=== PATIENT | female | born 1980 | race Caucasian/White ===

== ENCOUNTER 2022-05-26 13:16 | Emergency (ER) | payer OTHER, SELFPAY ==
[2022-05-26 13:40] VITALS: BP 126/82; PULSE 110; RESP 16; TEMP 36.7; O2SAT 100
--- NOTE | 2022-05-26 15:14 | ED.GENADULT ---
HPI - General Adult General Chief complaint: Skin/Abscess/Foreign Body <Ellen De Leon PA-C - Last Filed: 05/26/22 19:07> Stated complaint: rash <SHARAD Jimenes Last Filed: 05/26/22 19:07> Time Seen by Provider: 05/26/22 14:52 <SHARAD Jimenes Last Filed: 05/26/22 19:07> History of Present Illness HPI narrative: 41-year-old female here for evaluation of a rash to her chest and back after taking Bactrim. States that she was given this for presumed impetigo on her face due to an allergy to topical creams. She took her first pill this morning and noted that she had a diffuse erythematous rash across her chest and back that is itchy. She took 2 Benadryl this morning. Denies painful rash or involvement of mucous membranes, throat tightness or trouble breathing. Denies fevers, chills, systemic symptoms. <Ellen De Leon PA-C - Last Filed: 05/26/22 19:07> Related Data Allergies/adverse reactions: Allergies Allergy/AdvReac Type Severity Reaction Status Date / Time acetaminophen Allergy Mild Swelling Verified 05/26/22 13:45 Penicillins Allergy Mild HIVES Verified 05/26/22 13:45 poison faustino extract Allergy Mild RASH Verified 05/26/22 13:45 hydrocortisone Allergy Unknown Unknown Verified 05/26/22 13:45 lanolin Allergy Unknown HIVES Verified 05/26/22 13:45 tramadol AdvReac Unknown Headache Verified 05/26/22 15:25 steroid cremes Allergy Intermediate Hives / Uncoded 05/26/22 13:45 Red Face bug spray Allergy Unknown Unknown Uncoded 05/26/22 13:45 hand joint special operations Allergy Unknown Unknown Uncoded 05/26/22 13:45 <SHARAD Jimenes Last Filed: 05/26/22 19:07> Review of Systems Review of Systems: Gen.: Denies fevers or chills Eyes: Denies eye pain or visual change ENT: Denies congestion Respiratory: Denies shortness of breath or cough CV: Denies chest pain or palpitations GI: Denies abdominal pain nausea, emesis or diarrhea denies burning, urgency, frequency or hematuria Musculoskeletal: Denies back pain or muscle pain Neuro: Denies numbness, tingling, weakness or focal weakness Skin: Reports rash Except as documented, all other systems reviewed and negative <Ellen De Leon PA-C - Last Filed: 05/26/22 19:07> Exam Narrative: APPEARANCE: Well appearing, no pain in distress, well-nourished. Head: Normocephalic and atraumatic. EYES: PERRLA/EOMI, conjunctivae clear NOSE: No nasal drainage EARS: External ear normal in appearance THROAT: Oropharynx is clear. Mucous membranes are moist. NECK: Supple. No adenopathy, no masses. RESPIRATORY: Airway patent, respirations nonlabored. Clear to auscultation bilaterally, no rales, rhonchi, wheezing. CARDIOVASCULAR: Regular rate and rhythm without murmurs, rubs, or gallops. ABDOMINAL: Normoactive bowel sounds. Soft, nontender, nondistended. No rebound tenderness or guarding. MUSCULOSKELETAL: Extremities are warm and well-perfused. Moves all extremities well. No edema. NEURO: Normal speech. No focal neurologic deficits. SKIN: Erythematous morbilliform rash across anterior and posterior thorax extending distally to bilateral forearms. PSYCHIATRIC: Normal affect/mood. <Ellen De Leon PA-C - Last Filed: 05/26/22 19:07> Course ASSEMBLER MUSICAL EQUIPMENT/PA Physician Supervision I did not see this patient nor was the care plan discussed with me. I was available for evaluation and consultation, I agree with the documentation <Saeid Mcclelland MD - Last Filed: 05/26/22 19:19> Vital Signs Vital signs: Vital Signs Temperature 36.7 C 05/26/22 13:40 Pulse Rate 110 H 05/26/22 13:40 Respiratory Rate 16 05/26/22 13:40 Blood Pressure 126/82 05/26/22 13:40 Pulse Oximetry 100 05/26/22 13:40 Oxygen Delivery Room Air 05/26/22 13:40 Temperature 36.7 C 05/26/22 13:40 Pulse Rate 110 H 05/26/22 13:40 Respiratory Rate 16 05/26/22 13:40 Blood Pressure 126/82 05/26/22 13:40 Pulse Oximetry 100 04/29
[2022-05-26] MEDS: FAMOTIDINE 20 MG TABLET 40 MG PO (15:40)
[2022-05-26] MEDS: predniSONE 20 MG TABLET 40 MG PO (15:41)
== END 2022-05-26 17:35 | disposition home or self-care (01) ==
PROVIDERS: Emergency Provider Emergency Medicine; PCP Family Medicine
DX: L27.0 Generalized skin eruption due to drugs and medicaments taken internally (principal); T36.8X5A Adverse effect of other systemic antibiotics, initial encounter
CPT/HCPCS: 99283; A9270; J7512

== ENCOUNTER 2022-09-25 19:52 | Emergency (ER) | payer OTHER, SELFPAY ==
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
[2022-09-25 20:01] VITALS: BP 143/98; PULSE 113; RESP 16; TEMP 36.7; O2SAT 100
== END 2022-09-25 20:06 | disposition home or self-care (01) ==
LOC: EXPCOLL 19:55
PROVIDERS: Emergency Provider Nurse Practitioner Family; PCP Family Medicine
DX: L30.9 Dermatitis, unspecified (principal)
CPT/HCPCS: 99213; G0463

== ENCOUNTER 2022-12-13 00:15 | Emergency (ER) | payer OTHER, SELFPAY ==
--- NOTE | ~2022-12-13 | CT_ITS ---
EXAMINATION: CT abdomen pelvis w con DATE: 12/13/2022 02:56 INDICATION: Lower abdominal pain, nausea and vomiting. This steatosis. TECHNIQUE: Computed tomography (CT) of the abdomen and pelvis was performed with 100 mL Omnipaque-350 intravenous contrast. Automated exposure control and iterative reconstruction technique were employe d. The dose-length product was 1382.65 mGy-cm. COMPARISON: 04/25/2018 FINDINGS: Lung bases are clear. Heart size is normal. No pericardial or pleural effusion. Focal hepatic steatos is at the ligamentum teres. Gallbladder, spleen, bilateral adrenal glands and kidneys are normal. Aga in seen is mild inflammatory stranding along the head of the pancreas and adjacent duodenum. There is relatively homogeneous pancreatic parenchymal enhancement with no abnormal pancreatic ductal dilatio n. No peripancreatic fluid collections. No significant change in a mildly enlarged portacaval lymph n ode measuring 1.4 cm in maximal short axis diameter which is likely reactive. Moderate diverticulosis with descending and sigmoid colon predominance and without adjacent from trace stranding to suggest diverticulitis. No bowel obstruction. Normal appendix. Tiny focus of gas within the otherwise normal- appearing bladder. Uterus and bilateral adnexa are unremarkable. No free intraperitoneal gas or fluid . Small fat-containing umbilical hernia. Mild thoracic and lumbar spondylosis. IMPRESSION: 1. Inflammatory stranding surrounding the head of the pancreas and adjacent duodenum likely represent ing recurrent acute pancreatitis with differential including duodenitis. Correlate with pancreatic en zyme levels. 2. Indeterminate tiny focus of gas within the bladder. Correlate with urinalysis and for recent instr umentation or Irwin catheterization. 3. Diverticulosis. Reviewed, dictated and finalized at location A. K INSPECTING SUPERVISOR IMPRESSION: 1. Inflammatory stranding surrounding the head of the pancreas and adjacent duo denum likely representing recurrent acute pancreatitis with differential includ ing duodenitis. Correlate with pancreatic enzyme levels. 2. Indeterminate tiny focus of gas within the bladder. Correlate with urinalysi s and for recent instrumentation or Irwin catheterization. 3. Diverticulosis.
[2022-12-13 00:23] VITALS: BP 149/106; PULSE 94; RESP 18; TEMP 36.6; O2SAT 99
[2022-12-13] MEDS: ONDANSETRON INJ 4 MG/2 ML VIAL IV PUSH (00:50)
--- NOTE | 2022-12-13 00:50 | ED.NAVMDI ---
HPI - Nausea/Vomiting/Diarrhea General Chief complaint: Nausea/Vomiting/Diarrhea Stated complaint: n/v Time Seen by Provider: 12/13/22 00:30 History of Present Illness HPI Narrative: Patient is a 42-year-old healthy female here for evaluation of nausea and vomiting over the past 3 days. Patient states that she has been unable to tolerate any p.o.. Today she developed a soreness in her abdomen after vomiting. Denies sick contacts. Last meal was [employer] and tuna casserole prior to vomiting. No diarrhea, constipation, fevers, chills, leg swelling, chest pain, shortness of breath, history of abdominal surgeries. Related Data Home Medications Medication Instructions Recorded Confirmed norethindrone 1 mg-ethinyl tablet 09/25/22 estradiol 35 mcg tablet (Nortrel) Allergies Allergy/AdvReac Type Severity Reaction Status Date / Time acetaminophen Allergy Mild Swelling Verified 12/13/22 00:26 Penicillins Allergy Mild HIVES Verified 12/13/22 00:26 poison faustino extract Allergy Mild RASH Verified 12/13/22 00:26 hydrocortisone Allergy Unknown Unknown Verified 12/13/22 00:26 lanolin Allergy Unknown HIVES Verified 12/13/22 00:26 tramadol AdvReac Unknown Headache Verified 12/13/22 00:26 steroid cremes Allergy Intermediate Hives / Uncoded 09/25/22 20:01 Red Face bug spray Allergy Unknown Unknown Uncoded 09/25/22 20:01 hand tray packer Allergy Unknown Unknown Uncoded 09/25/22 20:01 Review of Systems Review of Systems: Gen: Denies fevers or chills Eyes: Denies eye pain or visual change ENT: Denies congestion Respiratory: Denies shortness of breath or cough CV: Denies chest pain or palpitations GI: Reports nausea, vomiting. : denies burning, urgency, frequency or hematuria Musculoskeletal: Denies back pain or muscle pain Neuro: Denies numbness, tingling, weakness or focal weakness Skin: Denies rash Except as documented, all other systems reviewed and negative Exam Narrative: APPEARANCE: Well appearing, no pain in distress, well-nourished. Head: Normocephalic and atraumatic. EYES: PERRLA/EOMI, conjunctivae clear NOSE: No nasal drainage EARS: External ear normal in appearance THROAT: Oropharynx is clear. Mucous membranes are moist. NECK: Supple. No adenopathy, no masses. RESPIRATORY: Airway patent, respirations nonlabored. Clear to auscultation bilaterally, no rales, rhonchi, wheezing. CARDIOVASCULAR: Regular rate and rhythm without murmurs, rubs, or gallops. ABDOMINAL: Normoactive bowel sounds. Soft, nontender, nondistended. No rebound tenderness or guarding. MUSCULOSKELETAL: Extremities are warm and well-perfused. Moves all extremities well. No edema. NEURO: Normal speech. No focal neurologic deficits. SKIN: Skin is warm and dry. No rashes. PSYCHIATRIC: Normal affect/mood. Course Vital Signs Vital signs: Vital Signs Temperature 97.8 F 12/13/22 00:23 Pulse Rate 94 12/13/22 00:23 Respiratory Rate 18 12/13/22 00:23 Blood Pressure 149/106 H 12/13/22 00:23 Pulse Oximetry 99 12/13/22 00:23 Oxygen Delivery Room Air 12/13/22 00:23 Temperature 97.8 F 12/13/22 00:23 Pulse Rate 99 12/13/22 03:55 Respiratory Rate 20 12/13/22 03:55 Blood Pressure 149/106 H 12/13/22 00:23 Pulse Oximetry 98 12/13/22 03:55 Oxygen Delivery Room Air 12/13/22 00:23 MDM - Nausea/Vomiting/Diarrhea MDM Narrative Medical decision making narrative: 42-year-old female here for evaluation of nausea, vomiting, lower abdominal pain over the past 3 days. Patient is nontoxic-appearing and has normal vital signs. She has no abdominal tenderness on exam. UA is unremarkable. Lipase is negative. She does have a white count of 22.0, so imaging was obtained. This shows some inflammation around her pancreas that is consistent with an acute versus chronic pancreatitis picture, patient tells me that she has had pancreatitis in the past and feels nothing like her symptoms today. She is not tender in her epigastric region
[2022-12-13] MEDS: FAMOTIDINE 20 MG/2 ML VIAL IV PUSH (00:51)
[2022-12-13 00:57] LABS: Basophils Absolute Auto 0.1 K/mm3 (0.0-0.1); Basophils Percent Auto 0.5 % (0.2-1.2); Eosinophils Absolute Auto 0.3 K/mm3 (0-0.3); Eosinophils Percent Auto 1.1 % (0-4.4); Hematocrit 42.8 % (37.0-47.0); Hemoglobin 14.4 g/dL (12.0-15.0); Immature Granulocyte Percent A 0.5 % (0-0.5); Lymphocytes Absolute Auto 3.29 K/mm3 (0.9-3.2); Mean Corpuscular HGB Conc 33.6 g/dl (32-36); Mean Corpuscular Hemoglobin 27.9 pg (26-34); Mean Corpuscular Volume 82.9 fl (80-100); Mean Platelet Volume 9.4 fl (7.4-10.4); Monocytes Absolute Auto 1.7 K/mm3 (0.1-0.6); Monocytes Percent Auto 7.7 % (2.6-8.5); Neutrophils Absolute Auto 16.5 K/mm3 (1.3-6.7); Neutrophils Percent Auto 75.2 % (45.5-73.1); Platelet Count Result 445 k/mm3 (150-375); Red Blood Count 5.16 M/mm3 (4.2-5.4); Red Cell Distribution Width 13.5 % (11.5-14.5)
[2022-12-13 01:04] LABS: Alanine Aminotransferase 22 U/L (6-35); Albumin Level 4.3 g/dL (3.5-5.1); Alkaline Phosphatase 100 U/L (38-126); Anion Gap 7 mmol/L (8-16); Aspartate Amino Transferase 22 U/L (14-36); Bilirubin,Total 0.7 mg/dL (0.2-1.3); Blood Urea Nitrogen 5 mg/dL (7-17); Calcium 8.8 mg/dL (8.4-10.2); Carbon Dioxide 25 mmol/L (22-30); Chloride 106 mmol/L (98-107); Estimated CRCL calculation 103 ml/min; Estimated Glomerular Filt Rate > 60; Glucose 120 mg/dL (65-110); Lipase 214 U/L (23-300); Magnesium 2.1 mg/dL (1.6-2.3); Potassium 3.7 mmol/L (3.4-5.0); Sodium 138 mmol/L (137-145)
[2022-12-13] MEDS: LACTATED RINGERS 1,000 ML 999 ML IV CONT (01:35)
[2022-12-13 02:05] LABS: Appearance Urine Clear (Clear); Bacteria Urine Trace /hpf; Bilirubin Urine Negative (Negative); Blood Urine Negative (Negative); Color Urine Yellow (Yellow); Glucose Urine UA Negative (Negative); Ketones Urine 1+ mg/dL (Negative); Leukocyte Esterase Ur Negative LEU/UL (Negative); Mucus Urine Rare /lpf; Nitrate Urine Negative (Negative); Protein Urine Negative (Negative); Squamous Epithelial Cell Urine Occasional /hpf (Few); Urobilinogen Urine 0.2 mg/dL (<2.0); WBC Urine 0-3 /hpf; pH Urine 6.5 (5.0-9.0)
[2022-12-13 02:29] LABS: Add Urine Microscopic? YES
[2022-12-13 03:55] VITALS: PULSE 99; RESP 20; O2SAT 98
== END 2022-12-13 03:59 | disposition home or self-care (01) ==
PROVIDERS: Emergency Provider Physician Assistant; PCP Family Medicine
DX: K52.9 Noninfective gastroenteritis and colitis, unspecified (principal)
CPT/HCPCS: 36415; 74177; 80053; 81001; 81025; 83690; 83735; 85025; 96361; 96374; 96375; 99284; J2405; J7120; Q9967

== ENCOUNTER 2025-02-02 04:16 | Emergency (ER) | payer OTHER, SELFPAY ==
--- OUTSIDE RECORDS SUMMARY | 2025-02-02 04:18 | XMS_ITS | Clinical Summary ---
Author Organization [facility] Address [address] 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 Gender Identity Not on file Sexual Orientation Not on file Plan of Treatment Health Maintenance Due Date Last Done Comments DTAP/TDAP/TD VACCINES (1 - Tdap) 1998 HEPATITIS B VACCINES (1 of 3 - 19+ 3-dose series) 1998 CERVICAL CANCER SCREENING 2009 BREAST CANCER SCREENING 2019 INFLUENZA VACCINE (#1) 2024 COLORECTAL SCREENING 2024 Colorectal Cancer Screening 2024 FIT-DNA Q 3 years 2024 FIT/FOBT Q 1 year 2024 Flex Sig/CT Colonography Q 5 years 2024 HPV VACCINES Aged Out No longer eligi ble based on patient's age to complete this topic PNEUMOCOCCAL VACCINE 0-49 YEARS Aged Out No longer eligible based on patient's age to complete this topic
--- OUTSIDE RECORDS SUMMARY | 2025-02-02 04:18 | XMS_ITS | Clinical Summary ---
Author Organization [facility] Address [address] [place] [address] Care Team Providers Care Measurement Coordinator Name Role Phone Cehlsie Bass JAY-ALGEBRA TUTOR Primary Care Provider Source Comments [facility],non-owned Affiliates and Associated Physician Practices is amultiple site organization consisting of ambulatory clinics and hospital sitesin [place], [place], [place] and [place]. This disclosure is being madepursuant to the Care Everywhere program and may not contain all information available regarding this patient. Last updated 18.[facility] Allergies Active Allergy Reactions Criticality Noted Date Comments Acetaminophen Anaphylaxis,Shortnes s of Breath,Swelling High 1979 Adhesive Sensitivity Rash Medium 12/23/2017 Alcohol Rash Medium 12/01/2023 Corticosteroids Rash Medium 12/23/2017 Steroid cream-able to take other oral steroids Albumin Anaphylaxis High 12/01/2023 Extract Of Poison Juliana Rash Medium 12/23/2017 Isopropyl Alcohol Urticaria,Itching,Ra sh Medium 07/12/2012 Lanolin Rash Medium 12/23/2017 Mosquito (Diagnostic) Swelling 12/01/2023 Penicillins Urticaria Medium 05/08/2008 Sulfamethoxazole W-Trimethoprim Rash Medium 12/01/2023 Medications * Be aware that medications may not be up to date on this document. Alwaysverify current medications with the patient. Medication Sig Dispensed Refills Start Date End Date Status Nortrel 1/35, 28, 1-35 MG-MCG tablet Take 1 (one) tablet by mouth once daily 09/15/2023 Active cetirizine (ZyrTEC Allergy) 10 MG gel capsule Active Cinnamon 500 MG Active Cranberry 400 MG CAPS Act kirsten magnesium oxide (Mag-Ox) 400 MG tablet Take 1 (one) tablet by mouth once daily Active Multiple Minerals-Vitamins (Bone Essentials) CAPS Ac tive POTASSIUM PO Take 1 tablet by mouth once daily Active vitamin E (Tocopheryl) 400 UNIT capsule Take 1 (one) capsule by mouth once daily Active vitamin D3 (Cholecalciferol) 25 MCG (1000 UNITS) tablet Take 1 (one) tablet by mouth once daily Active Active Problems Problem Noted Date Diagnosed Date Thyroid nodule 01/10/2024 Multinodular thyroid 01/10/2024 Sensorineural hearing loss ( SNHL) of right ear with unrestricted hearing of left ear 09/17/2021 01/10/2024 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 Encounters Date Type Department Care Team Description 01/04/2025 Orders Only [facility] - Endocrinology [facility] [facility], [place] [id number] Beny Morocho MD Thyroid nodule; Multinodular thyroid from Last 3 Months Family History Medical History Relation Name Comments CAD (Coronary Artery Disease) Father Diabetes - Type 2 Father Hypertension Father Renal Disease Neg Hx Thyroid Disease Neg Hx Relation Name Status Comments Father Social History Tobacco Use Types Packs/Day Years Used Date Smoking Tobacco: Never Smokeless Tobacco: Never Alcohol Use Standard Drinks/Week Comments Yes 0 (1 standard drink = 0.6 oz pur e alcohol) rarely Sex and Gender Information Value Date Recorded Sex Assigned at Female 12/05/2023 10:50 AM PATIENT ADMITTING CLERK Gender Identity Female 12/05/2023 10:50 AM PATIENT ADMITTING CLERK Sexual Orientation Straight 12/05/2023 10 :50 AM PATIENT ADMITTING CLERK Last Filed Vital Signs Vital Sign Reading Time Taken Comments Blood Pressure 121/92 01/10/2024 2:30 PM PATIENT ADMITTING CLERK Pulse 115 01/10/2024 2:30 PM PATIENT ADMITTING CLERK Temperature 36.2 C (97.2 F) 12/01/2023 10:06 AM PATIENT ADMITTING CLERK Respiratory Rate 20 12/01/2023 10:06 AM PATIENT ADMITTING CLERK Oxygen Saturation 97% 01/10/2024 2:30 PM PATIENT ADMITTING CLERK Inhaled Oxygen Concentration - - Weight 113.4 kg (250 lb) 01/10/2024 2:30 PM PATIENT ADMITTING CLERK Height 160 cm (5' 3 ) 01/10/2024 2:30 PM PATIENT ADMITTING CLERK Body Mass Index 44.29 01/10/2024 2:30 PM PATIENT ADMITTING CLERK Plan of Treatment Health Maintenance Due Date Last Done Comments COLOGUARD (AGES 45-75) - COL ON CA SCREENING 1979 COLON MONITORING 1979 COLONOSCOPY - COLON CA SCREENING 1979 CT COLONOGRAPHY - COLON CA SCREENING 1979 Colorectal Cancer Screening 1979 FIT - COLON CA SCREENING 1979 FLEX SIG - COLON CA SCREENING 1979 LIPID TESTING 1979 MAMMOGRAM 1979 PAP SMEAR 1979 HIV SCREENING 1994 HEPATITIS C SCREENING 09/06/1997 DTAP/TDAP/TD VACCINES (1 - Tdap) 1998 HEPATITIS B VACCINE (1 of 3 - 19+ 3-dose series) 1998 SCREENING FOR DIABETES 12/01/2023 COVID-19 VACCINE (4 - 2023-2 5 season) 2024 12/04/2021, 05/17/2021, 04/25/2021 INFLUENZA VACCINE (#1) 2024 07/30/2014 DEPRESSION SCREENING 11/28/2024 ZOSTER VACCINE (1 of 2) 2029 HIB VACCINE Aged Out No longer eligi ble based on patient's age to complete this topic HPV VACCINE Aged Out No longer eligi ble based on patient's age to complete this topic MENINGOCOCCAL (Group B) VACCINE Aged Out No longer eligible b ased on patient's age to complete this topic MENINGOCOCCAL VACCINE Aged Out No bianca artie eligible based on patient's age to complete this topic PNEUMOCOCCAL VACCINE Aged Out No long er eligible based on patient's age to complete this topic Care Teams Measurement Coordinator Relationship Specialty Start Date End Date Chelsie Bass APRN-ALGEBRA TUTOR [address] [place] [phone] PCP - General Nurse Practitioner Family 12/01/23
--- OUTSIDE RECORDS SUMMARY | 2025-02-02 04:18 | XMS_ITS | Patient Health Summary ---
Author Organization [facility] Address [address] [place] [address] Care Team Providers Care Financial Aid Coordinator Name Role Phone NikosChelsie coon JAY-FIELD COLLECTOR Primary Care Provider Note from [facility],non-owned Affiliates and Associated Physician Practices is amultiple site organization consisting of ambulatory clinics and hospital sitesin [place], [place], [place] and [place]. This disclosure is being madepursuant to the Care Everywhere program and may not contain all information available regarding this patient. Last updated 18.[facility] Allergies * Acetaminophen(Anaphylaxis,Shortness of Breath,Swelling) -High Criticality * Adhesive Sensitivity(Rash) -Medium Criticality * Alcohol(Rash) -Medium Criticality * Corticosteroids(Rash) -Medium Criticality * Albumin(Anaphylaxis) -High Criticality * Extract Of Poison Juliana(Rash) -Medium Criticality * Isopropyl Alcohol(Urticaria,Itching,Rash) -Medium Criticality * Lanolin(Rash) -Medium Criticality * Mosquito (Diagnostic)(Swelling) * Penicillins(Urticaria) -Medium Criticality * Sulfamethoxazole W-Trimethoprim(Rash) -Medium Criticality Medications * Be aware that medications may not be up to date on this document. Alwaysverify current medications with the patient. * Nortrel 1/35, 28, 1-35 MG-MCG tablet(Started 09/15/2023) Take 1 (one) tablet by mouth once daily * cetirizine (ZyrTEC Allergy) 10 MG gel capsule * Cinnamon 500 MG * Cranberry 400 MG CAPS * magnesium oxide (Mag-Ox) 400 MG tablet Take 1 (one) tablet by mouth once daily * Multiple Minerals-Vitamins (Bone Essentials) CAPS * POTASSIUM PO Take 1 tablet by mouth once daily * vitamin E (Tocopheryl) 400 UNIT capsule Take 1 (one) capsule by mouth once daily * vitamin D3 (Cholecalciferol) 25 MCG (1000 UNITS) tablet Take 1 (one) tablet by mouth once daily Active Problems Problem Noted Date Diagnosed Date Thyroid nodule 01/10/2024 Multinodular thyroid 01/10/2024 Sensorineural hearing loss ( SNHL) of right ear with unrestricted hearing of left ear 09/17/2021 01/10/2024 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 Social History Tobacco Use Types Packs/Day Years Used Date Smoking Tobacco: Never Smokeless Tobacco: Never Alcohol Use Standard Drinks/Week Comments Yes 0 (1 standard drink = 0.6 oz pur e alcohol) rarely Sex and Gender Information Value Date Recorded Sex Assigned at Female 12/05/2023 10:50 AM GOLF CADDY Gender Identity Female 12/05/2023 10:50 AM GOLF CADDY Sexual Orientation Straight 12/05/2023 10 :50 AM GOLF CADDY Last Filed Vital Signs Vital Sign Reading Time Taken Comments Blood Pressure 121/92 01/10/2024 2:30 PM GOLF CADDY Pulse 115 01/10/2024 2:30 PM GOLF CADDY Temperature 36.2 C (97.2 F) 12/01/2023 10:06 AM GOLF CADDY Respiratory Rate 20 12/01/2023 10:06 AM GOLF CADDY Oxygen Saturation 97% 01/10/2024 2:30 PM GOLF CADDY Inhaled Oxygen Concentration - - Weight 113.4 kg (250 lb) 01/10/2024 2:30 PM GOLF CADDY Height 160 cm (5' 3 ) 01/10/2024 2:30 PM GOLF CADDY Body Mass Index 44.29 01/10/2024 2:30 PM GOLF CADDY Procedures * VT US SOFT TISS HEAD&NCK R-T IMG(Performed 01/10/2024) Performed for Thyroid nodule, Multinodular thyroid Results * VT US SOFT TISS HEAD&NCK R-T IMG (01/10/2024 3:30 PM GOLF CADDY) Narrative Beny Morocho MD - 01/10/2024 3:30 PM GOLF CADDY Beny Morocho MD 01/10/2024 4:10 PM Ultrasound Of Thyroid Ultrasound of the Thyroid PHYSICIAN Beny Morocho MD FELLOW NONE Test Date: 01/10/2024 Test Indication: Patient Active Problem List: Sensorineural hearing loss (SNHL) of right ear with unrestricted hearing of left ear Tympanosclerosis of right ear Thyroid nodule Multinodular thyroid Referring Physician: Dr. Chelsie Bass APRN-JHON CLEMENTS MD Procedure Preformed: Ultrasound Only Nodule Size: RIGHT LOBE TRANSVERSE IMAGE : ANECHOIC CYST, MID TO INFERIOR POLE, LOBULATED BORDER, NON VASCULAR , 0.82 X 0.56 CM LONGITUDINAL IMAGE : 0.54 X 0.50 CM LEFT LOBE TRANSVERSE IMAGE : MID LOBE, SOLID, ISO TO SLIGHTLY HYPOECHOIC, HALO, SMOOTH BORDER, HETEROGENEOUS, 0.93 X 0.61 CM, SECOND IMAGE 0.76 X 0.65 CM, THIRD IMAGE 0.82 X 0.67 CM LONGITUDINAL IMAGE: MEASURED TWO IMAGES : 1.21 X 0.65 CM, SECOND IMAGE 1.29 X 0.63 CM Echogenicity: HETEROGENEOUS ECHO TEXTURE TO BOTH LOBES Vascularity: NOT INCREASED OR ABNORMAL , BUT IN H JUAN LUIS OF LEFT LOBE NODULE Number of Nodules Present: TWO Calcifications: NONE Borders: SHARP RIGHT LOBE TRANSVERSE IMAGE : 1.29 X 0.76 CM LONGITUDINAL IMAGE: MEASURED THREE IMAGES: 2.97 X 0.88 CM, 3.47 X 0.84 CM, AND 3.42 X 0.80 CM ISTHMUS: 0.30 CM LEFT LOBE TRANSVERSE IMAGE :1.35 X 0.85 CM LONGITUDINAL IMAGE : 2.77 X 0.78 CM, SECOND IMAGE 2.85 X 0.83 CM Recommendations: PLAN THYROID ULTRASOUND TODAY LAB SOON FOR TSH LAB BEFORE NEXT VISIT FOR TSH IF TSH NORMAL THEN ANNUAL TSH DETERMINATION IS REASONABLE IF TSH GREATER THAN 5 WILL ORDER FREE T4 IF TSH LESS THAN 0.1 WILL ORDER FREE T4 AND FREE T3 AND TSI MEDICATION -NONE INDICATED FOR THYROID RETURN IN SIX MONTHS FOR FOLLOW UP ULTRASOUND Beny Morocho MD Division of Endocrinology Beny Morocho MD PROCEDURE/MINOR ASUNCION GICAL ORDERABLES Care Teams Financial Aid Coordinator Relationship Specialty Start Date End Date Chelsie Bass APRN-CNP [address] [place], [place] [id number] PCP - General Nurse Practitioner Family 12/01/23
--- OUTSIDE RECORDS SUMMARY | 2025-02-02 04:18 | XMS_ITS | Encounter Summary ---
Author Organization [facility] Address [address] [place] [address] Care Team Providers Care Rolloff Driver Name Role Phone Unavailable Primary Care Provider Unavailabl e Encounter Details Date Type Department Care Team (Late st Contact Info) Description 09/24/2008 Outpatient Historical [facility] Albert Mata MD [address] [id number] Unspecified Hearing Loss; Conductive Hearing Loss, Unilateral; Unspecified Disorder of Middle Ear and Mastoid Social History Tobacco Use Types Packs/Day Years Used Date Smoking Tobacco: Never Assessed Comments Unknown Sex and Gender Information Value Date Recorded Sex Assigned at Not on file Legal Sex Female 5:39 AM MANAGER PHILOSOPHY Gender Identity Not on file Sexual Orientation Not on file documented as of this encounter Plan of Treatment Not on file documented as of this encounter Visit Diagnoses Diagnosis Unspecified hearing loss Conductive hearing loss, unilateral Unspecified disorder of middle ear and mastoid documented in this encounter
--- OUTSIDE RECORDS SUMMARY | 2025-02-02 04:18 | XMS_ITS | Referral Summary ---
Author Organization [facility] Address [address] [place] [address] Care Team Providers Care Bank Boss Name Role Phone Chelsie Bass JAY-CAR USHER Primary Care Provider Source Comments [facility],non-owned Affiliates and Associated Physician Practices is amultiple site organization consisting of ambulatory clinics and hospital sitesin [place], [place], [place] and [place]. This disclosure is being madepursuant to the Care Everywhere program and may not contain all information available regarding this patient. Last updated 18.[facility] Encounters Date Type Department Care Team Description 01/04/2025 Orders Only [facility] - Endocrinology [facility] [facility] [place] [address] Beny Morocho MD Thyroid nodule; Multinodular thyroid from Last 3 Months Allergies Active Allergy Reactions Criticality Noted Date [...] Refills Start Date End Date Status Nortrel 35, 28, 1-35 MG-MCG tablet Take 1 (one) [...] Sex Assigned at Female 12/05/2023 10:50 AM ASSISTANT SALES DIRECTOR Gender Identity Female 12/05/2023 10:50 AM ASSISTANT SALES DIRECTOR Sexual Orientation Straight 12/05/2023 10 :50 AM ASSISTANT SALES DIRECTOR Last Filed Vital Signs Vital Sign Reading Time Taken Comments Blood Pressure 121/92 01/10/2024 2:30 PM ASSISTANT SALES DIRECTOR Pulse 115 01/10/2024 2:30 PM ASSISTANT SALES DIRECTOR Temperature 36.2 C (97.2 F) 12/01/2023 10:06 AM ASSISTANT SALES DIRECTOR Respiratory Rate 20 12/01/2023 10:06 AM ASSISTANT SALES DIRECTOR Oxygen Saturation 97% 01/10/2024 2:30 PM ASSISTANT SALES DIRECTOR Inhaled Oxygen Concentration - - Weight 113.4 kg (250 lb) 01/10/2024 2:30 PM ASSISTANT SALES DIRECTOR Height 160 cm (5' 3 ) 01/10/2024 2:30 PM ASSISTANT SALES DIRECTOR Body Mass Index 44.29 01/10/2024 2:30 PM ASSISTANT SALES DIRECTOR Plan of Treatment Not on file Care Teams Bank Boss Relationship Specialty Start Date End Date Chelsie Bass APRN-CAR USHER [address] [place] [address] [address] [place] [address] PCP - General Nurse Practitioner Family 12/01/23
--- OUTSIDE RECORDS SUMMARY | 2025-02-02 04:18 | XMS_ITS | Data Portability ---
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 46661 9 RxNorm Not Available Not Available Not Available 089066 egg extract food,medi cation respirato ry distress Not available Not available 09/15/2023 07382 15 RxNorm Not Available Not Available Not Available 94326 lanolin environme nt,medica tion hives Not available Not available 01/15/2015 6227 RxNorm Not Available Not Available Not Available 00580 Product containin g penicilli n (product) medicatio n hives Not available Not available 01/15/2015 02748 8001 SNOMED Not Available Not Available Not Available 50124 Tylenol medicatio n respirato ry distress Not available Not available 01/15/2015 93726 3 RxNorm Not Available Not Available Not Available 32357 poison faustino extract environme nt rash Not available Not available 01/15/2015 71316 6 RxNorm Not Available Not Available Not Available 08623 Ultram medicatio n headache Not available Not available 08/01/2015 34627 6 RxNorm Not Available Not Available Not Available 25524 nitrofura ntoin medicatio n rash Not available Not available 06/28/2016 7454 RxNorm Not Available Not Available Not Available Medications Name Sig Start Date Stop Date Status Note LastModified by Organization Details LastModified Time hydrocodo ne 7.5 mg-ibupro fen 200 mg tablet 07/26 completed Not Available Not Available Not Available prednison e 10 mg tablet 09/09 completed Not Available Not Available Not Available doxycycli ne hyclate 100 mg capsule TAKE 1 CAPSULE BY MOUTH TWICE DAILY 08/16 completed Not Available Not Available Not Available clindamyc in HCl 300 mg capsule TAKE 1 CAPSULE BY MOUTH EVERY 8 HOURS FOR 10 DAYS 09/15 completed Not Available Not Available Not Available cetirizin e 10 mg tablet Take 1 tablet every day by oral route. 07/26 completed Not Available Not Available Not Available azithromy octavio 250 mg tablet TAKE 2 TABLETS BY MOUTH FOR 1 DAY THEN TAKE 1 TABLET BY MOUTH DAILY FOR 4 DAYS DIRECTED 09/09 completed Not Available Not Available Not Available ibuprofen 800 mg tablet 07/26 completed Not Available Not Available Not Available Lidocaine Viscous 2 % mucosal solution Take 15 mL every 4-6 hours by oral route as needed. 07/26 completed Not Available Not Available Not Available fluconazo le 150 mg tablet TAKE 1 TABLET BY MOUTH 1 TIME FOR 1 DAY. DO NOT TAKE WITH CIPRO 05/03 completed Not Available Not Available Not Available sumatript an 25 mg tablet Take 1 tablet by mouth at onset of headache . May repeat dose after 2 hours if needed. No more than 2 tabs in 24 hours. 07/26 completed Not Available Not Available Not Available Elidel 1 % topical cream 06/28 completed Not Available Not Available Not Available prednison e 20 mg tablet TAKE 3 TABLETS BY MOUTH EVERY DAY FOR 5 DAYS 05/03 completed Not Available Not Available Not Available clindamyc in HCl 150 mg capsule 07/26 completed Not Available Not Available Not Available sumatript an 50 mg tablet 08/05 completed Not Available Not Available Not Available ciproflox acin 500 mg tablet active Not Available Not Available No t Available sulfameth oxazole 800 mg-trimet hoprim 160 mg tablet Take 1 tablet every 12 hours by oral route for 7 days. 05/27 completed allergic reaction Not Available Not Available Not Available ofloxacin 0.3 % ear drops INSTILL 10 DROPS IN THE RIGHT EAR ONCE DAILY FOR 10 DAYS 08/16 completed Not Available Not Available Not Available Nortrel 135 (28) 1 mg-35 mcg tablet TAKE 1 TABLET BY MOUTH DAILY 2023 active Not Available Not Available Not Avai lable antipyrin e-benzoca ine 5.4 %-1.4 % ear drops 06/28 completed Not Available Not Available Not Available meclizine 25 mg tablet TAKE 1 TABLET BY MOUTH EVERY 8 HOURS NEEDED 09/09 completed Not Available Not Available Not Available phenazopy ridine 100 mg tablet TAKE 2 TABLETS BY MOUTH THREE TIMES DAILY WITH FOOD FOR 2 DAYS 09/15 completed Not Available Not Available Not Available triamcino lone acetonide 40 mg/mL suspensio n for injection Take 40 mg by injectio n route. 09/15 completed NORIS Lamb Not Available Not Available Not Available naproxen sodium 550 mg tablet 07/26 completed Not Available Not Available Not Available prednison e 50 mg tablet Take 1 tablet every day by oral route for 5 days. active Not Available Not Available No t Available hydroxyzi ne HCl 25 mg tablet TAKE 1 TABLET BY MOUTH EVERY 6 HOURS NEEDED 09/09 completed Not Available Not Available Not Available mupirocin 2 % topical ointment 06/28 completed Not Available Not Available Not Available ibuprofen 600 mg tablet 08/05 completed Not Available Not Available Not Available Pepcid 20 mg tablet Take 1 tablet twice a day by oral route. 09/15 completed Not Available Not Available Not Available methylpre dnisolone 4 mg tablets in a dose pack FOLLOW PACKAGE DIRECTIO NS 09/15 completed Not Available Not Available Not Available ondansetr on 4 mg disintegr ating tablet DISSOLVE 1 TABLET ON THE TONGUE EVERY 8 HOURS NEEDED FOR NAUSEA OR VOMITING 09/15 completed Not Available Not Available Not Available fluticaso ne propionat e 50 mcg/actua tion nasal spray,jose angel pension SHAKE LIQUID AND USE 2 SPRAYS IN EACH NOSTRIL EVERY DAY NEEDED 09/09 completed Not Available Not Available Not Available doxycycli ne hyclate 100 mg tablet TAKE 1 TABLET BY MOUTH DAILY 09/04 completed Not Available Not Available Not Available tobramyci n 0.3 %-dexamet hasone 0.1 % eye drops,jose angel pension 07/26 completed Not Available Not Available Not Available nitrofura ntoin monohydra te/macroc rystals 100 mg capsule 07/26 completed Not Available Not Available Not Available cinnamon bark 500 mg capsule medicati on:Cinna mon 500 mg cap dose :0.0 route:P O freque ncy: 05/03 completed Not Available Not Available Not Available Xyzal 5 mg tablet Take 1 tablet every day by oral route. 04/29 completed Not Available Not Available Not Available Vitals Date Recorded Body height Body mass index (BMI) Body weight Body temperature Heart rate Oxygen saturation Oxygen saturation in Arterial blood by Pulse oximetry Systolic blood pressure Diastolic blood pressure Provider Name and Address Organization Details Last Updated DateTime 2 158.75 cm 42.6 kg/m2 857150. 6 g 97.8 [degF] 132 /min 98 % 98 % 108 mm[Hg] 68 mm[Hg] Collette Hernandez [place] [facility] 2 10:43:17 Date Recorded Body height Body mass index (BMI) Body weight Body temperature Heart rate Oxygen saturation Oxygen saturation in Arterial blood by Pulse oximetry Systolic blood pressure Diastolic blood pressure Provider Name and Address Organization Details Last Updated DateTime 2 158.75 cm 43 kg/m2 355293. 58 g 97.1 [degF] 123 /min 98 % 98 % 118 mm[Hg] 84 mm[Hg] Traic Stephens RN [facility] 2 15:28:59 Date Recorded Body height Body mass index (BMI) Body weight Body temperature Heart rate Oxygen saturation Oxygen saturation in Arterial blood by Pulse oximetry Systolic blood pressure Diastolic blood pressure Provider Name and Address Organization Details Last Updated DateTime 3 158.75 cm 44.1 kg/m2 058115. 13 g 98 [degF] 116 /min 99 % 99 % 135 mm[Hg] 105 mm[Hg] Leeann Coats MA [facility] 3 16:07:38 Date Recorded Body height Body mass index (BMI) Body weight Body temperature Heart rate Systolic blood pressure Diastolic blood pressure Provider Name and Address Organization Details Last Updated DateTime 3 158.75 cm 43.9 kg/m2 308386. 54 g 97.1 [degF] 103 /min 135 mm[Hg] 92 mm[Hg] Tanna Luna MA [facility] 3 09:16:15 Date Recorded Systolic blood pressure Diastolic blood pressure Provider Name and Address Organization Details Last Updated DateTime 09/15/2023 130 mm[Hg] 96 mm[Hg] RAYSHAWN Garcia Attn: Accounting,[address] [place], [address], [facility] 09/15/2023 09:33:54 Date Recorded Body height Body mass index (BMI) Body weight Body temperature Heart rate Systolic blood pressure Diastolic blood pressure Provider Name and Address Organization Details Last Updated DateTime 4 158.75 cm 45.5 kg/m2 431287. 87 g 97.8 [degF] 102 /min 140 mm[Hg] 88 mm[Hg] Tanna Luna MA [facility] 4 09:08:07 Date Recorded Systolic blood pressure Diastolic blood pressure Provider Name and Address Organization Details Last Updated DateTime 09/03/2024 132 mm[Hg] 82 mm[Hg] RAYSHAWN Garcia Attn: Accounting,[address] [place], [address], [facility] 09/03/2024 09:23:25 Social History Question Answer Notes LastModified by Organizat ion Details LastModified Time Tobacco Smoking Status Never Smoker Tanna Luna MA null, [facility] 01/15/2015 12:13:30 What Is Your Level Of Alcohol Consumption? Occasional nluttrull Information not available 01/15/2015 What Was The Date Of Your Most Recent Tobacco Screening? 09/09/2024 Information not available 09/03/2024 Do You Or Have You Ever Used Any Other Forms Of Tobacco Or Nicotine? No Information not available 09/03/2024 Sex: Unknown Functional Status None recorded. Mental Status None recorded. Family History Relationship Description Onset Age of this Age Resolved Age Notes LastModified by Organization Details LastModified Time [facility]br [email or web address] Not available 06/28 11:44:23 Father [facility] Not available 06/28 11:44:23 Father [facility] disease [facility] Not available 06/28 11:44:23 Father Mesothelioma (malignant, clinical disorder) [place] [id number] Not available 06/28 11:44:23 Medical History No medical history recorded. Gynecological HistoryNo gynecological history recorded. Obstetrics History GPAL:G 0 P 0 0 0 0 Immunizations Vaccine Type Date Status Note Provider Nam e and Address Organization Details Recorded Time COVID-19, mRNA, LNP-S, PF, 30 mcg/0.3 mL dose 1 completed Not Available [facility] 07/18/2023 23:29:55 Influenza, split virus, trivalent, preservative 4 completed Not Available [facility] 07/18/2023 23:29:55 Tdap 3 completed Not Available [facility] 07/18/2023 23:29:55 COVID-19, mRNA, LNP-S, PF, 30 mcg/0.3 mL dose 1 completed Not Available [facility] 07/18/2023 23:29:55 COVID-19, mRNA, LNP-S, PF, 30 mcg/0.3 mL dose 2 completed Not Available [facility] 07/18/2023 23:29:55 Tdap 7 completed Not Available [facility] 12/15/2019 02:34:51 Past Encounters Encounter ID Performer Location Encounter Start Date Encounter Closed Date Diagnosis/Indication Diagnosis SNOMED-CT Code Diagnosis ICD10 Code Diagnosis Note [id number] [facility] [address] [place] [address] 01/15/2015 11:49:48 01/15/2015 13:52:37 Eruption 058919203 Will try po steroid burst, as patient is allergy to hydrocorti sone cream and PCN-based creams, will also place a referral to Derm, persistent rash, 3 cm, raised, irregular borders, increasing in size since beginning of the year [id number] [place] [facility] [address] [place] [address] 08/01/2015 11:29:17 08/01/2015 12:28:13 Adult health examination 256551611 Ms. Garcia is here for her annual physical, her pap smear is up to date. her Pap smear in 2012 was negative for HPV Uses contraception 62380638 Refill OCP, no major concerns. Eruption 895008025 Resol janneth, seen by Derm Environmental allergy 091549416 Ms. Garcia would like allergy opinion regarding environmen veronica allergy [id number] Cody Jackson [facility]) [address] [place] [address] 11/12/2015 11:50:42 11/12/2015 12:32:57 Anterior knee pain 200093915 M25.569 Mrs. Garcia 35 yo woman with right medial knee pain x 2 weeks, feels the knee is locking, popping, and unstable. PT referral, and steriod injection, please see procedure note for full details [id number] RAYSHAWN Gacria [facility] [facility] [address] [place] [address] 06/28/2016 11:20:39 06/29/2016 10:31:23 Candidiasis of vagina 40857248 B37.3 Can not use OTC therapy due to lanolin as inactive ingredient and allergy, will give fluconazol e. Adult heal th examination 512014037 Z00.00 BP & HR elevated 2/2 to pain. Should monitor BP at home, goal less than 140/90. Painful mouth 257569352 K13.79 2/2 to dentation [id number] RAYSHAWN Garcia [facility] [address] [place] [address] 05/20/2017 10:19:26 06/01/2017 10:18:19 Adult health examination 595136328 Z00.00 Due for labs. Discussed healthy diet and exercise, which she reports that she is working on. Negative depression screening. Contraception care 31814 5005 Z30.40 Needs refills. If BP remains elevated will need to switch methods. Increased blood pressure 01030224 R03.0 Discussed multiple elevated BP at office visits. She refused to be started on medication s due to her normal blood pressures when she checks at home. Will send for labs. Encouraged to bring in home cuff to check in office for correlatio n. Headache 69519655 R51 Discussed headaches. Will trial low dose sumatripta n with next headache. RTC if no improvemen t. Screening for malignant neoplasm of cervix 820709908 Z12.4 [id number] Blanka Garcia MA [place] [facility] [address] [place] [address] 10/28/2017 10:30:53 10/28/2017 12:50:10 Active or passive immunization 624249565 Z23 [id number] RAYSHAWN Garcia [facility] [address] [place] [address] 07/26/2018 09:18:33 07/27/2018 13:24:21 Gynecologic examination 41465372 Z01.419 -Pap collected and sent-Discu ssed nutrition and exercise-N egative depression screening Contraception care 98749 5005 Z30.40 -Wishes to continue current OCP Body mass index 30+ - obesity 349529750 Z68.39 -Labs as ordered-En couraged more physical activity. [id number] RAYSHAWN Garcia [facility]) [address] [place] [address] 07/25/2019 09:02:41 07/26/2019 14:20:01 Gynecologic examination 61110047 Z01.419 -Pap collected and sent-Discu ssed nutrition and exercise-N egative depression screening Obesity 263430643 E66.9 -check labs [id number] RAYSHAWN [facility]) [address] [place] [address] 08/05/2020 11:33:53 08/06/2020 10:52:52 Adult health examination 273985320 Z00.00 -due for PAP in Sep (had colpo last Sep)-due for mammogram -neg depression screening Obesity 461027474 E66.9 -check labs-has been working on diet and exercise at home Screening mammography 24 890040 Z12.31 [id number] RAYSHAWN [facility]) [address] [place] [address] 10/07/2020 09:01:56 10/09/2020 15:00:52 Gynecologic examination 91437477 Z01.419 -Pap collected and sent-Discu ssed nutrition and exercise-N egative depression screening Contraception care 40797 500 Z30.40 -Wishes to continue current OCP [id number] RAYSHAWN [facility]) [address] [place] [address] 09/02/2021 09:03:59 09/02/2021 14:28:19 Otalgia 09613225 H92.01 -refer to ENT, suspect perforatio n is from [facility] to cover for infection- cont flonase Gynecologi c examination 27175948 Z01.419 -Pap collected and sent-discu ssed starting mammograms , declined at this time-Discu ssed nutrition and exercise-N egative depression screening Morbid obesity 947591406 E66.01 -check labs for co-morbidi ties [id number] RAYSHAWN [facility]) [address] [place] [address] 05/26/2022 10:30:46 05/27/2022 10:25:48 Impetigo 24343051 L01.00 -does not want mupirocin due to lanolin allergy-tr eat with bactrim-go od handwashin g and try not to scratch area-f/u if no improvemen t Morbid obesity 478746908 E66.01 Allergic r eaction to adhesive 990413854 T78.49XD -refer to allergy Allergic r eaction to drug 900739999 T78.49XD [id number] RAYSHAWN Garcia [facility]) [address] [place] [address] 09/09/2022 15:20:33 09/27/2022 12:43:09 Contraception care 696126369 Z30.40 -Wishes to continue current OCP Adult [facility] examination 340463129 Z00.00 -PAP due 08/2024-du e for mammogram- normal BP-neg depression screening Morbid obesity 757639978 E66.01 -check labs-revie wed nutrition and exercise Serum thyr oid stimulating hormone level outside reference range 039577196 R79.89 -recheck labs [id number] MARYA [facility]) [address] [place] [address] 04/29/2023 15:52:07 05/11/2023 14:11:20 Contact with [employer] faustino 629344848 X58.XXXA kenalog 40 mg IM once per MA per vofu w/ PCP as neededrepo rt to ED if s/s worsen or experience CP, SOB, LARKIN or mg benadryl po nightly for the next 3-7 nights to aid in riding of rashif rash lacks improvemen t in the next 24-48h, follow w/ po steroid dose packcontag iousness discussed Environmental allergy 42 7151278 T78.49XA referral pendingfu as neededcont inue zyrtec and pepcid in the mean time [id number] RAYSHAWN [facility]) [address] [place] [address] 09/15/2023 08:59:45 09/22/2023 15:23:06 Goiter 3955062 E04.9 -send for US, check labs Decreased hearing 817228 001 H90.11 -needs ENT referral Obesity 259510034 E66.9 -check labs-has been working on diet and exercise at home Contraception care 35735 5005 Z30.40 -Wishes to continue current OCP Adult [facility] examination 674173301 Z00.00 -PAP due 08/2024-du e for mammogram- normal BP-neg depression screening [id number] RAYSHAWN Garcia [facility]) [address] [place] [address] 09/03/2024 08:59:17 10/01/2024 09:32:46 Screening for malignant neoplasm of cervix 568627711 Z12.4 -pap collected and sent-perfo james monthly self breast exams, declined mammogram Mammogram declined 52060 5004 Z53.20 Hyperlipidemia 53091054 E78.5 -diet controlled -check labs Hyperglycemia 97740730 R 73.9 -diet controlled -check labs Obesity 201344185 E66.9 -check labs-has been working on diet and exercise at home Health Concerns Section Related Observation LastModified by Organization Detai ls LastModified Time None Recorded Concern Status LastModified by Organization Details LastModified Time None Recorded Advance Directives Directive None Recorded Payers Encounter Date Sequence Insurance Name Policy Number Policy Joseph Covered Member ID Joseph Member ID Guarantor Name 05/26/2022 1 [facility] [id number] Crys Garcia [id number] Torsten Garcia 09/09/2022 1 [facility] [id number] Crys Garcia [id number] Torsten Garcia 04/29/2023 1 *SELF PAY* Jadiel Garcia 09/15/2023 1 [place] [id number] Torsten Garcia [id number] Torsten Garcia 09/03/2024 1 [place] [id number] Torsten Garcia [id number] Torsten Garcia Notes Date Note Type Note Provider Name and Address Organization Details Recorded Time 05/26/2022 text/html Phyllis is here wi th complaints of rash to the right face. She reports yellow crusting in rash. Worse with use of face mask. She did have a bite in the area of the rash and now it is getting larger. She is concerned since she has so many allergies to medications, adhesive and lanolin and would like to see an crime prevention police officer for testing. No shortness of breath or trouble swallowing. RAYSHAWN Garcia Attn: Accounting,[address] [facility], [place], [address], [facility] 05/27/2022 08:04:06 09/09/2022 text/html Here today for a check-up. She has no concerns today RAYSHAWN Garcia Attn: Accounting,[address] [facility], [place], [address], [facility] 09/27/2022 09:45:36 04/29/2023 text/html Pt w/a history o f chronic seasonal and environmental allergies presents to clinic requesting treatment for poison faustino induced pruritic rash to L chin and jaw line area following exposure while aiding her in cutting grass. She reports a prior history of chronic allergies; while she currently takes Zyrtec and Pepcid daily. To include, she reports difficulty obtaining and appt. w/ brineyard supervisor/allerg ist of prior referral and is requesting an alternative. Pt denies nausea, vomiting, fever, chest pain, SOB, wheezing, angioedema, chills, cough, diarrhea, constipation and dysuria. MARV Albrecht Attn: Accounting,[address] [facility], [place], [address], [facility] 05/03/2023 12:02:09 09/15/2023 text/html Here today for a check-up. She would like a full thyroid panel RAYSHAWN Garcia Attn: Accounting,[address] [facility], [place], [address], [facility] 09/19/2023 14:59:59 09/03/2024 text/html Annual GYNReport ed bypatient.Menstrual cycle:Normal menses Breast:No breast pain; No breast lump; No nipple discharge Current Contraception:Satis fied with current contraception; Monogamous relationship Sexual complaints:No sexual complaints Menopausal Symptoms:No menopausal symptoms Psychological symptoms:Anxiety Preventive measures:Followed with Q3 year pap smear and high risk HPV typing; Has had colpos in the past. RAYSHAWN Garcia Attn: Accounting,[address] [place], [address], [facility] 10/01/2024 09:06:49 OBGyn Episode No OBEpisode recorded.
--- OUTSIDE RECORDS SUMMARY | 2025-02-02 04:18 | XMS_ITS | Clinical Summary ---
Author Organization [facility] Address [address] [place] [address] Care Team Providers Care Wire Stockkeeper Name Role Phone Chelsie Bass NP Primary Care Provider [phone] Allergies Active Allergy Reactions Criticality Noted Date Comments Tape Rash Low 12/23/2017 Misc Natural Products Rash Low 12/23/2017 Lanolin Rash Low 12/23/2017 Penicillins Hives 12/23/2017 Poison Juliana Extract Rash Low 12/23/2017 Isopropyl Alcohol Rash Low 12/23/2017 Dhs Rash Low 12/23/2017 Steroids Rash Low 12/23/2017 Steroid cream-able to take other oral steroids Acetaminophen Anaphylaxis High 12/23/2017 Medications Cetirizine HCl (ZYRTEC ALLERGY) 10 MG Cap Active cranberry 500 MG Cap Take 1 capsule by mouth 3 (three) times daily. Active vitamin D3, cholecalciferol , 1000 UNIT Tab tablet Take 1 tablet by mouth daily. Active vitamin E 400 UNIT capsule Take 400 Units by mouth daily. Active Potassium 99 MG tablet Take 1 tablet by mouth daily. Active vitamin C 1000 MG tablet Take 1,000 mg by mouth daily. Active Calcium Carbonate (CALCIUM 600 OR) Take 1 tablet by mouth daily. Active magnesium oxide 400 MG tablet Take 400 mg by mouth daily. Active NORTREL 1/35, 28, 1-35 MG-MCG tablet Take 1 tablet by mouth daily. 11 09/25/2019 Active Active Problems No known active problems Immunizations Name Administration Dates Next Due PFIZER COVID-19 (ORIGINAL FO RMULATION, PURPLE CAP) mRNA, LNP-S, PF, 30 MCG/0.3 ML DOSE 12/04/2021,05/17/2021,04/25/2021 Family History Medical History Relation Comments Diabetes Father Heart Disease Father Hypertension Father Relation Status Comments Daughter Alive Father Alive Mother Alive Son Alive Social History Tobacco Use Types Packs/Day Years Used Date Smoking Tobacco: Never Smokeless Tobacco: Never Alcohol Use Standard Drinks/Week Comments No 0 (1 standard drink = 0.6 oz pur e alcohol) Comments No Sex and Gender Information Value Date Recorded Sex Assigned at Female 12/22/2023 9:25 AM RECORDS CUSTODIAN Legal Sex Female 6:57 PM CDT Gender Identity Female 12/22/2023 9:25 AM RECORDS CUSTODIAN Sexual Orientation Straight 12/22/2023 9: 25 AM RECORDS CUSTODIAN Last Filed Vital Signs Vital Sign Reading Time Taken Comments Blood Pressure 114/73 10/12/2019 9:41 AM RECORDS CUSTODIAN Pulse 88 10/12/2019 9:41 AM RECORDS CUSTODIAN Temperature 36.6 C (97.9 F) 10/12/2019 9:41 AM RECORDS CUSTODIAN Respiratory Rate 16 10/12/2019 9:41 AM RECORDS CUSTODIAN Oxygen Saturation 99% 10/12/2019 9:41 AM RECORDS CUSTODIAN Inhaled Oxygen Concentration - - Weight 108.1 kg (238 lb 5.1 oz) 10/12/2019 5:59 AM RECORDS CUSTODIAN Height 160 cm (5' 3 ) 10/12/2019 5:59 AM RECORDS CUSTODIAN Body Mass Index 42.22 10/12/2019 5:59 AM RECORDS CUSTODIAN Plan of Treatment Health Maintenance Due Date Last Done Comments Cervical Cancer Screening Pa p Smear (Age 30 to 64) Every 3 Years 1979 Colorectal Cancer Screening Colonoscopy (10 Years) 1979 Annual Physical 1982 Hepatitis C 1997 Hepatitis B Vaccines (1 of 3 - 19+ 3-dose series) 1998 Cervical Cancer Screening Pa p with HPV Testing (Age 30 to 64) Every 5 Years 2009 Cervical Cancer Screening wi th HPV 2009 Mammogram Screening 2019 COVID-19 Vaccine (2023-2 5 season) 2024 12/04/2021, 05/17/2021, 04/25/2021 Influenza Adult (#1) 2024 07/30/2014 DTaP, Tdap and Td Vaccines ( 3 - Td or Tdap) 10/28/2027 10/28/2017, 02/26/2013 HPV Vaccines Aged Out No longer eligi ble based on patient's age to complete this topic Meningococcal B Vaccine Aged Out No l onger eligible based on patient's age to complete this topic Meningococcal Vaccine Aged Out No bianca artie eligible based on patient's age to complete this topic Pneumococcal Vaccine: Pediatrics (0 to 5 Years) and At-Risk Patients (6 to 64 Years) Aged Out No longer eligible b ased on patient's age to complete this topic RSV Immunizations Under 20 Months Aged Out No longer eligible b ased on patient's age to complete this topic Insurance Advance Directives * Full Code (Latest Code Status on File) Date Activated Date Inactivated Comments 10/12/2019 9:59 AM 10/12/2019 12:09 PM Care Teams Wire Stockkeeper Relationship Specialty Start Date End Date Chelsie Bass NP [address] [facility] [address] [place], [place] [id number] PCP - General Nurse Practitioner Family 10/10/19
--- OUTSIDE RECORDS SUMMARY | 2025-02-02 04:18 | XMS_ITS | Patient Health Record ---
Author Organization [facility] Address [address] [place] [address] Care Team Providers Care Qa Automation Architect Name Role Phone Selene Vaughn MD Primary Care Provider UnavailHoney Nguyen Unavailable [phone] ZZ-Migration, Provider Unavailable Unavailab le Allergies Allergen (clinical drug ingredient) Drug/Non Drug Allergy documented on EMR Reaction Allergy Type Onset Date Status amoxicillin Amoxicillin hives Drug Allergy Act kirsten sulfamethoxazole / trimethoprim Bactrim severe hives Drug Allergy Active acetaminophen Tylenol throat swelling Drug Allergy Active Reason For Referral No Information Medications Medication SIG (Take, Route, Frequency, Duration) Notes Start Date End Date Status ZyrTEC Allergy 10 MG 1 tab(s) orally once a day Not-Taking PREDNISONE 10 mg 1 tab(s) orally once a day for 30 day(s) Not-Taking Calcium 600+D Plus Minerals VITAMIN D WITH MINERALS 1 TAB(S) CHEWED ONCE A DAY *Please review and pick correct strength-formulati on from [facility] options. If intended option is not shown, discontinue and re-order from Quick Search* Active Magnesium Oxide 400 MG 1 tab(s) orally once a day Active Vitamin C 1000 MG 1 tab(s) orally once a day Active Vitamin D3 25 MCG (1000 UT) 1 tab(s) orally once a day Active Advil 200 MG 1 tab(s) orally every 6 hours Active Multivitamin - 1 tab(s) orally once a day Active predniSONE 10 MG 1 tab(s) orally once a day for 30 day(s) Not-Taking Necon 135 (28) 1-35 MG-MCG 1 tab(s) orally once a day Active Famotidine 20 MG 1 tab(s) orally 2 times a day Active Xyzal Allergy 24HR 5 MG 1 tablet PO daily for 30 Active XYZAL 5 mg 1 tablet PO daily for 30 Active FAMOTIDINE 20 mg 1 tab(s) orally 2 times a day Active CALCIUM 600+D PLUS MINERALS Vitamin D with Minerals 1 tab(s) chewed once a day Active VITAMIN D3 1000 intl units 1 tab(s) orally once a day Active ZYRTEC 10 mg 1 tab(s) orally once a day Not-Taking MAGNESIUM OXIDE 400 mg 1 tab(s) orally once a day Active ADVIL 200 mg 1 tab(s) orally every 6 hours Active NECON 35 mcg-1 mg 1 tab(s) orally once a day Active VITAMIN C 1000 mg 1 tab(s) orally once a day Active MULTIVITAMIN Multiple Vitamins 1 tab(s) orally once a day Active Immunizations Vaccine Route Administration Date Status Comme nts Influenza Unknown 07/30/2014 Administered Covid 19 (Pfizer) Unknown 04/25/2021 Administered Covid 19 (Pfizer) Unknown 05/17/2021 Administered Covid 19 (Pfizer) Unknown 12/04/2021 Administered Social History Tobacco Use: Social History Observation Description Date Details (start date - stop date) Never Smoker NA - NA Smoking Smart Form: Question Answer Notes Are you a: never smoker Problems Problem Type SNOMED Code ICD Code Onset Dates Problem Status W/U Status Risk Notes Problem Contact dermatitis caused by chemical (617250511594) Contact dermatitis due to other chemical product (692.4) Active confirmed Problem Chronic rhinitis (03989969) Chronic rhinitis (472.0) Active confirmed Problem Allergy to penicillin (12930902) HX-PENICILLIN ALLERGY (V14.0) Active confirmed Problem Idiopathic urticaria (63409858) Idiopathic urticaria (L50.1) Active confirmed Problem Allergic rhinitis caused by pollen (disorder) (88289525) Allergic rhinitis due to pollen (J30.1) Active confirmed Problem Allergic contact dermatitis caused by chemical (33996467674701 103) Allergic contact dermatitis due to other chemical products (L23.5) Active confirmed Problem Allergic contact dermatitis due to plants, except food (L23.7) Active confirmed Problem Allergic contact dermatitis caused by adhesive (disorder) (001585303) Allergic contact dermatitis due to adhesives (L23.1) Active confirmed Encounters Encounter Location Date Provider Diagnosis [facility] - [place] [address] [place] [address] 05/12/2024 Provider ZZ-Migration Plan Of Treatment No Information Insurance Providers Payer Name Payer Address Payer Phone Subscriber Number Group Number Insured Name Patient Relationship to Insured Coverage Start Date Coverage End Date [employer] [address] [place] [address] [id number] Torsten Garcia Spouse - patient is the spouse of the insured Medical (General) History Medical History History ICD Code Eustachian Tube Dysfunction Allergic rhinitis due to pollen J30.1 Allergic contact dermatitis due to adhes michelle L23.1 Surgical History Surgery Date(Month/Year) Tonsillectomy 09/2011 Hospitalization History Reason Date(Month/Year) Child 04/2002 & 03/2004
--- OUTSIDE RECORDS SUMMARY | 2025-02-02 04:19 | XMS_ITS | Clinical Summary ---
Author Organization [facility] [address] Address [address] [place] [address] Care Team Providers Care Sanforizer Name Role Phone Chelsie Bass NP Primary Care Provider [phone] Malka Davis BIKE MECHANIC Unavailable [phone] Allergies Active Allergy Reactions Criticality Noted Date Comments Acetaminophen Shortness of breath,Swelling High 1979 Adhesive Rash Medium 12/23/2017 Egg Extract Shortness of breath High 01/31/2024 Isopropyl Alcohol Hives,Itching Medium 07/12/2012 Lanolin Hives,Rash Medium 12/23/2017 Lanolin-Min Oil-Zinc Ox-Wh.Pet Hives,Itching Medium 05/10/2007 Nitrofurantoin Rash Medium 01/31/2024 Penicillins Hives Medium 05/08/2008 Poison Juliana Extract Rash Medium 12/23/2017 Sulfamethoxazole-Trimethoprim Rash Medium 2021 Surfactants Rash Medium 12/23/2017 Tramadol Headache Low 01/31/2024 Medications Nortrel 1/35, 28, 1-35 mg-mcg per tablet Take 1 tablet by mouth daily 08/26/2021 Active vitamin E 100 unit/0.25 mL drops Active ascorbic acid (vitamin C) 100 mg tablet Active cinnamon bark (Cinnamon) 500 mg capsule Active multivitamin-min erals-lutein (Multivitamin 50 Plus) tablet Active cranberry 400 mg capsule Active magnesium oxide 200 mg magnesium tablet,chewable Acti ve cholecalciferol (Vitamin D3) 400 unit capsule Active niacin 100 mg tablet Active calcium-vits M1-X-D6-minerals 166.75 mg- 166.75 unit capsule Active predniSONE (DELTASONE) 50 mg tablet Take 1 tablet every day by oral route for 5 days. 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 Sensorineural hearing loss ( SNHL) of right ear with unrestricted hearing of left ear 09/17/2021 Surgical History Surgery Date Site/Laterality Comments TONSILLECTOMY CERVICAL BIOPSY W/ LOOP ELEC TRODE EXCISION 11/28/2017 - 11/27/2018 Medical History Medical History Date Comments Allergic rhinitis Ear problems Anxiety HL (hearing loss) TMJ dysfunction Family History Medical History Relation Name Comments Heart disease Father mesothelioma Father Relation Name Status Comments Father Social History Tobacco Use Types Packs/Day Years Used Date Smoking Tobacco: Never Smokeless Tobacco: Never Personal Safety Answer Date Recorded Getting School Help Needed Not on file 01/03 Comments Unknown Sex and Gender Information Value Date Recorded Sex Assigned at Not on file Legal Sex Female 7:51 PM DIRECTOR OF USER EXPERIENCE Gender Identity Female 09/14/2021 7:19 PM CDT Sexual Orientation Straight 09/14/2021 7: 19 PM CDT Obstetrics History Last Filed Vital Signs Vital Sign Reading Time Taken Comments Blood Pressure - - Pulse - - Temperature - - Respiratory Rate 17 09/17/2021 1:13 PM CDT Oxygen Saturation - - Inhaled Oxygen Concentration - - Weight 104.3 kg (230 lb) 09/17/2021 1:13 PM CDT Height 160 cm (5' 3 ) 09/17/2021 1:13 PM CDT Body Mass Index 40.74 09/17/2021 1:13 PM CDT Plan of Treatment Health Maintenance Due Date Last Done Comments Breast Cancer Screening-Mammogram 1979 Cervical Cancer Screening 1979 Colon Cancer Screening-Colonoscopy 1979 Depression Screening 1979 Hepatitis C Screening 1979 Hepatitis B Screening 1997 Regular Well Visit/Exam 18-64 1997 Covid-19 Vaccine (4 - 2023-2 5 season) 2024 12/04/2021, 05/17/2021, 04/25/2021 Influenza Vaccine (#1) 2024 07/30/2014 DTaP/Tdap/Td Vaccine (3 - Td or Tdap) 10/28/2027 10/28/2017, 02/26/2013 HPV Vaccines Aged Out No longer eligi ble based on patient's age to complete this topic Pneumococcal vaccine <65 Aged Out No longer eligible based on patient's age to complete this topic Insurance ACCESS CHOICE Care Teams Sanforizer Relationship Specialty Start Date End Date Chelsie Bass NP PCP - General Nurse Practitioner 09/11/21 Malka Davis NP [address] [place] [id number] Referring Physician Nurse Practitioner 01/27/24
--- OUTSIDE RECORDS SUMMARY | 2025-02-02 04:19 | XMS_ITS ---
Author Organization [facility] Address [address] [place] [address] Care Team Providers Care Director Of Construction Name Role Phone Selene Vaughn MD Primary Care Provider UnavailHoney Nguyen Unavailable [phone] ZZ-Migration, Provider Unavailable Unavailab le Allergies Allergen (clinical drug ingredient) Drug/Non Drug Allergy documented on EMR Reaction Allergy Type Onset Date Status amoxicillin Amoxicillin hives Drug Allergy Act kirsten sulfamethoxazole / trimethoprim Bactrim severe hives Drug Allergy Active acetaminophen Tylenol throat swelling Drug Allergy Active [facility] Encounter Medications Medication SIG (Take, Route, Frequency, Duration) Notes Start Date End Date Status Advil 200 MG 1 tab(s) orally every 6 hours Active Multivitamin - 1 tab(s) orally once a day Active predniSONE 10 MG 1 tab(s) orally once a day for 30 day(s) Not-Taking Necon (28) 1-35 MG-MCG 1 tab(s) orally once a day Active Xyzal Allergy 24HR 5 MG 1 tablet PO daily for 30 Active ZyrTEC Allergy 10 MG 1 tab(s) orally once a day Not-Taking Calcium 600+D Plus Minerals VITAMIN D WITH MINERALS 1 TAB(S) CHEWED ONCE A DAY *Please review and pick correct strength-formulati on from [facility] options. If intended option is not shown, discontinue and re-order from Quick Search* Active Magnesium Oxide 400 MG 1 tab(s) orally once a day Active Vitamin D3 25 MCG (1000 UT) 1 tab(s) orally once a day Active Famotidine 20 MG 1 tab(s) orally 2 times a day Active Vitamin C 1000 MG 1 tab(s) orally once a day Active Encounters Encounter Location Date Provider Diagnosis [address] [place] [address] 05/12/2024 Provider ZZ-Migration Plan Of Treatment No Information Progress Notes * Crys DIA MDOB: [birth year] (44 yo F)Acc No.[id number]:05/12/2024 Patient: Crys SHEA Provider: Richy webb Migration :1980 A ge:43 Y S ex:Female Date:05/12/2024 Address:[address] [place], [place] [id number] Pcp:Selene Vaughn MD Subjective: * Chief Complaints: * 1 . [facility] En[facility]. * Medical History: * Medications: T aking Famotidine 20 MG Tablet 1 tab(s) orally 2 times a day , Taking Xyzal Allergy 24HR 5 MG Tablet 1 tablet PO daily , Taking Necon 1/35 (28) 1-35 MG-MCG Tablet 1 tab(s) orally once a day , Taking Advil 200 MG Tablet 1 tab(s) orally every 6 hours , Taking Multivitamin - Tablet 1 tab(s) orally once a day , Taking Vitamin C 1000 MG Tablet 1 tab(s) orally once a day , Taking Vitamin D3 25 MCG (1000 UT) Tablet 1 tab(s) orally once a day , Taking Calcium 600+D Plus Minerals VITAMIN D WITH MINERALS TABLET, CHEWABLE 1 TAB(S) CHEWED ONCE A DAY , Notes to Pharmacist: *Please review and pick correct strength-formulation from [facility] options. If intended option is not shown, discontinue and re-order from Quick Search*, Taking Magnesium Oxide 400 MG Tablet 1 tab(s) orally once a day , Not-Taking/PRN predniSONE 10 MG Tablet 1 tab(s) orally once a day , Not-Taking/PRN ZyrTEC Allergy 10 MG Tablet 1 tab(s) orally once a day * Allergies: T ylenol: throat swelling - Allergy, Amoxicillin: hives - Allergy, Bactrim: severe hives - Allergy. Objective: * Vitals: Assessment: Plan: * Treatment: * Billing Information: * Visit Code: * Procedure Codes: * Electronic signature of Miguel ReynoldsZ-Migration on 02/02/2025 at 04:18 AM DINING ROOM HOSTESS Sign off status: Pending * Provider: Richy webb Migration Date: 0 05/12/2024 Generated for Donato aden/Marla/Mirza on: 0 02/02/2025 04:18 AM DINING ROOM HOSTESS
--- OUTSIDE RECORDS SUMMARY | 2025-02-02 04:19 | XMS_ITS | Referral Summary ---
Author Organization [facility] [address] Address [address] [place] [address] Care Team Providers Care Driver/Refuse Collector Name Role Phone Chelsie Bass NP Primary Care Provider [phone] Malka Davis FRUIT BUYER Unavailable [phone] Allergies Active Allergy Reactions Criticality Noted Date [...] Active niacin 100 mg tablet Active calcium-vits D6-X-H6-minerals 166.75 mg- 166.75 unit capsule Active predniSONE [...] with unrestricted hearing of left ear 09/17/2021 Social History Tobacco Use Types Packs/Day Years Used Date Smoking Tobacco: Never Smokeless Tobacco: Never Personal Safety Answer Date Recorded Getting School Help Needed Not on file 01/03 Comments Unknown Sex and Gender Information Value Date Recorded Sex Assigned at Not on file Legal Sex Female 7:51 PM COMMUNITY RECREATION COORDINATOR Gender Identity Female 09/14/2021 7:19 PM CDT Sexual Orientation Straight 09/14/2021 7: 19 PM CDT Last Filed Vital Signs Vital Sign Reading [...] 09/17/2021 1:13 PM CDT Plan of Treatment Not on file Insurance ACCESS CHOICE Care Teams Driver/Refuse Collector Relationship Specialty Start Date End Date Chelsie Bass NP PCP - General Nurse Practitioner 09/11/21 Malka Davis NP [address] [place] [id number] Referring Physician Nurse Practitioner 01/27/24
[2025-02-02 04:25] VITALS: BP 145/94; PULSE 115; RESP 18; TEMP 36.9; O2SAT 95
--- NOTE | 2025-02-02 04:50 | ED_ITS ---
HPI - General Adult General Chief complaint: Skin/Abscess/Foreign Body Stated complaint: reddened area to R cheek Time Seen by Provider: 02/02/25 04:36 History of Present Illness HPI narrative: Patient 34-year-old female who presents emergency department with chief complaint of redness to the right cheek area. Patient reports around 8:00 p.m. she noticed a bump on the right cheek area and reported that it started to get red and giving off heat. The patient reports she has recently been on steroids for allergic reaction reports she was concerned that she may have a spider bite to her face. Related Data Home Medications ?Medication ?Instructions ?Recorded ?Confirmed ?Last Taken ?Type norethindrone 1 mg-ethinyl tablet 09/25/22 Unknown History estradiol 35 mcg tablet (Nortrel) Allergies Allergy/AdvReac Type Severity Reaction Status Date / Time acetaminophen Allergy Mild Swelling Verified 02/02/25 04:28 Penicillins Allergy Mild HIVES Verified 02/02/25 04:28 poison faustino extract Allergy Mild RASH Verified 02/02/25 04:28 hydrocortisone Allergy Unknown Unknown Verified 02/02/25 04:28 lanolin Allergy Unknown HIVES Verified 02/02/25 04:28 tramadol AdvReac Unknown Headache Verified 02/02/25 04:28 steroid cremes Allergy Intermediate Hives / Uncoded 02/02/25 04:28 Red Face bug spray Allergy Unknown Unknown Uncoded 02/02/25 04:28 hand over hauler helper Allergy Unknown Unknown Uncoded 02/02/25 04:28 Review of Systems Review of Systems: A 10 system review of systems was completed on the patient and is negative except for what is stated in the HPI. Nursing and ancillary documentation was reviewed. Exam Narrative: GENERAL: Well-appearing, well-nourished, and in no acute distress. HEAD: Normocephalic, atraumatic. EYES: PERRLA and EOMI. ENT: Nares clear, no rhinorrhea or epistaxis. Mucous membranes moist. NECK: Supple. CHEST: Clear to auscultation. No respiratory distress. HEART: Regular rate and rhythm. No murmur heard. Normal peripheral pulses. ABDOMEN: Soft, nontender, nondistended, normal active bowel sounds. EXTREMITIES: Normal range of motion. No edema. SKIN: Warm, dry, no rash. Redness present to the right cheek area no crepitance no abscess NEURO: No focal deficits. Alert and oriented x3. PSYCH: Normal mood and affect. Course Vital Signs Vital signs: Vital Signs Temperature 36.9 C 02/02/25 04:25 Pulse Rate 115 H 02/02/25 04:25 Respiratory Rate 18 02/02/25 04:25 Blood Pressure 145/94 H 02/02/25 04:25 Pulse Oximetry 95 02/02/25 04:25 Temperature 36.9 C 02/02/25 04:25 Pulse Rate 115 H 02/02/25 04:25 Respiratory Rate 18 02/02/25 04:25 Blood Pressure 145/94 H 02/02/25 04:25 Pulse Oximetry 95 02/02/25 04:25 Medical Decision Making MDM Narrative Medical decision making narrative: Differential diagnosis includes cellulitis, abscess, allergic reaction The patient is currently on steroids for allergic reaction and the exam is not consistent with urticaria. Patient has no appreciable abscess the patient will be started on clindamycin and will be discharged home Vital Signs Vital Signs: Vital Signs Temperature 36.9 C 02/02/25 04:25 Pulse Rate 115 H 02/02/25 04:25 Respiratory Rate 18 02/02/25 04:25 Blood Pressure 145/94 H 02/02/25 04:25 Pulse Oximetry 95 02/02/25 04:25 Temperature 36.9 C 02/02/25 04:25 Pulse Rate 115 H 02/02/25 04:25 Respiratory Rate 18 02/02/25 04:25 Blood Pressure 145/94 H 02/02/25 04:25 Pulse Oximetry 95 02/02/25 04:25 Discharge Plan Discharge Clinical Impression: Cellulitis Qualifiers: Site of cellulitis: face Qualified Code(s): L03.211 - Cellulitis of face Patient Disposition: Home, Self-Care Condition: Stable Instructions: Antibiotic Form, Cellulitis (ED) Patient Language: Stateless Prescriptions: New clindamycin HCl 300 mg capsule 300 mg PO Q6H 10 Days Qty: 40 0RF No Action Nortrel 135 (28) 1-35 mg-mcg tablet ondansetron 4 mg tablet,disintegrating 4 mg PO Q8H PRN (Reason: nausea and vomiting) Qty: 7 0RF Follow-up/Referrals: Roderick,Selene Hoang MD [Primary Care Provider] - Time of Disposition: 04:57
--- OUTSIDE RECORDS SUMMARY | 2025-02-02 04:54 | XMS_ITS | Clinical Summary ---
Author Organization [facility] Address [address] [place]: Epic Prelude [place]T [place] [address] Care Team Providers Care Flow Floor Attendant Name Role Phone Unavailable Primary Care Provider Unavailabl e Social History Tobacco Use Types Packs/Day Years Used Date Smoking Tobacco: Never Assessed Comments Unknown Sex and Gender Information Value Date Recorded Sex Assigned at Not on file Legal Sex Female 5:39 AM HEAD OF MERCHANDISE BUYING Gender Identity Not on file Sexual Orientation [...]
--- OUTSIDE RECORDS SUMMARY | 2025-02-02 04:54 | XMS_ITS | Encounter Summary ---
Author Organization [facility] Address [address] [place] [address] Care Team Providers Care Customer Acquisition Specialist Name Role Phone Unavailable Primary Care Provider Unavailabl e Encounter Details Date Type Department Care Team (Late st Contact Info) Description 09/24/2008 Outpatient Historical [facility] Albert Mata MD [address] [address] Unspecified Hearing Loss; Conductive Hearing Loss, Unilateral; Unspecified Disorder of Middle Ear and Mastoid Social History Tobacco Use Types Packs/Day Years Used Date Smoking Tobacco: Never Assessed Comments Unknown Sex and Gender Information Value Date Recorded Sex Assigned at Not on file Legal Sex Female 5:39 AM 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
--- OUTSIDE RECORDS SUMMARY | 2025-02-02 04:54 | XMS_ITS | Patient Health Summary ---
Author Organization [facility] Address [address] [place] [address] Care Team Providers Care Design Sales Consultant Name Role Phone NikosChelsie coon JAY-SHOE SHANKER Primary Care Provider Note from [facility],non-owned Affiliates and Associated Physician Practices is amultiple site organization consisting of ambulatory clinics and hospital sitesin [place] and [place]. This disclosure is being madepursuant to the Care Everywhere program and may not contain all information available regarding this patient. Last updated 18.[facility] Allergies * Acetaminophen(Anaphylaxis,Shortness of Breath,Swelling) -High Criticality [...] Sex Assigned at Female 12/05/2023 10:50 AM NURSES' REGISTRY DIRECTOR Gender Identity Female 12/05/2023 10:50 AM NURSES' REGISTRY DIRECTOR Sexual Orientation Straight 12/05/2023 10 :50 AM NURSES' REGISTRY DIRECTOR Last Filed Vital Signs Vital Sign Reading Time Taken Comments Blood Pressure 121/92 01/10/2024 2:30 PM NURSES' REGISTRY DIRECTOR Pulse 115 01/10/2024 2:30 PM NURSES' REGISTRY DIRECTOR Temperature 36.2 C (97.2 F) 12/01/2023 10:06 AM NURSES' REGISTRY DIRECTOR Respiratory Rate 20 12/01/2023 10:06 AM NURSES' REGISTRY DIRECTOR Oxygen Saturation 97% 01/10/2024 2:30 PM NURSES' REGISTRY DIRECTOR Inhaled Oxygen Concentration - - Weight 113.4 kg (250 lb) 01/10/2024 2:30 PM NURSES' REGISTRY DIRECTOR Height 160 cm (5' 3 ) 01/10/2024 2:30 PM NURSES' REGISTRY DIRECTOR Body Mass Index 44.29 01/10/2024 2:30 PM NURSES' REGISTRY DIRECTOR Procedures * [place] US SOFT TISS HEAD&NCK R-T IMG(Performed 01/10/2024) Performed for Thyroid nodule, Multinodular thyroid Results * [place] US SOFT TISS HEAD&NCK R-T IMG (01/10/2024 3:30 PM NURSES' REGISTRY DIRECTOR) Narrative Beny Morocho MD - 01/10/2024 3:30 PM NURSES' REGISTRY DIRECTOR Beny Morocho MD 01/10/2024 4:10 PM Ultrasound [...] MD PROCEDURE/MINOR ASUNCION GICAL ORDERABLES Care Teams Design Sales Consultant Relationship Specialty Start Date End Date Chelsie Bass APRN-CNP [address] [place], [place] [id number] PCP - General Nurse Practitioner Family 12/01/23
--- OUTSIDE RECORDS SUMMARY | 2025-02-02 04:54 | XMS_ITS | Clinical Summary ---
Author Organization [facility] Address [address] [facility] [place] [address] Care Team Providers Care Staff Pharmacist Hospital Name Role Phone Chelsie Bass JAY-BOND MANAGER Primary Care Provider Source Comments [facility],non-owned Affiliates and Associated Physician Practices is amultiple site organization consisting of ambulatory clinics and hospital sitesin [place], [place], [place] and [place]. This disclosure is being madepursuant to the Care Everywhere program and may not contain all information available regarding this patient. Last updated 18.[facility] Allergies Active Allergy Reactions Criticality Noted Date [...] Orders Only [facility] - Endocrinology [facility] [facility], [place] [id number] Beny Morocho MD Thyroid nodule; Multinodular thyroid [...] Sex Assigned at Female 12/05/2023 10:50 AM [employer]ICK [employer] BLOCK [employer]ON Gender Identity Female 12/05/2023 10:50 AM [employer] [place] Sexual Orientation Straight 12/05/2023 10 :50 AM [employer] [place] Last Filed Vital Signs Vital Sign Reading Time Taken Comments Blood Pressure 121/92 01/10/2024 2:30 PM [employer] Pulse 115 01/10/2024 2:30 PM [employer]ON Temperature 36.2 C (97.2 F) 12/01/2023 10:06 AM [employer]ON Respiratory Rate 20 12/01/2023 10:06 AM [employer]ON Oxygen Saturation 97% 01/10/2024 2:30 PM [employer] Inhaled Oxygen Concentration - - Weight 113.4 kg (250 lb) 01/10/2024 2:30 PM [employer] Height 160 cm (5' 3 ) 01/10/2024 2:30 PM [employer] Body Mass Index 44.29 01/10/2024 2:30 PM [employer] [place] Plan of Treatment Health Maintenance Due Date [...] age to complete this topic Care Teams Staff Pharmacist Hospital Relationship Specialty Start Date End Date Chelsie Bass APRN-BOND MANAGER [address] [place] [phone] PCP - General Nurse Practitioner Family 12/01/23
--- OUTSIDE RECORDS SUMMARY | 2025-02-02 04:54 | XMS_ITS | Referral Summary ---
Author Organization [facility] [address] Address [address] [place] [address] Care Team Providers Care Pulvi Mixer Operator Name Role Phone Chelsie Bass NP Primary Care Provider [phone] Malka Davis FILTER PRESS PUMPER Unavailable [phone] Allergies Active Allergy Reactions Criticality Noted Date [...] Active niacin 100 mg tablet Active calcium-vits C7-I-R5-minerals 166.75 mg- 166.75 unit capsule Active predniSONE [...] on file Legal Sex Female 7:51 PM SILVERWARE ETCHER Gender Identity Female 09/14/2021 7:19 PM CDT [...] on file Insurance ACCESS CHOICE Care Teams Pulvi Mixer Operator Relationship Specialty Start Date End Date Chelsie Bass NP PCP - General Nurse Practitioner 09/11/21 Malka Davis NP [address] [place] [id number] Referring Physician Nurse Practitioner 01/27/24
--- OUTSIDE RECORDS SUMMARY | 2025-02-02 04:54 | XMS_ITS | Clinical Summary ---
Author Organization [facility] Address [address] [place] [id number] Care Team Providers Care [employer] Teacher Name Role Phone Chelsie Bass NP Primary Care Provider [phone] Allergies Active Allergy Reactions Criticality Noted Date [...] Sex Assigned at Female 12/22/2023 9:25 AM CUSTOMER SERVICE OPERATOR Legal Sex Female 6:57 PM CDT Gender Identity Female 12/22/2023 9:25 AM CUSTOMER SERVICE OPERATOR Sexual Orientation Straight 12/22/2023 9: 25 AM CUSTOMER SERVICE OPERATOR Last Filed Vital Signs Vital Sign Reading Time Taken Comments Blood Pressure 114/73 10/12/2019 9:41 AM CUSTOMER SERVICE OPERATOR Pulse 88 10/12/2019 9:41 AM CUSTOMER SERVICE OPERATOR Temperature 36.6 C (97.9 F) 10/12/2019 9:41 AM CUSTOMER SERVICE OPERATOR Respiratory Rate 16 10/12/2019 9:41 AM CUSTOMER SERVICE OPERATOR Oxygen Saturation 99% 10/12/2019 9:41 AM CUSTOMER SERVICE OPERATOR Inhaled Oxygen Concentration - - Weight 108.1 kg (238 lb 5.1 oz) 10/12/2019 5:59 AM CUSTOMER SERVICE OPERATOR Height 160 cm (5' 3 ) 10/12/2019 5:59 AM CUSTOMER SERVICE OPERATOR Body Mass Index 42.22 10/12/2019 5:59 AM CUSTOMER SERVICE OPERATOR Plan of Treatment Health Maintenance Due Date [...] 9:59 AM 10/12/2019 12:09 PM Care Teams [employer] Teacher Relationship Specialty Start Date End Date Chelsie Bass NP [address] [facility] [address] [place], [place] [phone] PCP - General Nurse Practitioner Family 10/10/19
--- OUTSIDE RECORDS SUMMARY | 2025-02-02 04:54 | XMS_ITS | Clinical Summary ---
Author Organization [facility] [address] [place] [address] Address [address] 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
--- OUTSIDE RECORDS SUMMARY | 2025-02-02 04:54 | XMS_ITS | Referral Summary ---
Author Organization [facility] Address [address] [facility] [place] [address] Care Team Providers Care Map And Chart Mounter Name Role Phone Chelsie Bass JAY-PROFESSIONAL ENGINEER Primary Care Provider Source Comments [facility],non-owned Affiliates and Associated Physician Practices is amultiple site organization consisting of ambulatory clinics and hospital sitesin [place], [place], [place] and [place]. This disclosure is being madepursuant to the Care Everywhere program and may not contain all information available regarding this patient. Last updated 18.[facility] Encounters Date Type Department Care Team Description 01/04/2025 Orders Only [facility] - Endocrinology [facility] [facility] [place] [address] Beny Morocho MD Thyroid nodule; Multinodular thyroid [...] Sex Assigned at Female 12/05/2023 10:50 AM PREVENTATIVE MAINTENANCE TECHNICIAN Gender Identity Female 12/05/2023 10:50 AM PREVENTATIVE MAINTENANCE TECHNICIAN Sexual Orientation Straight 12/05/2023 10 :50 AM PREVENTATIVE MAINTENANCE TECHNICIAN Last Filed Vital Signs Vital Sign Reading Time Taken Comments Blood Pressure 121/92 01/10/2024 2:30 PM PREVENTATIVE MAINTENANCE TECHNICIAN Pulse 115 01/10/2024 2:30 PM PREVENTATIVE MAINTENANCE TECHNICIAN Temperature 36.2 C (97.2 F) 12/01/2023 10:06 AM PREVENTATIVE MAINTENANCE TECHNICIAN Respiratory Rate 20 12/01/2023 10:06 AM PREVENTATIVE MAINTENANCE TECHNICIAN Oxygen Saturation 97% 01/10/2024 2:30 PM PREVENTATIVE MAINTENANCE TECHNICIAN Inhaled Oxygen Concentration - - Weight 113.4 kg (250 lb) 01/10/2024 2:30 PM PREVENTATIVE MAINTENANCE TECHNICIAN Height 160 cm (5' 3 ) 01/10/2024 2:30 PM PREVENTATIVE MAINTENANCE TECHNICIAN Body Mass Index 44.29 01/10/2024 2:30 PM PREVENTATIVE MAINTENANCE TECHNICIAN Plan of Treatment Not on file Care Teams Map And Chart Mounter Relationship Specialty Start Date End Date Chelsie Bass APRN-PROFESSIONAL ENGINEER [address] [place] [address] [address] [place] [address] PCP - General Nurse Practitioner Family 12/01/23
[2025-02-02] MEDS: CLINDAMYCIN HCL 150 MG CAP 300 MG PO (05:02)
== END 2025-02-02 05:06 | disposition home or self-care (01) ==
PROVIDERS: Emergency Provider Emergency Medicine; PCP Family Medicine
DX: L03.211 Cellulitis of face (principal)
CPT/HCPCS: 99283; A9270

== ENCOUNTER 2025-03-09 00:25 | Emergency (ER) | payer OTHER, BC, SELFPAY ==
--- OUTSIDE RECORDS SUMMARY | 2025-03-09 00:28 | XMS_ITS | Data Portability ---
Author Organization [facility] [place] Address [address] [place] [address] Care Team Providers Care Greenskeeper Head Name Role Phone KAREN PENA Primary Care Provider [phone] Assessment No assessment recorded. Plan of Treatment Reminders Order Date Submit Date Provider Last Modified By Organization Details Last Modified Time Details Appointments NEW PATIENT 15 2024 10:45A M Joe davison MD Not available Not available Not available Lab food allergen panel, serum 2024 025 [email or web address] [facility], [address], [place], [address], 03/05/2025 09:32:12 respirato ry allergen panel - [facility] c 2024 025 [email or web address] [facility], [address], [address], [place], [address], 03/05/2025 09:32:13 CBC w/ auto diff 2024 025 KEENAN [facility], [address], [place], [address], 02/12/2025 22:30:47 HbA1c (hemoglob in A1c), blood 2023 024 KEENAN [facility], [address], [place], [address], 09/04/2024 11:17:07 TSH + free T4, serum 2023 024 KEENAN BORGESWILY, [address], [address], [place], [address], 09/04/2024 11:17:03 lipid panel, serum 2023 024 KEENAN BORGESWILY, [address], [address], [place], [address], 09/04/2024 11:17:04 CMP, serum or plasma 2023 024 KEENAN BORGESWILY, [address], [address], [place], [address], 09/04/2024 11:17:05 pap, IG + reflex HPV 2023 024 KEENAN BORGESWILY, [facility] [facility] [address], [address], [place], [address], 09/10/2024 09:09:45 lipid panel, serum 2022 023 KEENAN BORGESWILY, [address], [address], [place], [address], 09/15/2023 23:07:47 CMP, serum or plasma 2022 023 KEENAN BORGESWILY, [address], [address], [place], [address], 09/15/2023 23:07:47 TSH + free T4, serum 2022 023 KEENAN BORGESWILY, [address], [address], [place], [address], 09/16/2023 05:22:11 T3, free, serum or plasma 2022 023 KEENAN [facility], [address] [facility] [address] [facility] [address], [place], [address], 09/16/2023 05:22:13 thyroid peroxidas e (tpo) Ab, serum 2022 023 KEENAN [facility], [address] [facility] [address] [facility] [address], [place], [address], 09/16/2023 05:22:12 TSH + free T4, serum 2021 022 [email or web address] [facility], [address], [address], [place], [address], 12/10/2022 09:56:02 lipid panel, serum 2021 KEENAN [facility], [address], [place], [address], 09/09/2022 15:43:26 CMP, serum or plasma 2021 022 KEENAN [facility], [address] [facility] [address] [facility] [address], [place], [address], 09/09/2022 15:43:26 Referral cardiolog ist referral - tachycard ia. Please eval and treat 2024 025 [email or web address] Cardiology [facility], [address], [address], [place], [address], 02/14/2025 16:23:23 otolaryng ologist referral - decreased hearing, deviated septum, hx of MT tube in right ear, severe allergies . Please eval and treat 2022 023 [facility], [address], [place], [address], 11/10/2023 10:46:30 silk snapper & immunolog ist referral - difficult y obtaining appt. for allergy testing at current allergy office in [place] . Pending new pt insurance . Waiting on insurance card to arrive in mail. 2022 023 yolanda Kenyon MD, [address], [place], [address], 05/27/2023 17:06:54 Procedures None recorded. Surgeries None recorded. Imaging US, thyroid - goiter 2022 023 [facility], [address], [place], [address], 09/29/2023 16:35:[address] 10 mg tablet 2024 025 [id number], [address] [address], [place], [place], [id number], 02/12/2025 12:15:50 betametha sone valerate 0.1 % topical cream 2024 025 [facility], [address] [address], [place], [place], [id number], 02/12/2025 12:21:55 Nortrel 1/35 (28) 1 mg-35 mcg tablet 2022 023 [facility], [address], [place], [place], [id number], 09/15/2023 09:38:44 Medrol (Ben) 4 mg tablets in a dose pack 2022 023 [facility], [address] [address], [place], [place], [id number], 02/12/2025 16:15:31 triamcino lone acetonide 40 mg/mL suspensio n for injection 2022 [email or web address] [facility], [address], [place], [place], [id number], 09/15/2023 09:25:04 Nortrel 1/35 (28) 1 mg-35 mcg tablet 2021 022 [facility]N [facility], [address], [place], [place], [id number], 09/09/2022 15:40:41 Patient TargetsNo targets recorded. Patient Instructions Encounter Date Encounter Id Patient Instructions Last Modified By Organization Details Last Modified Time 09/09/2022 [id number] A healthy lifestyle: care instructions [email or web address] Not available 09/09/2022 15:40:35 -oral contraception does [...] up method for the remainder of cycle Not available 09/27/2022 09:45:16 09/15/2023 [id number] A healthy lifestyle: care instructions [email or web address] Not available 09/15/2023 09:38:02 09/03/2024 [id number] A healthy lifestyle: care instructions Not available 10/01/2024 09:06:30 02/12/2025 [id number] A healthy lifestyle: care instructions [email or web address] Not available 02/13/2025 12:42:30 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 for allergy testing at current allergy office in [place]. Pending new pt insurance. Waiting on insurance card to arrive in mail. Referring Physician: [facility], Encounter Date: 04/29/2023 Hair Colorist Referral fo r Decreased hearing decreased hearing, deviated septum, hx of MT tube in right ear, severe allergies. Please eval and treat Referring Physician: Karen Pena, Brickmason Apprentice, Encounter Date: 09/15/2023 Marketing Lead Referral for Ta chycardia tachycardia. Please eval and treat Referring Physician: Karen Pena Brickmason Apprentice, Encounter Date: 02/12/2025 Results Created Date Observation Date Name Description Value Unit Range Abnormal Flag Note LastModifiedBy Organization Detail LastModifiedTime 09/15/2009/15/2023 LIPID PANEL cholesterol, total 200 mg/dL 100-19 9 above high normal Not Available [facility] Department [address] [place], [address], 09/15/2023 23:07:47 09/15/2009/15/2023 LIPID PANEL triglyceride s 273 mg/dL 0-149 above high normal Not Available [facility] Department [address] [place], [address], 09/15/2023 23:07:47 09/15/20 23 09/15/2023 LIPID PANEL HDL cholesterol 47 mg/dL 40-999 Not Available [facility] Department [address] [place], [address], 09/15/2023 23:07:47 09/15/20 23 09/15/2023 LIPID PANEL VLDL cholesterol afsaneh 55 mg/dL 5-40 above high normal Not Available [facility] Department [address] [place], [address], 09/15/2023 23:07:47 09/15/20 23 09/15/2023 LIPID PANEL LDL chol calc ([facility]) 138 mg/dL 0-99 above high normal Not Available [facility] Department [address] [place], [address], 09/15/2023 23:07:47 09/15/20 23 09/15/2023 COMP. METAB OLIC PANEL (14) glucose 104 mg/dL 70-99 above high normal Not Available [facility] Department [address] [place], [address], 09/15/2023 23:07:47 09/15/20 23 09/15/2023 COMP. METAB OLIC PANEL (14) BUN 8 mg/dL 6-24 Not Available [facility] Department [address] [place], [address], 09/15/2023 23:07:47 09/15/20 23 09/15/2023 COMP. METAB OLIC PANEL (14) creatinine 0.80 mg/dL 0.76-1 .27 Not Available [facility] Department [address] [place], [address], 09/15/2023 23:07:47 09/15/20 23 09/15/2023 COMP. METAB OLIC PANEL (14) eGFR 93 >=60 Units for eGFR value s are mL/mi n/1.7 3 The eGFR Calcu latio n has not been valid ated for patie nts under the age of 18. If test resul ts are displ ayed for a patie nt under the age of 18, disre janell that value . Not Available [facility] Department [address] [place], [address], 09/15/2023 23:07:47 09/15/20 23 09/15/2023 COMP. METAB OLIC PANEL (14) BUN/creatini ne ratio 10 9-23 Not Available [facility] Department [address] [place], [address], 09/15/2023 23:07:47 09/15/20 23 09/15/2023 COMP. METAB OLIC PANEL (14) sodium 137 mmol/ L 134-14 4 Not Available [facility] Department [address] [place], [address], 09/15/2023 23:07:47 09/15/20 23 09/15/2023 COMP. METAB OLIC PANEL (14) potassium 4.7 mmol/ L 3.5-5. 2 Not Available [facility] Department [address] [place] [address], [address], 09/15/2023 23:07:47 09/15/20 23 09/15/2023 COMP. METAB OLIC PANEL (14) chloride 100 mmol/ L 96-106 Not Available [facility] Department [address] [place] [address], [address], 09/15/2023 23:07:47 09/15/20 23 09/15/2023 COMP. METAB OLIC PANEL (14) carbon dioxide, total 23 mmol/ L 20-29 Not Available [facility] Department [address] [place] [address], [address], 09/15/2023 23:07:47 09/15/20 23 09/15/2023 COMP. METAB OLIC PANEL (14) calcium 9.7 mg/dL 8.7-10 .2 Not Available [facility] Department [address] [place] [address], [address], 09/15/2023 23:07:47 09/15/20 23 09/15/2023 COMP. METAB OLIC PANEL (14) protein, total 7.0 g/dL 6.0-8. 5 Not Available [facility] Department [address] [place] [address], [address], 09/15/2023 23:07:47 09/15/20 23 09/15/2023 COMP. METAB OLIC PANEL (14) albumin 4.3 g/dL 3.9-4. 9 Not Available [facility] Department [address] [place] [address], [address], 09/15/2023 23:07:47 09/15/20 23 09/15/2023 COMP. METAB OLIC PANEL (14) globulin, total 2.7 g/dL 1.5-4. 5 Not Available [facility] Department [address] [place], [address], 09/15/2023 23:07:47 09/15/20 23 09/15/2023 COMP. METAB OLIC PANEL (14) A/G ratio 2.0 1.2-2. 2 Not Available [facility] Department [address] [place], [address], 09/15/2023 23:07:47 09/15/20 23 09/15/2023 COMP. METAB OLIC PANEL (14) bilirubin, total 0.4 mg/dL 0.0-1. 2 Not Available [facility] Department [address] [place] [address], [address], 09/15/2023 23:07:47 09/15/20 23 09/15/2023 COMP. METAB OLIC PANEL (14) alkaline phosphatase 110 IU/L 44-121 Not Available [facility] Department [address] [place] [address], [address], 09/15/2023 23:07:47 09/15/20 23 09/15/2023 COMP. METAB OLIC PANEL (14) AST (SGOT) 22 IU/L 0-40 Not Available [facility] Department [address] [place] [address], [address], 09/15/2023 23:07:47 09/15/20 23 09/15/2023 COMP. METAB OLIC PANEL (14) ALT (SGPT) 18 IU/L 0-32 Not Available [facility] Department [address] [place] [address], [address], 09/15/2023 23:07:47 09/15/20 23 09/16/2023 TSH+F REE T4 TSH 4.120 uIU/m L 0.450- 4.500 Not Available [facility] ([facility]) [address] [facility], , [address], 09/16/2023 05:22:11 09/15/20 23 09/16/2023 TSH+F REE T4 T4,free(dire ct) 1.21 NG/dL 0.82-1 .77 Not Available [facility] ([facility]) [address] [place], [address], 09/16/2023 05:22:11 09/15/20 23 09/16/2023 THYRO ID PEROX IDASE (TPO) AB thyroid peroxidase (tpo) Ab 19 IU/mL 0-34 Not Available [facility] ([facility]) [address] [place], [address], 09/16/2023 05:22:12 09/15/2009/16/2023 TRIIO DOTHY SIGIFREDO E (T3), FREE triiodothyro nine (T3), free 3.4 pg/mL 2.0-4. 4 Not Available [facility] ([facility]) [address] [place], [address], 09/16/2023 05:22:13 09/03/2009/04/2024 TSH+F REE T4 TSH 2.560 uIU/m L 0.450- 4.500 Not Available [facility] ([facility]) [address] [place], [address], 09/04/2024 11:17:03 09/03/20 24 09/04/2024 TSH+F REE T4 T4,free(dire ct) 1.21 NG/dL 0.82-1 .77 Not Available [facility] ([facility]) [address] [place], [address], 09/04/2024 11:17:03 09/03/20 24 09/04/2024 LIPID PANEL cholesterol, total 195 mg/dL 100-19 9 Not Available [facility] ([facility]) [address] [place], [address], 09/04/2024 11:17:04 09/03/20 24 09/04/2024 LIPID PANEL triglyceride s 304 mg/dL 0-149 above high normal Not Available [facility] ([facility]) [address] [facility] , [address], 09/04/2024 11:17:04 09/03/2009/04/2024 LIPID PANEL HDL cholesterol 40 mg/dL >39 Not Available [facility]) [address] [facility] , [address], 09/04/2024 11:17:04 09/03/2009/04/2024 LIPID PANEL VLDL cholesterol afsaneh 52 mg/dL 5-40 above high normal Not Available [facility] ([facility]) [address] [facility] , [address], 09/04/2024 11:17:04 09/03/2009/04/2024 LIPID PANEL LDL chol calc ([facility]) 103 mg/dL 0-99 above high normal Not Available [facility] ([facility]) [address] [place], [address], 09/04/2024 11:17:04 09/03/2009/04/2024 COMP. METAB OLIC PANEL (14) glucose 94 mg/dL 70-99 Not Available [facility] ([facility]) [address] [facility] , [address], 09/04/2024 11:17:05 09/03/2009/04/2024 COMP. METAB OLIC PANEL (14) BUN 7 mg/dL 6-24 Not Available [facility] ([facility]) [address] [facility] , [address], 09/04/2024 11:17:05 09/03/2009/04/2024 COMP. METAB OLIC PANEL (14) creatinine 0.79 mg/dL 0.57-1 .00 Not Available [facility] ([facility]) [address] [place], [address], 09/04/2024 11:17:05 09/03/20 24 09/04/2024 COMP. METAB OLIC PANEL (14) eGFR 95 mL/mi n/1.7 3 >59 Not Available [facility] ([facility]) [address] [facility], , [address], 09/04/2024 11:17:05 09/03/20 24 09/04/2024 COMP. METAB OLIC PANEL (14) BUN/creatini ne ratio 9 9-23 Not Available [facility] ([facility]) [address] [facility], , [address], 09/04/2024 11:17:05 09/03/20 24 09/04/2024 COMP. METAB OLIC PANEL (14) sodium 140 mmol/ L 134-14 4 Not Available [facility] ([facility]) [address] [facility], , [address], 09/04/2024 11:17:05 09/03/20 24 09/04/2024 COMP. METAB OLIC PANEL (14) potassium 4.3 mmol/ L 3.5-5. 2 Not Available [facility] ([facility]) [address] [facility], , [address], 09/04/2024 11:17:05 09/03/20 24 09/04/2024 COMP. METAB OLIC PANEL (14) chloride 101 mmol/ L 96-106 Not Available [facility] ([facility]) [address] [place], [address], 09/04/2024 11:17:05 09/03/20 24 09/04/2024 COMP. METAB OLIC PANEL (14) carbon dioxide, total 23 mmol/ L 20-29 Not Available [facility] ([facility]) [address] [facility], , [address], 09/04/2024 11:17:05 09/03/20 24 09/04/2024 COMP. METAB OLIC PANEL (14) calcium 9.5 mg/dL 8.7-10 .2 Not Available [facility] ([facility]) [address] [facility], , [address], 09/04/2024 11:17:05 09/03/20 24 09/04/2024 COMP. METAB OLIC PANEL (14) protein, total 6.5 g/dL 6.0-8. 5 Not Available [facility] ([facility]) [address] [facility], , [address], 09/04/2024 11:17:05 09/03/20 24 09/04/2024 COMP. METAB OLIC PANEL (14) albumin 4.0 g/dL 3.9-4. 9 Not Available [facility] ([facility]) [address] [facility], , [address], 09/04/2024 11:17:05 09/03/20 24 09/04/2024 COMP. METAB OLIC PANEL (14) globulin, total 2.5 g/dL 1.5-4. 5 Not Available [facility] ([facility]) [address] [facility], , [address], 09/04/2024 11:17:05 09/03/20 24 09/04/2024 COMP. METAB OLIC PANEL (14) bilirubin, total 0.3 mg/dL 0.0-1. 2 Not Available [facility] ([facility]) [address] [facility], , [address], 09/04/2024 11:17:05 09/03/20 24 09/04/2024 COMP. METAB OLIC PANEL (14) alkaline phosphatase 103 IU/L 44-121 Not Available [facility]) [address] [facility], , [address], 09/04/2024 11:17:05 09/03/20 24 09/04/2024 COMP. METAB OLIC PANEL (14) AST (SGOT) 28 IU/L 0-40 Not Available [facility] ([facility]) [address] [facility], , [address], 09/04/2024 11:17:05 09/03/2009/04/2024 COMP. METAB OLIC PANEL (14) ALT (SGPT) 24 IU/L 0-32 Not Available [facility] ([facility]) [address] [facility], , [address], 09/04/2024 11:17:05 09/03/20 24 09/04/2024 HEMOG LOBIN A1C hemoglobin A1C 5.9 % 4.8-5. 6 above high normal Predi abete s: 5.7 - 6.4 Diabe charito: >6.4 Glyce den contr ol for adult s with diabe charito: <7.0 Not Available [facility] ([facility]) [address] [facility], , [address], 09/04/2024 11:17:07 09/03/2009/03/2024 IGP,A PTIMA HPV,A GE GDLN age gdln acog testing 30-65 Not Available [facility]) [address] [facility], , [address], 09/10/2024 09:09:45 09/03/20 24 09/04/2024 IGP, APTIM A HPV, RFX 16/18 ,45 HPV aptima Negati ve negati ve This nucle ic acid ampli ficat ion test detec ts fourt een high- risk HPV types (16,1 8,31, 33,35 ,39,4 5,51, 52,56 ,58,5 9,66, 68) witho ut diffe renti ation . Not Available [facility] ([facility]) [address] [facility], , [address], 09/10/2024 09:09:46 09/03/2009/10/2024 IGP, APTIM A HPV, RFX 16/18 ,45 diagnosis: Commen t NEGAT SHARON FOR INTRA EPITH ELIAL LESIO N OR CATHIE REBOLLEDO . THIS SPECI MEN WAS RESCR EENED PART OF OUR QUALI TY CONTR OL PROGR AM. Not Available [facility] ([facility]) [address] [place], [address], 09/10/2024 09:09:46 09/03/2009/10/2024 IGP, APTIM A HPV, RFX 16/18 ,45 specimen adequacy: Chaitanya naqvi Satis facto ry for evalu ation . Endoc ervic al and/o r squam ous metap lasti c cells (endo cervi afsaneh compo nent) are prese nt. Not Available [facility] ([facility]) [address] [place], [address], 09/10/2024 09:09:46 09/03/2009/10/2024 IGP, APTIM A HPV, RFX 16/18 ,45 clinician provided ICD10: Chaitanya naqvi Z12.4 Not Available [facility] ([facility]) [address] [place], [address], 09/10/2024 09:09:46 09/03/2009/10/2024 IGP, APTIM A HPV, RFX 16/18 ,45 performed by: Chaitanya Antony , Cytot echno logis t (ASCP ) Not Available [facility] ([facility]) [address] [place], [address], 09/10/2024 09:09:46 09/03/2009/10/2024 IGP, APTIM A HPV, RFX 16/18 ,45 QC reviewed by: Chaitanya foss, Cytot echno logis t (ASCP ) Not Available [facility] ([facility]) [address] [place], [address], 09/10/2024 09:09:46 09/03/20 24 09/10/2024 IGP, APTIM A HPV, RFX 16/18 ,45 . . Not Available [facility] ([facility]) [address] [place], [address], 09/10/2024 09:09:46 09/03/20 24 09/10/2024 IGP, APTIM A HPV, RFX 16/18 ,45 note: Commen t The Pap smear is a scree kimberly test desig denise to aid in the detec tion of lluvia ligna nt and malig nant condi tions of the uteri ne cervi x. It is not a diagn ostic proce dure and shoul d not be used as the sole means of detec ting cervi afsaneh cance r. Both false -posi tive and false -nega tive repor ts do occur . Not Available [facility] ([facility]) [address] [facility], , [address], 09/10/2024 09:09:46 09/03/20 24 09/10/2024 IGP, APTIM A HPV, RFX 16/18 ,45 test methodology: Commen t This liqui d based ThinP rep(R ) pap test was scree denise with the use of an image guide nafisa schroeder. Not Available [facility] ([facility]) [address] [facility], , [address], 09/10/2024 09:09:46 09/03/20 24 09/10/2024 IGP, APTIM A HPV, RFX 16/18 ,45 HPV genotype reflex Commen t Crite derek not met, HPV Genot ype not perfo rmed. Not Available [facility] ([facility]) [address] [place], [address], 09/10/2024 09:09:46 02/13/20 25 02/12/2025 COMPL ETE BLOOD COUNT AUTO DIFF white blood count 16.8 x10e3 /uL 3.4-10 .8 high Not Available [facility] (Lab) [address] [place], [address], 02/12/2025 22:30:47 02/13/20 25 02/12/2025 COMPL ETE BLOOD COUNT AUTO DIFF red blood count 5.65 x10e6 /uL 3.77-5 .28 high Not Available [facility] (Lab) [address] [facility], [place], [address], 02/12/2025 22:30:47 02/13/20 25 02/12/2025 COMPL ETE BLOOD COUNT AUTO DIFF hemoglobin 16.0 g/dL 11.1-1 5.9 high Not Available [facility] (Lab) [address] [facility], [place], [address], 02/12/2025 22:30:47 02/13/20 25 02/12/2025 COMPL ETE BLOOD COUNT AUTO DIFF hematocrit 49.2 % 34.0-4 6.6 high Not Available [facility] (Lab) [address] [facility], [place], [address], 02/12/2025 22:30:47 02/13/20 25 02/12/2025 COMPL ETE BLOOD COUNT AUTO DIFF mean corpuscular volume 87 fL 79-97 normal Not Available [facility] [address], [place], [address], 02/12/2025 22:30:47 02/13/20 25 02/12/2025 COMPL ETE BLOOD COUNT AUTO DIFF mean corpuscular hemoglobin 28.3 pg 26.6-3 3.0 normal Not Available [facility] (Lab) [address], [place], [address], 02/12/2025 22:30:47 02/13/20 25 02/12/2025 COMPL ETE BLOOD COUNT AUTO DIFF mean corpuscular HGB conc 32.5 g/dL 31.5-3 5.7 normal Not Available [facility] (Lab) [address] [place], [address], 02/12/2025 22:30:47 02/13/20 25 02/12/2025 COMPL ETE BLOOD COUNT AUTO DIFF red cell distribution width 13.8 % 11.5-1 4.5 normal Not Available [facility] (Lab) [address] [place], [address], 02/12/2025 22:30:47 02/13/20 25 02/12/2025 COMPL ETE BLOOD COUNT AUTO DIFF platelet count 552 x10e3 /uL 150-45 0 high Not Available [facility] [address] [facility], [place], [address], 02/12/2025 22:30:47 02/13/20 25 02/12/2025 COMPL ETE BLOOD COUNT AUTO DIFF mean platelet volume 9.5 fL 8.9-12 .7 normal Not Available [facility] (Lab) [address], [place], [address], 02/12/2025 22:30:47 02/13/20 25 02/12/2025 COMPL ETE BLOOD COUNT AUTO DIFF immature granulocytes pct auto 1.1 % not estb. Not Available [facility] [address], [place], [address], 02/12/2025 22:30:47 02/13/20 25 02/12/2025 COMPL ETE BLOOD COUNT AUTO DIFF neutrophils percent auto 71 % not estb. Not Available [facility] [address], [place], [address], 02/12/2025 22:30:47 02/13/20 25 02/12/2025 COMPL ETE BLOOD COUNT AUTO DIFF lymphocytes percent auto 21 % not estb. Not Available [facility] (Lab) [address] [facility], [place], [address], 02/12/2025 22:30:47 02/13/20 25 02/12/2025 COMPL ETE BLOOD COUNT AUTO DIFF monocytes percent auto 7 % not estb. Not Available [facility] (Lab) [address] [facility], [place], [address], 02/12/2025 22:30:47 02/13/20 25 02/12/2025 COMPL ETE BLOOD COUNT AUTO DIFF eosinophils percent auto 0 % not estb. Not Available [facility] (Lab) [address] [place], [address], 02/12/2025 22:30:47 02/13/20 25 02/12/2025 COMPL ETE BLOOD COUNT AUTO DIFF basophils percent auto 1 % not estb. Not Available [facility] (Lab) [address] [place], [address], 02/12/2025 22:30:47 02/13/20 25 02/12/2025 COMPL ETE BLOOD COUNT AUTO DIFF neutrophils absolute auto 11.8 x10e3 /uL 1.4-7. 0 high Not Available [facility] (Lab) [address] [facility], [place], [address], 02/12/2025 22:30:47 02/13/20 25 02/12/2025 COMPL ETE BLOOD COUNT AUTO DIFF immature granulocytes abs auto 0.2 x10e3 /uL 0.0-0. 1 high Not Available [facility] ([facility]) [address] [facility], [place], [address], 02/12/2025 22:30:47 02/13/20 25 02/12/2025 COMPL ETE BLOOD COUNT AUTO DIFF lymphocytes absolute auto 3.5 x10e3 /uL 0.7-3. 1 high Not Available [facility] ([facility]) [address] [place], [address], 02/12/2025 22:30:47 02/13/20 25 02/12/2025 COMPL ETE BLOOD COUNT AUTO DIFF monocytes absolute auto 1.2 x10e3 /uL 0.1-0. 9 high Not Available [facility] (Lab) [address] [place], [address], 02/12/2025 22:30:47 02/13/20 25 02/12/2025 COMPL ETE BLOOD COUNT AUTO DIFF eosinophils absolute auto 0.1 x10e3 /uL 0.0-0. 4 normal Not Available [facility] ([facility]) [address], [place], [address], 02/12/2025 22:30:47 02/13/20 25 02/12/2025 COMPL ETE BLOOD COUNT AUTO DIFF basophils absolute auto 0.1 x10e3 /uL 0.0-0. 2 normal Not Available [facility] ([facility]) [address], [place], [address], 02/12/2025 22:30:47 02/13/20 25 02/12/2025 COMPL ETE BLOOD COUNT AUTO DIFF nucleated red blood cells auto 0 % 0-0 normal Not Available [facility] ([facility]) [address], [place], [address], 02/12/2025 22:30:47 12/13/19 23 12/13/2022 CT, abdom en + pelvi s, w/ contr ast No observ ation record ed. [address], [place], [address], 12/14/2022 14:41:25 09/29/20 23 US, thyro id [facility] [place] [address] EXAMIN ATION: Thyroi d ultras ound HISTOR [...] US Electr onical ly Signed By: Yoshi Harper MD on 023 3:34 PM Interp reted By: Yoshi Harper MD, 023 3:29 PM yolanda [facility] [address], [place], [address], 10/03/2023 11:52:26 12/26/[address] temp bones wo con [facility] HOSPIT [place] [address] EXAMIN ATION: Tempor al bone CT withou [...] Right tempor al bone: The pinna and logistics loss prevention manager al audito ry canals are unrema rkable . The middle ear cavity and clear. The ossicl es and scutum are intact . The bony facial nerve canal is unrema rkable . The bony cochle a vestib ule and semici rcular canals are unrema rkable . The bony communications intern al audito ry canal is unrema rkable There is opacif icatio n of the right mastoi d air cells. The caroti d canal and jugula r forame n are unrema rkable . Left tempor al bone: The pinna and logistics loss prevention manager al audito ry canals are unrema rkable . Middle ear caviti es clear. The ossicl es and scutum are intact . The bony facial nerve canal is unrema rkable . Bony cochle a vestib ule and semici rcular canals are unrema rkable . The bony communications intern al audito ry canal is unrema [...] By: Rupesh Alarcon MD, 7:06 AM [email or web address], [address], 12/29/2023 16:32:17 Result Notes None recorded. Problems Name Problem SNOMED Code Status Onset Date Resolution Date Notes Provider Name and Address Organization Details Recorded Time Eruption 425658683 Active Not Available [facility] 3 23:29:55 Environmental allergy 608224389 Active Not Available [facility] 3 23:29:55 Anterior knee pain 450132590 Active Not Available [facility] 3 23:29:55 Candidiasis of vagina 23559894 Active Not Available [facility] 3 23:29:55 Painful mouth 954739873 Active Not Available [facility] 3 23:29:55 Notes:Some problems listed i n Documents: #[id number], #[id number] could not be added to this patient's chart. Please review these documents and add these problems to the patient's chart manually as needed. Problem Notes None recorded. Procedures Surgical History Date Name Laterality Status Provider Name and Address Organization Details Recorded Time 11/12/20 15 Joint Injection completed Cody Jackosn [facility] 11/12/2015 12:30:17 11/28/19 11 Tonsillectomy completed RAYSHAWN Garcia Attn: Accounting,[address], [place], [address], [place] [facility] 06/28/2016 11:38:20 Imaging Results Imaging Date Name Status LastModified by Organiz ation Details LastModified Time 12/13/2022 CT, abdomen + pelvis, w/ contrast completed [place] [address], [place], [address], 12/14/2022 14:41:25 09/29/2023 US, thyroid completed yolanda [address], [address], 10/03/2023 11:52:26 12/26/2023 CT temp bones wo con completed [address], [address], 12/29/2023 16:32:17 Procedure Notes None recorded. Medical Equipment None Reported. Allergies Allergen ID Allergen Name Allergen Category Reaction Reaction Severity Criticality Documentation Date Start Date Code Code System Note Provider Name and Address Organization Details Recorded Time 956498 Bactrim medicatio n rash moderate Not available 05/27/20222021 70592 9 RxNorm Not Available Not Available Not Available 204572 egg extract food,medi cation respirato ry distress Not available Not available 09/15/2023 95292 15 RxNorm Not Available Not Available Not Available 974989 Medicinal product acting as adhesive (product) environme nt,medica tion rash Not available high 02/12/20252017 12265 2009 SNOMED Not Available Not Available Not Available 967332 isopropyl alcohol medicatio n hives itching Not available Not available high 02/12/20252011 46523 1 RxNorm Not Available Not Available Not Available 46564 lanolin environme nt,medica tion hives Not available Not available 01/15/2015 6227 RxNorm Not Available Not Available Not Available 81533 Product containin g penicilli n (product) medicatio n hives Not available Not available 01/15/2015 40874 8001 SNOMED Not Available Not Available Not Available 14957 Tylenol medicatio n respirato ry distress Not available Not available 01/15/2015 29034 3 RxNorm Not Available Not Available Not Available 93601 poison faustino extract environme nt rash Not available Not available 01/15/2015 08142 6 RxNorm Not Available Not Available Not Available 79589 Ultram medicatio n headache Not available Not available 08/01/2015 94105 6 RxNorm Not Available Not Available Not Available 28145 nitrofura ntoin medicatio n rash Not available [...] capsule TAKE 1 CAPSULE BY MOUTH EVERY 6 HOURS FOR 10 DAYS 02/12 completed Not Available Not Available Not Available [...] mg tablet TAKE 3 TABLETS BY MOUTH DAILY FOR 5 DAYS 02/12 completed Not Available Not Available Not Available [...] completed Not Available Not Available Not Available famotidin e 20 mg tablet TAKE 1 TABLET BY MOUTH EVERY 12 HOURS FOR 5 DAYS active Not Available Not Available No t Available Nortrel 1/35 (28) 1 mg-35 mcg tablet TAKE 1 TABLET BY MOUTH DAILY active Not Available Not Available No t Available betametha sone valerate 0.1 % topical cream APPLY THIN LAYER TOPICALL Y TO FACE DAILY NEEDED active Not Available Not Available No t Available antipyrin e-benzoca ine 5.4 %-1.4 % ear drops 06/28 completed Not Available Not Available Not Available meclizine 25 mg tablet TAKE 1 TABLET BY MOUTH EVERY 8 HOURS NEEDED 09/09 completed Not Available Not Available Not Available phenazopy ridine 100 mg tablet TAKE 2 TABLETS BY MOUTH THREE TIMES DAILY FOR 6 DOSES NEEDED FOR PAIN 02/12 completed Not Available Not Available Not Available [...] Not Available Not Available No t Available monteluka st 10 mg tablet TAKE 1 TABLET BY MOUTH EVERY DAY IN THE EVENING active Not Available Not Available No t [...] 4 mg tablets in a dose pack TAKE 1 DOSEPAK BY MOUTH PER PACKAGE DIRECTIO NS. TAKE WITH FOOD. DO NOT TAKE WITH ASPIRIN OR NSAIDS SUCH ALEV OR IBUPROPH EN ETC. 02/12 completed Not Available Not Available Not Available [...] Updated DateTime 2 158.75 cm 43 kg/m2 038547. 58 g 97.1 [degF] 123 /min 98 % 98 % 118 mm[Hg] 84 mm[Hg] Traci Stephens RN [facility] 2 15:28:59 Date Recorded Body height Body mass index (BMI) Body weight Body temperature Heart rate Oxygen saturation Oxygen saturation in Arterial blood by Pulse oximetry Systolic blood pressure Diastolic blood pressure Provider Name and Address Organization Details Last Updated DateTime 3 158.75 cm 44.1 kg/m2 241309. 13 g 98 [degF] 116 /min 99 % 99 % 135 mm[Hg] 105 mm[Hg] Leeann Coats MA [facility] 3 16:07:38 Date Recorded Body height Body mass index (BMI) Body weight Body temperature Heart rate Systolic blood pressure Diastolic blood pressure Provider Name and Address Organization Details Last Updated DateTime 3 158.75 cm 43.9 kg/m2 061555. 54 g 97.1 [degF] 103 /min 135 mm[Hg] 92 mm[Hg] Tanna Luna MA [facility] 3 09:16:15 Date Recorded Systolic blood pressure Diastolic blood pressure Provider Name and Address Organization Details Last Updated DateTime 09/15/2023 130 mm[Hg] 96 mm[Hg] RAYSHAWN Garcia Attn: Accounting,[address] [place], [address], [facility] 09/15/2023 09:33:54 Date Recorded Body height Body mass index (BMI) Body weight Body temperature Heart rate Systolic blood pressure Diastolic blood pressure Provider Name and Address Organization Details Last Updated DateTime 4 158.75 cm 45.5 kg/m2 205696. 87 g 97.8 [degF] 102 /min 140 mm[Hg] 88 mm[Hg] Tanna Luna MA [facility] 4 09:08:07 Date Recorded Systolic blood pressure Diastolic blood pressure Provider Name and Address Organization Details Last Updated DateTime 09/03/2024 132 mm[Hg] 82 mm[Hg] RAYSHAWN Garcia Attn: Accounting[address] [place], [address], [facility] 09/03/2024 09:23:25 Date Recorded Body height Body mass index (BMI) Body weight Heart rate Body temperature Systolic blood pressure Diastolic blood pressure Provider Name and Address Organization Details Last Updated DateTime 5 158.75 cm 45.7 kg/m2 434775. 46 g 125 /min 97.3 [degF] 139 mm[Hg] 88 mm[Hg] Monisha Stone MA [facility] 5 12:02:34 Social History Question Answer Notes LastModified by Organizat ion Details LastModified Time Tobacco Smoking Status Never Smoker Tanna Luna MA null, [facility] 01/15/2015 12:13:30 What Is Your Level Of Alcohol Consumption? Occasional [email or web address] Information not available 01/15/2015 What Was The Date Of Your Most Recent Tobacco Screening? 02/12/2025 [email or web address] Information not available 02/12/2025 Do You Or Have You Ever Used Any Other Forms Of Tobacco Or Nicotine? No [email or web address] Information not available 09/03/2024 Sex: Unknown Functional Status None recorded. Mental Status None recorded. Family History Relationship Description Onset Age of this Age Resolved Age Notes LastModified by Organization Details LastModified Time Mother Degeneration of intervertebr al disc [email or web address] Not available 06/28 11:44:23 Father Diabetes mellitus [email or web address] Not available 06/28 11:44:23 Father Heart disease [email or web address] Not available 06/28 11:44:23 Father Mesothelioma (malignant, clinical disorder) [email or web address] Not available 06/28 11:44:23 Medical History No medical history recorded. Gynecological HistoryNo gynecological history recorded. Obstetrics History GPAL:G 0 P 0 0 0 0 Immunizations Vaccine Type Date Status Note Provider Nam e and Address Organization Details Recorded Time COVID-19, mRNA, LNP-S, PF, 30 mcg/0.3 mL dose 1 completed Not Available [facility] 07/18/2023 23:29:55 Influenza, split virus, trivalent, preservative 4 completed Not Available [facility] 07/18/2023 23:29:55 Tdap 3 completed Not Available [facility] 07/18/2023 23:29:55 COVID-19, mRNA, LNP-S, PF, 30 mcg/0.3 mL dose 1 completed Not Available [facility] 07/18/2023 23:29:55 COVID-19, mRNA, LNP-S, PF, 30 mcg/0.3 mL dose 2 completed Not Available [facility] 07/18/2023 23:29:55 Tdap 7 completed Not Available [facility] 12/15/2019 02:34:51 Past Encounters Encounter ID Performer Location Encounter Start Date Encounter Closed Date Diagnosis/Indication Diagnosis SNOMED-CT Code Diagnosis ICD10 Code Diagnosis Note [id number] Cody [facility] ([facility]) [address] [place] [address] 01/15/2015 11:49:48 01/15/2015 13:52:37 Eruption 823395882 Will try po steroid burst, as patient is allergy to hydrocorti sone cream and PCN-based creams, will also place a referral to Derm, persistent rash, 3 cm, raised, irregular borders, increasing in size since beginning of the year [id number] [facility] ([place] [facility]) [address] [place] [address] 08/01/2015 11:29:17 08/01/2015 12:28:13 Adult health examination 482582667 Ms. Garcia is here for her annual physical, her pap smear is up to date. her Pap smear in 2012 was negative for HPV Uses contraception 89758902 Refill OCP, no major concerns. Eruption 032323486 Resol janneth, seen by Derm Environmental allergy 693039996 Ms. Garcia would like allergy opinion regarding environmen veronica allergy [id number] Cody Jackson [facility] ([place] [facility]) [address] [place] [address] 11/12/2015 11:50:42 11/12/2015 12:32:57 Anterior knee pain 902911529 M25.569 Mrs. Garcia 35 yo woman with right medial knee pain x 2 weeks, feels the knee is locking, popping, and unstable. PT referral, and steriod injection, please see procedure note for full details [id number] RAYSHAWN Garcia [facility] ([place] [facility]) [address] [place] [address] 06/28/2016 11:20:39 06/29/2016 10:31:23 Candidiasis of vagina 23946109 B37.3 Can not use OTC therapy due to lanolin as inactive ingredient and allergy, will give fluconazol e. Adult heal th examination 502653137 Z00.00 BP & HR elevated 2/2 to pain. Should monitor BP at home, goal less than 140/90. Painful mouth 215218331 K13.79 2/2 to dentation [id number] RAYSHAWN Garcia [facility] ([facility]) [address] [place] [address] 05/20/2017 10:19:26 06/01/2017 10:18:19 Adult health examination 402385066 Z00.00 Due for labs. Discussed healthy diet and exercise, which she reports that she is working on. Negative depression screening. Contraception care 60598 5005 Z30.40 Needs refills. If BP remains elevated will need to switch methods. Increased blood pressure 89841282 R03.0 Discussed multiple elevated BP at office visits. She refused to be started on medication s due to her normal blood pressures when she checks at home. Will send for labs. Encouraged to bring in home cuff to check in office for correlatio n. Headache 89072592 R51 Discussed headaches. Will trial low dose sumatripta n with next headache. RTC if no improvemen t. Screening for malignant neoplasm of cervix 006342593 Z12.4 [id number] Blanka Garcia MA [facility] ([facility]) [address] [place] [address] 10/28/2017 10:30:53 10/28/2017 12:50:10 Active or passive immunization 098552090 Z23 [id number] RAYSHAWN Garcia [facility] ([place] [facility]) [address] [place] [address] 07/26/2018 09:18:33 07/27/2018 13:24:21 Gynecologic examination 18258077 Z01.419 -Pap collected and sent-Discu ssed nutrition and exercise-N egative depression screening Contraception care 84194 5005 Z30.40 -Wishes to continue current OCP Body mass index 30+ - obesity 571904193 Z68.39 -Labs as ordered-En couraged more physical activity. [id number] RAYSHAWN Garcia [facility] ([facility]) [address] [place] [address] 07/25/2019 09:02:41 07/26/2019 14:20:01 Gynecologic examination 14041364 Z01.419 -Pap collected and sent-Discu ssed nutrition and exercise-N egative depression screening Obesity 684952137 E66.9 -check labs [id number] RAYSHAWN Garcia [facility] ([place] [facility]) [address] [place] [address] 08/05/2020 11:33:53 08/06/2020 10:52:52 Adult health examination 427432189 Z00.00 -due for PAP in Sep (had colpo last Sep)-due for mammogram -neg depression screening Obesity 487377401 E66.9 -check labs-has been working on diet and exercise at home Screening mammography 24 653430 Z12.31 [id number] RAYSHAWN Garcia [facility] ([place] [facility]) [address] [facility] [place] [address] 10/07/2020 09:01:56 10/09/2020 15:00:52 Gynecologic examination 57435842 Z01.419 -Pap collected and sent-Discu ssed nutrition and exercise-N egative depression screening Contraception care 54188 5005 Z30.40 -Wishes to continue current OCP [id number] RAYSHAWN Garcia [facility] ([place] [facility]) [address] [place] [address] 09/02/2021 09:03:59 09/02/2021 14:28:19 Otalgia 81079911 H92.01 -refer to ENT, suspect perforatio n is from [place] to cover for infection- cont flonase Gynecologi c examination 78985380 Z01.419 -Pap collected and sent-discu ssed starting mammograms , declined at this time-Discu ssed nutrition and exercise-N egative depression screening Morbid obesity 360419426 E66.01 -check labs for co-morbidi ties [id number] RAYSHAWN Garcia [facility]) [address] [place] [address] 05/26/2022 10:30:46 05/27/2022 10:25:48 Impetigo 51073738 L01.00 -does not want mupirocin due to lanolin allergy-tr eat with bactrim-go od handwashin g and try not to scratch area-f/u if no improvemen t Morbid obesity 318325527 E66.01 Allergic r eaction to adhesive 052020184 T78.49XD -refer to allergy Allergic r eaction to drug 647738592 T78.49XD [id number] RAYSHAWN Garcia [place] [facility] ([place] [facility]) [address] [facility] [place] [address] 09/09/2022 15:20:33 09/27/2022 12:43:09 Contraception care 045799115 Z30.40 -Wishes to continue current OCP Adult heal th examination 751199839 Z00.00 -PAP due 08/2024-du e for mammogram- normal BP-neg depression screening Morbid obesity 503084134 E66.01 -check labs-revie wed nutrition and exercise Serum thyr oid stimulating hormone level outside reference range 861536012 R79.89 -recheck labs [id number] MARYA [facility] ([place] [facility]) [address] [place] [address] 04/29/2023 15:52:07 05/11/2023 14:11:20 Contact with [facility] faustino 318951946 X58.XXXA kenalog 40 mg IM once per MA per vofu w/ PCP as neededrepo rt to ED if s/s worsen or experience CP, SOB, LARKIN or scnbpege09 mg benadryl po nightly for the next 3-7 nights to aid in riding of rashif rash lacks improvemen t in the next 24-48h, follow w/ po steroid dose packcontag iousness discussed Environmental allergy 42 1700226 T78.49XA referral pendingfu as neededcont inue zyrtec and pepcid in the mean time [id number] RAYSHAWN Garcia [facility] ([facility]) [address] [place] [address] 09/15/2023 08:59:45 09/22/2023 15:23:06 Goiter 4738315 E04.9 -send for US, check labs Decreased hearing 938031 001 H90.11 -needs ENT referral Obesity 364663573 E66.9 -check labs-has been working on diet and exercise at home Contraception care 84567 5005 Z30.40 -Wishes to continue current OCP Adult heal th examination 994236472 Z00.00 -PAP due 08/2024-du e for mammogram- normal BP-neg depression screening [id number] RAYSHAWN Garcia [facility] ([place] [facility]) [address] [place] [address] 09/03/2024 08:59:17 10/01/2024 09:32:46 Screening for malignant neoplasm of cervix 621817013 Z12.4 -pap collected and sent-perfo james monthly self breast exams, declined mammogram Mammogram declined 21983 5004 Z53.20 Hyperlipidemia 25517798 E78.5 -diet controlled -check labs Hyperglycemia 65724113 R 73.9 -diet controlled -check labs Obesity 097817111 E66.9 -check labs-has been working on diet and exercise at home [id number] RAYSHAWN [facility] ([facility]) [address] [place] [address] 02/12/2025 11:49:06 02/14/2025 09:14:25 Eruption 124757580 R21 -will try betamethas one (possible formulatio n with no lanolin) Idiopathic urticaria 422 84900 L50.1 -check labs (can not do skin testing due to dermatitis )-on zyrtec and pepcid OTC-start montelukas t-check CBC for esos-f/u based on results Tachycardia 4056097 R00. 0 -refer to cardiology for tachycardi a Morbid obesity 234342292 E66.01 -BMI 50.7 Health Concerns Section Related Observation LastModified by Organization Detai ls LastModified Time None Recorded Concern Status LastModified by Organization Details LastModified Time None Recorded Advance Directives Directive None Recorded Payers Encounter Date Sequence Insurance Name Policy Number Policy Joseph Covered Member ID Joseph Member ID Guarantor Name 09/09/2022 1 [facility] [id number] Crys Garcia [id number] Torsten Garcia 04/29/2023 1 *SELF PAY* Jadiel Garcia 09/15/2023 1 [place] [id number] Torsten Garcia [id number] Torsten Garcia 09/03/2024 1 [place] [id number] Torsten Garcia [id number] Torsten Garcia 02/12/2025 1 [place] [id number] Torsten Garcia [id number] Torsten Garcia Notes Date Note Type Note Provider Name and Address Organization Details Recorded Time 09/09/2022 text/html Here today for a check-up. She has no concerns today SAURABH GarciaC Attn: Accounting[address] [place], [address], [facility] 09/27/2022 09:45:36 04/29/2023 text/html Pt w/a history [...] she reports difficulty obtaining and appt. w/ medical staff manager/allerg ist of prior referral and is requesting an alternative. Pt denies nausea, vomiting, fever, chest pain, SOB, wheezing, angioedema, chills, cough, diarrhea, constipation and dysuria. MARV Albrecht Attn: Accounting[address] [place], [address], [facility] 05/03/2023 12:02:09 09/15/2023 text/html Here today for a check-up. She would like a full thyroid panel RAYSHAWN Garcia Attn: Accounting[address] [facility], [place], [address], [facility] 09/19/2023 14:59:59 09/03/2024 text/html Annual GYNReport ed bypatient.Menstrual cycle:Normal menses Breast:No breast pain; No breast lump; No nipple discharge Current Contraception:Satis fied with current contraception; Monogamous relationship Sexual complaints:No sexual complaints Menopausal Symptoms:No menopausal symptoms Psychological symptoms:Anxiety Preventive measures:Followed with Q3 year pap smear and high risk HPV typing; Has had colpos in the past. RAYSHAWN Garcia Attn: Accounting[address] [facility], [place], [address], [facility] 10/01/2024 09:06:49 02/12/2025 text/html Crys is here today with complaints of a rash to her left upper lip and cheek. She reports she has been to UC several times and has completed prednisone and antibiotics. Rash is bumpy and red. Sometimes itches. No new foods or skin products. No one else with similar rash. Of note, she she is allergic to lanolin and adhesive. She is concerned that she has POTS. States she can be sitting and her HR will go up to the 140s. She is also concerned about Ehler Danlos. RAYSHAWN Garcia Attn: Accounting[address] [facility], [place], [address], [facility] 02/13/2025 12:42:57 OBGyn Episode No OBEpisode recorded.
--- OUTSIDE RECORDS SUMMARY | 2025-03-09 00:28 | XMS_ITS | Clinical Summary ---
Author Organization [facility] Address [address], [address] [address] Phone Care Team Providers Care Headstart Teacher Name Role Phone Selene Vaughn MD Primary Care Provider [phone] Rupesh Finn MD Unavailable Allergies Active Allergy Reactions Criticality Noted Date Comments Acetaminophen Anaphylaxis,Swelling ,Shortness of Breath High 1979 Isopropyl Alcohol Hives,Itching,Rash High 07/12/2012 Lanolin Hives 02/27/2025 Penicillins Hives Medium 05/08/2008 Poison Juliana Extract Rash Medium 12/23/2017 Sulfa Antibiotics Rash 02/27/2025 Medications Ascorbic Acid 1000 MG Tablet Take 1 Tablet by mouth daily. Active Calcium Carbonate-Vit D-Min (SM Calcium 600+D Plus Minerals) 600-800 MG-UNIT Chewable Tablet 1 TAB(S) CHEWED ONCE A DAY Active cetirizine (ZyrTEC Allergy) 10 MG Tablet Take 1 Tablet by mouth daily. Active Cholecalciferol 10 MCG (400 UNIT) Capsule Active Cinnamon 500 MG Capsule Active CRANBERRY PO Take 1 Capsule by mouth. Active LUTEIN PO Active magnesium oxide (MAG-OX) 400 MG Tablet Take 1 Tablet by mouth daily. Active Nortrel 1/35, 28, 1-35 MG-MCG Tablet Take 1 Tablet by mouth daily. Active POTASSIUM PO Take 1 Tablet by mouth daily. Active vitamin E (TOCOPHEROL) 400 UNIT Capsule Take 1 Capsule by mouth daily. Active Active Problems No known active problems Encounters Date Type Department Care Team Description 02/27/2025 10:25 AM CDT Lab [facility] [address] [phone] Lab, [facility], unspecified type; Polycythemia 02/27/2025 10:00 AM CDT Office Visit [facility] [address] [phone] Mohsen Talley MD Leukocytosis, unspecified type (Primary Dx); Polycythemia 02/27/2025 Travel from Last 3 Months Social History Tobacco Use Types Packs/Day Years Used Date Smoking Tobacco: Never Smokeless Tobacco: Never Alcohol Use Standard Drinks/Week Comments Yes 1 (1 standard drink = 0.6 oz pur e alcohol) Comments Unknown Sex and Gender Information Value Date Recorded Sex Assigned at Female 03/01/2025 10:45 AM CDT Legal Sex Female 10:51 AM CDT Gender Identity Choose not to disclose 10:45 AM CDT Sexual Orientation Straight 03/01/2025 10 :45 AM CDT Last Filed Vital Signs Vital Sign Reading Time Taken Comments Blood Pressure 140/80 02/27/2025 9:41 AM CDT Pulse 114 02/27/2025 9:41 AM CDT Temperature 36.5 C (97.7 F) 02/27/2025 9:41 AM CDT Respiratory Rate 18 02/27/2025 9:4 1 AM CDT Oxygen Saturation 98% 02/27/2025 9:41 AM CDT Inhaled Oxygen Concentration - - Weight 116.9 kg (257 lb 11.2 oz) 02/27/2025 9:41 AM CDT Height 160 cm (5' 3 ) 02/27/2025 9:41 AM CDT Body Mass Index 45.65 02/27/2025 9:41 AM CDT Plan of Treatment Upcoming Encounters Date Type Department Care Team (Late st Contact Info) Description 03/13/2025 11:00 AM CDT Office Visit [facility] [address] [phone] Mohsen Talley MD [address] [place] [phone] Health Maintenance Due Date Last Done Comments Hepatitis C Virus (HCV) Screening 1979 Mammogram 1979 Hepatitis B Immunization (1 of 3 - 19+ 3-dose series) 1998 Discussion re Starting/Frequency of Mammograms 2019 SARS-COV-2 Immunization (2023- season) 2024 12/04/2021, 05/17/2021, 04/25/2021 Colonoscopy 2024 Colorectal Cancer Screening 2024 Influenza Immunization (Season Ended) 2025 07/30/2014 Respiratory Syncytial Virus (RSV) Immunization (Adult) (1 - 1-dose 75+ series) 2054 DTaP/Tdap/Td Immunization Discontinued 2016, 02/26/2013 TdaP Immunization Completed 10/28/2017, 02/26/2013 Meningococcal Immunization (ACWY) Aged Out No longer eligible based on patient's age to complete this topic Pneumococcal Immunization Combined Aged Out No longer eligible based on patient's age to complete this topic Rotavirus Immunization Aged Out No lo nger eligible based on patient's age to complete this topic Procedures Procedure Name Priority Date/Time Associated Diagnosis Comments CCS-ACUTE LEUKEMIA PNL (NON-NY) [place] B504-2 Routine 02/27/2025 10:22 AM CDT CCS-ACUTE LEUKEMIA PNL (NON-NY) OH B504-2 Routine 02/27/2025 10:22 AM CDT FISH BCR/ABL T(9;22) FOR CML/ALL Routine 02/27/2025 10:22 AM CDT Leukocytosis, unspecified type Polycythemia SERUM FREE LIGHT CHAINS, OH Routine 02/27/2025 10:22 AM CDT COMPLETE BLOOD COUNT (CBC) WITH DIFF Routine 02/27/2025 10:22 AM CDT Leukocytosis, unspecified type Polycythemia CMP (COMPREHENSIVE METABOLIC PANEL) Routine 02/27/2025 10:22 AM CDT Leukocytosis, unspecified type Polycythemia LACTATE DEHYDROGENASE (LD) Routine 02/27/2025 10:22 AM CDT Leukocytosis, unspecified type Polycythemia ONKOSIGHT NGS JAK2 V617F REFLEX JAK2 EXON 12, CALR AND H Routine 02/27/2025 10:22 AM CDT Leukocytosis, unspecified type Polycythemia ERYTHROCYTE SEDIMENTATION RATE (ESR) Routine 02/27/2025 10:22 AM CDT Leukocytosis, unspecified type Polycythemia ELECTROPHORESIS W/ TOTAL PROTEIN SERUM Routine 02/27/2025 10:22 AM CDT Leukocytosis, unspecified type Polycythemia IMMUNOFIXATION, SERUM OH Routine 02/27/2025 10:22 AM CDT Leukocytosis, unspecified type Polycythemia IMMUNOGLOBULIN IGA, IGG & IGM QUANT Routine 02/27/2025 10:22 AM CDT Leukocytosis, unspecified type Polycythemia VITAMIN B12 Routine 02/27/2025 10:22 AM CDT Leukocytosis, unspecified type Polycythemia FOLIC ACID (FOLATE) Routine 02/27/2025 1 0:22 AM CDT Leukocytosis, unspecified type Polycythemia FERRITIN Routine 02/27/2025 10:22 AM CDT Leukocytosis, unspecified type Polycythemia IRON W/ IRON BINDING CAPACITY OH Routine 02/27/2025 10:22 AM CDT Leukocytosis, unspecified type Polycythemia RETICULOCYTE COUNT (RETIC) Routine 02/27/2025 10:22 AM CDT Leukocytosis, unspecified type Polycythemia HAPTOGLOBIN Routine 02/27/2025 10:22 AM CDT Leukocytosis, unspecified type Polycythemia ERYTHROPOIETIN (EPO) OH Routine 02/28/20 25 10:22 AM CDT Leukocytosis, unspecified type Polycythemia from Last 3 Months Results * FISH BCR/ABL T(9;22) FOR CML/ALL (02/27/2025 10:22 AM CDT) GP/(CML)BCR/ABL,T( 9;22)FISH Negative [facility] BCR/ABL1 - Normal Nuclei 100.00 % [facility] Comment: INTERPRETATION : No evidence of BCR/ABL rearrangement. PROBE TYPE : Dual Color / Dual Fusion CATALOG ID: [employer] [id number] ISCN NOMENCLATURE: nuc tiffanie(ABL1,BCR)x2[300] NORMAL BACKGROUND CUTOFF VALUE(S): (PB and BM): 0.4% for dual fusion, 9.2% for single fusion Note: Positive signals detected below the determined cutoff value are considered a negative result. For any given probe, a cutoff value is determined by serial analysis of normal cases, and is an artifact inherent to the methodology. Automated imaging analysis performed using the Avocado™ Imaging System on a [employer] slide scanning platform, [employer] [facility], [facility], Alexei Clinical Information ICD-10 codes D72.829, D75.1 [facility] Comment: REFERENCES: 1. Cyndee Raphael and Angelika Meraz. Cancer Cytogenetics, 3nd edition, [employer], A [employer]rell [employer] 2009. ASSOCIATED TESTS: Flow Cytometry Analysis for Myeloid/Lymphoid Disorders and Acute Leukemia released on: 03/02/2025 Shanae(LIA) NGS JAK2 V617F Reflex JAK2 Exon 12, CALR and MPL Sequencing Report released on: 03/04/2025 DISCLAIMER: The following probes contain 2 or more separate fluorochromes and are considered multiplex probes: 1q21/CKS1B, 4q12 for PDGFRalpha, AML1/ETO, BCR/ABL1, BCL6, CBFB for inv(16), T7F289/XCE7 for -7/7q-, IGH/BCL2, IGH/CCND1, IGH/FGFR3, IGH/MAF, IGH/MYC, IGH (14q32),MDM2, MET, MLL for t(11q23), MYC BA, PML/SVETA, PTEN 10q23, ROS1, XL5q31, XL t(14;20) IGH/MAFB, XL SVETA (17q21), XL FOXO1, 1p36/19q, XL SS18, XL EWSR1(22q12), PDGFRB, XL FGFR1 BA. CEP 8, CEP 12, CEP X/Y, ALK (2p23), UroVysion and HER2/mary by FISH probes are FDA cleared. For discussion of prognosis implications, the physician and/or patient may consult with a genetic counselor and/or a genetic specialist. These tests were developed and their performance characteristics were determined by [employer] They may not be cleared or approved by the U.S. Food and Drug Administration. The FDA does not require these test to go through premarket FDA review. These tests are used for clinical purposes. It should not be regarded as investigational or for research. [employer] is certified under the Clinical Laboratory Improvement Amendments of 1988 CLIA as qualified to perform high complexity clinical testing. ELECTRONIC SIGNATURE: Alexis Alcala M.D. Hematopathologist, ex. [phone] This report was electronically signed. Other 02/27/2025 10:2 2 AM CDT Narrative [facility] - 03/05/2025 10:15 AM CDT Testing performed at: [facility]. [address] [place] [address], [place]: Dr. Olaf White M.D.; [facility] Accn#:[id number] Release to patient->Immediate Clinical History/Impression->leukocytosis Specimen Source (BM, Cytogenetics, or Flow)->Blood us Mohsen Talley MD PATHOLOGY/CYTOLOGY ORDERABL ES Final Result [facility] [place] [address], * SERUM FREE LIGHT CHAINS, [place] (02/27/2025 10:22 AM CDT) FREE KAPPA LT CHAINS 9.0 2.9 - 20.7 mg/L [facility] FREE LAMBDA LT CHAINS 11.8 4.2 - 27.6 mg/L [facility] KAPPA/LAMBDA RATIO 0.76 0.22 - 1.74 [facility] 02/27/2025 10:2 2 AM CDT us Mohsen Talley MD LAB SEND OUTS Final Resul t Performing Organization Address [facility] Co de Phone Number [facility] [address] [place] [address], [place] [phone] * (ABNORMAL) ERYTHROPOIETIN (EPO) [place] (02/27/2025 10:22 AM CDT) Erythropoietin 18.9(H) 2.6 - 18.5 mIU/mL [facility] 02/27/2025 10:2 2 AM CDT Narrative [facility] - 03/01/2025 3:31 PM CDT Release to patient->Immediate us Mohsen Talley MD LAB SEND OUTS Final Resul t Performing Organization Address [facility] Co de Phone Number [facility] [address] [place] [address], [place] [phone] * (ABNORMAL) IRON W/ IRON BINDING CAPACITY [place] (02/27/2025 10:22 AM CDT) IRON 60 50 - 212 ug/dL [facility] UIBC 348 155 - 355 ug/dL [facility] TIBC 408 261 - 478 ug/dl [facility] % Saturation 15(L) 20 - 50 % [facility] 02/27/2025 10:2 2 AM CDT Narrative [facility] - 02/27/2025 12:30 PM CDT Release to patient->Immediate us Mohsen Talley MD LAB SEND OUTS Final Resul t Performing Organization Address [facility] Co de Phone Number [facility] [place] [address] [place] [address], * IMMUNOFIXATION, SERUM [place] (02/27/2025 10:22 AM CDT) Pathologist [facility] IMMUNOFIXATION RESULT, SERUM COMMENT: [facility] Comment: PRESENCE OF MONOCLONAL PROTEIN IS UNCLEAR AT THIS TIME. SUGGEST REPEAT IN 3 TO 6 MONTHS IF CLINICALLY INDICATED. 02/27/2025 10:2 2 AM CDT Narrative [facility] - 03/01/2025 1:08 PM CDT TESTING PERFORMED AT: [] [address], [address], PHONE: [phone], BUILD[employer] SUPERINTENDENT: NELY VELEZ, PHD Release to patient->Immediate Mohsen Talley MD LAB SEND OUTS Final Resul t Performing Organization Address [facility] Co de Phone Number [facility] [place] [address] [place] [address], * CCS-ACUTE LEUKEMIA PNL (NON-NY) [place] B504-2 (02/27/2025 10:22 AM CDT) Only the most recent of2 resultswithin the time period is included. Pathologist [facility] ACUTE LEUKEMIA FLOW PC Negative [facility] Comment: INTERPRETATION PERIPHERAL BLOOD: - Flow cytometric analysis does not show significant numbers of circulating blasts or an abnormal lymphoid or myeloid population. - See comments. COMMENT Myelodysplastic syndromes (MDS) and myeloproliferative neoplasms (MPN) may not display antigenic variation on the maturing myeloid component, and cannot be excluded by a normal flow cytometry immunophenotype. CLINICAL INFORMATION: ICD-10 codes D72.829, D75.1 DIAGNOSIS CODE(S): D75.9 SPECIMEN COMMENT: ONE HEPARIN, ONE EDTA, CBC REPORT AND PB SLIDE DX: ELEVATED WHITE COUNTONE HEPARIN, ONE EDTA, CBC REPORT AND PB SLIDE DX: ELEVATED WHITE COUNT IMMUNOPHENTYPIC ANALYSIS: No Abnormal Cells Present Viability 7AAD: 99.71% There is a mixed population of neutrophils, monocytes, and lymphocytes. There are no circulating blasts identified. Neutrophils 69.70%) do not display an aberrant phenotype. The orthogonal side scatter is normal. No significant number of CD56+ or CD10-/CD16- neutrophils is noted. Monocytes 4.73%) appear mature (CD14+/CD64+) and do not display overt phenotypic atypia. B-cells 2.67%) are polytypic. T-cells 18.94%) show no deletion or abnormal dim expression of muñoz-T-cell antigens on significant subset of cells. The CD7- T-cells are within normal range (<15%). The CD4:CD8 ratio is (5.53:1). The T-LGL cells comprise 0.59%. DISCLAIMER: Antibodies Analyzed: CD19,CD20,CD22,CD10,CD11c,CD23,FMC7,[place],Lambda,CD2,CD3,CD4,CD5, CD7,CD8,CD56,CD57,CD11b,CD13,CD14,CD16,CD33,CD64,CD34,CD38,CD117, HLA-DR,CD45 - The technical component of Flow Cytometry was performed at [facility], [address] [place] [address]. These tests were developed and their performance characteristics were determined by [facility]. They may not be cleared or approved by the U.S. Food and Drug Administration. The FDA has determined that such clearance or approval is not necessary. These results may be used for clinical, investigational or for research purposes, and should be interpreted with other relevant clinicopathologic data. ASSOCIATED TESTS: Fluorescence In-Situ Hybridization (FISH) OnkoSit(TM) NGS JAK2 V617F Reflex JAK2 Exon 12, CALR and MPL Sequencing Report ELECTRONIC SIGNATURE: Alexis Alcala M.D. Hematopathologist, ex. [phone] This report was electronically signed. 02/27/2025 10:2 2 AM CDT [facility] - 03/02/2025 10:15 AM CDT Testing performed at: [facility]. [address] [place] [address], [place]: Dr. Olaf White M.D.; [facility] Accn#:[id number] us Mohsen Talley MD PATHOLOGY/CYTOLOGY ORDERABL ES Final Result [facility] [place] [address], * ONKOSIGHT NGS JAK2 V617F REFLEX JAK2 EXON 12, CALR AND H (02/27/2025 10:22 AM CDT) NGS JAK2 V617 RX EXON12 NORMAL [facility] MPL SEQUENCING NORMAL [facility] NGS JAK2 EXON 12 SEQUENCING NORMAL CANCER CE [facility] N[facility] CALR SEQUENCING NORMAL [facility] NGS JAK2 V617F SEQUENCING NORMAL CANCER CENT ER [facility] Comment: [employer] JAK2 V617F Rx JAK2 Exon 12, CALR & MPL Final Report - RESULT SUMMARY: NORMAL - DETECTED GENOMIC ALTERATIONS: No Mutations Identified - TUMOR TYPE: Not Provided - CLINICAL INFORMATION: Provided ICD-10 codes: D72.829 (elevated white blood cell count, unspecified) and 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 - PERTINENT NEGATIVE RESULTS: The following genes are NEGATIVE for clinically relevant mutations. Mutational hotspots and surrounding exonic regions were interrogated for DNA level point mutations and indels (fusions not assayed). CALR, JAK2 Exon12, JAK2 V617F, MPL - MUTATIONAL HOTSPOTS: The following recurrently mutated codons demonstrated adequate sequencing coverage depths and show wild type sequences only. Gene: CALR Codons: 367, 385 Gene: JAK2 Codons: 533, 534, 535, 536, 537, 538, 539, 540, 541, 542, 543, 544, 545, 546, 547, 617 Gene: MPL Codons: 515 The following recurrently mutated codons demonstrated inadequate sequencing coverage depths (<100x), and the possibility of undersensitive detection cannot be excluded. Not Applicable - TRANSCRIPT ACCESSIONS FOR INTERROGATED GENES: Gene: CALR Transcript ID: [id number] Gene: JAK2 Transcript ID: [id number] Gene: MPL Transcript ID: [id number] - COVERAGE DEPTHS: Among the following targeted exons, >50% of coding sequences failed to achieve >100x coverage depths. Analytic sensitivity for potentially relevant genomic alterations may therefore be limited among the following interrogated loci: Not Applicable INTERPRETATION SUMMARY SEE BELOW [facility] Comment: INTERPRETATION SUMMARY: - This was a NORMAL sequencing study in which no disease associated mutations or variants of unclear significance were identified in the tested specimen. The absence of mutations should be interpreted in the context of other clinical and pathologic findings. Normal sequencing results may be a consequence of testing a sample with little or no neoplastic cells present. Clinical and pathologic correlation is required to interpret these findings. METHODS SEE BELOW [facility] Comment: METHODS: Tissue macrodissection and DNA isolation from tumor enriched areas are based on histologic review by an appropriately board certified pathologist; specimens with minimal tumor cellularity may be rejected. Nucleic acid is isolated from the submitted specimen. Anchored Multiplex PCR (AMP) is performed to generate target-enriched next generation sequencing (NGS) libraries. AMP utilizes unidirectional gene-specific primer (GSP) oligonucleotides that enrich for both known and unknown mutations. Each genomic DNA fragment is also tagged with a unique molecular identifier sequence (LILIANA), used after sequencing on an Illumina Editoriallyq instrument ([place], [place]) with paired end, 151 base pair reads to collapse PCR duplicates and enable accurate counting of variant allelic frequencies. A minimum number of 100 unique reads (after removal of PCR duplicates) to detect a mutation is required. An automated process that takes into account statistical confidence of base calling and alignment and mapping quality identifies variants (Tally[employer] Analysis Software version 6.2.7, Released 23 Apr 2020). Following mapping of the read data to the human genome (reference build [id number]/hg19), single nucleotide variants (SNVs), and insertion deletion events (Indels) with an allele frequency (AF) greater than 2% are detected utilizing [employer] Analysis bioinformatic analytical pipeline with the exception of FLT3 (0.8% AF), JAK2 p.V617F (0.8% AF) and MYD88 p.L265P (1% AF). Detection of Insertions larger than 63 bases have not been validated. Detection of Deletions larger than 52 bases have not been validated. Reported variants include known disease associated mutations and unclear variants with little or no literature support. Benign population polymorphisms are not included in the report. The mutation hotspots of the following genes were interrogated by this test: JAK2 V617F, JAK2 Exon 12, MPL and CALR.Variant Tier categorization is rendered in accordance with the AMP/ASCO/CAP consensus recommendations (see Li et al. Standards and Guidelines for the Interpretation and Reporting of Sequence Variants in Cancer: A Joint Consensus Recommendation of the Association for Molecular Pathology, [place] Society of Clinical Oncology, and College of [place] Pathologists. The Journal of molecular diagnostics: JMD. 2017 Nov;19(1):4-23. doi: 10.1016/j.jmoldx.2016.10.002. PubMed Central PMCID: [id number]. PubMed PMID: 91727753)). OnkoSightAdvanced was developed and its performance characteristics were determined by [employer], a division of [employer] This test has not been cleared or approved by the US Food and Drug Administration (FDA). The FDA has determined that such a clearance or approval is not necessary. Pursuant to the requirements of CLIA'88, this laboratory has established and verified the tests accuracy and precision. However, a false positive or false negative result incurred during any phase of the testing cannot be completely excluded. Large insertion/deletion (eg. FLT3-ITD aberrations) may not be detected by this assay due to the limit of sequencing read length and bioinformatics processing. This assay does not detect translocation/gene fusion. This assay does not determine variant causality, or whether a variant is inherited or somatically acquired. These results may be used for clinical or research purposes and therefore should be carefully considered within the context of other clinical and laboratory data. In the absence of an appropriate clinical context, the clinical utility of OnkoSighttesting is not clearly defined. The information contained in this report reflects the current interpretation of the findings as of the date of the report, based on the available scientific information. This information, which comes from numerous sources, is subject to change room attendant time in response to future scientific and medical findings and correlations. [employer] makes no representation or warranty of any kind regarding the accuracy of information provided or contained in these manuscripts, references or other sources of information. If any of the information provided by or contained in the referenced material is later deemed to be inaccurate, this may impact the accuracy of this report and interpretation of the findings. [employer] is not obligated to notify you of any impact that additional or modified information, or future scientific or medical research may have on this report. The laboratory is not responsible for reanalysis of the data or updated classification of this report or past reportsfindings as the knowledge evolves. A medical provider can request a reassessment of clinical significance of variants and/or re-review of the clinical interpretation of the findings. Additional charges may apply for the updated report. Please contact the laboratory for more information if update is requested. This assay has been approved by the [facility] based on initial validation; orthogonal testing for full validation is currently ongoing. Please contact the laboratory for more information if update is requested. REFERENCES 1 SEE BELOW [facility] ON LICENSE [facility] Comment: REFERENCES: 1. Kathy MM, Citlalli M, Roopa EJ, Meme S, Darion NI, Archie S, Channing AM, Brielle CL, Uri DJ, Kris A, Ema MN. Standards and Guidelines for the Interpretation and Reporting of Sequence Variants in Cancer: A Joint Consensus Recommendation of the Association for Molecular Pathology, [place] Society of Clinical Oncology, and College of [place] Pathologists. The Journal of molecular diagnostics : JMD. 2017 Nov;19(1):4-23. doi: 10.1016/j.jmoldx.2016.10.002. PubMed PMID: 16068912. [facility] Central PMCID: [id number]. 2. Genome Aggregation Database (gnomAD), [place], [place] (URL: https://gnomad.broadinstitute.org) [February,] 3. Kaitlyn Montilla, Anirudh E. World health organization classification, evaluation, and genetics of the myeloproliferative neoplasm variants. Hematology. [place] [employer]. Education Program. 2011;7941773-7. doi: 10.1182/asheducation-2010.1.250. PubMed PMID: 28057562. 4. Gabbie P, Olive A, Sahra R, Nidia R, Re H, Shane I, Thomas S, Rock T, Afshan J, Bay M, Eric C, Judah R, Skrobby RC. Clonal evolution and clinical correlates of somatic mutations in myeloproliferative neoplasms. Blood. 2014 Feb 03;123(14):2220-8. Epub 2013Dec 26. doi: 10.1182/lbjuy-0469-87-685654. PubMed PMID: 11049900. 5. Huan E, Henry I, Carol V, Arto L, Regino E, Carlos P, Evelyne L, Erika C, Phil F, Scottyo G, Ruiz C, Krzysztof E, Shawanda A, Steffany T, Son Vicente, Dejuan S, Mirza R, Linette AM, Cristin Bernal, Targeted cancer exome sequencing reveals recurrent mutations in myeloproliferative neoplasms. Leukemia. 2014 March;28(5):1052-9. Epub 2012Sep 18. doi: 10.1038/aquiles.2013.302. PubMed PMID: 46137108. PubMed Central PMCID: [id number]. 6. Kitamura T, Inoue D, OkMarcy N, Florian N, Koantonioo Y, Sabine Y, Enomoto Y, Doki N, Uchida T, Kagiyama Y, Togami K, Kawabata LAURENT, Nagase R, Horikawa S, Chu Y, Saika M, Fukuyama T, Izawa K, Oki T, Jacinto F, Rashmi Montilla. The molecular basis of myeloid malignancies. Proceedings of the [place] Academy. Series B, Physical and biological sciences. 2014;90(10):389-404. PubMed PMID: 54115749. PubMed Central PMCID: [id number]. REPORT FOOTER SEE BELOW CANCER STUNT DOUBLE OF ON LICENSE OF [facility] Comment: Va Red M.D., [place] Electronically signed by Chrissy Hernandez, PhD, [facility] is a division of [employer] [address] [address] Created TueMar 04 12:03:07 EDT 2024 02/27/2025 10:2 2 AM CDT [facility] - 03/04/2025 12:46 PM CDT Testing performed at: [employer], [employer]. [address] [place] [address] [place] [address], [place]: Dr. Olaf White M.D.; [facility] Accn#:[id number] Release to patient->Immediate us Mohsen Talley MD LAB SEND OUTS Final Resul t CANCER STUNT DOUBLE [facility] [address] [place] [address], [place] [phone] * VITAMIN B12 (02/27/2025 10:22 AM CDT) Vitamin B12 269 180 - 914 pg/mL [facility] Blood 02/27/2025 10:2 2 AM CDT [facility] - 02/28/2025 2:30 PM CDT Release to patient->Immediate us Mohsen Talley MD CHEMISTRY ORDERABLES Final Result Performing Organization Address City/[facility]/ZIP Co de Phone Number [facility] Cancer Care [address] [place] [address], [place] [phone] * ERYTHROCYTE SEDIMENTATION RATE (ESR) (02/27/2025 10:22 AM CDT) Erythrocyte Sedimentation Rate 10 0 - 30 mm/hr [facility] Blood 02/27/2025 10:2 2 AM CDT [facility] - 02/27/2025 12:00 PM CDT Release to patient->Immediate us Mohsen Talley MD HEMATOLOGY ORDERABLES Final Result Performing Organization Address City/[facility] Co de Phone Number [facility] [address] [place] [address], * (ABNORMAL) RETICULOCYTE COUNT (RETIC) (02/27/2025 10:22 AM CDT) Reticulocyte count 4.29(H) 0.50 - 1.70 % [facility]ER STUNT DOUBLE [facility] RET-He 33.40 28.20 - 36.60 pg [facility] STUNT DOUBLE [facility] Comment: RET-He is a direct assessment of incorporation of iron into erythrocyte hemoglobin. It provides an indirect measure of the iron available for new erythropoiesis over past 2-4 days. Blood 02/27/2025 10:2 2 AM CDT [facility] - 02/27/2025 10:59 AM CDT Release to patient->Immediate us Mohsen Talley MD HEMATOLOGY ORDERABLES Final Result Performing Organization Address [facility] Co de Phone Number [facility] [place] [address], * LACTATE DEHYDROGENASE (LD) (02/27/2025 10:22 AM CDT) Pathologist [facility] LDH 172 140 - 271 U/L [facility] Blood 02/27/2025 10:2 2 AM CDT [facility] - 02/27/2025 12:30 PM CDT Release to patient->Immediate us Mohsen Talley MD CHEMISTRY ORDERABLES Final Result Performing Organization Address [facility] Co de Phone Number [facility] [address] [place] [address], * (ABNORMAL) IMMUNOGLOBULIN IGA, IGG & IGM QUANT (02/27/2025 10:22 AM CDT) IGG 629(L) 635 - 1,741 mg/dL [facility] STUNT DOUBLE [facility] IGA 97 66 - 433 mg/dL [facility] ST[facility] DOUBLE [facility] IGM 143 45 - 281 mg/dL [facility] ST[facility] DOUBLE [facility] Blood 02/27/2025 10:2 2 AM CDT [facility] - 02/28/2025 2:11 PM CDT Release to patient->Immediate us Mohsen Talley MD CHEMISTRY ORDERABLES Final Result [facility] STUNT DOUBLE [facility] [address] [place] [address], [place] [phone] * HAPTOGLOBIN (02/27/2025 10:22 AM CDT) HAPTO 128 44 - 215 mg/dL [facility] ST[facility]T DOUBLE [facility] Blood 02/27/2025 10:2 2 AM CDT [facility] - 02/28/2025 2:11 PM CDT Release to patient->Immediate us Mohsen Talley MD CHEMISTRY ORDERABLES Final Result Performing Organization Address City/[facility]/ZIP Co de Phone Number CAN[facility]ER STUNT DOUBLE [facility] [address] [place] [address], [place] [phone] * FOLIC ACID (FOLATE) (02/27/2025 10:22 AM CDT) Folate >20.00 >=5.90 ng/mL [facility] STUNT DOUBLE [facility] Blood 02/27/2025 10:2 2 AM CDT [facility] - 02/28/2025 2:30 PM CDT Release to patient->Immediate IS THE PATIENT REQUIRED TO BE FASTING FOR 12 HOURS?->No us Mohsen Talley MD CHEMISTRY ORDERABLES Final Result Performing Organization Address City/[facility]/ZIP Co de Phone Number CANCER STUNT DOUBLE [facility] [address] [place] [address] [place] [address], * FERRITIN (02/27/2025 10:22 AM CDT) Ferritin 131 11 - 307 ng/mL [facility] STUNT DOUBLE [facility] Blood 02/27/2025 10:2 2 AM CDT Narrative [facility] STUNT DOUBLE [facility] - 02/28/2025 2:30 PM CDT Release to patient->Immediate Mohsen Talley MD CHEMISTRY ORDERABLES Final Result [facility] STUNT DOUBLE [facility] [address] [place] [address] [place] [address], * ELECTROPHORESIS W/ TOTAL PROTEIN SERUM (02/27/2025 10:22 AM CDT) PROTEIN, TOTAL, SERUM 6.6 6.0 - 8.5 G/DL [facility] STUNT DOUBLE [facility] ALBUMIN 3.2 2.9 - 4.4 G/DL [facility] STUNT DOUBLE [facility] AOKRF-2-MTABSIHE 0.4 0.0 - 0.4 G/DL [facility] STUNT DOUBLE [facility] IGHYF-5-VWDPTXHE 1.0 0.4 - 1.0 G/DL [facility] STUNT DOUBLE [facility] BETA GLOBULIN 1.3 0.7 - 1.3 G/DL [facility] STUNT DOUBLE [facility] GAMMA GLOBULIN 0.7 0.4 - 1.8 G/DL [facility] STUN[facility] DOUBLE [facility] M-SPIKE NOT OBSERVED NOT OBSERVED G/DL [facility] STUNT DOUBLE [facility] GLOBULIN, TOTAL 3.4 2.2 - 3.9 G/DL [facility] STUNT DOUBLE [facility] A/G RATIO 0.9 0.7 - 1.7 [facility]ER SAAD [facility] PLEASE NOTE: COMMENT CAN[facility]ER STUNT DOUBLE [facility] Comment: PROTEIN ELECTROPHORESIS SCAN WILL FOLLOW VIA COMPUTER, MAIL, OR FOOT SPECIALIST DELIVERY. PDF . [facility] Blood 02/27/2025 10:2 2 AM CDT Narrative CANCER STUNT DOUBLE [facility] - 02/28/2025 3:08 PM CDT TESTING PERFORMED AT: [] [facility] [place], [address] [facility], [place], [address], PHONE: [phone], BUILDINGS AND GROUNDS SUPERINTENDENT: NELY VELEZ, PHD Release to patient->Immediate Mohsen Talley MD CHEMISTRY ORDERABLES Final Result CAN[facility]ER STUNT DOUBLE [facility] [address] Haley[address] [place] [address], * (ABNORMAL) CMP (COMPREHENSIVE METABOLIC PANEL) (02/27/2025 10:22 AM CDT) Glucose 105 70 - 105 mg/dL [facility] Blood Urea Nitrogen 7 7 - 25 mg/dL [facility] Creatinine 0.6 0.6 - 1.2 mg/dL [facility] Sodium 138 136 - 145 mEq/L [facility] Potassium 4.3 3.5 - 5.1 mEq/L [facility] Chloride 102 98 - 107 mEq/L [facility] Bicarbonate 24 21 - 31 mEq/L [facility] Total Bilirubin 0.5 0.3 - 1.0 mg/dL [facility] Alk. Phosphatase 95 34 - 104 U/L [facility] Aspartate Aminotransferase 23 13 - 39 U/L [facility] Alanine Aminotransferase 25 7 - 52 U/L [facility] Total Protein 6.5 6.4 - 8.9 g/dL [facility] Albumin 4.1 3.5 - 5.7 g/dL [facility] Calcium 9.9 8.6 - 10.3 mg/dL [facility] Anion Gap 16.3(H) 7.0 - 15.0 mEq/L [facility] Globulin 2.4 2.0 - 3.5 g/dL [facility] EGFR 112 >60 ml/min/1. 73m2 [facility] Comment: This eGFR is calculated using 2020 CKD-EPI Creatinine equation without race modifier based on the NKF-ASN task force recommendations Equation: aHUJ=996*min(SCr/k,1)a*max(SCr/k,1)-1.200*0.9938Age*1.012 (if female), where SCr is serum creatinine, k is 0.7 for females and 0.9 for males, and a is -0.241 for females and -0.302 for males Blood 02/27/2025 10:2 2 AM CDT Narrative [facility] - 02/27/2025 12:30 PM CDT Release to patient->Immediate IS THE PATIENT REQUIRED TO BE FASTING FOR 8 HOURS?->No us Mohsen Talley MD CHEMISTRY ORDERABLES Final Result CANCER STUNT DOUBLE [facility] [place] [address], * (ABNORMAL) COMPLETE BLOOD COUNT (CBC) WITH DIFF (02/27/2025 10:22 AM CDT) WBC 13.1(H) 4.0 - 10.0 10*3/uL [facility] HGB 15.5 11.2 - 15.7 g/dL [facility] HCT 45.1(H) 34.1 - 44.9 % CANCER STUNT DOUBLE [facility] PLT 421(H) 163 - 369 10*3/uL [facility] MPV 9.3(L) 9.4 - 12.4 fL [facility] STUNT DOUBLE [facility] RBC 5.45(H) 3.93 - 5.22 10*6/uL [facility]ER STUNT DOUBLE [facility] MCV 83 79 - 95 fL [facility] STUNT DOUBLE [facility] MCH 28.4 25.6 - 32.2 pg [facility]ER STUNT DOUBLE [facility] MCHC 34.4 32.2 - 36.5 g/dL [facility] RDW 13.7 11.6 - 14.4 % [facility] STUNT DOUBLE [facility] Absolute Neutrophil Count 8,228 cells/uL [facility] ST[facility] Absolute Seg Count 8,228(H) 1,440 - 6,600 cells/uL [facility] ST[facility] Absolute Lymph Count 3,787 760 - 4,000 cells/uL CAN[facility]ER STUNT DOUBLE [facility] Absolute [place] Count 914 160 - 1,200 cells/uL [facility]ER STUNT DOUBLE [facility] Absolute Baso Count 131(H) 0 - 100 cells/uL [facility] STUNT DOUBLE [facility] Segmented Neutrophils 63 36 - 66 % CANCER STUNT DOUBLE [facility] Lymphocytes 29 19 - 40 % [facility]CER C ENTER [facility] Monocytes 7 4 - 12 % [facility] Basophils 1 0 - 1 % [facility] WBC Estimate High CANCER STUNT DOUBLE [facility] Platelet Estimate High [facility] STUNT DOUBLE [facility] RBC Morphology Normal C[facility] R STUNT DOUBLE [facility] Blood 02/27/2025 10:2 2 AM CDT Narrative [facility] - 02/27/2025 2:23 PM CDT Release to patient->Immediate Mohsen Talley MD HEMATOLOGY ORDERABLES Final Result CANCER STUNT DOUBLE [facility] [address] [place] [address], from Last 3 Months Insurance [facility] Care Teams Headstart Teacher Relationship Specialty Start Date End Date Selene Vaughn MD PCP - General Family Medicine 05/01/18 Rupesh Finn MD [address] [address] Family Medicine 05/01/18
--- OUTSIDE RECORDS SUMMARY | 2025-03-09 00:28 | XMS_ITS | Clinical Summary ---
Author Organization [facility] Address [address] [place] [address] Care Team Providers Care Flame Cutter Name Role Phone Chelsie Bass NP Primary Care Provider [phone] Allergies Active Allergy Reactions Criticality Noted Date [...] Sex Assigned at Female 12/22/2023 9:25 AM MEDICAL ATTENDANT Legal Sex Female 6:57 PM CDT Gender Identity Female 12/22/2023 9:25 AM MEDICAL ATTENDANT Sexual Orientation Straight 12/22/2023 9: 25 AM MEDICAL ATTENDANT Last Filed Vital Signs Vital Sign Reading Time Taken Comments Blood Pressure 114/73 10/12/2019 9:41 AM MEDICAL ATTENDANT Pulse 88 10/12/2019 9:41 AM MEDICAL ATTENDANT Temperature 36.6 C (97.9 F) 10/12/2019 9:41 AM MEDICAL ATTENDANT Respiratory Rate 16 10/12/2019 9:41 AM MEDICAL ATTENDANT Oxygen Saturation 99% 10/12/2019 9:41 AM MEDICAL ATTENDANT Inhaled Oxygen Concentration - - Weight 108.1 kg (238 lb 5.1 oz) 10/12/2019 5:59 AM MEDICAL ATTENDANT Height 160 cm (5' 3 ) 10/12/2019 5:59 AM MEDICAL ATTENDANT Body Mass Index 42.22 10/12/2019 5:59 AM MEDICAL ATTENDANT Plan of Treatment Health Maintenance Due Date [...] (2023-2 5 season) 2024 12/04/2021, 05/17/2021, 04/25/2021 DTaP, Tdap and Td Vaccines ( 3 [...] 9:59 AM 10/12/2019 12:09 PM Care Teams Flame Cutter Relationship Specialty Start Date End Date Chelsie Bass NP [address] [facility] [address] [place] [address] PCP - General Nurse Practitioner Family 10/10/19
--- OUTSIDE RECORDS SUMMARY | 2025-03-09 00:28 | XMS_ITS | Encounter Summary ---
Author Organization [employer] Address [address] [place] [address] Care Team Providers Care Register Of Wills Name Role Phone Unavailable Primary Care Provider Unavailabl e Encounter Details Date Type Department Care Team (Late st Contact Info) Description 09/24/2008 Outpatient Historical [facility] Albert Mata MD [address] [address] Unspecified Hearing Loss; Conductive Hearing Loss, Unilateral; Unspecified Disorder of Middle Ear and Mastoid Social History Tobacco Use Types Packs/Day Years Used Date Smoking Tobacco: Never Assessed Comments Unknown Sex and Gender Information Value Date Recorded Sex Assigned at Not on file Legal Sex Female 5:39 AM MULTI MEDIA SPECIALIST Gender Identity Not on file Sexual Orientation Not on file documented as of this encounter Plan of Treatment Not on file documented as of this encounter Visit Diagnoses Diagnosis Unspecified hearing loss Conductive hearing loss, unilateral Unspecified disorder of middle ear and mastoid documented in this encounter
--- OUTSIDE RECORDS SUMMARY | 2025-03-09 00:28 | XMS_ITS | Clinical Summary ---
Author Organization [facility] Address [address] [facility] [place] [address] Care Team Providers Care Treasury Associate Name Role Phone Chelsie Bass JAY-MEAL GRINDER TENDER Primary Care Provider Source Comments [facility],non-owned Affiliates and Associated Physician Practices is amultiple site organization consisting of ambulatory clinics and hospital sitesin [place], [place], [place] and [place]. This disclosure is being madepursuant to the Care Everywhere program and may not contain all information available regarding this patient. Last updated 18.[facility] Allergies Active Allergy Reactions Criticality Noted Date [...] Orders Only [facility] - Endocrinology [facility] [facility], [place] [id number] Beny Morocho MD Thyroid nodule; Multinodular thyroid [...] Sex Assigned at Female 12/05/2023 10:50 AM GENERAL OFFICE ASSOCIATE Gender Identity Female 12/05/2023 10:50 AM GENERAL OFFICE ASSOCIATE Sexual Orientation Straight 12/05/2023 10 :50 AM GENERAL OFFICE ASSOCIATE Last Filed Vital Signs Vital Sign Reading Time Taken Comments Blood Pressure 121/92 01/10/2024 2:30 PM GENERAL OFFICE ASSOCIATE Pulse 115 01/10/2024 2:30 PM GENERAL OFFICE ASSOCIATE Temperature 36.2 C (97.2 F) 12/01/2023 10:06 AM GENERAL OFFICE ASSOCIATE Respiratory Rate 20 12/01/2023 10:06 AM GENERAL OFFICE ASSOCIATE Oxygen Saturation 97% 01/10/2024 2:30 PM GENERAL OFFICE ASSOCIATE Inhaled Oxygen Concentration - - Weight 113.4 kg (250 lb) 01/10/2024 2:30 PM GENERAL OFFICE ASSOCIATE Height 160 cm (5' 3 ) 01/10/2024 2:30 PM GENERAL OFFICE ASSOCIATE Body Mass Index 44.29 01/10/2024 2:30 PM GENERAL OFFICE ASSOCIATE Plan of Treatment Health Maintenance Due Date [...] 2023-2 5 season) 2024 12/04/2021, 05/17/2021, 04/25/2021 DEPRESSION SCREENING 11/28/2024 INFLUENZA VACCINE (Season Ended) 2025 07/30/2014 ZOSTER VACCINE (1 of 2) 2029 HIB VACCINE Aged Out No longer eligi ble based on patient's age to complete this topic HPV VACCINE Aged Out No longer eligi ble based on patient's age to complete this topic MENINGOCOCCAL (Group B) VACCINE SHARED DECISION-MAKING Aged Out No longer eligible based on patient's age to complete this topic MENINGOCOCCAL GROUPS A/C/Y/W VACCINE Aged Out No longer eligible b ased on patient's age to complete this topic PNEUMOCOCCAL VACCINE Aged Out No long er eligible based on patient's age to complete this topic Care Teams Treasury Associate Relationship Specialty Start Date End Date Chelsie Bass APRN-MEAL GRINDER TENDER [address] [place] [phone] PCP - General Nurse Practitioner Family 12/01/23
--- OUTSIDE RECORDS SUMMARY | 2025-03-09 00:28 | XMS_ITS | Clinical Summary ---
Author Organization [employer] Address [address] [place]: Epic Prelude ADT [place] [address] Care Team Providers Care Batch Analyst Name Role Phone Unavailable Primary Care Provider Unavailabl e Social History Tobacco Use Types Packs/Day Years Used Date Smoking Tobacco: Never Assessed Comments Unknown Sex and Gender Information Value Date Recorded Sex Assigned at Not on file Legal Sex Female 5:39 AM COUNTER MOLDER Gender Identity Not on file Sexual Orientation Not on file Plan of Treatment Health Maintenance Due Date Last Done Comments DTAP/TDAP/TD VACCINES (1 - Tdap) 1998 HEPATITIS B VACCINES (1 of 3 - 19+ 3-dose series) 1998 HPV/Cotest (21-29) 2000 CERVICAL CANCER SCREENING 2009 HPV/Cotest (30-65) 2009 PAP SMEAR 2009 BREAST CANCER SCREENING 2019 INFLUENZA VACCINE (#1) 2024 COLORECTAL SCREENING 2024 Colorectal Cancer Screening 2024 FIT-DNA Q 3 years 2024 FIT/FOBT Q 1 year 2024 Flex Sig/CT Colonography Q 5 years 2024 HPV VACCINES Aged Out No longer eligi ble based on patient's age to complete this topic
--- OUTSIDE RECORDS SUMMARY | 2025-03-09 00:29 | XMS_ITS | Clinical Summary ---
Author Organization [facility] [address] Address [address] [place] [address] Care Team Providers Care Reconditioner Name Role Phone Chelsie Bass NP Primary Care Provider [phone] Malka Davis MACHINE TESTER Unavailable [phone] Allergies Active Allergy Reactions Criticality Noted Date [...] Active niacin 100 mg tablet Active calcium-vits O7-D-Y5-minerals 166.75 mg- 166.75 unit capsule Active predniSONE [...] on file Legal Sex Female 7:51 PM BUTTERMAKER Gender Identity Female 09/14/2021 7:19 PM CDT [...] this topic Insurance ACCESS CHOICE Care Teams Reconditioner Relationship Specialty Start Date End Date Chelsie Bass NP PCP - General Nurse Practitioner 09/11/21 Malka Davis NP [address] [place] [address] Referring Physician Nurse Practitioner 01/27/24
--- OUTSIDE RECORDS SUMMARY | 2025-03-09 00:29 | XMS_ITS | Referral Summary ---
Author Organization [facility] [address] [place] [place] Address [address] [place] [address] Care Team Providers Care Animal Scientist Name Role Phone Chelsie Bass NP Primary Care Provider [phone] Malka Davis OCCUPATIONAL THERAPY SPECIALIST Unavailable [phone] Allergies Active Allergy Reactions Criticality Noted Date [...] Active niacin 100 mg tablet Active calcium-vits H6-P-I2-minerals 166.75 mg- 166.75 unit capsule Active predniSONE [...] on file Legal Sex Female 7:51 PM ALLERGIST/PEDIATRIC PULMONOLOGIST Gender Identity Female 09/14/2021 7:19 PM CDT [...] on file Insurance ACCESS CHOICE Care Teams Animal Scientist Relationship Specialty Start Date End Date Chelsie Bass NP PCP - General Nurse Practitioner 09/11/21 Malka Davis NP [address] [place] [address] Referring Physician Nurse Practitioner 01/27/24
[2025-03-09 00:44] VITALS: BP 178/98; PULSE 105; RESP 18; TEMP 36.7; O2SAT 98
--- OUTSIDE RECORDS SUMMARY | 2025-03-09 01:00 | XMS_ITS | Clinical Summary ---
Author Organization [facility] Address [address] [place] [address] Care Team Providers Care Rug Renovator Name Role Phone Chelsie Bass NP Primary Care Provider [phone] Allergies Active Allergy Reactions Criticality Noted Date [...] Sex Assigned at Female 12/22/2023 9:25 AM CAR PACKER Legal Sex Female 6:57 PM CDT Gender Identity Female 12/22/2023 9:25 AM CAR PACKER Sexual Orientation Straight 12/22/2023 9: 25 AM CAR PACKER Last Filed Vital Signs Vital Sign Reading Time Taken Comments Blood Pressure 114/73 10/12/2019 9:41 AM CAR PACKER Pulse 88 10/12/2019 9:41 AM CAR PACKER Temperature 36.6 C (97.9 F) 10/12/2019 9:41 AM CAR PACKER Respiratory Rate 16 10/12/2019 9:41 AM CAR PACKER Oxygen Saturation 99% 10/12/2019 9:41 AM CAR PACKER Inhaled Oxygen Concentration - - Weight 108.1 kg (238 lb 5.1 oz) 10/12/2019 5:59 AM CAR PACKER Height 160 cm (5' 3 ) 10/12/2019 5:59 AM CAR PACKER Body Mass Index 42.22 10/12/2019 5:59 AM CAR PACKER Plan of Treatment Health Maintenance Due Date [...] 9:59 AM 10/12/2019 12:09 PM Care Teams Rug Renovator Relationship Specialty Start Date End Date Chelsie Bass NP [address] [facility] [address] [place] [address] PCP - General Nurse Practitioner Family 10/10/19
--- OUTSIDE RECORDS SUMMARY | 2025-03-09 01:00 | XMS_ITS | Patient Health Record ---
Author Organization [facility] Address [address] [place] [address] Care Team Providers Care Duplicating Machine Servicer Name Role Phone Selene Vaughn MD Primary Care Provider UnavailHoney Nguyen Unavailable [phone] [facility], Provider Unavailable Unavailab le Allergies Allergen [...] review and pick correct strength-formulati on from [employer] options. If intended option is not shown, [...] Notes Problem Contact dermatitis caused by chemical (116046937837) Contact dermatitis due to other chemical product (692.4) Active confirmed Problem Chronic rhinitis (60082819) Chronic rhinitis (472.0) Active confirmed Problem Allergy to penicillin (33653996) HX-PENICILLIN ALLERGY (V14.0) Active confirmed Problem Idiopathic urticaria (28013277) Idiopathic urticaria (L50.1) Active confirmed Problem Allergic rhinitis caused by pollen (disorder) (73334688) Allergic rhinitis due to pollen (J30.1) Active confirmed Problem Allergic contact dermatitis caused by chemical (97225148712083 103) Allergic contact dermatitis due to other chemical products (L23.5) Active confirmed Problem Allergic contact dermatitis due to plants, except food (L23.7) Active confirmed Problem Allergic contact dermatitis caused by adhesive (disorder) (076200780) Allergic contact dermatitis due to adhesives (L23.1) Active confirmed Encounters Encounter Location Date Provider Diagnosis [facility] [address] [place] [address] 05/12/2024 Provider [employer] Plan Of Treatment No Information Insurance Providers Payer Name Payer Address Payer Phone Subscriber Number Group Number Insured Name Patient Relationship to Insured Coverage Start Date Coverage End Date [employer] [address] [place] [address] [id number] Torsten Garcia Spouse - patient is the spouse of the insured Medical (General) History Medical History History ICD Code Eustachian Tube Dysfunction Allergic rhinitis due to pollen J30.1 Allergic contact dermatitis due to adhes michelle L23.1 Surgical History Surgery Date(Month/Year) Tonsillectomy 09/2011 Hospitalization History Reason Date(Month/Year) Child 04/2002 & 03/2004
--- OUTSIDE RECORDS SUMMARY | 2025-03-09 01:00 | XMS_ITS | Clinical Summary ---
Author Organization [facility] Address [address], [address] [address] Phone Care Team Providers Care Board Design Engineer Name Role Phone Selene Vaughn MD Primary Care Provider [phone] Rupesh Finn MD Unavailable Allergies Active Allergy [...] AM CDT Lab [facility] [address] [phone] Lab, [facility] Leukocytosis, unspecified type; Polycythemia 02/27/2025 10:00 AM CDT Office Visit [facility] [address] [phone] Mohsen Talley MD Leukocytosis, unspecified type (Primary [...] AM CDT Office Visit [facility] [address] [phone] Mohsen Talley MD [address] [place] [phone] Health Maintenance Due Date Last Done Comments [...] 10:22 AM CDT) GP/(CML)BCR/ABL,T( 9;22)FISH Negative [facility] BCR/ABL1 - Normal Nuclei 100.00 % [facility] Comment: INTERPRETATION : No evidence of BCR/ABL rearrangement. PROBE TYPE : Dual Color / Dual Fusion CATALOG ID: [id number] [id number] NOMENCLATURE: nuc tiffanie(ABL1,BCR)x2[300] NORMAL BACKGROUND CUTOFF VALUE(S): (PB and BM): 0.4% for dual fusion, 9.2% for single fusion Note: Positive signals detected below the determined cutoff value are considered a negative result. For any given probe, a cutoff value is determined by serial analysis of normal cases, and is an artifact inherent to the methodology. Automated imaging analysis performed using the Voxxter Imaging System on a jaeyos slide scanning platform, [employer] [facility], [facility], Alexei Clinical Information ICD-10 codes D72.829, D75.1 [facility] Comment: REFERENCES: 1. Cyndee Raphael and [...] PDGFRalpha, AML1/ETO, BCR/ABL1, BCL6, CBFB for inv(16), F6K804/XCE7 for -7/7q-, IGH/BCL2, IGH/CCND1, IGH/FGFR3, IGH/MAF, IGH/MYC, [...] and their performance characteristics were determined by [employer]. They may not be cleared or approved by the U.S. Food and Drug Administration. The FDA does not require these test to go through premarket FDA review. These tests are used for clinical purposes. It should not be regarded as investigational or for research. [employer] is certified under the Clinical Laboratory Improvement Amendments of 1988 CLIA as qualified to perform high complexity clinical testing. ELECTRONIC SIGNATURE: Alexis Alcala M.D. Hematopathologist, ex. [phone] This report was electronically signed. Other 02/27/2025 10:2 2 AM CDT Narrative CANCER VEGETABLE WASHING MACHINE OPERATOR OF [facility] - 03/05/2025 10:15 AM CDT Testing performed at: [employer]. [address] [place] [address], Strainer Cleaner: Dr. Olaf White M.D.; Formerly [facility] Accn#:[id number] Release to patient->Immediate Clinical History/Impression->leukocytosis Specimen Source (BM, Cytogenetics, or Flow)->Blood us Mohsen Talley MD PATHOLOGY/CYTOLOGY ORDERABL ES Final Result CANCER VEGETABLE WASHING MACHINE OPERATOR OF [facility] [place] [address], * SERUM FREE LIGHT CHAINS, [place] (02/27/2025 10:22 AM CDT) FREE KAPPA LT CHAINS 9.0 2.9 - 20.7 mg/L CANCER VEGETABLE WASHING MACHINE OPERATOR [facility] FREE LAMBDA LT CHAINS 11.8 4.2 - 27.6 mg/L CANCER VEGETABLE WASHING MACHINE OPERATOR [facility] KAPPA/LAMBDA RATIO 0.76 0.22 - 1.74 CANCER VEGETABLE WASHING MACHINE OPERATOR [facility] 02/27/2025 10:2 2 AM CDT us Mohsen Talley MD LAB SEND OUTS Final Resul t Performing Organization Address City/[facility] Co de Phone Number CANCER VEGETABLE WASHING MACHINE OPERATOR [facility] [address] [place] [address], [place] [phone] * (ABNORMAL) ERYTHROPOIETIN (EPO) [place] (02/27/2025 10:22 AM CDT) Erythropoietin 18.9(H) 2.6 - 18.5 mIU/mL CANCER VEGETABLE WASHING MACHINE OPERATOR [facility] 02/27/2025 10:2 2 AM CDT Narrative CANCER VEGETABLE WASHING MACHINE OPERATOR [facility] - 03/01/2025 3:31 PM CDT Release to patient->Immediate us Mohsen Talley MD LAB SEND OUTS Final Resul t Performing Organization Address City/[facility] Co de Phone Number CANCER VEGETABLE WASHING MACHINE OPERATOR [facility] [address] [place] [address], [place] [phone] * (ABNORMAL) IRON W/ IRON BINDING CAPACITY [place] (02/27/2025 10:22 AM CDT) IRON 60 50 - 212 ug/dL CANCER VEGETABLE WASHING MACHINE OPERATOR [facility] UIBC 348 155 - 355 ug/dL CANCER VEGETABLE WASHING MACHINE OPERATOR [facility] TIBC 408 261 - 478 ug/dl CANCER VEGETABLE WASHING MACHINE OPERATOR [facility] % Saturation 15(L) 20 - 50 % CANCER VEGETABLE WASHING MACHINE OPERATOR [facility] 02/27/2025 10:2 2 AM CDT Narrative CANCER VEGETABLE WASHING MACHINE OPERATOR [facility] - 02/27/2025 12:30 PM CDT Release to patient->Immediate us Mohsen Talley MD LAB SEND OUTS Final Resul t Performing Organization Address [facility] Co de Phone Number CANCER VEGETABLE WASHING [facility] [place] [address] [place] [address], * IMMUNOFIXATION, SERUM [place] (02/27/2025 10:22 AM CDT) Pathologist [facility] IMMUNOFIXATION RESULT, SERUM COMMENT: CANCER VEGETABLE WASHING MACHINE [facility] Comment: PRESENCE OF MONOCLONAL PROTEIN IS UNCLEAR AT THIS TIME. SUGGEST REPEAT IN 3 TO 6 MONTHS IF CLINICALLY INDICATED. 02/27/2025 10:2 2 AM CDT Narrative [facility] - 03/01/2025 1:08 PM CDT TESTING PERFORMED AT: [] [address], [address], PHONE: [phone], POUNCER MACHINE: NELY VELEZ, PHD Release to patient->Immediate Mohsen Talley MD LAB SEND OUTS Final Resul t Performing Organization Address [facility] Co de Phone Number CANCER VEGETABLE WASHING MACHINE [facility] [place] [address] [place] [address], * CCS-ACUTE LEUKEMIA PNL (NON-[place]) [place] [id number] (02/27/2025 10:22 AM CDT) Only the most recent of2 resultswithin the time period is included. Pathologist [facility] ACUTE LEUKEMIA FLOW PC Negative [facility] Comment: INTERPRETATION PERIPHERAL BLOOD: - Flow [...] T-LGL cells comprise 0.59%. DISCLAIMER: Antibodies Analyzed: CD19,CD20,CD22,CD10,CD11c,CD23,FMC7,Windmill,Lambda,CD2,CD3,CD4,CD5, CD7,CD8,CD56,CD57,CD11b,CD13,CD14,CD16,CD33,CD64,CD34,CD38,CD117, HLA-DR,CD45 - The technical component of Flow Cytometry was performed at [facility], [address] [place] [address]. These tests were developed and their performance characteristics were determined by [facility]. They may not be cleared or approved [...] ELECTRONIC SIGNATURE: Alexis Alcala M.D. Hematopathologist, ex. [phone] This report was electronically signed. 02/27/2025 10:2 2 AM CDT [facility] - 03/02/2025 10:15 AM CDT Testing performed at: [employer]. [address] [place] [address], Strainer Cleaner: Dr. Olaf White M.D.; Former[facility] Accn#:[id number] us Mohsen Talley MD PATHOLOGY/CYTOLOGY ORDERABL ES Final Result CANCER VEGETABLE WASHING MACHINE OPERATOR [facility] [place] [address], * ONKOSIGHT NGS JAK2 V617F REFLEX JAK2 EXON 12, CALR AND H (02/27/2025 10:22 AM CDT) NGS JAK2 V617 RX EXON12 NORMAL CANCER VEGETABLE WASHING MACHINE OPERATOR [facility] MPL SEQUENCING NORMAL CANCER VEGETABLE WASHING MACHINE OPERATOR [facility] NGS JAK2 EXON 12 SEQUENCING NORMAL CANCER CE NTER SPECIALISTS [facility] NGS CALR SEQUENCING NORMAL CANCER VEGETABLE WASHING MACHINE OPERATOR [facility] NGS JAK2 V617F SEQUENCING NORMAL CANCER CENT ER SPECIALISTS [facility] Comment: OnkoSight JAK2 V617F Rx JAK2 Exon [...] Not Applicable INTERPRETATION SUMMARY SEE BELOW CANCER VEGETABLE WASHING MACHINE OPERATOR [facility] Comment: INTERPRETATION SUMMARY: - This was a [...] to interpret these findings. METHODS SEE BELOW [facility] Comment: METHODS: Tissue macrodissection and DNA isolation [...] (LILIANA), used after sequencing on an Illumina Cobaseq instrument ([place], [place]) with paired end, 151 base pair reads to collapse PCR duplicates and enable accurate counting of variant allelic frequencies. A minimum number of 100 unique reads (after removal of PCR duplicates) to detect a mutation is required. An automated process that takes into account statistical confidence of base calling and alignment and mapping quality identifies variants (Flocktory Analysis Software version 6.2.7, Released 23 Apr 2020). Following mapping of the read data to the human genome (reference build GRCh37/hg19), single nucleotide variants (SNVs), and insertion deletion events (Indels) with an allele frequency (AF) greater than 2% are detected utilizing My[employer]ENT Analysis bioinformatic analytical pipeline with the exception [...] Recommendation of the Association for Molecular Pathology, [place] Society of Clinical Oncology, and College of [place] Pathologists. The Journal of molecular diagnostics: JMD. 2017 Nov;19(1):4-23. doi: 10.1016/j.jmoldx.2016.10.002. PubMed Central PMCID: [id number]. PubMed PMID: 76070128)). OnkoSightAdvanced was developed and its performance characteristics were determined by [employer], a division of [employer]. This test has not been cleared or [...] from numerous sources, is subject to change management analyst time in response to future scientific and medical findings and correlations. [employer]. makes no representation or warranty of any kind regarding the accuracy of information provided or contained in these manuscripts, references or other sources of information. If any of the information provided by or contained in the referenced material is later deemed to be inaccurate, this may impact the accuracy of this report and interpretation of the findings. [employer]. is not obligated to notify you of [...] This assay has been approved by the [facility] based on initial validation; orthogonal testing for full validation is currently ongoing. Please contact the laboratory for more information if update is requested. REFERENCES 1 SEE BELOW CANCER VEGETABLE WASHING MACHINE OPERATOR OF [facility] Comment: REFERENCES: 1. Kathy MM, Citlalli M, Roopa EJ, Meme S, Darion NI, Archie S, Channing AM, Brielle CL, Uri DJ, Kris A, Ema MN. Standards and Guidelines for the Interpretation and Reporting of Sequence Variants in Cancer: A Joint Consensus Recommendation of the Association for Molecular Pathology, [place] Society of Clinical Oncology, and College of [place] Pathologists. The Journal of molecular diagnostics : JMD. 2017 Nov;19(1):4-23. doi: 10.1016/j.jmoldx.2016.10.002. PubMed PMID: 47466018. [facility] Central PMCID: [id number]. 2. Genome Aggregation Database (gnomAD), [place], [place] (URL: https://gnomad.broadinstitute.org) [February,] 3. Kaitlyn Montilla, Anirudh E. World health organization classification, evaluation, and genetics of the myeloproliferative neoplasm variants. Hematology. [place] Society of Hematology. Education Program. 2011;4965271-6. doi: 10.1182/asheducation-2010.1.250. PubMed PMID: 66946846. 4. Gabbie P, Olive A, Sahra R, Nidai R, Re H, Shane I, Thomas S, Rock T, Afshan J, Bay M, Eric C, Judah R, Skrobby RC. Clonal evolution and clinical correlates of somatic mutations in myeloproliferative neoplasms. Blood. 2014 Feb 03;123(14):2220-8. Epub 2013Dec 26. doi: 10.1182/pukyw-5109-37-184557. PubMed PMID: 02959613. 5. Huan E, Henry I, Carol V, Arto L, Regino E, Carlos P, Evelyne L, Erika C, Phil F, Scottyo G, Ruiz C, Krzysztof E, Shawanda A, Steffany T, Son Vicente, Dejuan S, Mirza R, Linette AM, Cristin Bernal, Targeted cancer exome sequencing reveals recurrent mutations in myeloproliferative neoplasms. Leukemia. 2014 March;28(5):1052-9. Epub 2012Sep 18. doi: 10.1038/aquiles.2013.302. PubMed PMID: 57280278. PubMed Central PMCID: [id number]. 6. Kitamura T, Inoue D, OkMarcy N, Florian N, Koantonioo Y, Sabine Y, Enomoto Y, Doki N, Uchida T, Kagiyama Y, Togami K, Kawabata LAURENT, Nagase R, Horikawa S, Chu Y, Saika M, Fukuyama T, Izawa K, Oki T, Jacinto F, Rashmi Montilla. The molecular basis of myeloid malignancies. Proceedings of the [place] Academy. Series B, Physical and biological sciences. 2014;90(10):389-404. PubMed PMID: 98024497. PubMed Central PMCID: [id number]. REPORT FOOTER SEE BELOW CANCER VEGETABLE WASHING MACHINE OPERATOR OF [facility] Comment: Va Red M.D., Strainer Cleaner Electronically signed by Chrissy Hernandez, PhD, [facility] is a division of [place] [address] [address] Created TueMar 04 12:03:07 EDT 2024 02/27/2025 10:2 2 AM CDT Merged With [facility] CANCER VEGETABLE WASHING MACHINE [facility] - 03/04/2025 12:46 PM CDT Testing performed at: [employer]. [address] [place] [address] [place] [address], Strainer Cleaner: Dr. Olaf White M.D.; [facility] Accn#:[id number] Release to patient->Immediate us Mohsen Talley MD LAB SEND OUTS Final Resul t CANCER VEGETABLE WASHING MACHINE OPERATOR [facility] [address] [place] [address], [place] [phone] * VITAMIN B12 (02/27/2025 10:22 AM CDT) Vitamin B12 269 180 - 914 pg/mL CANCER VEGETABLE WASHING MACHINE [facility] Blood 02/27/2025 10:2 2 AM CDT Merged With [facility] CANCER VEGETABLE WASHING MACHINE [facility] - 02/28/2025 2:30 PM CDT Release to patient->Immediate us Mohsen Talley MD CHEMISTRY ORDERABLES Final Result Performing Organization Address City/[facility]/ZIP Co de Phone Number CANCER VEGETABLE WASHING MACHINE [facility] [address] [place] [address], [place] [phone] * ERYTHROCYTE SEDIMENTATION RATE (ESR) (02/27/2025 10:22 AM CDT) Erythrocyte Sedimentation Rate 10 0 - 30 mm/hr CANCER VEGETABLE WASHING MACHINE [facility] Blood 02/27/2025 10:2 2 AM CDT Merged With [facility] CANCER VEGETABLE WASHING MACHINE [facility] - 02/27/2025 12:00 PM CDT Release to patient->Immediate us Mohsen Talley MD HEMATOLOGY ORDERABLES Final Result Performing Organization Address City/[facility] Co de Phone Number CANCER VEGETABLE WASHING MACHINE [facility] [address] [place] [address], * (ABNORMAL) RETICULOCYTE COUNT (RETIC) (02/27/2025 10:22 AM CDT) Reticulocyte count 4.29(H) 0.50 - 1.70 % CANCER VEGETABLE WASHING MACHINE OPERATOR [facility] RET-He 33.40 28.20 - 36.60 pg [facility] VEGETABLE WASHING MACHINE OPERATOR [facility] Comment: RET-He is a direct assessment of incorporation of iron into erythrocyte hemoglobin. It provides an indirect measure of the iron available for new erythropoiesis over past 2-4 days. Blood 02/27/2025 10:2 2 AM CDT [facility] - 02/27/2025 10:59 AM CDT Release to patient->Immediate us Mohsen Talley MD HEMATOLOGY ORDERABLES Final Result Performing Organization Address [facility] Co de Phone Number CANCER VEGETABLE WASHING MACHINE [facility] [place] [address], * LACTATE DEHYDROGENASE (LD) (02/27/2025 10:22 AM CDT) Pathologist [facility] LDH 172 140 - 271 U/L [facility] Blood 02/27/2025 10:2 2 AM CDT [facility] - 02/27/2025 12:30 PM CDT Release to patient->Immediate us Mohsen Talley MD CHEMISTRY ORDERABLES Final Result Performing Organization Address [facility] Co de Phone Number CANCER VEGETABLE WASHING MACHINE [facility] [address] [place] [address], * (ABNORMAL) IMMUNOGLOBULIN IGA, IGG & IGM QUANT (02/27/2025 10:22 AM CDT) IGG 629(L) 635 - 1,741 mg/dL CANCER VEGETABLE WASHING MACHINE OPERATOR [facility] IGA 97 66 - 433 mg/dL CANCER VEGETABLE WASHING MACHINE OPERATOR [facility] IGM 143 45 - 281 mg/dL CANCER VEGETABLE WASHING MACHINE OPERATOR [facility] Blood 02/27/2025 10:2 2 AM CDT Merged With [facility] CANCER VEGETABLE WASHING MACHINE [facility] - 02/28/2025 2:11 PM CDT Release to patient->Immediate us Mohsen Talley MD CHEMISTRY ORDERABLES Final Result CANCER VEGETABLE WASHING MACHINE OPERATOR [facility] [address] [place] [address], [place] [phone] * HAPTOGLOBIN (02/27/2025 10:22 AM CDT) HAPTO 128 44 - 215 mg/dL CANCER VEGETABLE WASHING MACHINE OPERATOR [facility] Blood 02/27/2025 10:2 2 AM CDT Merged With [facility] CANCER VEGETABLE WASHING MACHINE [facility] - 02/28/2025 2:11 PM CDT Release to patient->Immediate us Mohsen Talley MD CHEMISTRY ORDERABLES Final Result Performing Organization Address City/[facility]/ZIP Co de Phone Number CANCER VEGETABLE WASHING MACHINE OPERATOR [facility] [address] [address], [place] [phone] * FOLIC ACID (FOLATE) (02/27/2025 10:22 AM CDT) Folate >20.00 >=5.90 ng/mL CANCER VEGETABLE WASHING MACHINE OPERATOR [facility] Blood 02/27/2025 10:2 2 AM CDT Merged With [facility] CANCER VEGETABLE WASHING MACHINE [facility] - 02/28/2025 2:30 PM CDT Release to patient->Immediate IS THE PATIENT REQUIRED TO BE FASTING FOR 12 HOURS?->No us Mohsen Talley MD CHEMISTRY ORDERABLES Final Result Performing Organization Address City/[facility]/ZIP Co de Phone Number CANCER VEGETABLE WASHING MACHINE OPERATOR [facility] [place] [address] [place] [address], * FERRITIN (02/27/2025 10:22 AM CDT) Ferritin 131 11 - 307 ng/mL CANCER VEGETABLE WASHING MACHINE OPERATOR [facility] Blood 02/27/2025 10:2 2 AM CDT Narrative CANCER VEGETABLE WASHING MACHINE OPERATOR [facility] - 02/28/2025 2:30 PM CDT Release to patient->Immediate Mohsen Talley MD CHEMISTRY ORDERABLES Final Result CANCER VEGETABLE WASHING MACHINE OPERATOR [facility] [address] [place] [address] [place] [address], * ELECTROPHORESIS W/ TOTAL PROTEIN SERUM (02/27/2025 10:22 AM CDT) PROTEIN, TOTAL, SERUM 6.6 6.0 - 8.5 G/DL CANCER VEGETABLE WASHING MACHINE OPERATOR [facility] ALBUMIN 3.2 2.9 - 4.4 G/DL CANCER VEGETABLE WASHING MACHINE OPERATOR [facility] [id number]-6-[id number] 0.4 0.0 - 0.4 G/DL CANCER VEGETABLE WASHING MACHINE OPERATOR [facility] [id number]-8-HUTBMNVS 1.0 0.4 - 1.0 G/DL CANCER VEGETABLE WASHING MACHINE OPERATOR [facility] BETA GLOBULIN 1.3 0.7 - 1.3 G/DL CANCER VEGETABLE WASHING MACHINE OPERATOR [facility] GAMMA GLOBULIN 0.7 0.4 - 1.8 G/DL CANCER VEGETABLE WASHING MACHINE OPERATOR [facility] M-SPIKE NOT OBSERVED NOT OBSERVED G/DL CANCER VEGETABLE WASHING MACHINE OPERATOR [facility] GLOBULIN, TOTAL 3.4 2.2 - 3.9 G/DL CANCER VEGETABLE WASHING MACHINE OPERATOR [facility] A/G RATIO 0.9 0.7 - 1.7 [facility] SPECIALISTS [facility] PLEASE NOTE: COMMENT CANCER VEGETABLE WASHING MACHINE OPERATOR [facility] Comment: PROTEIN ELECTROPHORESIS SCAN WILL FOLLOW VIA COMPUTER, MAIL, OR LANDSCAPE ARTIST DELIVERY. PDF . [facility] Blood 02/27/2025 10:2 2 AM CDT Narrative CANCER VEGETABLE WASHING MACHINE OPERATOR [facility] - 02/28/2025 3:08 PM CDT TESTING PERFORMED AT: [] [facility] [place], [address] [facility], [place], [address], PHONE: [phone], POUNCER MACHINE: NELY VELEZ, PHD Release to patient->Immediate Mohsen Talley MD CHEMISTRY ORDERABLES Final Result CANCER VEGETABLE WASHING MACHINE OPERATOR [facility] [address] [place] [address], * (ABNORMAL) CMP (COMPREHENSIVE METABOLIC PANEL) (02/27/2025 10:22 AM CDT) Glucose 105 70 - 105 mg/dL [facility] Blood Urea Nitrogen 7 7 - 25 mg/dL [facility] Creatinine 0.6 0.6 - 1.2 mg/dL [facility] Sodium 138 136 - 145 mEq/L [facility] Potassium 4.3 3.5 - 5.1 mEq/L [facility] Chloride 102 98 - 107 mEq/L [facility] Bicarbonate 24 21 - 31 mEq/L [facility] Total Bilirubin 0.5 0.3 - 1.0 mg/dL [facility] Alk. Phosphatase 95 34 - 104 U/L [facility] Aspartate Aminotransferase 23 13 - 39 U/L [facility] Alanine Aminotransferase 25 7 - 52 U/L [facility] Total Protein 6.5 6.4 - 8.9 g/dL [facility] Albumin 4.1 3.5 - 5.7 g/dL [facility] Calcium 9.9 8.6 - 10.3 mg/dL [facility] Anion Gap 16.3(H) 7.0 - 15.0 mEq/L [facility] Globulin 2.4 2.0 - 3.5 g/dL [facility] EGFR 112 >60 ml/min/1. 73m2 [facility] W[facility] M[facility]INE OPERATOR [facility] Comment: This eGFR is calculated using 2020 CKD-EPI Creatinine equation without race modifier based on the NKF-ASN task force recommendations Equation: qYAG=948*min(SCr/k,1)a*max(SCr/k,1)-1.200*0.9938Age*1.012 (if female), where SCr is serum creatinine, k is 0.7 for females and 0.9 for males, and a is -0.241 for females and -0.302 for males Blood 02/27/2025 10:2 2 AM CDT Narrative CANCER VEGETABLE WASHING MACHINE [facility] - 02/27/2025 12:30 PM CDT Release to patient->Immediate IS THE PATIENT REQUIRED TO BE FASTING FOR 8 HOURS?->No us Mohsen Talley MD CHEMISTRY ORDERABLES Final Result CANCER VEGETABLE WASHING MACHINE OPERATOR [facility] [place] [address], * (ABNORMAL) COMPLETE BLOOD COUNT (CBC) WITH DIFF (02/27/2025 10:22 AM CDT) WBC 13.1(H) 4.0 - 10.0 10*3/uL CANCER VEGETABLE WASHING MACHINE [facility] HGB 15.5 11.2 - 15.7 g/dL CANCER VEGETABLE WASHING MACHINE [facility] HCT 45.1(H) 34.1 - 44.9 % CANCER VEGETABLE WASHING MACHINE OPERATOR [facility] PLT 421(H) 163 - 369 10*3/uL CANCER VEGETABLE WASHING MACHINE [facility] MPV 9.3(L) 9.4 - 12.4 fL CANCER VEGETABLE WASHING MACHINE OPERATOR [facility] RBC 5.45(H) 3.93 - 5.22 10*6/uL CANCER VEGETABLE WASHING MACHINE OPERATOR [facility] MCV 83 79 - 95 fL CANCER VEGETABLE WASHING MACHINE OPERATOR [facility] MCH 28.4 25.6 - 32.2 pg CANCER VEGETABLE WASHING MACHINE OPERATOR [facility] MCHC 34.4 32.2 - 36.5 g/dL CANCER VEGETABLE WASHING MACHINE [facility] RDW 13.7 11.6 - 14.4 % CANCER VEGETABLE WASHING MACHINE OPERATOR [facility] Absolute Neutrophil Count 8,228 cells/uL [facility] VEGETABLE WASHING MACHINE [facility] Absolute Seg Count 8,228(H) 1,440 - 6,600 cells/uL [facility] VEGETABLE WASHING MACHINE [facility] Absolute Lymph Count 3,787 760 - 4,000 cells/uL CANCER VEGETABLE WASHING MACHINE OPERATOR [facility] Absolute Young Count 914 160 - 1,200 cells/uL CANCER VEGETABLE WASHING MACHINE OPERATOR [facility] Absolute Baso Count 131(H) 0 - 100 cells/uL CANCER VEGETABLE WASHING MACHINE OPERATOR [facility] Segmented Neutrophils 63 36 - 66 % CANCER VEGETABLE WASHING MACHINE OPERATOR [facility] Lymphocytes 29 19 - 40 % [facility]ER C [facility] Monocytes 7 4 - 12 % [facility]CER SAAD [facility] Basophils 1 0 - 1 % [facility]ER [facility] WBC Estimate High CANCER VEGETABLE WASHING MACHINE OPERATOR [facility] Platelet Estimate High CANCER VEGETABLE WASHING MACHINE OPERATOR [facility] RBC Morphology Normal CANCE R VEGETABLE WASHING MACHINE OPERATOR [facility] Blood 02/27/2025 10:2 2 AM CDT Narrative [facility] VEGETABLE WASHING MACHINE [facility] 02/27/2025 2:23 PM CDT Release to patient->Immediate Mohsen Talley MD HEMATOLOGY ORDERABLES Final Result CANCER VEGETABLE WASHING MACHINE OPERATOR [facility] [address] [place] [address], from Last 3 Months Insurance [facility] Care Teams Board Design Engineer Relationship Specialty Start Date End Date Selene Vaughn MD PCP - General Family Medicine 05/01/18 Rupesh Finn MD [address] [address] Family Medicine 05/01/18
--- OUTSIDE RECORDS SUMMARY | 2025-03-09 01:00 | XMS_ITS | Clinical Summary ---
Author Organization [facility] [employer] Address [address] [facility] [place] [address] Care Team Providers Care Parimutuel Ticket Cashier Name Role Phone Chelsie Bass JAY-ROD MACHINE OPERATOR Primary Care Provider Source Comments [facility],non-owned Affiliates and Associated Physician Practices is amultiple site organization consisting of ambulatory clinics and hospital sitesin [place], [place], [place] and [place]. This disclosure is being madepursuant to the Care Everywhere program and may not contain all information available regarding this patient. Last updated 18.[facility] [employer] Allergies Active Allergy Reactions Criticality Noted Date [...] Orders Only [facility] [facility], [place] [id number] Beny Morocho MD Thyroid nodule; Multinodular thyroid [...] Sex Assigned at Female 12/05/2023 10:50 AM ROLLING MACHINE TENDER Gender Identity Female 12/05/2023 10:50 AM ROLLING MACHINE TENDER Sexual Orientation Straight 12/05/2023 10 :50 AM ROLLING MACHINE TENDER Last Filed Vital Signs Vital Sign Reading Time Taken Comments Blood Pressure 121/92 01/10/2024 2:30 PM ROLLING MACHINE TENDER Pulse 115 01/10/2024 2:30 PM ROLLING MACHINE TENDER Temperature 36.2 C (97.2 F) 12/01/2023 10:06 AM ROLLING MACHINE TENDER Respiratory Rate 20 12/01/2023 10:06 AM ROLLING MACHINE TENDER Oxygen Saturation 97% 01/10/2024 2:30 PM ROLLING MACHINE TENDER Inhaled Oxygen Concentration - - Weight 113.4 kg (250 lb) 01/10/2024 2:30 PM ROLLING MACHINE TENDER Height 160 cm (5' 3 ) 01/10/2024 2:30 PM ROLLING MACHINE TENDER Body Mass Index 44.29 01/10/2024 2:30 PM ROLLING MACHINE TENDER Plan of Treatment Health Maintenance Due Date [...] age to complete this topic Care Teams Parimutuel Ticket Cashier Relationship Specialty Start Date End Date Chelsie Bass APRN-ROD MACHINE OPERATOR [address] [place] [phone] PCP - General Nurse Practitioner Family 12/01/23
--- OUTSIDE RECORDS SUMMARY | 2025-03-09 01:00 | XMS_ITS | Encounter Summary ---
Author Organization [employer] Address [address] [place] [address] Care Team Providers Care Transfer Engineer Name Role Phone Unavailable Primary Care Provider Unavailabl e Encounter Details Date Type Department Care Team (Late st Contact Info) Description 09/24/2008 Outpatient Historical HIS AUDIOLOGY Albert Mata MD [address] [address] Unspecified Hearing Loss; Conductive Hearing Loss, Unilateral; Unspecified Disorder of Middle Ear and Mastoid Social History Tobacco Use Types Packs/Day Years Used Date Smoking Tobacco: Never Assessed Comments Unknown Sex and Gender Information Value Date Recorded Sex Assigned at Not on file Legal Sex Female 5:39 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
--- OUTSIDE RECORDS SUMMARY | 2025-03-09 01:00 | XMS_ITS | Clinical Summary ---
Author Organization [employer] Address [address] 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
--- OUTSIDE RECORDS SUMMARY | 2025-03-09 01:01 | XMS_ITS | Clinical Summary ---
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
--- OUTSIDE RECORDS SUMMARY | 2025-03-09 01:01 | XMS_ITS ---
Author Organization [facility] Address [address] [place] [address] Care Team Providers Care Roastmaster Name Role Phone Selene Vaughn MD Primary Care Provider UnavailHoney Nguyen Unavailable [phone] [facility], Provider Unavailable Unavailab le Allergies Allergen (clinical drug ingredient) Drug/Non Drug Allergy documented on EMR Reaction Allergy Type Onset Date Status amoxicillin Amoxicillin hives Drug Allergy Act kirsten sulfamethoxazole / trimethoprim Bactrim severe hives Drug Allergy Active acetaminophen Tylenol throat swelling Drug Allergy Active [facility] Encounter Medications Medication SIG (Take, [...] review and pick correct strength[facility]ulati [facility] options. If intended option is not shown, [...] Active Encounters Encounter Location Date Provider Diagnosis [address] [place] [address] 05/12/2024 Provider [facility]Migration Plan Of Treatment No Information Progress Notes * Crys DIA MDOB: 9 (44 yo F)Acc No.[id number]:05/12/2024 Patient: Crys SHEA Provider: Richy webb Migration :1980 A ge:43 Y S ex:Female Date:05/12/2024 Address:[address] [place], [place] [phone] Pcp:Selene Vaughn MD Subjective: * Chief Complaints: * 1 . [facility] Encounter. * Medical History: * [...] *Please review and pick correct strength-formulation [facility] options. If intended option is not [...] * Procedure Codes: * Electronic signature of Prov kevonr GailZ-Migration on 03/09/2025 at 01:00 AM CDT Sign off status: Pending * Provider: Richy webb Migration Date: 05/12/2024 Generated for Donato aden/Marla/Mirza on: 0 03/09/2025 01:00 AM CDT
--- OUTSIDE RECORDS SUMMARY | 2025-03-09 01:01 | XMS_ITS | Referral Summary ---
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
--- NOTE | 2025-03-09 01:02 | ED.SKABFB ---
HPI - Skin/Abscess/Foreign Bdy General Chief complaint: Skin/Abscess/Foreign Body Stated complaint: skin lesion Time Seen by Provider: 03/09/25 00:38 Source: patient Mode of arrival: ambulatory Limitations: no limitations History of Present Illness HPI narrative: This is a 44 year old female that presents to the ER for an area of redness and swelling to the left cheek. Noted tonight. Reports a previous similar episode last month for which she was started on an antibiotic with improvement. Related Data Home Medications ?Medication ?Instructions ?Recorded ?Confirmed ?Last Taken ?Type norethindrone 1 mg-ethinyl tablet 09/25/22 Unknown History estradiol 35 mcg tablet (Nortrel) Allergies Allergy/AdvReac Type Severity Reaction Status Date / Time acetaminophen Allergy Mild Swelling Verified 03/09/25 00:27 Penicillins Allergy Mild HIVES Verified 03/09/25 00:27 poison faustino extract Allergy Mild RASH Verified 03/09/25 00:27 Sulfa (Sulfonamide Allergy Mild hives Verified 03/09/25 00:27 Antibiotics) hydrocortisone Allergy Unknown Unknown Verified 03/09/25 00:27 lanolin Allergy Unknown HIVES Verified 03/09/25 00:27 tramadol AdvReac Unknown Headache Verified 03/09/25 00:27 steroid cremes Allergy Intermediate Hives / Uncoded 03/09/25 00:27 Red Face bug spray Allergy Unknown Unknown Uncoded 03/09/25 00:27 hand skilled nursing case manager Allergy Unknown Unknown Uncoded 03/09/25 00:27 Review of Systems Review of Systems: CONSTITUTIONAL: Denies fever SKIN: Reports redness All systems reviewed & are unremarkable except as noted in HPI and below Exam Narrative: GENERAL: Well-appearing, well-nourished, and in no acute distress. HEAD: Normocephalic, atraumatic. Small area of redness to the left cheek without fluctuance to suggest abscess EYES: EOMI. EXTREMITIES: Normal range of motion. No edema. SKIN: Warm, dry, no rash. NEURO: No focal deficits. Alert and oriented x3. PSYCH: Normal mood and affect Course Course Emergency Course: patient updated on workup and agrees with plan of care Vital Signs Vital signs: Vital Signs Temperature 98.1 F 03/09/25 00:44 Pulse Rate 105 H 03/09/25 00:44 Respiratory Rate 18 03/09/25 00:44 Blood Pressure 178/98 H 03/09/25 00:44 Pulse Oximetry 98 04 00:44 Oxygen Delivery Room Air 03/09/25 00:44 Temperature 98.1 F 03/09/25 00:44 Pulse Rate 105 H 03/09/25 00:44 Respiratory Rate 18 03/09/25 00:44 Blood Pressure 178/98 H 03/09/25 00:44 Pulse Oximetry 98 03/09/25 00:44 Oxygen Delivery Room Air 03/09/25 00:44 MDM - Skin/Abscess/Foreign Bdy MDM Narrative Medical decision making narrative: Patient presents emergency department with an area of redness to the left cheek. She is afebrile and nontoxic appearing. Exam consistent with cellulitis, no evidence for abscess. Will be started on oral antibiotics. She is to follow up with primary provider. She was given warnings to return to the ER Differential Diagnosis Differential diagnosis: Likely abscess of skin or subcutaneous tissue, urticaria, cellulitis, eczema, insect bites and contact dermatitis Critical Care Time Critical Care Time Critical Care Time: No Discharge Plan Discharge Clinical Impression: Cellulitis Qualifiers: Site of cellulitis: face Qualified Code(s): L03.211 - Cellulitis of face Patient Disposition: Home Condition: Stable Instructions: Antibiotic Form, Cellulitis (ED) Additional Instructions: Return if symptoms worsen or concerns: any increase in redness, swelling, pain or fever over 101 Take antibiotics as directed. Clean wound with mild soapy water. Follow up with primary care in the next 2-3 days for re-evaluation Patient Language: Mozambican Prescriptions: New doxycycline hyclate 100 mg tablet 100 mg PO BID 7 Days Qty: 14 0RF No Action Nortrel 135 (28) 1-35 mg-mcg tablet clindamycin HCl 300 mg capsule 300 mg PO Q6H 10 Days Qty: 40 0RF ondansetron 4 mg tablet,disintegrating 4 mg PO Q8H PRN (Reason: nausea and vomiting) Qty: 7 0RF Follow-up/Referrals: Roderick,Selene Hoang MD [Primary Care Provider] -
== END 2025-03-09 01:16 | disposition home or self-care (01) ==
PROVIDERS: Emergency Provider Physician Assistant; PCP Family Medicine
DX: L03.211 Cellulitis of face (principal)
CPT/HCPCS: 99283

== ENCOUNTER 2025-03-25 04:05 | Emergency (ER) | payer BC, OTHER, SELFPAY ==
[2025-03-25 04:07] VITALS: BP 168/112; PULSE 113; RESP 19; TEMP 36.7; O2SAT 100
--- OUTSIDE RECORDS SUMMARY | 2025-03-25 04:08 | XMS_ITS | Clinical Summary ---
Author Organization [employer] Address [address] 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
--- OUTSIDE RECORDS SUMMARY | 2025-03-25 04:08 | XMS_ITS | Clinical Summary ---
Author Organization [facility] Address [facility] [place] [address] Care Team Providers Care Recycler Forklift Driver Truck Driver Name Role Phone Chelsie Bass NP Primary Care Provider [phone] Allergies Active Allergy Reactions Criticality Noted Date [...] Active Problems No known active problems Immunizations Immunization Administration Dates Next Due PFIZER COVID-19 (ORIGINAL [...] Sex Assigned at Female 12/22/2023 9:25 AM STUDENT TRUCK DRIVER Legal Sex Female 6:57 PM CDT Gender Identity Female 12/22/2023 9:25 AM STUDENT TRUCK DRIVER Sexual Orientation Straight 12/22/2023 9: 25 AM STUDENT TRUCK DRIVER Last Filed Vital Signs Vital Sign Reading Time Taken Comments Blood Pressure 114/73 10/12/2019 9:41 AM STUDENT TRUCK DRIVER Pulse 88 10/12/2019 9:41 AM STUDENT TRUCK DRIVER Temperature 36.6 C (97.9 F) 10/12/2019 9:41 AM STUDENT TRUCK DRIVER Respiratory Rate 16 10/12/2019 9:41 AM STUDENT TRUCK DRIVER Oxygen Saturation 99% 10/12/2019 9:41 AM STUDENT TRUCK DRIVER Inhaled Oxygen Concentration - - Weight 108.1 kg (238 lb 5.1 oz) 10/12/2019 5:59 AM STUDENT TRUCK DRIVER Height 160 cm (5' 3 ) 10/12/2019 5:59 AM STUDENT TRUCK DRIVER Body Mass Index 42.22 10/12/2019 5:59 AM STUDENT TRUCK DRIVER Plan of Treatment Health Maintenance Due Date [...] 5 Years) and At-Risk Patients (6 to 49 Years) Aged Out No longer eligible b ased on patient's age to complete this topic RSV Immunizations Under 20 Months Aged Out No longer eligible b ased on patient's age to complete this topic Insurance Advance Directives * Full Code (Latest Code Status on File) Date Activated Date Inactivated Comments 10/12/2019 9:59 AM 10/12/2019 12:09 PM Care Teams Recycler Forklift Driver Truck Driver Relationship Specialty Start Date End Date Chelsie Bass NP [address] [facility] [address] [place] [address] PCP - General Nurse Practitioner Family 10/10/19
--- OUTSIDE RECORDS SUMMARY | 2025-03-25 04:08 | XMS_ITS | Data Portability ---
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 I recommended Holter monitor to evaluate heart rate and rhythm while she is having symptoms patient declined because of allergies to adhesives. I will check a TSH and basic metabolic profile. I will see her again in 4 weeks and make further recommendation after reviewing her labs [email or web address] Not available 03/22/2025 12:28:12 Plan of Treatment Reminders Order Date Submit Date Provider Last Modified By Organization Details Last Modified Time Details Appointments ANY 30 2024 08:15A RAYSHAWN Castellon Not available Not available Not available ANY 15 2024 08:15A Melinda davison MD Not available Not available Not available Lab lipid panel, serum [address] [facility], [address], [address], [place], [address], 03/22/2025 21:17:38 TSH, serum or plasma [address] [facility], [address], [address], [place], [address], 03/22/2025 21:33:05 BMP, serum or plasma 2024 025 [facility] (Lab), [address], [place], [address], 03/22/2025 21:17:37 food allergen panel, serum 2024 025 spacharrenetta [facility], [address], [address], [place], [address], 03/05/2025 09:32:12 respirat ory allergen panel - [facility] c 2024 025 spaawildarrenetta [facility], [address], [address], [place], [address], 03/05/2025 09:32:13 CBC w/ auto diff 2024 025 KEENAN [facility], [address], [address], [place], [address], 02/12/2025 22:30:47 HbA1c (hemoglo bin A1c), blood 2023 024 KEENAN [facility], [address], [address], [place], [address], 09/04/2024 11:17:07 TSH + free T4, serum 2023 024 KEENAN [facility], [address], [address], [place], [address], 09/04/2024 11:17:03 lipid panel, serum 2023 024 KEENAN [facility], [address], [address], [place], [address], 09/04/2024 11:17:04 CMP, serum or plasma 2023 024 KEENAN [facility], [address], [address], [place], [address], 09/04/2024 11:17:05 pap, IG + reflex HPV 2023 024 KEENAN [facility], [address], [place], [address], 09/10/2024 09:09:45 lipid panel, serum 2022 023 KEENAN [facility], [address], [place], [address], 09/15/2023 23:07:47 CMP, serum or plasma 2022 023 [facility], [address], [place], [address], 09/15/2023 23:07:47 TSH + free T4, serum 2022 023 HENSEL [facility], [address], [address], [place], [address], 09/16/2023 05:22:11 T3, free, serum or plasma 2022 023 KEENAN [facility], [address] [place], [place] [address], [place], [address], 09/16/2023 05:22:13 thyroid peroxida se (tpo) Ab, serum 2022 023 [facility], [address] [place], [place] [address], [place], [address], 09/16/2023 05:22:12 Referral cardiolo gist referral - tachycar marilee. Please eval and treat 2024 025 [facility], [address], [address], [place], [address], 03/22/2025 12:50:09 otolaryn gologist referral - decrease d hearing, deviated septum, hx of MT tube in right ear, severe allergie s. Please eval and treat 2022 023 [facility], [address], [place], [address], 11/10/2023 10:46:30 allergis t & immunolo gist referral - difficul gus castillo g [facility]ending new pt insuranc e. Waiting on insuranc e card to arrive in mail. 2022 023 yolanda Kenyon MD, [address], [place], [address], 05/27/2023 17:06:54 Procedures None recorded . Surgeries None recorded . Imaging electroc ardiogra m 2024 025 pato In-Office Order, Internal Use Only DO Not Attach Compendium DO Not Attach Compendium, Do Not Delete/merge, [id number] 03/22/2025 12:27:40 US, thyroid - goiter 2022 023 [facility] Scheduling, [address] [facility], [place], [address], 09/29/2023 16:35:45 Medication Orders monteluk ast 10 mg tablet 2024 025 HENSE[id number], [address] , [place], [place], [phone], 02/12/2025 12:15:50 betameth asone valerate 0.1 % topical cream 2024 025 [id number], [address] , [place], [place], [id number], 03/22/2025 11:54:30 Nortrel 1/35 (28) 1 mg-35 mcg tablet 2022 023 KEENAN [facility] #69646, [address] [facility], [place], [place], [id number], 09/15/2023 09:38:44 Medrol (Ben) 4 mg tablets in a dose pack 2022 023 yolanda [facility] #02553, [address] [facility], [place], [place], [id number], 02/12/2025 16:15:31 triamcin olone acetonid e 40 mg/mL suspensi on for injectio n 2022 023 [email or web address] [facility] #00049, [address] [facility], [place], [place], [id number], 09/15/2023 09:25:04 Patient TargetsNo targets recorded. 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 for allergy testing at current allergy office in [place]. Pending new pt insurance. Waiting on insurance card to arrive in mail. 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 Please eval and treat Referring Physician: Karen Pena, Glass Artist, Encounter Date: 09/15/2023 Brush Washer Referral for Ta chycardia tachycardia. Please eval and treat Referring Physician: Karen Pena, Glass Artist, Encounter Date: 02/12/2025 Results Created Date Observation Date Name Description Value Unit Range Abnormal Flag Note LastModifiedBy Organization Detail LastModifiedTime 09/15/2009/15/2023 LIPID PANEL cholesterol, total 200 mg/dL 100-19 9 above high normal Not Available [facility] Department [address] [place] [address], [address], 09/15/2023 23:07:47 09/15/2009/15/2023 LIPID PANEL triglyceride s 273 mg/dL 0-149 above high normal Not Available [facility] Department [address] [place] [address], [address], 09/15/2023 23:07:47 09/15/2009/15/2023 LIPID PANEL HDL cholesterol 47 mg/dL 40-999 Not Available [facility] Department [address] [place], [address], 09/15/2023 23:07:47 09/15/20 23 09/15/2023 LIPID PANEL VLDL cholesterol afsaneh 55 mg/dL 5-40 above high normal Not Available [facility] Department [address] [place], [address], 09/15/2023 23:07:47 09/15/2009/15/2023 LIPID PANEL LDL chol calc ([facility]) 138 mg/dL 0-99 above high normal Not Available [facility] Department [address] [place], [address], 09/15/2023 23:07:47 09/15/20 23 09/15/2023 COMP. METAB OLIC PANEL (14) glucose 104 mg/dL 70-99 above high normal Not Available [facility] Department [address] [place], [address], 09/15/2023 23:07:47 09/15/20 23 09/15/2023 COMP. METAB OLIC PANEL (14) BUN 8 mg/dL 6-24 Not Available [facility] Department [address] [place], [address], 09/15/2023 23:07:47 09/15/20 23 09/15/2023 COMP. METAB OLIC PANEL (14) creatinine 0.80 mg/dL 0.76-1 .27 Not Available [facility] Department [address] [place], [address], 09/15/2023 23:07:47 09/15/20 23 09/15/2023 COMP. METAB OLIC PANEL (14) eGFR 93 >=60 Units for eGFR value s are mL/mi n/1.7 3 The eGFR Calcu latio n has not been valid ated for patie nts under the age of 18. If test resul ts are displ ayed for a patie nt under the age of 18, disre janell that value . Not Available [facility] Department [address] [place], [address], 09/15/2023 23:07:47 09/15/20 23 09/15/2023 COMP. METAB OLIC PANEL (14) BUN/creatini ne ratio 10 9-23 Not Available [facility] Department [address] [place], [address], 09/15/2023 23:07:47 09/15/20 23 09/15/2023 COMP. METAB OLIC PANEL (14) sodium 137 mmol/ L 134-14 4 Not Available [facility] Department [address] [place] [address], [address], 09/15/2023 23:07:47 09/15/20 23 09/15/2023 COMP. METAB OLIC PANEL (14) potassium 4.7 mmol/ L 3.5-5. 2 Not Available [facility] Department [address] [place] [address], [address], 09/15/2023 23:07:47 09/15/20 23 09/15/2023 COMP. METAB OLIC PANEL (14) chloride 100 mmol/ L 96-106 Not Available [facility] Department [address] [place], [address], 09/15/2023 23:07:47 09/15/20 23 09/15/2023 COMP. METAB OLIC PANEL (14) carbon dioxide, total 23 mmol/ L 20-29 Not Available [facility] Department [address] [place], [address], 09/15/2023 23:07:47 09/15/20 23 09/15/2023 COMP. METAB OLIC PANEL (14) calcium 9.7 mg/dL 8.7-10 .2 Not Available [facility] Department [address] [place], [address], 09/15/2023 23:07:47 09/15/20 23 09/15/2023 COMP. METAB OLIC PANEL (14) protein, total 7.0 g/dL 6.0-8. 5 Not Available [facility] Department [address] [place], [address], 09/15/2023 23:07:47 09/15/20 23 09/15/2023 COMP. METAB OLIC PANEL (14) albumin 4.3 g/dL 3.9-4. 9 Not Available [facility] Department [address] [place], [address], 09/15/2023 23:07:47 09/15/20 23 09/15/2023 COMP. METAB OLIC PANEL (14) globulin, total 2.7 g/dL 1.5-4. 5 Not Available [facility] Department [address] [place], [address], 09/15/2023 23:07:47 09/15/20 23 09/15/2023 COMP. METAB OLIC PANEL (14) A/G ratio 2.0 1.2-2. 2 Not Available [facility] Department [address] [place] [address], [address], 09/15/2023 23:07:47 09/15/20 23 09/15/2023 COMP. METAB OLIC PANEL (14) bilirubin, total 0.4 mg/dL 0.0-1. 2 Not Available [facility] Department [address] [place] [address], [address], 09/15/2023 23:07:47 09/15/20 23 09/15/2023 COMP. METAB OLIC PANEL (14) alkaline phosphatase 110 IU/L 44-121 Not Available [facility] Department [address] [place] [address], [address], 09/15/2023 23:07:47 09/15/20 23 09/15/2023 COMP. METAB OLIC PANEL (14) AST (SGOT) 22 IU/L 0-40 Not Available [facility] Department [address] [place] [address], [address], 09/15/2023 23:07:47 09/15/20 23 09/15/2023 COMP. METAB OLIC PANEL (14) ALT (SGPT) 18 IU/L 0-32 Not Available [facility] Department [address] [place] [address], [address], 09/15/2023 23:07:47 09/15/20 23 09/16/2023 TSH+F REE T4 TSH 4.120 uIU/m L 0.450- 4.500 Not Available [facility]) [address] [place], [address], 09/16/2023 05:22:11 09/15/20 23 09/16/2023 TSH+F REE T4 T4,free(dire ct) 1.21 NG/dL 0.82-1 .77 Not Available [facility] ([facility]) [address] [facility], [place], [address], 09/16/2023 05:22:11 09/15/20 23 09/16/2023 THYRO ID PEROX IDASE (TPO) AB thyroid peroxidase (tpo) Ab 19 IU/mL 0-34 Not Available [facility]) [address] [facility], [place], [address], 09/16/2023 05:22:12 09/15/20 23 09/16/2023 TRIIO DOTHY SIGIFREDO E (T3), FREE triiodothyro nine (T3), free 3.4 pg/mL 2.0-4. 4 Not Available [facility] ([facility]) [address] [place], [address], 09/16/2023 05:22:13 09/03/20 24 09/04/2024 TSH+F REE T4 TSH 2.560 uIU/m L 0.450- 4.500 Not Available [facility] ([facility]) [address] [place], [address], 09/04/2024 11:17:03 09/03/20 24 09/04/2024 TSH+F REE T4 T4,free(dire ct) 1.21 NG/dL 0.82-1 .77 Not Available [facility] ([facility]) [address] [place], [address], 09/04/2024 11:17:03 09/03/20 24 09/04/2024 LIPID PANEL cholesterol, total 195 mg/dL 100-19 9 Not Available [facility] ([facility]) [address] [place], [address], 09/04/2024 11:17:04 09/03/20 24 09/04/2024 LIPID PANEL triglyceride s 304 mg/dL 0-149 above high normal Not Available [facility] ([facility]) [address] [place], [address], 09/04/2024 11:17:04 10/07/20 24 09/04/2024 LIPID PANEL HDL cholesterol 40 mg/dL >39 Not Available [facility]) [address] [place], [address], 09/04/2024 11:17:04 09/03/20 24 09/04/2024 LIPID PANEL VLDL cholesterol afsaneh 52 mg/dL 5-40 above high normal Not Available [facility] ([facility]) [address] [place], [address], 09/04/2024 11:17:04 09/03/2009/04/2024 LIPID PANEL LDL chol calc ([facility]) 103 mg/dL 0-99 above high normal Not Available [facility]) [address] [place], [address], 09/04/2024 11:17:04 09/03/20 24 09/04/2024 COMP. METAB OLIC PANEL (14) glucose 94 mg/dL 70-99 Not Available [facility] ([facility]) [address] [place], [address], 09/04/2024 11:17:05 09/03/20 24 09/04/2024 COMP. METAB OLIC PANEL (14) BUN 7 mg/dL 6-24 Not Available [facility] ([facility]) [address] [place], [address], 09/04/2024 11:17:05 09/03/20 24 09/04/2024 COMP. METAB OLIC PANEL (14) creatinine 0.79 mg/dL 0.57-1 .00 Not Available [facility] ([facility]) [address] [place], [address], 09/04/2024 11:17:05 09/03/20 24 09/04/2024 COMP. METAB OLIC PANEL (14) eGFR 95 mL/mi n/1.7 3 >59 Not Available [facility] ([facility]) [address] [place], [address], 09/04/2024 11:17:05 09/03/20 24 09/04/2024 COMP. METAB OLIC PANEL (14) BUN/creatini ne ratio 9 9-23 Not Available [facility]) [address] [facility], [place], [address], 09/04/2024 11:17:05 09/03/20 24 09/04/2024 COMP. METAB OLIC PANEL (14) sodium 140 mmol/ L 134-14 4 Not Available [facility] ([facility]) [address] [facility], [place], [address], 09/04/2024 11:17:05 09/03/20 24 09/04/2024 COMP. METAB OLIC PANEL (14) potassium 4.3 mmol/ L 3.5-5. 2 Not Available [facility] ([facility]) [address] [facility], [place], [address], 09/04/2024 11:17:05 09/03/20 24 09/04/2024 COMP. METAB OLIC PANEL (14) chloride 101 mmol/ L 96-106 Not Available [facility] ([facility]) [address] [facility], [place], [address], 09/04/2024 11:17:05 09/03/20 24 09/04/2024 COMP. METAB OLIC PANEL (14) carbon dioxide, total 23 mmol/ L 20-29 Not Available [facility] ([facility]) [address] [facility], [place], [address], 09/04/2024 11:17:05 09/03/20 24 09/04/2024 COMP. METAB OLIC PANEL (14) calcium 9.5 mg/dL 8.7-10 .2 Not Available [facility] ([facility]) [address] [facility], [place], [address], 09/04/2024 11:17:05 09/03/20 24 09/04/2024 COMP. METAB OLIC PANEL (14) protein, total 6.5 g/dL 6.0-8. 5 Not Available [facility] ([facility]) [address] [facility], [place], [address], 09/04/2024 11:17:05 09/03/20 24 09/04/2024 COMP. METAB OLIC PANEL (14) albumin 4.0 g/dL 3.9-4. 9 Not Available [facility] ([facility]) [address] [facility], [place], [address], 09/04/2024 11:17:05 09/03/2009/04/2024 COMP. METAB OLIC PANEL (14) globulin, total 2.5 g/dL 1.5-4. 5 Not Available [facility] ([facility]) [address] [facility], [place], [address], 09/04/2024 11:17:05 09/03/20 24 09/04/2024 COMP. METAB OLIC PANEL (14) bilirubin, total 0.3 mg/dL 0.0-1. 2 Not Available [facility] ([facility]) [address] [facility], [place], [address], 09/04/2024 11:17:05 09/03/20 24 09/04/2024 COMP. METAB OLIC PANEL (14) alkaline phosphatase 103 IU/L 44-121 Not Available [facility]) [address] [facility], [place], [address], 09/04/2024 11:17:05 09/03/20 24 09/04/2024 COMP. METAB OLIC PANEL (14) AST (SGOT) 28 IU/L 0-40 Not Available [facility]) [address] [facility], [place], [address], 09/04/2024 11:17:05 09/03/20 24 09/04/2024 COMP. METAB OLIC PANEL (14) ALT (SGPT) 24 IU/L 0-32 Not Available [facility]) [address] [facility], [place], [address], 09/04/2024 11:17:05 09/03/20 24 09/04/2024 HEMOG LOBIN A1C hemoglobin A1C 5.9 % 4.8-5. 6 above high normal Predi abete s: 5.7 - 6.4 Diabe charito: >6.4 Glyce den contr ol for adult s with diabe charito: <7.0 Not Available [facility] ([facility]) [address] [place], [address], 09/04/2024 11:17:07 09/03/20 24 09/03/2024 IGP,A PTIMA HPV,A GE GDLN age gdln acog testing 30-65 Not Available [facility]) [address] [place], [address], 09/10/2024 09:09:45 09/03/2009/04/2024 IGP, APTIM A HPV, RFX 16/18 ,45 HPV aptima Negati ve negati ve This nucle ic acid ampli ficat ion test detec ts fourt een high- risk HPV types (16,1 8,31, 33,35 ,39,4 5,51, 52,56 ,58,5 9,66, 68) witho ut diffe renti ation . Not Available [facility] ([facility]) [address] [facility], [place], [address], 09/10/2024 09:09:46 09/03/2009/10/2024 IGP, APTIM A HPV, RFX 16/18 ,45 diagnosis: Commen t NEGAT SHARON FOR INTRA EPITH ELIAL LESIO N OR MALIG KESHA . THIS SPECI MEN WAS RESCR EENED PART OF OUR QUALI TY CONTR OL PROGR AM. Not Available [facility] ([facility]) [address] [place], [address], 09/10/2024 09:09:46 09/03/2009/10/2024 IGP, APTIM A HPV, RFX 16/18 ,45 specimen adequacy: Chaitanya naqvi Satis facto ry for evalu ation . Endoc ervic al and/o r squam ous metap lasti c cells (endo cervi afsaneh compo nent) are prese nt. Not Available [facility] ([facility]) [address] [facility], [place], [address], 09/10/2024 09:09:46 09/03/2009/10/2024 IGP, APTIM A HPV, RFX 16/18 ,45 clinician provided ICD10: Chaitanya naqvi Z12.4 Not Available [facility] ([facility]) [address] [facility], [place], [address], 09/10/2024 09:09:46 09/03/2009/10/2024 IGP, APTIM A HPV, RFX 16/18 ,45 performed by: Chaitanya Antony , Cytot echno logis t (ASCP ) Not Available [facility] ([facility]) [address] [facility], [place], [address], 09/10/2024 09:09:46 09/03/2009/10/2024 IGP, APTIM A HPV, RFX 16/18 ,45 QC reviewed by: Chaitanya foss, Cytot echno logis t (ASCP ) Not Available [facility] ([facility]) [address] [facility], [place], [address], 09/10/2024 09:09:46 09/03/2009/10/2024 IGP, APTIM A HPV, RFX 16/18 ,45 . . Not Available [facility] ([facility]) [address] [facility], [place], [address], 09/10/2024 09:09:46 09/03/2009/10/2024 IGP, APTIM A HPV, [...] do occur . Not Available [facility] ([facility]) [address] [facility], [place], [address], 09/10/2024 09:09:46 09/03/20 24 09/10/2024 IGP, APTIM A HPV, RFX 16/18 ,45 test methodology: Commen t This liqui d based ThinP rep(R ) pap test was scree denise with the use of an image guide nafisa schroeder. Not Available [facility] ([facility]) [address] [facility], [place], [address], 09/10/2024 09:09:46 09/03/20 24 09/10/2024 IGP, APTIM A HPV, RFX 16/18 ,45 HPV genotype reflex Commen t Crite derek not met, HPV Genot ype not perfo rmed. Not Available [facility] ([facility]) [address] [facility], [place], [address], 09/10/2024 09:09:46 02/13/20 25 02/12/2025 COMPL ETE BLOOD COUNT AUTO DIFF white blood count 16.8 x10e3 /uL 3.4-10 .8 high Not Available [facility] (Lab) [address] [place], [address], 02/12/2025 22:30:47 02/13/20 25 02/12/2025 COMPL ETE BLOOD COUNT AUTO DIFF red blood count 5.65 x10e6 /uL 3.77-5 .28 high Not Available [facility] (Lab) [address], [place], [address], 02/12/2025 22:30:47 02/13/20 25 02/12/2025 COMPL ETE BLOOD COUNT AUTO DIFF hemoglobin 16.0 g/dL 11.1-1 5.9 high Not Available [facility] (Lab) [address], [place], [address], 02/12/2025 22:30:47 02/13/20 25 02/12/2025 COMPL ETE BLOOD COUNT AUTO DIFF hematocrit 49.2 % 34.0-4 6.6 high Not Available [facility] (Lab) [address], [place], [address], 02/12/2025 22:30:47 02/13/20 25 02/12/2025 COMPL ETE BLOOD COUNT AUTO DIFF mean corpuscular volume 87 fL 79-97 normal Not Available [facility] (Lab) [address], [place], [address], 02/12/2025 22:30:47 02/13/20 25 02/12/2025 COMPL ETE BLOOD COUNT AUTO DIFF mean corpuscular hemoglobin 28.3 pg 26.6-3 3.0 normal Not Available [facility] (Lab) [address], [place], [address], 02/12/2025 22:30:47 02/13/20 25 02/12/2025 COMPL ETE BLOOD COUNT AUTO DIFF mean corpuscular HGB conc 32.5 g/dL 31.5-3 5.7 normal Not Available [facility] (Lab) [address] [place], [address], 02/12/2025 22:30:47 02/13/20 25 02/12/2025 COMPL ETE BLOOD COUNT AUTO DIFF red cell distribution width 13.8 % 11.5-1 4.5 normal Not Available [facility] (Lab) [address] [place], [address], 02/12/2025 22:30:47 02/13/20 25 02/12/2025 COMPL ETE BLOOD COUNT AUTO DIFF platelet count 552 x10e3 /uL 150-45 0 high Not Available [facility] (Lab) [address] [facility], [place], [address], 02/12/2025 22:30:47 02/13/20 25 02/12/2025 COMPL ETE BLOOD COUNT AUTO DIFF mean platelet volume 9.5 fL 8.9-12 .7 normal Not Available [facility] (Lab) [address] [facility], [place], [address], 02/12/2025 22:30:47 02/13/20 25 02/12/2025 COMPL ETE BLOOD COUNT AUTO DIFF immature granulocytes pct auto 1.1 % not estb. Not Available [facility] (Lab) [address] [facility], [place], [address], 02/12/2025 22:30:47 02/13/20 25 02/12/2025 COMPL ETE BLOOD COUNT AUTO DIFF neutrophils percent auto 71 % not estb. Not Available [facility] (Lab) [address] [facility], [place], [address], 02/12/2025 22:30:47 02/13/20 25 02/12/2025 COMPL ETE BLOOD COUNT AUTO DIFF lymphocytes percent auto 21 % not estb. Not Available [facility] (Lab) [address] [facility], [place], [address], 02/12/2025 22:30:47 02/13/20 25 02/12/2025 COMPL ETE BLOOD COUNT AUTO DIFF monocytes percent auto 7 % not estb. Not Available [facility] (Lab) [address] [facility], [place], [address], 02/12/2025 22:30:47 02/13/20 25 02/12/2025 COMPL ETE BLOOD COUNT AUTO DIFF eosinophils percent auto 0 % not estb. Not Available [facility] (Lab) [address] [facility], [place], [address], 02/12/2025 22:30:47 02/13/20 25 02/12/2025 COMPL ETE BLOOD COUNT AUTO DIFF basophils percent auto 1 % not estb. Not Available [facility] (Lab) [address] [place], [address], 02/12/2025 22:30:47 02/13/20 25 02/12/2025 COMPL ETE BLOOD COUNT AUTO DIFF neutrophils absolute auto 11.8 x10e3 /uL 1.4-7. 0 high Not Available [facility] (Lab) [address] [place], [address], 02/12/2025 22:30:47 02/13/20 25 02/12/2025 COMPL ETE BLOOD COUNT AUTO DIFF immature granulocytes abs auto 0.2 x10e3 /uL 0.0-0. 1 high Not Available [facility] (Lab) [address] [place], [address], 02/12/2025 22:30:47 02/13/20 25 02/12/2025 COMPL ETE BLOOD COUNT AUTO DIFF lymphocytes absolute auto 3.5 x10e3 /uL 0.7-3. 1 high Not Available [facility] (Lab) [address] [place], [address], 02/12/2025 22:30:47 02/13/20 25 02/12/2025 COMPL ETE BLOOD COUNT AUTO DIFF monocytes absolute auto 1.2 x10e3 /uL 0.1-0. 9 high Not Available [facility] (Lab) [address] [place], [address], 02/12/2025 22:30:47 02/13/20 25 02/12/2025 COMPL ETE BLOOD COUNT AUTO DIFF eosinophils absolute auto 0.1 x10e3 /uL 0.0-0. 4 normal Not Available [facility] (Lab) [address] [place], [address], 02/12/2025 22:30:47 02/13/20 25 02/12/2025 COMPL ETE BLOOD COUNT AUTO DIFF basophils absolute auto 0.1 x10e3 /uL 0.0-0. 2 normal Not Available [facility] (Lab) [address], [place], [address], 02/12/2025 22:30:47 02/13/20 25 02/12/2025 COMPL ETE BLOOD COUNT AUTO DIFF nucleated red blood cells auto 0 % 0-0 normal Not Available [facility] (Lab) [address], [place], [address], 02/12/2025 22:30:47 09/29/20 23 [place], thyro id [facility] [address] [facility] [place] [address] EXAMIN ATION: Thyroi d ultras ound HISTOR [...] MD, 023 3:29 PM yolanda [facility] [address], [place], [address], 10/03/2023 11:52:26 12/26/[address] temp bones wo con [facility] [address] [place] [address] EXAMIN ATION: Tempor al bone CT withou [...] Right tempor al bone: The pinna and regulatory affairs strategy specialist al audito ry canals are unrema rkable . The middle ear cavity and clear. The ossicl es and scutum are intact . The bony facial nerve canal is unrema rkable . The bony cochle a vestib ule and semici rcular canals are unrema rkable . The bony international guest coordinator al audito ry canal is unrema rkable There is opacif icatio n of the right mastoi d air cells. The caroti d canal and jugula r forame n are unrema rkable . Left tempor al bone: The pinna and regulatory affairs strategy specialist al audito ry canals are unrema rkable . Middle ear caviti es clear. The ossicl es and scutum are intact . The bony facial nerve canal is unrema rkable . Bony cochle a vestib ule and semici rcular canals are unrema rkable . The bony international guest coordinator al audito ry canal is unrema rkable [...] By: Rupesh Alarcon MD, 7:06 AM [email or web address] [facility] [address] [facility], [place], [address], 12/29/2023 16:32:17 03/22/2003/22/2025 elect rocar diogr am No observ ation record ed. KEENAN In-Office Order Internal Use Only DO Not Attach Compendium DO Not Attach Compendium, Do Not Delete/merge, [id number] 03/22/2025 12:55:42 03/22/20 elect rocar diogr am No observ ation record ed. [email or web address] Not Available 03/22 12:55:43 Result Notes None recorded. 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 Please review these documents and add these problems to the patient's chart manually as needed. Problem Notes None recorded. Procedures Surgical History Date Name Laterality Status Provider Name and Address Organization Details Recorded Time 11/12/20 15 Joint Injection completed Cody Jackson [place] - [facility] 11/12/2015 12:30:17 11/28/19 11 Tonsillectomy completed RAYSHAWN Garcia Attn: Accounting,[address] , [place], [address], [place] [facility] 06/28/2016 11:38:20 Imaging Results Imaging Date Name Status LastModified by Organization Details LastModified Time 09/29/2023 US, thyroid completed sp[facility] [address], [address], 10/03/2023 11:52:26 12/26/2023 CT temp bones wo con completed [email or web address] [place] [address], [address], 12/29/2023 16:32:17 03/22/2025 electrocardiogram completed KEENAN In-Offi ce Order Internal Use Only DO Not Attach Compendium DO Not Attach Compendium, Do Not Delete/merge, [id number] 03/22/2025 12:55:42 03/22/2025 electrocardiogram completed [email or web address] Informa tion not available 03/22/2025 12:55:43 Procedure Notes None recorded. Medical Equipment None Reported. Allergies Allergen ID Allergen Name Allergen Category Reaction Reaction Severity Criticality Documentation Date Start Date Code Code System Note Provider Name and Address Organization Details Recorded Time 663556 Bactrim medicatio n rash moderate Not available 05/27/20222021 04974 9 RxNorm Not Available Not Available Not Available 491163 egg extract food,medi cation respirato ry distress Not available Not available 09/15/2023 39681 15 RxNorm Not Available Not Available Not Available 586323 Medicinal product acting as adhesive (product) environme nt,medica tion rash Not available high 02/12/20252017 48049 2009 SNOMED Not Available Not Available Not Available 577298 isopropyl alcohol medicatio n hives itching Not available Not available high 02/12/20252011 13756 1 RxNorm Not Available Not Available Not Available 06434 lanolin environme nt,medica tion hives Not available Not available 01/15/2015 6227 RxNorm Not Available Not Available Not Available 14324 Product containin g penicilli n (product) medicatio n hives Not available Not available 01/15/2015 95215 8001 SNOMED Not Available Not Available Not Available 93664 Tylenol medicatio n respirato ry distress Not available Not available 01/15/2015 93483 3 RxNorm Not Available Not Available Not Available 84249 poison faustino extract environme nt rash Not available Not available 01/15/2015 22029 6 RxNorm Not Available Not Available Not Available 50551 Ultram medicatio n headache Not available Not available 08/01/2015 05030 6 RxNorm Not Available Not Available Not Available 42386 nitrofura ntoin medicatio n rash Not available [...] MOUTH EVERY 12 HOURS FOR 5 DAYS 03/22 completed Not Available Not Available Not Available Nortrel 1/35 (28) 1 mg-35 mcg tablet TAKE 1 TABLET BY MOUTH DAILY active Not Available Not Available No t Available betametha sone valerate 0.1 % topical cream APPLY THIN LAYER TOPICALL Y TO FACE DAILY NEEDED 03/22 completed Not Available Not Available Not Available antipyrin e-benzoca ine 5.4 %-1.4 % [...] Not Available Not Available No t Available Pepcid 40 mg tablet Take 1 tablet every day by oral route. active Not Available Not Available No t [...] mg tablet TAKE 1 TABLET BY MOUTH TWICE DAILY FOR 1 WEEK 03/22 completed Not Available Not Available Not Available [...] completed Not Available Not Available Not Available Multivita min 50 Plus active Not Available Not Available Not Available FeroSul 325 mg (65 mg iron) tablet TAKE 1 TABLET BY MOUTH DAILY 03/22 completed Not Available Not Available Not Available [...] Updated DateTime 3 158.75 cm 44.1 kg/m2 778567. 13 g 98 [degF] 116 /min 99 % 99 % 135 mm[Hg] 105 mm[Hg] Leeann Coats MA [facility] 3 16:07:38 Date Recorded Body height Body mass index (BMI) Body weight Body temperature Heart rate Systolic blood pressure Diastolic blood pressure Provider Name and Address Organization Details Last Updated DateTime 3 158.75 cm 43.9 kg/m2 203618. 54 g 97.1 [degF] 103 /min 135 mm[Hg] 92 mm[Hg] Tanna Luna MA [facility] 3 09:16:15 Date Recorded Systolic blood pressure Diastolic blood pressure Provider Name and Address Organization Details Last Updated DateTime 09/15/2023 130 mm[Hg] 96 mm[Hg] RAYSHAWN Garcia Attn: Accounting[address] [place], [address], [facility] 09/15/2023 09:33:54 Date Recorded Body height Body mass index (BMI) Body weight Body temperature Heart rate Systolic blood pressure Diastolic blood pressure Provider Name and Address Organization Details Last Updated DateTime 4 158.75 cm 45.5 kg/m2 479425. 87 g 97.8 [degF] 102 /min 140 mm[Hg] 88 mm[Hg] Tanna Luna MA [facility] 4 09:08:07 Date Recorded Systolic blood pressure Diastolic blood pressure Provider Name and Address Organization Details Last Updated DateTime 09/03/2024 132 mm[Hg] 82 mm[Hg] RAYSHAWN Garcia Attn: Accounting[address] [place], [address], [facility] 09/03/2024 09:23:25 Date Recorded Body height Body mass index (BMI) Body weight Heart rate Body temperature Systolic blood pressure Diastolic blood pressure Provider Name and Address Organization Details Last Updated DateTime 5 158.75 cm 45.7 kg/m2 616261. 46 g 125 /min 97.3 [degF] 139 mm[Hg] 88 mm[Hg] Monisha Stone MA [facility] 5 12:02:34 Date Recorded Body height Body mass index (BMI) Body weight Oxygen saturation Oxygen saturation in Arterial blood by Pulse oximetry Heart rate Systolic blood pressure Diastolic blood pressure Provider Name and Address Organization Details Last Updated DateTime 5 158.75 cm 46.5 kg/m2 693193. 91 g 98 % 98 % 115 /min 124 mm[Hg] 70 mm[Hg] Rhonda Madsen MA [facility] 11:56:31 Social History Question Answer Notes LastModified by Organizat ion Details LastModified Time Tobacco Smoking Status Never Smoker Tanna Luna MA [facility], [facility] 01/15/2015 12:13:30 What Is Your Level Of Alcohol Consumption? Occasional [email or web address] Information not available 01/15/2015 What Was The Date Of Your Most Recent Tobacco Screening? 03/22/2025 [email or web address] Information not available 03/22/2025 Do You Or Have You Ever Used Any Other Forms Of Tobacco Or Nicotine? No [email or web address] Information not available 09/03/2024 Sex: Unknown Functional Status None recorded. Mental Status None recorded. Family History Relationship Description Onset Age of this Age Resolved Age Notes LastModified by Organization Details LastModified Time Mother Degeneration of intervertebr al disc [email or web address] Not available 06/28 11:44:23 Father Diabetes mellitus [email or web address] Not available 06/28 11:44:23 Father Heart disease [email or web address] Not available 06/28 11:44:23 Father Mesothelioma (malignant, clinical disorder) [email or web address] Not available 06/28 11:44:23 Father Essential hypertension [email or web address] Not available 11:52:40 Father Myocardial infarction [email or web address] Not available 02/27 11:52:49 Father Cerebrovascu lar accident [email or web address] Not available 11:52:58 Medical History No medical history recorded. Gynecological HistoryNo gynecological history recorded. Obstetrics History GPAL:G 0 P 0 0 0 0 Immunizations Vaccine Type Date Status Note Provider Nam e and Address Organization Details Recorded Time COVID-19, mRNA, LNP-S, PF, 30 mcg/0.3 mL dose 1 completed Not Available [facility] 07/18/2023 23:29:55 Influenza, split virus, trivalent, preservative 4 completed Not Available [facility] 07/18/2023 23:29:55 Tdap 3 completed Not Available [facility] 07/18/2023 23:29:55 COVID-19, mRNA, LNP-S, PF, 30 mcg/0.3 mL dose 1 completed Not Available [facility] 07/18/2023 23:29:55 COVID-19, mRNA, LNP-S, PF, 30 mcg/0.3 mL dose 2 completed Not Available [facility] 07/18/2023 23:29:55 Tdap 7 completed Not Available [facility] 12/15/2019 02:34:51 Past Encounters Encounter ID Performer Location Encounter Start Date Encounter Closed Date Diagnosis/Indication Diagnosis SNOMED-CT Code Diagnosis ICD10 Code Diagnosis Note [id number] Cody Jackson [facility] ([place] [facility]) [address] [place] [address] 01/15/2015 11:49:48 01/15/2015 13:52:37 Eruption [id number] Will try po steroid burst, as patient is allergy to hydrocorti sone cream and PCN-based creams, will also place a referral to Derm, persistent rash, 3 cm, raised, irregular borders, increasing in size since beginning of the year [id number] [facility] ([place] [facility]) [address] [place] [address] 08/01/2015 11:29:17 08/01/2015 12:28:13 Adult health examination 409971299 Ms. Garcia is here for her annual physical, her pap smear is up to date. her Pap smear in 2013 was negative for HPV Uses contraception 53908112 Refill OCP, no major concerns. Eruption 967617748 Resol janneth, seen by Derm Environmental allergy 211136285 Ms. Garcia would like allergy opinion regarding environmen veronica allergy [id number] Cody Jackson [facility] ([place] [facility]) [address] [place] [address] 11/12/2015 11:50:42 11/12/2015 12:32:57 Anterior knee pain 485210726 M25.569 Mrs. Garcia 35 yo woman with right medial knee pain x 2 weeks, feels the knee is locking, popping, and unstable. PT referral, and steriod injection, please see procedure note for full details [id number] RAYSHAWN Garcia [facility] ([place] [facility]) [address] [place] [address] 06/28/2016 11:20:39 06/29/2016 10:31:23 Candidiasis of vagina 10658341 B37.3 Can not use OTC therapy due to lanolin as inactive ingredient and allergy, will give fluconazol e. Adult heal th examination 294713960 Z00.00 BP & HR elevated 2/2 to pain. Should monitor BP at home, goal less than 140/90. Painful mouth 151311146 K13.79 2/2 to dentation [id number] RAYSHAWN Garcia [facility] ([place] [facility]) [address] [place] [address] 05/20/2017 10:19:26 06/01/2017 10:18:19 Adult health examination 104600603 Z00.00 Due for labs. Discussed healthy diet and exercise, which she reports that she is working on. Negative depression screening. Contraception care 16416 5005 Z30.40 Needs refills. If BP remains elevated will need to switch methods. Increased blood pressure 46042027 R03.0 Discussed multiple elevated BP at office visits. She refused to be started on medication s due to her normal blood pressures when she checks at home. Will send for labs. Encouraged to bring in home cuff to check in office for correlatio n. Headache 53634626 R51 Discussed headaches. Will trial low dose sumatripta n with next headache. RTC if no improvemen t. Screening for malignant neoplasm of cervix 547806017 Z12.4 [id number] Blanka Garcia MA [facility] ([place] [facility]) [address] [place] [address] 10/28/2017 10:30:53 10/28/2017 12:50:10 Active or passive immunization 041716801 Z23 [id number] R[facility]SHA[facility] ([place] [facility]) [address] [place] [address] 07/26/2018 09:18:33 07/27/2018 13:24:21 Gynecologic examination 29549623 Z01.419 -Pap collected and sent-Discu ssed nutrition and exercise-N egative depression screening Contraception care 87938 5005 Z30.40 -Wishes to continue current OCP Body mass index 30+ - obesity 614802816 Z68.39 -Labs as ordered-En couraged more physical activity. [id number] RAYSHAWN Garcia [facility] [address] [place] [address] 07/25/2019 09:02:41 07/26/2019 14:20:01 Gynecologic examination 59076647 Z01.419 -Pap collected and sent-Discu ssed nutrition and exercise-N egative depression screening Obesity 479350927 E66.9 -check labs [id number] RAYSHAWN Garcia [facility] [facility]) [address] [place] [address] 08/05/2020 11:33:53 08/06/2020 10:52:52 Adult health examination 346789653 Z00.00 -due for PAP in Sep (had colpo last Sep)-due for mammogram -neg depression screening Obesity 130523389 E66.9 -check labs-has been working on diet and exercise at home Screening mammography 24 314926 Z12.31 [id number] RAYSHAWN Garcia [facility] [facility]) [address] [place] [address] 10/07/2020 09:01:56 10/09/2020 15:00:52 Gynecologic examination 75508137 Z01.419 -Pap collected and sent-Discu ssed nutrition and exercise-N egative depression screening Contraception care 87761 5005 Z30.40 -Wishes to continue current OCP [id number] RAYSHAWN Garcia [facility] ([place] [facility]) [address] [place] [address] 09/02/2021 09:03:59 09/02/2021 14:28:19 Otalgia 68507535 H92.01 -refer to ENT, suspect perforatio n is from MT-drops to cover for infection- cont flonase Gynecologi c examination 38156612 Z01.419 -Pap collected and sent-discu ssed starting mammograms , declined at this time-Discu ssed nutrition and exercise-N egative depression screening Morbid obesity 567397628 E66.01 -check labs for co-morbidi ties [id number] RAYSHAWN Garcia [facility] ([place] [facility]) [address] [place] [address] 05/26/2022 10:30:46 05/27/2022 10:25:48 Impetigo 95350453 L01.00 -does not want mupirocin due to lanolin allergy-tr eat with bactrim-go od handwashin g and try not to scratch area-f/u if no improvemen t Morbid obesity 935305708 E66.01 Allergic r eaction to adhesive 736562203 T78.49XD -refer to allergy Allergic r eaction to drug 207084973 T78.49XD [id number] RAYSHAWN Garcia [facility] ([facility]) [address] [place] [address] 09/09/2022 15:20:33 09/27/2022 12:43:09 Contraception care 862305793 Z30.40 -Wishes to continue current OCP Adult heal th examination 620036946 Z00.00 -PAP due 08/2024-du e for mammogram- normal BP-neg depression screening Morbid obesity 803585219 E66.01 -check labs-revie wed nutrition and exercise Serum thyr oid stimulating hormone level outside reference range 932313234 R79.89 -recheck labs [id number] MARYA Albrecht-BC [facility] ([place] [facility]) [address] [place] [address] 04/29/2023 15:52:07 05/11/2023 14:11:20 Contact with Eastern poison faustino 236009225 X58.XXXA kenalog 40 mg IM once per MA per vofu w/ PCP as neededrepo rt to ED if s/s worsen or experience CP, SOB, LARKIN or [id number] mg benadryl po nightly for the next 3-7 nights to aid in riding of rashif rash lacks improvemen t in the next 24-48h, follow w/ po steroid dose packcontag iousness discussed Environmental allergy 42 8538856 T78.49XA referral pendingfu as neededcont inue zyrtec and pepcid in the mean time [id number] R[facility]SHA[facility] ([facility]) [address] [place] [address] 09/15/2023 08:59:45 09/22/2023 15:23:06 Goiter 7341391 E04.9 -send for US, check labs Decreased hearing 899174 001 H90.11 -needs ENT referral Obesity 994134516 E66.9 -check labs-has been working on diet and exercise at home Contraception care 54361 5005 Z30.40 -Wishes to continue current OCP Adult heal th examination 147576611 Z00.00 -PAP due 08/2024-du e for mammogram- normal BP-neg depression screening [id number] R[facility]SHA[facility] ([place] [facility]) [address] [place] [address] 09/03/2024 08:59:17 10/01/2024 09:32:46 Screening for malignant neoplasm of cervix 455743166 Z12.4 -pap collected and sent-perfo james monthly self breast exams, declined mammogram Mammogram declined 31106 5004 Z53.20 Hyperlipidemia 06506550 E78.5 -diet controlled -check labs Hyperglycemia 71385461 R 73.9 -diet controlled -check labs Obesity 160830125 E66.9 -check labs-has been working on diet and exercise at home [id number] RAYSHAWN [facility] ([place] [facility]) [address] [place] [address] 02/12/2025 11:49:06 02/14/2025 09:14:25 Eruption 741209341 R21 -will try betamethas one (possible formulatio n with no lanolin) Idiopathic urticaria 422 49155 L50.1 -check labs (can not do skin testing due to dermatitis )-on zyrtec and pepcid OTC-start montelukas t-check CBC for esos-f/u based on results Tachycardia 9625656 R00. 0 -refer to cardiology for tachycardi a Morbid obesity 591320208 E66.01 -BMI 50.7 [id number] Joe Henley MD [facility] [facility] [address] [place] [address] 03/22/2025 11:20:30 03/22/2025 12:28:35 Palpitations 47443320 R00.2 Obese class III 97401532 5 E66.813 Hyperlipid emia screening 431914166 Z13.220 Health Concerns Section Related Observation LastModified by Organization Detai ls LastModified Time None Recorded Concern Status LastModified by Organization Details LastModified Time None Recorded Advance Directives Directive None Recorded Payers Encounter Date Sequence Insurance Name Policy Number Policy Joseph Covered Member ID Joseph Member ID Guarantor Name 04/29/2023 1 *SELF PAY* Jadiel Garcia 09/15/2023 1 [place] [id number] Torsten Garcia [id number] Torsten Garcia 09/03/2024 1 [place] [id number] Torsten Garcia [id number] Torsten Garcia 02/12/2025 1 [place] [id number] Torsten Garcia [id number] Torsten Garcia 03/22/2025 1 [place] [id number] Torsten Garcia [id number] Torsten Garcia Notes Date Note Type Note Provider Name and Address Organization Details Recorded Time 04/29/2023 text/html Pt w/a history o f chronic seasonal and environmental allergies presents to clinic requesting treatment for poison faustino induced pruritic rash to L chin and jaw line area following exposure while aiding her in cutting grass. She reports a prior history of chronic allergies; while she currently takes Zyrtec and Pepcid daily. To include, she reports difficulty obtaining and appt. w/ life support technician/allerg ist of prior referral and is requesting an alternative. Pt denies nausea, vomiting, fever, chest pain, SOB, wheezing, angioedema, chills, cough, diarrhea, constipation and dysuria. MARV Albrecht Attn: Accounting[address] [place], [address], [facility] 05/03/2023 12:02:09 09/15/2023 text/html Here today for a check-up. She would like a full thyroid panel RAYSHAWN Garcia Attn: Accounting[address] [place], [address], [facility] - [facility] 09/19/2023 14:59:59 09/03/2024 text/html Annual GYNReport ed bypatient.Menstrual cycle:Normal menses Breast:No breast pain; No breast lump; No nipple discharge Current Contraception:Satis fied with current contraception; Monogamous relationship Sexual complaints:No sexual complaints Menopausal Symptoms:No menopausal symptoms Psychological symptoms:Anxiety Preventive measures:Followed with Q3 year pap smear and high risk HPV typing; Has had colpos in the past. RAYSHAWN Garcia Attn: Accounting[address] [place], [address], [facility] - [facility] 10/01/2024 09:06:49 02/12/2025 text/html Crys is here [...] Ehler Danlos. RAYSHAWN Garcia Attn: Accounting[address] [facility], [place], [address], [facility] [place] 02/13/2025 12:42:57 03/22/2025 text/html 44-year-old fema glenis who has no history of heart disease complaining of palpitation which occurs almost every day lasts for only sec to resolved spontaneously. She denies shortness of breath, orthopnea, paroxysmal nocturnal dyspnea edema of lower extremities she can walk couple of miles without any symptoms. EKG :03/22/2025:Sinus Tachycardia,Low voltage in precordial leads.-Poor R-wave progression - LABS:02/12/25:wbc 16.8, hgb 16.0, hct 49.2, plt [address]671/06/20:total cholesterol 195, triglycerides 304, HDL 40, LDL 103, TSH 2.560, a1c 5.9, glucose 94,BUN 7, creatinine 0.79, eGFR 95, sodium 140, K+ 4.3, calcium 9.5, ast 28, alt 24 Joe Henley MD Attn: Accounting[address] [facility], [place], [address], [facility] 03/22/2025 12:28:32 OBGyn Episode No OBEpisode recorded.
--- OUTSIDE RECORDS SUMMARY | 2025-03-25 04:08 | XMS_ITS | Patient Health Record ---
Author Organization [facility] ([address]) Address [address] [place] [address] Care Team Providers Care Distribution District Supervisor Name Role Phone Selene Vaughn MD Primary Care Provider UnavailHoney Nguyen Unavailable [phone] [facility], Provider Unavailable Unavailab le Allergies Allergen [...] review and pick correct strength-formulati on from [place] options. If intended option is not shown, [...] tab(s) orally every 6 hours Active NECON 1/35 35 mcg-1 mg 1 tab(s) orally once a day Active VITAMIN C 1000 mg 1 tab(s) orally once a day Active MULTIVITAMIN Multiple Vitamins 1 tab(s) orally once a day Active Immunizations Vaccine Route Administration Date Status Comme nts Covid 19 (Pfizer) Unknown 04/25/2021 Administered Covid 19 (Pfizer) Unknown 05/17/2021 Administered Covid 19 (Pfizer) Unknown 12/04/2021 Administered Influenza Unknown 07/30/2014 Administered Social History Tobacco Use: Social History Observation Description Date Details (start date - stop date) Never Smoker NA - NA Smoking Smart Form: Question Answer Notes Are you a: never smoker Problems Problem Type SNOMED Code ICD Code Onset Dates Problem Status W/U Status Risk Notes Problem Contact dermatitis caused by chemical (994014699198) Contact dermatitis due to other chemical product (692.4) Active confirmed Problem Chronic rhinitis (11677051) Chronic rhinitis (472.0) Active confirmed Problem Allergy to penicillin (57750588) HX-PENICILLIN ALLERGY (V14.0) Active confirmed Problem Idiopathic urticaria (43254090) Idiopathic urticaria (L50.1) Active confirmed Problem Allergic rhinitis caused by pollen (disorder) (09730017) Allergic rhinitis due to pollen (J30.1) Active confirmed Problem Allergic contact dermatitis caused by chemical (58251116749276 103) Allergic contact dermatitis due to other chemical products (L23.5) Active confirmed Problem Allergic contact dermatitis caused by plant material (disorder) (15159239881561 101) Allergic contact dermatitis due to plants, except food (L23.7) Active confirmed Problem Allergic contact dermatitis caused by adhesive (disorder) (085711708) Allergic contact dermatitis due to adhesives (L23.1) Active confirmed Encounters Encounter Location Date Provider Diagnosis [address] [place] [address] 05/12/2024 Provider [facility] Plan Of Treatment No Information Insurance Providers Payer Name Payer Address Payer Phone Subscriber Number Group Number Insured Name Patient Relationship to Insured Coverage Start Date Coverage End Date Katie YOUNG[address] [place] [address] [id number] Torsten Garcia Spouse - patient is the spouse of the insured Medical (General) History Medical History History ICD Code Eustachian Tube Dysfunction Allergic rhinitis due to pollen J30.1 Allergic contact dermatitis due to adhes michelle L23.1 Surgical History Surgery Date(Month/Year) Tonsillectomy 09/2011 Hospitalization History Reason Date(Month/Year) Child 04/2002 & 03/2004
--- OUTSIDE RECORDS SUMMARY | 2025-03-25 04:08 | XMS_ITS | Clinical Summary ---
Author Organization [facility] Address [address] [address] Phone Care Team Providers Care Business Center Representative Name Role Phone Selene Vaughn MD Primary Care Provider [phone] Rupesh Finn MD Unavailable Allergies Active Allergy [...] Take 1 Capsule by mouth daily. Active doxycycline hyclate (VIBRA-TABS) 100 MG Tablet TAKE 1 TABLET BY MOUTH TWICE DAILY FOR 1 WEEK 03/09/2025 Active montelukast (SINGULAIR) 10 MG Tablet Take 1 Tablet by mouth every evening. Active ferrous sulfate 325 (65 Fe) MG TabletIndicatio ns:Iron deficiency Take 1 Tablet by mouth daily. 30 Tablet 3 03/13/2025 Active Active Problems No known active problems Encounters Date Type Department Care Team Description 03/13/2025 11:00 AM CDT Office Visit [facility] [address] [address] Deanne Alas APRN, MANDARIN SPEAK[employer]ANNY Leukocytosis, unspecified type (Primary Dx); Polycythemia; Thrombocytosis; Iron deficiency 03/13/2025 Travel 02/27/2025 10:25 AM CDT Lab [facility] [address] [address] Lab, [facility] [place] Leukocytosis, unspecified type; Polycythemia 02/27/2025 10:00 AM CDT Office Visit [facility] [address] [address] Mohsen Talley MD Leukocytosis, unspecified type (Primary Dx); Polycythemia 02/27/2025 Travel from Last 3 Months Social History Tobacco Use Types Packs/Day Years Used Date Smoking Tobacco: Never Smokeless Tobacco: Never Tobacco Cessation:Counseling Given: Not Answered Alcohol Use Standard Drinks/Week Comments Yes 1 (1 standard drink = 0.6 oz pur e alcohol) Comments Unknown Sex and Gender Information Value Date Recorded Sex Assigned at Female 03/01/2025 10:45 AM CDT Legal Sex Female 10:51 AM CDT Gender Identity Female 03/22/2025 6:54 AM CDT Sexual Orientation Straight 03/01/2025 10 :45 AM CDT Last Filed Vital Signs Vital Sign Reading Time Taken Comments Blood Pressure 140/88 03/13/2025 10:34 AM CDT Pulse 107 03/13/2025 10:34 AM CDT Temperature 36.4 C (97.5 F) 03/13/2025 10:34 AM CDT Respiratory Rate 18 03/13/2025 10:3 4 AM CDT Oxygen Saturation 98% 03/13/2025 10: 34 AM CDT Inhaled Oxygen Concentration - - Weight 116.8 kg (257 lb 9.6 oz) 025 10:34 AM CDT Height 160 cm (5' 3 ) 03/13/2025 10:34 AM CDT Body Mass Index 45.63 03/13/2025 10:34 AM CDT Plan of Treatment Upcoming Encounters Date Type Department Care Team (Late st Contact Info) Description 06/12/2025 11:00 AM CDT Lab [facility] [address] [address] Lab, Cc [facility] 06/12/2025 11:15 AM CDT Office Visit [facility] [address] [address] Mohsen Talley MD [address] [place] [address] Health Maintenance Due Date Last Done Comments Hepatitis C Virus (HCV) Screening 1979 Mammogram 1979 Hepatitis B Immunization (1 of 3 - 19+ 3-dose series) 1998 Pap Smear 2000 Cervical Cancer Screening (CCS) 2009 HPV/Cotest 2009 Discussion re Starting/Frequency of Mammograms 2019 SARS-COV-2 Immunization ( season) 2024 12/04/2021, 05/17/2021, 04/25/2021 Colonoscopy 2024 [...] 10:22 AM CDT) GP/(CML)BCR/ABL,T( 9;22)FISH Negative [facility] BCR/ABL1 - Normal Nuclei 100.00 % [facility] Comment: INTERPRETATION : No evidence of BCR/ABL rearrangement. PROBE TYPE : Dual Color / Dual Fusion CATALOG ID: [id number] ISCN NOMENCLATURE: nuc tiffanie(ABL1,BCR)x2[300] NORMAL BACKGROUND CUTOFF VALUE(S): (PB and BM): 0.4% for dual fusion, 9.2% for single fusion Note: Positive signals detected below the determined cutoff value are considered a negative result. For any given probe, a cutoff value is determined by serial analysis of normal cases, and is an artifact inherent to the methodology. Automated imaging analysis performed using the MetaCyte Imaging System on a [employer] slide scanning platform, [employer] [facility], [facility], Alexei Clinical Information ICD-10 codes D72.829, D75.1 [facility], [facility] Comment: REFERENCES: 1. Cyndee Raphael and Angelika Meraz. Cancer Cytogenetics, 3nd edition, Montes [employer] Oca[employer]Mazariegos, A Derrell [employer] 2009. ASSOCIATED TESTS: Flow Cytometry Analysis for Myeloid/Lymphoid Disorders and Acute Leukemia released on: 03/02/2025 Shanae() NGS JAK2 V617F Reflex JAK2 Exon 12, CALR and MPL Sequencing Report released on: 03/04/2025 DISCLAIMER: The following probes contain 2 or more separate fluorochromes and are considered multiplex probes: 1q21/CKS1B, 4q12 for PDGFRalpha, AML1/ETO, BCR/ABL1, BCL6, CBFB for inv(16), A7S473/XCE7 for -7/7q-, IGH/BCL2, IGH/CCND1, IGH/FGFR3, IGH/MAF, IGH/MYC, [...] and their performance characteristics were determined by [facility]. They may not be cleared or approved by the U.S. Food and Drug Administration. The FDA does not require these test to go through premarket FDA review. These tests are used for clinical purposes. It should not be regarded as investigational or for research. [facility] is certified under the Clinical Laboratory Improvement Amendments of 1988 CLIA as qualified to perform high complexity clinical testing. ELECTRONIC SIGNATURE: Alexis Alcala M.D. Hematopathologist, ex. [id number] This report was electronically signed. Other 02/27/2025 10:2 2 AM CDT Narrative [facility] 03/05/2025 10:15 AM CDT Testing performed at: [employer], [employer]. [address] [place] [address], Eap Clinician: Dr. Olaf White M.D.; [facility] Accn#:[id number] Release to patient->Immediate Clinical History/Impression->leukocytosis Specimen Source (BM, Cytogenetics, or Flow)->Blood us Mohsen Talley MD PATHOLOGY/CYTOLOGY ORDERABL ES Final Result Performing Organization Address [facility] de Phone Number [facility] [place] [address], * SERUM FREE LIGHT CHAINS, [place] (02/27/2025 10:22 AM CDT) FREE KAPPA LT CHAINS 9.0 2.9 - 20.7 mg/L [facility] FREE LAMBDA LT CHAINS 11.8 4.2 - 27.6 mg/L [facility] KAPPA/LAMBDA RATIO 0.76 0.22 - 1.74 [facility] 02/27/2025 10:2 2 AM CDT us Mohsen Talley MD LAB SEND OUTS Final Resul t Performing Organization Address [facility] de Phone Number [facility] [place] [address], [place] [phone] * (ABNORMAL) ERYTHROPOIETIN (EPO) [place] (02/27/2025 10:22 AM CDT) Erythropoietin 18.9(H) 2.6 - 18.5 mIU/mL [facility] 02/27/2025 10:2 2 AM CDT Narrative [facility] - 03/01/2025 3:31 PM CDT Release to patient->Immediate us Mohsen Talley MD LAB SEND OUTS Final Resul t Performing Organization Address City/[facility]/ZIP Co de Phone Number [facility] [place] [address], [place] [phone] * (ABNORMAL) IRON W/ IRON BINDING CAPACITY [place] (02/27/2025 10:22 AM CDT) IRON 60 50 - 212 ug/dL [facility] UIBC 348 155 - 355 ug/dL [facility] TIBC 408 261 - 478 ug/dl [facility] % Saturation 15(L) 20 - 50 % [facility] 02/27/2025 10:2 2 AM CDT Narrative [facility] - 02/27/2025 12:30 PM CDT Release to patient->Immediate us Mohsen Talley MD LAB SEND OUTS Final Resul t Performing Organization Address [facility] Co de Phone Number [facility] [address] [place] [address], [place] [phone] * IMMUNOFIXATION, SERUM [place] (02/27/2025 10:22 AM CDT) IMMUNOFIXATION RESULT, SERUM COMMENT: [facility] Comment: PRESENCE OF MONOCLONAL PROTEIN IS UNCLEAR AT THIS TIME. SUGGEST REPEAT IN 3 TO 6 MONTHS IF CLINICALLY INDICATED. 02/27/2025 10:2 2 AM CDT Narrative [facility] - 03/01/2025 1:08 PM CDT TESTING PERFORMED AT: [] [facility], [address] [place] [address], [place], [address], PHONE: [phone], MEDICATION MANAGER: NELY VELEZ, PHD Release to patient->Immediate us Mohsen Talley MD LAB SEND OUTS Final Resul t [facility] [place] [address], * CCS-ACUTE LEUKEMIA PNL (NON-NY) [place] B504-2 (02/27/2025 10:22 AM CDT) Only the most recent of2 resultswithin the time period is included. ACUTE LEUKEMIA FLOW PC Negative [facility] Comment: INTERPRETATION PERIPHERAL BLOOD: - Flow [...] T-LGL cells comprise 0.59%. DISCLAIMER: Antibodies Analyzed: CD19,CD20,CD22,CD10,CD11c,CD23,FMC7,[place],Lambda,CD2,CD3,CD4,CD5, CD7,CD8,CD56,CD57,CD11b,CD13,CD14,CD16,CD33,CD64,CD34,CD38,CD117, HLA-DR,CD45 - The technical component of Flow Cytometry was performed at [facility] [address], [place] [address]. These tests were developed and their performance characteristics were determined by [facility]. They may not be cleared or approved by the U.S. Food and Drug Administration. The FDA has determined that such clearance or approval is not necessary. These results may be used for clinical, investigational or for research purposes, and should be interpreted with other relevant clinicopathologic data. ASSOCIATED TESTS: Fluorescence In-Situ Hybridization (FISH) OnkoSight(TM) NGS JAK2 V617F Reflex JAK2 Exon 12, CALR and MPL Sequencing Report ELECTRONIC SIGNATURE: Alexis Alcala M.D. Hematopathologist, ex. [id number] This report was electronically signed. 02/27/2025 10:2 2 AM CDT Narrative [facility] - 03/02/2025 10:15 AM CDT Testing performed at: [employer]. [address] [place] [address], Eap Clinician: Dr. Olaf White M.D.; [employer] Accn#:[id number] Mohsen Talley MD PATHOLOGY/CYTOLOGY ORDERABL ES Final Result [facility] [address] [place] [address], [place] [phone] * ONKOSIGHT NGS JAK2 V617F REFLEX JAK2 EXON 12, CALR AND H (02/27/2025 10:22 AM CDT) NGS JAK2 V617 RX EXON12 NORMAL [facility] ONKOSIGHT NGS MPL SEQUENCING NORMAL [facility] ONKOSIGHT NGS JAK2 EXON 12 SEQUENCING NORMAL CANCER CE [facility] ONKOSIGHT NGS CALR SEQUENCING NORMAL [facility] ONKOSIGHT NGS JAK2 V617F SEQUENCING NORMAL CANCER CENT ER [facility], [facility]1983 Comment: OnkoSight JAK2 V617F Rx JAK2 Exon [...] Not Applicable INTERPRETATION SUMMARY SEE BELOW [facility] Comment: INTERPRETATION SUMMARY: - This was [...] to interpret these findings. METHODS SEE BELOW [facility] Comment: METHODS: Tissue macrodissection and DNA [...] (LILIANA), used after sequencing on an Illumina TempronicsaSeq instrument ([place], [place]) with paired end, 151 base pair reads to collapse PCR duplicates and enable accurate counting of variant allelic frequencies. A minimum number of 100 unique reads (after removal of PCR duplicates) to detect a mutation is required. An automated process that takes into account statistical confidence of base calling and alignment and mapping quality identifies variants ([employer] Analysis Software version 6.2.7, Released 23 Apr 2020). Following mapping of the read data to the human genome (reference build GRCh37/hg19), single nucleotide variants (SNVs), and insertion deletion events (Indels) with an allele frequency (AF) greater than 2% are detected utilizing Splice Machine Analysis bioinformatic analytical pipeline with the exception [...] Recommendation of the Association for Molecular Pathology, [place] Society of Clinical Oncology, and College of [place] Pathologists. The Journal of molecular diagnostics: JMD. 2017 Nov;19(1):4-23. doi: 10.1016/j.jmoldx.2016.10.002. PubMed Central PMCID: IEQ0094461. PubMed PMID: (20900025)). OnkoSightAdvanced was developed and its performance characteristics were determined by [employer], a division of [employer]. This test has not been cleared or [...] comes from numerous sources, is subject to slubber frame changer time in response to future scientific and medical findings and correlations. [facility]. makes no representation or warranty of any kind regarding the accuracy of information provided or contained in these manuscripts, references or other sources of information. If any of the information provided by or contained in the referenced material is later deemed to be inaccurate, this may impact the accuracy of this report and interpretation of the findings. [employer] is not obligated to notify you of [...] This assay has been approved by the [facility] based on initial validation; orthogonal testing for full validation is currently ongoing. Please contact the laboratory for more information if update is requested. REFERENCES 1 SEE BELOW [facility], 1929[facility]1983 Comment: REFERENCES: 1. Kathy MM, Citlalli M, Roopa EJ, Meme S, Darion NI, Archie S, Channing AM, Brielle CL, Uri DJ, Kris A, Ema MN. Standards and Guidelines for the Interpretation and Reporting of Sequence Variants in Cancer: A Joint Consensus Recommendation of the Association for Molecular Pathology, [place] Society of Clinical Oncology, and College of [place] Pathologists. The Journal of molecular diagnostics : JMD. 2017 Nov;19(1):4-23. doi: 10.1016/j.jmoldx.2016.10.002. PubMed PMID: 66331315. PubMed Central PMCID: VGU3143298. 2. Genome Aggregation Database (gnomAD), [place], [place] (URL: https://gnomad.[employer]Op[employer]Transilio[employer] d[employer].org) [February,] 3. Kaitlyn Montilla, Anirudh Bernal. World health organization classification, evaluation, and genetics of the myeloproliferative neoplasm variants. Hematology. [place] Society of Hematology. Education Program. 2010;9869198-7. doi: 10.1182/asheducation-2010.1.250. PubMed PMID: 90342771. 4. Gabbie P, Olive A, Sahra R, Nidia R, Re H, Shane I, Thomas S, Rock T, Afshan J, Bay M, Eric C, Judah R, Mitch RC. Clonal evolution and clinical correlates of somatic mutations in myeloproliferative neoplasms. Blood. 2014 Feb 28;123(14):2220-8. Epub 2013Dec 26. doi: 10.1182/llizh-9262-85-191163. PubMed PMID: 28227747. 5. Ebenezerini E, Bernardis I, Artusi V, Artuso L, Roncaglia E, Gabrielli P, Pieri L, Bogani C, Biamonte F, Rotunno G, Mannarelli C, Krzysztof E, Pancrazzi A, Steffany T, Son Moyer G, Dejuan S, Mirza R, Linette AM, Cristin E, Targeted cancer exome sequencing reveals recurrent mutations in myeloproliferative neoplasms. Leukemia. 2014 March;28(5):1052-9. Epub 2012Sep 18. doi: 10.1038/aquiles.2013.302. PubMed PMID: 34625975. PubMed Central PMCID: [id number]. 6. Tyler T, Inovalerio D, Oksharmilai-Ander N, Florian N, Kogeorge Y, Sabine Y, Enrubento Y, Doki N, Uchida T, Kagiyama Y, Togami K, Catrachota LAURENT, Nagase R, Horikawa S, Chu Y, Saika M, Fukuyama T, Izawa K, Oki T, Jacinto F, Rashmi Montilla. The molecular basis of myeloid malignancies. Proceedings of the [place] Academy. Series B, Physical and biological sciences. 2014;90(10):389-404. PubMed PMID: 88136098. PubMed Central PMCID: FYI2245473. REPORT FOOTER SEE BELOW [facility] Comment: Va Red M.D., Eap Clinician Electronically signed by Chrissy Hernandez, PhD, [facility] [employer] is a division of [employer] [facility] [place] [place] [address] Created TueMar 04 12:03:07 EDT 2024 02/27/2025 10:2 2 AM CDT Narrative [facility] - 03/04/2025 12:46 PM CDT Testing performed at: [employer]. [facility] [place] [place] [address], Eap Clinician: Dr. Olaf White M.D.; [facility] Accn#:[id number] Release to patient->Immediate us Mohsen Talley MD LAB SEND OUTS Final Resul t [facility] [address] [place] [address], * VITAMIN B12 (02/27/2025 10:22 AM CDT) Vitamin B12 269 180 - 914 pg/mL [facility] Blood 02/27/2025 10:[address] [facility] - 02/28/2025 2:30 PM CDT Release to patient->Immediate us Mohsen Talley MD CHEMISTRY ORDERABLES Final Result Performing Organization Address [facility] de Phone Number [facility] [address] [place] [address], [place] [phone] * ERYTHROCYTE SEDIMENTATION RATE (ESR) (02/27/2025 10:22 AM CDT) Erythrocyte Sedimentation Rate 10 0 - 30 mm/hr [facility] Blood 02/27/2025 10:2 2 AM CDT [facility] - 02/27/2025 12:00 PM CDT Release to patient->Immediate us Mohsen Talley MD HEMATOLOGY ORDERABLES Final Result Performing Organization Address [facility] de Phone Number [facility] [address] [place] [address], [place] [phone] * (ABNORMAL) RETICULOCYTE COUNT (RETIC) (02/27/2025 10:22 AM CDT) Reticulocyte count 4.29(H) 0.50 - 1.70 % [facility] RET-He 33.40 28.20 - 36.60 pg [facility] Comment: RET-He is a direct assessment of incorporation of iron into erythrocyte hemoglobin. It provides an indirect measure of the iron available for new erythropoiesis over past 2-4 days. Blood 02/27/2025 10:[address] [facility] - 02/27/2025 10:59 AM CDT Release to patient->Immediate us Mohsen Talley MD HEMATOLOGY ORDERABLES Final Result Performing Organization Address [facility] Co de Phone Number [facility] [address] [address], [place] [phone] * LACTATE DEHYDROGENASE (LD) (02/27/2025 10:22 AM CDT) LDH 172 140 - 271 U/L [facility] Blood 02/27/2025 10:[address] [facility] - 02/27/2025 12:30 PM CDT Release to patient->Immediate us Mohsen Talley MD CHEMISTRY ORDERABLES Final Result [facility] [address] [address], [place] [phone] * (ABNORMAL) IMMUNOGLOBULIN IGA, IGG & IGM QUANT (02/27/2025 10:22 AM CDT) IGG 629(L) 635 - 1,741 mg/dL [facility] IGA 97 66 - 433 mg/dL [facility] IGM 143 45 - 281 mg/dL [facility] Blood 02/27/2025 10:[address] [facility] - 02/28/2025 2:11 PM CDT Release to patient->Immediate us Mohsen Talley MD CHEMISTRY ORDERABLES Final Result [facility] [place] [address], [place] [phone] * HAPTOGLOBIN (02/27/2025 10:22 AM CDT) HAPTO 128 44 - 215 mg/dL [facility] Blood 02/27/2025 10:[address] [facility] - 02/28/2025 2:11 PM CDT Release to patient->Immediate us Mohsen Talley MD CHEMISTRY ORDERABLES Final Result Performing Organization Address [facility] Co de Phone Number [facility] [address] [place] [address], [place] [phone] * FOLIC ACID (FOLATE) (02/27/2025 10:22 AM CDT) Folate >20.00 >=5.90 ng/mL [facility] Blood 02/27/2025 10:2 2 AM CDT [facility] - 02/28/2025 2:30 PM CDT Release to patient->Immediate IS THE PATIENT REQUIRED TO BE FASTING FOR 12 HOURS?->No us Mohsen Talley MD CHEMISTRY ORDERABLES Final Result Performing Organization Address [facility] Co de Phone Number [facility] [address] [place] [address], [place] [phone] * FERRITIN (02/27/2025 10:22 AM CDT) Ferritin 131 11 - 307 ng/mL [facility] Blood 02/27/2025 10:2 2 AM CDT [facility] - 02/28/2025 2:30 PM CDT Release to patient->Immediate us Mohsen Talley MD CHEMISTRY ORDERABLES Final Result Performing Organization Address [facility] Co de Phone Number [facility] [address] [place] [address], [place] [phone] * ELECTROPHORESIS W/ TOTAL PROTEIN SERUM (02/27/2025 10:22 AM CDT) PROTEIN, TOTAL, SERUM 6.6 6.0 - 8.5 G/DL [facility] ALBUMIN 3.2 2.9 - 4.4 G/DL [facility] [id number]-7-[id number] 0.4 0.0 - 0.4 G/DL [facility] [id number]-[id number] 1.0 0.4 - 1.0 G/DL [facility] BETA GLOBULIN 1.3 0.7 - 1.3 G/DL [facility] GAMMA GLOBULIN 0.7 0.4 - 1.8 G/DL [facility] M-SPIKE NOT OBSERVED NOT OBSERVED G/DL [facility] GLOBULIN, TOTAL 3.4 2.2 - 3.9 G/DL [facility] A/G RATIO 0.9 0.7 - 1.7 [facility] PLEASE NOTE: COMMENT [facility] Comment: PROTEIN ELECTROPHORESIS SCAN WILL FOLLOW VIA COMPUTER, MAIL, OR DRY MILL OPERATOR DELIVERY. PDF . [facility] Blood 02/27/2025 10:2 2 AM CDT Narrative [facility] - 02/28/2025 3:08 PM CDT TESTING PERFORMED AT: [] [facility], [address] [place] [address], [phone], PHONE: [phone], MEDICATION MANAGER: NELY VELEZ, PHD Release to patient->Immediate Mohsen Talley MD CHEMISTRY ORDERABLES Final Result [facility] POP[facility] C[facility] [place] [address], * (ABNORMAL) CMP (COMPREHENSIVE METABOLIC PANEL) (02/27/2025 10:22 AM CDT) Glucose 105 70 - 105 mg/dL [facility] Blood Urea Nitrogen 7 7 - 25 mg/dL [facility] Creatinine 0.6 0.6 - 1.2 mg/dL [facility] Sodium 138 136 - 145 mEq/L [facility] Potassium 4.3 3.5 - 5.1 mEq/L [facility] Chloride 102 98 - 107 mEq/L [facility] Bicarbonate 24 21 - 31 mEq/L [facility] Total Bilirubin 0.5 0.3 - 1.0 mg/dL [facility] Alk. Phosphatase 95 34 - 104 U/L [facility] Aspartate Aminotransferase 23 13 - 39 U/L [facility] Alanine Aminotransferase 25 7 - 52 U/L [facility] Total Protein 6.5 6.4 - 8.9 g/dL [facility] Albumin 4.1 3.5 - 5.7 g/dL [facility] Calcium 9.9 8.6 - 10.3 mg/dL [facility] Anion Gap 16.3(H) 7.0 - 15.0 mEq/L [facility] Globulin 2.4 2.0 - 3.5 g/dL [facility] EGFR 112 >60 ml/min/1. 73m2 [facility] Comment: This eGFR is calculated using 2020 CKD-EPI Creatinine equation without race modifier based on the NKF-ASN task force recommendations Equation: sTKA=303*min(SCr/k,1)a*max(SCr/k,1)-1.200*0.9938Age*1.012 (if female), where SCr is serum creatinine, k is 0.7 for females and 0.9 for males, and a is -0.241 for females and -0.302 for males Blood 02/27/2025 10:2 2 AM CDT Narrative [facility] 02/27/2025 12:30 PM CDT Release to patient->Immediate IS THE PATIENT REQUIRED TO BE FASTING FOR 8 HOURS?->No us Mohsen Talley MD CHEMISTRY ORDERABLES Final Result [facility] CANDY MAK[facility] [place] [address], * (ABNORMAL) COMPLETE BLOOD COUNT (CBC) WITH DIFF (02/27/2025 10:22 AM CDT) WBC 13.1(H) 4.0 - 10.0 10*3/uL [facility] HGB 15.5 11.2 - 15.7 g/dL [facility] HCT 45.1(H) 34.1 - 44.9 % [facility] PLT 421(H) 163 - 369 10*3/uL [facility] MPV 9.3(L) 9.4 - 12.4 fL [facility] RBC 5.45(H) 3.93 - 5.22 10*6/uL [facility] MCV 83 79 - 95 fL [facility] MCH 28.4 25.6 - 32.2 pg [facility] MCHC 34.4 32.2 - 36.5 g/dL [facility] RDW 13.7 11.6 - 14.4 % [facility] Absolute Neutrophil Count 8,228 cells/uL [facility] Absolute Seg Count 8,228(H) 1,440 - 6,600 cells/uL [facility] Absolute Lymph Count 3,787 760 - 4,000 cells/uL [facility] Absolute [place] Count 914 160 - 1,200 cells/uL [facility] Absolute Baso Count 131(H) 0 - 100 cells/uL [facility] Segmented Neutrophils 63 36 - 66 % [facility] Lymphocytes 29 19 - 40 % [facility] Monocytes 7 4 - 12 % [facility] Basophils 1 0 - 1 % [facility] WBC Estimate High [facility] Platelet Estimate High [facility] RBC Morphology Normal C[facility] R [facility] Blood 02/27/2025 10:2 2 AM CDT Narrative [facility] - 02/27/2025 2:23 PM CDT Release to patient->Immediate Mohsen Talley MD HEMATOLOGY ORDERABLES Final Result [facility] [place] [address], [place] [phone] from Last 3 Months Insurance [facility] Care Teams Business Center Representative Relationship Specialty Start Date End Date Selene Vaughn MD PCP - General Family Medicine 05/01/18 Rupesh Finn MD [address] [place] [id number] Family Medicine 05/01/18
--- OUTSIDE RECORDS SUMMARY | 2025-03-25 04:08 | XMS_ITS | Encounter Summary ---
Author Organization [employer] Address [address] [place] [address] Care Team Providers Care Search Engine Optimization Analyst Name Role Phone Unavailable Primary Care Provider Unavailabl e Encounter Details Date Type Department Care Team (Late st Contact Info) Description 09/24/2008 Outpatient Historical [facility] AUDIOLOGY Albert Mata MD [address] [address] Unspecified Hearing Loss; Conductive Hearing Loss, Unilateral; Unspecified Disorder of Middle Ear and Mastoid Social History Tobacco Use Types Packs/Day Years Used Date Smoking Tobacco: Never Assessed Comments Unknown Sex and Gender Information Value Date Recorded Sex Assigned at Not on file Legal Sex Female 5:39 AM RATE REVIEWER Gender Identity Not on file Sexual Orientation Not on file documented as of this encounter Plan of Treatment Not on file documented as of this encounter Visit Diagnoses Diagnosis Unspecified hearing loss Conductive hearing loss, unilateral Unspecified disorder of middle ear and mastoid documented in this encounter
--- OUTSIDE RECORDS SUMMARY | 2025-03-25 04:08 | XMS_ITS | Clinical Summary ---
Author Organization [facility] [employer] Address [address] [facility] [place] [address] Care Team Providers Care Video Surveillance Technician Name Role Phone Chelsie Bass JAY-ECOLOGY TEACHER Primary Care Provider Source Comments [facility],non-owned Affiliates and Associated Physician Practices is amultiple site organization consisting of ambulatory clinics and hospital sitesin [place], [place], [place] and [place]. This disclosure is being madepursuant to the Care Everywhere program and may not contain all information available regarding this patient. Last updated 18.[facility] [employer] Allergies Active Allergy Reactions Criticality Noted Date [...] document. Alwaysverify current medications with the patient. Nortrel 1/35, 28, 1-35 MG-MCG tablet Take 1 (one) tablet by mouth once daily 09/15/2023 Active cetirizine (ZyrTEC Allergy) 10 MG gel capsule Active Cinnamon 500 MG Acti ve Cranberry 400 MG CAPS Active magnesium oxide (Mag-Ox) 400 MG tablet Take 1 (one) tablet by mouth once daily Active Multiple Minerals-Vitami ns (Bone Essentials) CAPS Active POTASSIUM PO Take 1 tablet by mouth once daily Active vitamin E (Tocopheryl) 400 UNIT capsule Take 1 (one) capsule by mouth once daily Active vitamin D3 (Cholecalcifero l) 25 MCG (1000 UNITS) tablet Take 1 (one) tablet by mouth once daily Active Active Problems Problem Noted Date Diagnosed Date Thyroid nodule 01/10/2024 Multinodular thyroid 01/10/2024 Sensorineural hearing loss ( SNHL) of right ear with unrestricted hearing of left ear 09/17/2021 01/10/2024 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 Encounters Date Type Department Care Team Description 01/04/2025 Orders Only [facility] - Endocrinology [address] [place] [address], [facility] [place] [id number] Beny Morocho MD Thyroid nodule; Multinodular thyroid [...] = 0.6 oz pur e alcohol) rarely Comments No Sex and Gender Information Value Date Recorded Sex Assigned at Female 12/05/2023 10:50 AM MUSIC LIBRARIAN Legal Sex Female 2:32 PM MUSIC LIBRARIAN Gender Identity Female 12/05/2023 10:50 AM MUSIC LIBRARIAN Sexual Orientation Straight 12/05/2023 10 :50 AM MUSIC LIBRARIAN Last Filed Vital Signs Vital Sign Reading Time Taken Comments Blood Pressure 121/92 01/10/2024 2:30 PM MUSIC LIBRARIAN Pulse 115 01/10/2024 2:30 PM MUSIC LIBRARIAN Temperature 36.2 C (97.2 F) 12/01/2023 10:06 AM MUSIC LIBRARIAN Respiratory Rate 20 12/01/2023 10:06 AM MUSIC LIBRARIAN Oxygen Saturation 97% 01/10/2024 2:30 PM MUSIC LIBRARIAN Inhaled Oxygen Concentration - - Weight 113.4 kg (250 lb) 01/10/2024 2:30 PM MUSIC LIBRARIAN Height 160 cm (5' 3 ) 01/10/2024 2:30 PM MUSIC LIBRARIAN Body Mass Index 44.29 01/10/2024 2:30 PM MUSIC LIBRARIAN Plan of Treatment Health Maintenance Due Date [...] patient's age to complete this topic Insurance [employer] Care Teams Video Surveillance Technician Relationship Specialty Start Date End Date Chelsie Bass APRN-JHON [address] [place] [phone] PCP - General Nurse Practitioner Family 12/01/23
--- OUTSIDE RECORDS SUMMARY | 2025-03-25 04:09 | XMS_ITS | Referral Summary ---
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
--- OUTSIDE RECORDS SUMMARY | 2025-03-25 04:09 | XMS_ITS ---
Author Organization [facility] [place] ([address]) Address [address] [place] [address] Care Team Providers Care Divorce Lawyer Name Role Phone Selene Vaughn MD Primary Care Provider UnavailHoney Nguyen Unavailable [phone] [facility], Provider Unavailable Unavailab le Allergies Allergen (clinical drug ingredient) Drug/Non Drug Allergy documented on EMR Reaction Allergy Type Onset Date Status amoxicillin Amoxicillin hives Drug Allergy Act kirsten sulfamethoxazole / trimethoprim Bactrim severe hives Drug Allergy Active acetaminophen Tylenol throat swelling Drug Allergy Active REASON FOR VISIT [facility] Encounter Medications Medication SIG (Take, Route, Frequency, Duration) Notes Start Date End Date Status Advil 200 MG 1 tab(s) orally every 6 hours Active Multivitamin - 1 tab(s) orally once a day Active predniSONE 10 MG 1 tab(s) orally once a day for 30 day(s) Not-Taking Necon () 1-35 MG-MCG 1 tab(s) orally once a day Active Xyzal Allergy 24HR 5 MG 1 tablet PO daily for 30 Active ZyrTEC Allergy 10 MG 1 tab(s) orally once a day Not-Taking Calcium 600+D Plus Minerals VITAMIN D WITH MINERALS 1 TAB(S) CHEWED ONCE A DAY *Please review and pick correct strength-formulati on from [facility] options. If intended option is not [...] Active Encounters Encounter Location Date Provider Diagnosis [place] [address] [address] [place] [address] 05/12/2024 Provider [facility] Plan Of Treatment No Information Progress Notes * Crys DIA MDOB: [birth year] (44 yo F)Acc No.[id number]:05/12/2024 Patient: Crys SHEA Provider: Richy webb Migration :1980 A ge:43 Y S ex:Female Date:05/12/2024 Address:[address] [place], [place] [id number] Pcp:Selene Vaughn MD Subjective: * Chief Complaints: * 1 . [facility] * Medical History: * Medications: [...] *Please review and pick correct strength-formulation from [facility] options. If intended option is not shown, [...] Procedure Codes: * Electronic signature of Prov zoie ReynoldsZ-Migration on 03/25/2025 at 04:08 AM CDT Sign off status: Pending * Provider: Richy webb Migration Date: 0 05/12/2024 Generated for Donato aden/Marla/Mirza on: 03/25/2025 04:08 AM CDT
--- OUTSIDE RECORDS SUMMARY | 2025-03-25 04:09 | XMS_ITS | Clinical Summary ---
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
--- NOTE | 2025-03-25 04:57 | ED.SKABFB ---
HPI - Skin/Abscess/Foreign Bdy General Chief complaint: Skin/Abscess/Foreign Body Stated complaint: swollen right cheek Time Seen by Provider: 03/25/25 04:43 Source: patient Mode of arrival: ambulatory Limitations: no limitations History of Present Illness HPI narrative: This is a 44-year-old feel, with reported history of recurrent skin infections, who presents emergency department complaining of right cheek swelling and redness for the past day. She denies jaw pain, eye pain, difficulty breathing, fevers, change/loss of vision/hearing or tooth pain. Related Data Home Medications ?Medication ?Instructions ?Recorded ?Confirmed ?Last Taken ?Type norethindrone 1 mg-ethinyl tablet 09/25/22 Unknown History estradiol 35 mcg tablet (Nortrel) Allergies Allergy/AdvReac Type Severity Reaction Status Date / Time acetaminophen Allergy Mild Swelling Verified 03/25/25 04:07 Penicillins Allergy Mild HIVES Verified 03/25/25 04:07 poison faustino extract Allergy Mild RASH Verified 03/25/25 04:07 Sulfa (Sulfonamide Allergy Mild hives Verified 03/25/25 04:07 Antibiotics) hydrocortisone Allergy Unknown Unknown Verified 03/25/25 04:07 lanolin Allergy Unknown HIVES Verified 03/25/25 04:07 tramadol AdvReac Unknown Headache Verified 03/25/25 04:07 steroid cremes Allergy Intermediate Hives / Uncoded 03/25/25 04:07 Red Face bug spray Allergy Unknown Unknown Uncoded 03/25/25 04:07 hand plastic technician Allergy Unknown Unknown Uncoded 03/25/25 04:07 Review of Systems Review of Systems: All systems reviewed & are unremarkable except as noted in HPI and below Exam Narrative: GENERAL: Well-developed, well-nourished, and in no acute distress. HEAD: Normocephalic, atraumatic. EYES: PERRLA and EOMI. ENT: Upper and lower dentures in place. There is no noted maxillary or mandibular swelling. No swelling concerning for parotitis. Nares clear, no rhinorrhea or epistaxis. Mucous membranes moist. Oropharynx without tonsillar hypertrophy exudate or other lesions. Bilateral TMs pearly walker nonbulging NECK: Supple. No adenopathy or masses. CHEST: Clear to auscultation. No respiratory distress. No wheezes rales or rhonchi HEART: Regular rate and rhythm. No murmur heard. Normal peripheral pulses. EXTREMITIES: Normal range of motion. No edema. SKIN: The skin over the right cheek is erythematous, warm and mildly tender to touch. Skin otherwise warm, dry, no rash. NEURO: Alert and oriented x3. No focal deficit. Moving all 4 limbs spontaneously PSYCH: Normal mood and affect. Course Course Emergency Course: 04:56 - The patient's exam appears most consistent with cellulitis. It is not concerning for abscess, orbital cellulitis, periorbital cellulitis, dental abscess or sinusitis. The patient is currently being followed by primary care doctor for these recurrent infections. Referral to a traveling storekeeper has been discussed. Will discharge with Keflex and recommendation for primary care follow-up. I discussed the findings and recommendations with the patient. Discussed return and emergency precautions including signs/symptoms of deep space infection, overall cellulitis and airway compromise. The patient voiced understanding and agreement with the plan. All questions answered to her satisfaction. Vital Signs Vital signs: Vital Signs Temperature 98.1 F 03/25/25 04:07 Pulse Rate 113 H 03/25/25 04:07 Respiratory Rate 19 03/25/25 04:07 Blood Pressure 168/112 H 03/25/25 04:07 Pulse Oximetry 100 03/25/25 04:07 Oxygen Delivery Room Air 03/25/25 04:07 Temperature 98.1 F 03/25/25 04:07 Pulse Rate 113 H 03/25/25 04:07 Respiratory Rate 19 03/25/25 04:07 Blood Pressure 168/112 H 03/25/25 04:07 Pulse Oximetry 100 03/25/25 04:07 Oxygen Delivery Room Air 03/25/25 04:07 MDM - Skin/Abscess/Foreign Bdy MDM Narrative Medical decision making narrative: Plan: Antibiotics, primary care follow-up Differential Diagnosis Differential diagnosis: Likely allergic reaction to drug, cellulitis, contact dermatitis and other Discharge Plan Discharge Clinical Impression: Cellulitis of right external cheek Patient Disposition: Home Condition: Stable Instructions: Antibiotic Form, Cellulitis (ED) Additional Instructions: You were seen in the emergency department. Your exam appears consistent with cellulitis. I recommend a course of Keflex and follow-up with your primary care doctor. If you develop difficulty breathing, difficulty swallowing, loss of vision, pain with eye movement, or if you have other emergent concerns for life, limb, or eyesight, return to the emergency department. Patient Language: Lao Prescriptions: New cephalexin 500 mg tablet 500 mg PO Q6H 7 Days Qty: 28 0RF No Action Nortrel () 1-35 mg-mcg tablet clindamycin HCl 300 mg capsule 300 mg PO Q6H 10 Days Qty: 40 0RF doxycycline hyclate 100 mg tablet 100 mg PO BID 7 Days Qty: 14 0RF ondansetron 4 mg tablet,disintegrating 4 mg PO Q8H PRN (Reason: nausea and vomiting) Qty: 7 0RF Follow-up/Referrals: PHYSICIAN NOT ON STAFF,NONSTAFF [Primary Care Provider] - 2 Weeks Time of Disposition: 04:58
--- OUTSIDE RECORDS SUMMARY | 2025-03-25 05:12 | XMS_ITS | Clinical Summary ---
Author Organization [facility] Address [address] [address] Phone Care Team Providers Care Child Protective Services Specialist Name Role Phone Selene Vaughn MD Primary Care Provider [phone] Rupesh Finn MD Unavailable Allergies Active Allergy [...] AM CDT Office Visit [facility] [address] [address] Deanne Alas APRN, MEDICINE WORKER Leukocytosis, unspecified type (Primary Dx); Polycythemia; Thrombocytosis; Iron deficiency 03/13/2025 Travel 02/27/2025 10:25 AM CDT Lab [facility] [address] [address] Lab, Cc [place] Leukocytosis, unspecified type; Polycythemia 02/27/2025 10:00 AM CDT Office Visit [facility] [address] [address] Mohsen Talley MD Leukocytosis, unspecified type (Primary [...] AM CDT Lab [facility] OF [address] [address] Lab, Cc [facility] 06/12/2025 11:15 AM CDT Office Visit [facility] [address] [address] Mohsen Talley MD [address] [place] [phone] Health Maintenance Due Date Last Done [...] 10:22 AM CDT) GP/(CML)BCR/ABL,T( 9;22)FISH Negative [facility] HYDRODYNAMICS PROFESS[facility] BCR/ABL1 - Normal Nuclei 100.00 % [facility] HYDRODYNAMICS PROFESSOR [facility] Comment: INTERPRETATION : No evidence of BCR/ABL rearrangement. PROBE TYPE : Dual Color / Dual Fusion CATALOG ID: [employer] [id number] ISCN NOMENCLATURE: nuc tiffanie(ABL1,BCR)x2[300] NORMAL BACKGROUND CUTOFF [...] using the MetaCyte Imaging System on a EverConnect slide scanning platform, [employer]stems [facility], [facility], Alexei Clinical Information ICD-10 codes D72.829, D75.1 [facility]ER HYDRODYNAMICS PROFESSOR [facility] Comment: REFERENCES: 1. Cyndee Raphael and [...] PDGFRalpha, AML1/ETO, BCR/ABL1, BCL6, CBFB for inv(16), Y2F814/XCE7 for -7/7q-, IGH/BCL2, IGH/CCND1, IGH/FGFR3, IGH/MAF, IGH/MYC, IGH (14q32),MDM2, MET, MLL for t(11q23), MYC BA, PML/SVTEA, PTEN 10q23, ROS1, XL5q31, XL t(14;20) IGH/MAFB, [...] and their performance characteristics were determined by [employer]. They may not be cleared or approved by the U.S. Food and Drug Administration. The FDA does not require these test to go through premarket FDA review. These tests are used for clinical purposes. It should not be regarded as investigational or for research. [employer] is certified under the Clinical Laboratory Improvement Amendments of 1988 CLIA as qualified to perform high complexity clinical testing. ELECTRONIC SIGNATURE: Alexis Alcala M.D. Hematopathologist, ex. [phone] This report was electronically signed. Other 02/27/2025 10:2 2 AM CDT Narrative [facility] - 03/05/2025 10:15 AM CDT Testing performed at: [facility], [employer]. [address] [place] [address], Ceramic Tile Installation Helper: Dr. Olaf White M.D.; [facility] Accn#:[id number] Release to patient->Immediate Clinical History/Impression->leukocytosis Specimen Source (BM, Cytogenetics, or Flow)->Blood us Mohsen Talley MD PATHOLOGY/CYTOLOGY ORDERABL ES Final Result Performing Organization Address [facility] de Phone Number [facility] [place] [address], * SERUM FREE LIGHT CHAINS, [place] (02/27/2025 10:22 AM CDT) FREE KAPPA LT CHAINS 9.0 2.9 - 20.7 mg/L [facility] FREE LAMBDA LT CHAINS 11.8 4.2 - 27.6 mg/L [facility] KAPPA/LAMBDA RATIO 0.76 0.22 - 1.74 [facility] 02/27/2025 10:2 2 AM CDT us Mohsen Talley MD LAB SEND OUTS Final Resul t Performing Organization Address [facility] de Phone Number [facility] [place] [address], [place] [phone] * (ABNORMAL) ERYTHROPOIETIN (EPO) [place] (02/27/2025 10:22 AM CDT) Erythropoietin 18.9(H) 2.6 - 18.5 mIU/mL [facility] 02/27/2025 10:2 2 AM CDT Narrative [facility] - 03/01/2025 3:31 PM CDT Release to patient->Immediate us Mohsen Talley MD LAB SEND OUTS Final Resul t Performing Organization Address City/[facility]/ZIP Co de Phone Number CANCER HYDRODYNAMICS PROFESSOR [facility] [place] [address], [place] [phone] * (ABNORMAL) IRON W/ IRON BINDING CAPACITY [place] (02/27/2025 10:22 AM CDT) IRON 60 50 - 212 ug/dL [facility] HYDRODYNAMICS PROFESSOR [facility] UIBC 348 155 - 355 ug/dL [facility] HYDRODYNAMICS PROFESSOR [facility] TIBC 408 261 - 478 ug/dl [facility] HYDRODYNAMICS PROFESSOR [facility] % Saturation 15(L) 20 - 50 % [facility] HYDRODYNAMICS PROFESSOR [facility] 02/27/2025 10:2 2 AM CDT Narrative [facility] - 02/27/2025 12:30 PM CDT Release to patient->Immediate us Mohsen Talley MD LAB SEND OUTS Final Resul t Performing Organization Address [facility] Co de Phone Number CANCER HYDRODYNAMICS PROFESSOR [facility] [address] [place] [address], [place] [phone] * IMMUNOFIXATION, SERUM [place] (02/27/2025 10:22 AM CDT) IMMUNOFIXATION RESULT, SERUM COMMENT: CANCER HYDRODYNAMICS PROFESSOR [facility] Comment: PRESENCE OF MONOCLONAL PROTEIN IS UNCLEAR AT THIS TIME. SUGGEST REPEAT IN 3 TO 6 MONTHS IF CLINICALLY INDICATED. 02/27/2025 10:2 2 AM CDT Narrative CANCER HYDRODYNAMICS PROFESSOR [facility] - 03/01/2025 1:08 PM CDT TESTING PERFORMED AT: [] [facility], [address] [place] [address], [place], [address], PHONE: [phone], WORKERS COMPENSATION CLAIMS EXAMINER: NELY VELEZ, PHD Release to patient->Immediate us Mohsen Talley MD LAB SEND OUTS Final Resul t CANCER HYDRODYNAMICS PROFESSOR [facility] [place] [address], * CCS-ACUTE LEUKEMIA PNL (NON-[place]) AR [id number] (02/27/2025 10:22 AM CDT) Only the most recent of2 resultswithin the time period is included. ACUTE LEUKEMIA FLOW PC Negative [facility] HYDRODYNAMICS PROFESSOR [facility] Comment: INTERPRETATION PERIPHERAL BLOOD: - Flow cytometric [...] T-LGL cells comprise 0.59%. DISCLAIMER: Antibodies Analyzed: CD19,CD20,CD22,CD10,CD11c,CD23,FMC7,Hemingway,Lambda,CD2,CD3,CD4,CD5, CD7,CD8,CD56,CD57,CD11b,CD13,CD14,CD16,CD33,CD64,CD34,CD38,CD117, HLA-DR,CD45 - The technical component of Flow Cytometry was performed at [facility] [address], [place] [address]. These tests were developed and their performance characteristics were determined by [facility]. They may not be cleared or [...] 02/27/2025 10:2 2 AM CDT Narrative [facility] - 03/02/2025 10:15 AM CDT Testing performed at: [facility] [address] [place] [address], Ceramic Tile Installation Helper: Dr. Olaf White M.D.; [employer] Accn#:[id number] Mohsen Talley MD PATHOLOGY/CYTOLOGY ORDERABL ES Final Result [facility] HYDRODYNAMICS PROFESSOR [facility] [address] [place] [address], [place] [phone] * ONKOSIGHT NGS JAK2 V617F REFLEX JAK2 EXON 12, CALR AND H (02/27/2025 10:22 AM CDT) NGS JAK2 V617 RX EXON12 NORMAL CANCER HYDRODYNAMICS PROFESSOR [facility] ONKOSIGHT NGS MPL SEQUENCING NORMAL CANCER HYDRODYNAMICS PROFESSOR [facility] ONKOSIGHT NGS JAK2 EXON 12 SEQUENCING NORMAL CANCER CE NTER SPECIALISTS [facility] ONKOSIGHT NGS CALR SEQUENCING NORMAL CANCER HYDRODYNAMICS PROFESSOR [facility] ONKOSIGHT NGS JAK2 V617F SEQUENCING NORMAL CANCER CENT ER [facility]ISTS [facility] Comment: OnkoSight JAK2 V617F Rx JAK2 [...] Not Applicable INTERPRETATION SUMMARY SEE BELOW [facility]ER HYDRODYNAMICS PROFESSOR [facility] Comment: INTERPRETATION SUMMARY: - This was a [...] interpret these findings. METHODS SEE BELOW [facility] Comment: METHODS: Tissue macrodissection and [...] (LILIANA), used after sequencing on an Illumina BionomicsaSeq instrument ([place], [place]) with paired end, 151 base pair reads to collapse PCR duplicates and enable accurate counting of variant allelic frequencies. A minimum number of 100 unique reads (after removal of PCR duplicates) to detect a mutation is required. An automated process that takes into account statistical confidence of base calling and alignment and mapping quality identifies variants ([employer] Analysis Software version 6.2.7, Released 23 Apr 2020). Following mapping of the read data to the human genome (reference build GRCh37/hg19), single nucleotide variants (SNVs), and insertion deletion events (Indels) with an allele frequency (AF) greater than 2% are detected utilizing [employer] Analysis bioinformatic analytical pipeline with the exception [...] Recommendation of the Association for Molecular Pathology, [place] Society of Clinical Oncology, and College of Nigerian Pathologists. The Journal of molecular diagnostics: JMD. 2017 Nov;19(1):4-23. doi: 10.1016/j.jmoldx.2016.10.002. PubMed Central PMCID: HVY5205259. PubMed PMID: (82195146)). OnkoSightAdvanced was developed and its performance characteristics were determined by [employer], a division of [employer]. This test has not been cleared or [...] comes from numerous sources, is subject to foreign exchange clerk time in response to future scientific and medical findings and correlations. [employer]. makes no representation or warranty of any kind regarding the accuracy of information provided or contained in these manuscripts, references or other sources of information. If any of the information provided by or contained in the referenced material is later deemed to be inaccurate, this may impact the accuracy of this report and interpretation of the findings. [employer] is not obligated to notify you of [...] This assay has been approved by the [facility] based on initial validation; orthogonal testing for full validation is currently ongoing. Please contact the laboratory for more information if update is requested. REFERENCES 1 SEE BELOW CANCER HYDRODYNAMICS PROFESSOR [facility] Comment: REFERENCES: 1. Kathy MM, Citlalli M, Roopa EJ, Meme S, Darion NI, Archie S, Channing AM, Brielle CL, Uri DJ, Kris A, Ema [place]. Standards and Guidelines for the Interpretation and Reporting of Sequence Variants in Cancer: A Joint Consensus Recommendation of the Association for Molecular Pathology, [place] Society of Clinical Oncology, and College of [place] Pathologists. The Journal of molecular diagnostics : JMD. 2017 Nov;19(1):4-23. doi: 10.1016/j.jmoldx.2016.10.002. PubMed PMID: 17497551. PubMed Central PMCID: XIY0480603. 2. Genome Aggregation Database (gnomAD), [place], [place] (URL: [email or web address] [email or web address] [email or web address] Wolf.[email or web address]) [February,] 3. Kaitlyn Montilla, Anirudh Bernal. World health organization classification, evaluation, and genetics of the myeloproliferative neoplasm variants. Hematology. [place] Society of Hematology. Education Program. 2010;9753712-5. doi: 10.1182/asheducation-2010.1.250. PubMed PMID: 63303352. 4. Gabbie P, Olive A, Sahra R, Nidia R, Re H, Shane I, Thomas S, Rock T, Afshan J, Bay M, Eric C, Judah R, Mitch RC. Clonal evolution and clinical correlates of somatic mutations in myeloproliferative neoplasms. Blood. 2014 Feb 28;123(14):2220-8. Epub 2013Dec 26. doi: 10.1182/qjbqo-9433-04-013016. PubMed PMID: 17856749. 5. Ebenezerini E, Bernardis I, Artusi V, Artuso L, Roncaglia E, Gabrielli P, Pieri L, Bogani C, Biamonte F, Rotunno G, Mannarelli C, Krzysztof E, Pancrazzi A, Steffany T, Son Moyer G, Dejuan S, Mirza R, Linette AM, Cristin E, Targeted cancer exome sequencing reveals recurrent mutations in myeloproliferative neoplasms. Leukemia. 2014 March;28(5):1052-9. Epub 2012Sep 18. doi: 10.1038/aquiles.2013.302. PubMed PMID: 17678731. PubMed Central PMCID: IEH4794588. 6. Tyler T, Inovalerio D, Oksharmilai-Ander N, Florian N, Kogeorge Y, Sabine Y, Enrubento Y, Doki N, Uchida T, Kagiyama Y, Togami K, Catrachota LAURENT, Nagase R, Horikawa S, Chu Y, Saika M, Fukuyama T, Izawa K, Oki T, Jacinto F, Rashmi Montilla. The molecular basis of myeloid malignancies. Proceedings of the [place] Academy. Series B, Physical and biological sciences. 2014;90(10):389-404. PubMed PMID: 59172206. PubMed Central PMCID: IAV9681872. REPORT FOOTER SEE BELOW CANCER HYDRODYNAMICS PROFESSOR [facility] Comment: Va Red M.D., Ceramic Tile Installation Helper Electronically signed by Chrissy Hernandez, PhD, [facility] [employer] is a division of [employer] [facility] [place] [address] Created TueMar 04 12:03:07 EDT 2024 02/27/2025 10:2 2 AM CDT Narrative [facility] - 03/04/2025 12:46 PM CDT Testing performed at: [facility] [place] [address], Ceramic Tile Installation Helper: Dr. Olaf White M.D.; [facility] Accn#:[id number] Release to patient->Immediate us Mohsen Talley MD LAB SEND OUTS Final Resul t CANCER HYDRODYNAMICS PROFESSOR [facility] [place] [address], * VITAMIN B12 (02/27/2025 10:22 AM CDT) Vitamin B12 269 180 - 914 pg/mL CANCER HYDRODYNAMICS PROFESSOR [facility] Blood 02/27/2025 10:2 2 AM CDT [facility] CANCER HYDRODYNAMICS PROFESSOR [facility] - 02/28/2025 2:30 PM CDT Release to patient->Immediate us Mohsen Talley MD CHEMISTRY ORDERABLES Final Result Performing Organization Address [facility] de Phone Number CANCER HYDRODYNAMICS PROFESSOR [facility] [address] [place] [address], [place] [phone] * ERYTHROCYTE SEDIMENTATION RATE (ESR) (02/27/2025 10:22 AM CDT) Erythrocyte Sedimentation Rate 10 0 - 30 mm/hr CANCER HYDRODYNAMICS PROFESSOR [facility] Blood 02/27/2025 10:2 2 AM CDT [facility] - 02/27/2025 12:00 PM CDT Release to patient->Immediate us Mohsen Talley MD HEMATOLOGY ORDERABLES Final Result Performing Organization Address [facility] de Phone Number CANCER HYDRODYNAMICS PROFESSOR [facility] [address] [place] [address], [place] [phone] * (ABNORMAL) RETICULOCYTE COUNT (RETIC) (02/27/2025 10:22 AM CDT) Reticulocyte count 4.29(H) 0.50 - 1.70 % CANCER HYDRODYNAMICS PROFESSOR [facility] RET-He 33.40 28.20 - 36.60 pg [facility] HYDRODYNAMICS PROFESSOR [facility] Comment: RET-He is a direct assessment of incorporation of iron into erythrocyte hemoglobin. It provides an indirect measure of the iron available for new erythropoiesis over past 2-4 days. Blood 02/27/2025 10:2 2 AM CDT [facility] - 02/27/2025 10:59 AM CDT Release to patient->Immediate us Mohsen Talley MD HEMATOLOGY ORDERABLES Final Result Performing Organization Address [facility] Co de Phone Number CANCER HYDRODYNAMICS PROFESSOR [facility] [address] [address], [place] [phone] * LACTATE DEHYDROGENASE (LD) (02/27/2025 10:22 AM CDT) LDH 172 140 - 271 U/L [facility]CER HYDRODYNAMICS PROFESSOR [facility] Blood 02/27/2025 10:2 2 AM CDT [facility] CANCER HYDRODYNAMICS PROFESSOR [facility] - 02/27/2025 12:30 PM CDT Release to patient->Immediate us Mohsen Talley MD CHEMISTRY ORDERABLES Final Result [facility] HYDRODYNAMICS PROFESSOR [facility] [address] [address], [place] [phone] * (ABNORMAL) IMMUNOGLOBULIN IGA, IGG & IGM QUANT (02/27/2025 10:22 AM CDT) IGG 629(L) 635 - 1,741 mg/dL CANCER HYDRODYNAMICS PROFESSOR [facility] IGA 97 66 - 433 mg/dL [facility]ER HYDRODYNAMICS PROFESSOR [facility] IGM 143 45 - 281 mg/dL [facility] HYDRODYNAMICS PROFESSOR [facility] Blood 02/27/2025 10:2 2 AM CDT [facility] - 02/28/2025 2:11 PM CDT Release to patient->Immediate us Mohsen Talley MD CHEMISTRY ORDERABLES Final Result CANCER HYDRODYNAMICS PROFESSOR [facility] [place] [address], [place] [phone] * HAPTOGLOBIN (02/27/2025 10:22 AM CDT) HAPTO 128 44 - 215 mg/dL [facility] HYDRODYNAMICS PROFESSOR [facility] Blood 02/27/2025 10:2 2 AM CDT [facility] CANCER HYDRODYNAMICS PROFESSOR [facility] - 02/28/2025 2:11 PM CDT Release to patient->Immediate us Mohsen Talley MD CHEMISTRY ORDERABLES Final Result Performing Organization Address [facility] Co de Phone Number CANCER HYDRODYNAMICS PROFESSOR [facility] [address] [place] [address], [place] [phone] * FOLIC ACID (FOLATE) (02/27/2025 10:22 AM CDT) Folate >20.00 >=5.90 ng/mL [facility] Blood 02/27/2025 10:2 2 AM CDT [facility] - 02/28/2025 2:30 PM CDT Release to patient->Immediate IS THE PATIENT REQUIRED TO BE FASTING FOR 12 HOURS?->No us Mohsen Talley MD CHEMISTRY ORDERABLES Final Result Performing Organization Address [facility] Co de Phone Number [facility] Cancer [facility] [address] [place] [address], [place] [phone] * FERRITIN (02/27/2025 10:22 AM CDT) Ferritin 131 11 - 307 ng/mL [facility] Blood 02/27/2025 10:2 2 AM CDT [facility] - 02/28/2025 2:30 PM CDT Release to patient->Immediate us Mohsen Talley MD CHEMISTRY ORDERABLES Final Result Performing Organization Address [facility] Co de Phone Number [facility] [address] [place] [address], [place] [phone] * ELECTROPHORESIS W/ TOTAL PROTEIN SERUM (02/27/2025 10:22 AM CDT) PROTEIN, TOTAL, SERUM 6.6 6.0 - 8.5 G/DL [facility] ALBUMIN 3.2 2.9 - 4.4 G/DL [facility] EEYIS-0-FISLGLZB 0.4 0.0 - 0.4 G/DL CANCER HYDRODYNAMICS PROFESSOR [facility] ECAFZ-1-SQIFFQUD 1.0 0.4 - 1.0 G/DL [facility] HYDRODYNAMICS PROFESSOR [facility] BETA GLOBULIN 1.3 0.7 - 1.3 G/DL [facility] GAMMA GLOBULIN 0.7 0.4 - 1.8 G/DL [facility] M-SPIKE NOT OBSERVED NOT OBSERVED G/DL [facility]ER HYDRODYNAMICS PROFESSOR [facility] GLOBULIN, TOTAL 3.4 2.2 - 3.9 G/DL CANCER HYDRODYNAMICS PROFESSOR [facility] A/G RATIO 0.9 0.7 - 1.7 [facility] PLEASE NOTE: COMMENT CANCER HYDRODYNAMICS PROFESSOR [facility] Comment: PROTEIN ELECTROPHORESIS SCAN WILL FOLLOW VIA COMPUTER, MAIL, OR CORPORATE SAFETY COORDINATOR DELIVERY. PDF . [facility] Blood 02/27/2025 10:2 2 AM CDT Narrative [facility] - 02/28/2025 3:08 PM CDT TESTING PERFORMED AT: [] [facility], [address] [place] [address], [address], PHONE: [phone], WORKERS COMPENSATION CLAIMS EXAMINER: NELY VELEZ, PHD Release to patient->Immediate Mohsen Talley MD CHEMISTRY ORDERABLES Final Result CANCER HYDRODYNAMICS PROFESSOR [facility] [place] [address], * (ABNORMAL) CMP (COMPREHENSIVE METABOLIC PANEL) (02/27/2025 10:22 AM CDT) Glucose 105 70 - 105 mg/dL [facility] Blood Urea Nitrogen 7 7 - 25 mg/dL [facility] Creatinine 0.6 0.6 - 1.2 mg/dL [facility] Sodium 138 136 - 145 mEq/L [facility] Potassium 4.3 3.5 - 5.1 mEq/L [facility] Chloride 102 98 - 107 mEq/L [facility] Bicarbonate 24 21 - 31 mEq/L [facility] Total Bilirubin 0.5 0.3 - 1.0 mg/dL [facility] Alk. Phosphatase 95 34 - 104 U/L [facility] Aspartate Aminotransferase 23 13 - 39 U/L [facility] Alanine Aminotransferase 25 7 - 52 U/L [facility] Total Protein 6.5 6.4 - 8.9 g/dL [facility] Albumin 4.1 3.5 - 5.7 g/dL [facility] Calcium 9.9 8.6 - 10.3 mg/dL [facility] Anion Gap 16.3(H) 7.0 - 15.0 mEq/L [facility] Globulin 2.4 2.0 - 3.5 g/dL [facility] EGFR 112 >60 ml/min/1. 73m2 [facility] Comment: This eGFR is calculated using 2020 CKD-EPI Creatinine equation without race modifier based on the NKF-ASN task force recommendations Equation: gVHK=664*min(SCr/k,1)a*max(SCr/k,1)-1.200*0.9938Age*1.012 (if female), where SCr is serum creatinine, k is 0.7 for females and 0.9 for males, and a is -0.241 for females and -0.302 for males Blood 02/27/2025 10:2 2 AM CDT Narrative [facility] - 02/27/2025 12:30 PM CDT Release to patient->Immediate IS THE PATIENT REQUIRED TO BE FASTING FOR 8 HOURS?->No us Mohsen Talley MD CHEMISTRY ORDERABLES Final Result CANCER HYDRODYNAMICS PROFESSOR [facility] [place] [address], * (ABNORMAL) COMPLETE BLOOD COUNT (CBC) WITH DIFF (02/27/2025 10:22 AM CDT) WBC 13.1(H) 4.0 - 10.0 10*3/uL CANCER HYDRODYNAMICS PROFESSOR [facility] HGB 15.5 11.2 - 15.7 g/dL [facility] HYDRODYNAMICS PROFESSOR [facility] HCT 45.1(H) 34.1 - 44.9 % CANCER HYDRODYNAMICS PROFESSOR [facility] PLT 421(H) 163 - 369 10*3/uL [facility] HYDRODYNAMICS PROFESSOR [facility] MPV 9.3(L) 9.4 - 12.4 fL [facility] HYDRODYNAMICS PROFESSOR [facility] RBC 5.45(H) 3.93 - 5.22 10*6/uL [facility] HYDRODYNAMICS PROFESSOR [facility] MCV 83 79 - 95 fL [facility] HYDRODYNAMICS PROFESSOR [facility] MCH 28.4 25.6 - 32.2 pg [facility] HYDRODYNAMICS PROFESSOR [facility] MCHC 34.4 32.2 - 36.5 g/dL [facility] HYDRODYNAMICS PROFESSOR [facility] RDW 13.7 11.6 - 14.4 % [facility] HYDRODYNAMICS PROFESSOR [facility] Absolute Neutrophil Count 8,228 cells/uL [facility]ER HYDRODYNAMICS PROFESSOR [facility] Absolute Seg Count 8,228(H) 1,440 - 6,600 cells/uL CAN[facility]ER HYDRODYNAMICS PROFESSOR [facility] Absolute Lymph Count 3,787 760 - 4,000 cells/uL [facility]CER HYDRODYNAMICS PROFESSOR [facility] Absolute [place] Count 914 160 - 1,200 cells/uL CANCER HYDRODYNAMICS PROFESSOR [facility] Absolute Baso Count 131(H) 0 - 100 cells/uL [facility] HYDRODYNAMICS PROFESS[facility] Segmented Neutrophils 63 36 - 66 % [facility] HYDRODYNAMICS PROF[facility] Lymphocytes 29 19 - 40 % [facility] Monocytes 7 4 - 12 % [facility] Basophils 1 0 - 1 % [facility] WBC Estimate High [facility]DR[facility] Platelet Estimate High [facility] HYDRODYNAMICS [facility] RBC Morphology Normal CANCE R HYDRODYNAMICS PROFESS[facility] Blood 02/27/2025 10:2 2 AM CDT Narrative [facility] HYDRODYNAMICS PROF[facility] - 02/27/2025 2:23 PM CDT Release to patient->Immediate Mohsen Talley MD HEMATOLOGY ORDERABLES Final Result [facility]ICS [facility] [address], [place] [phone] from Last 3 Months Insurance [facility] Care Teams Child Protective Services Specialist Relationship Specialty Start Date End Date Selene Vaughn MD PCP - General Family Medicine 05/01/18 Rupesh Finn MD [address] [place] [id number] Family Medicine 05/01/18
--- OUTSIDE RECORDS SUMMARY | 2025-03-25 05:12 | XMS_ITS | Clinical Summary ---
Author Organization [facility] [employer] Address [address] [facility] [place] [address] Care Team Providers Care Hr Consultant Name Role Phone Chelsie Bass JAY-CTE TEACHER Primary Care Provider Source Comments [facility],non-owned Affiliates and Associated Physician Practices is amultiple site organization consisting of ambulatory clinics and hospital sitesin [place], [place], [place] and [place]. This disclosure is being madepursuant to the Care Everywhere program and may not contain all information available regarding this patient. Last updated 18.[facility] [employer] Allergies Active Allergy Reactions Criticality Noted Date [...] Orders Only [facility] - Endocrinology [address] [place] [address], [facility] [place] [id number] Beny Morocho MD Thyroid nodule; Multinodular thyroid [...] Sex Assigned at Female 12/05/2023 10:50 AM DATA WAREHOUSING MANAGER Legal Sex Female 2:32 PM DATA WAREHOUSING MANAGER Gender Identity Female 12/05/2023 10:50 AM DATA WAREHOUSING MANAGER Sexual Orientation Straight 12/05/2023 10 :50 AM DATA WAREHOUSING MANAGER Last Filed Vital Signs Vital Sign Reading Time Taken Comments Blood Pressure 121/92 01/10/2024 2:30 PM DATA WAREHOUSING MANAGER Pulse 115 01/10/2024 2:30 PM DATA WAREHOUSING MANAGER Temperature 36.2 C (97.2 F) 12/01/2023 10:06 AM DATA WAREHOUSING MANAGER Respiratory Rate 20 12/01/2023 10:06 AM DATA WAREHOUSING MANAGER Oxygen Saturation 97% 01/10/2024 2:30 PM DATA WAREHOUSING MANAGER Inhaled Oxygen Concentration - - Weight 113.4 kg (250 lb) 01/10/2024 2:30 PM DATA WAREHOUSING MANAGER Height 160 cm (5' 3 ) 01/10/2024 2:30 PM DATA WAREHOUSING MANAGER Body Mass Index 44.29 01/10/2024 2:30 PM DATA WAREHOUSING MANAGER Plan of Treatment Health Maintenance Due Date [...] complete this topic Insurance [employer] Care Teams Hr Consultant Relationship Specialty Start Date End Date Chelsie Bass APRN-JHON [address] [place] [phone] PCP - General Nurse Practitioner Family 12/01/23
--- OUTSIDE RECORDS SUMMARY | 2025-03-25 05:12 | XMS_ITS | Clinical Summary ---
Author Organization [facility] Address [facility] [place] [address] Care Team Providers Care Gas Compressor Turbine Operator Name Role Phone Chelsie Bass NP Primary Care Provider [phone] Allergies Active Allergy Reactions Criticality Noted Date [...] Sex Assigned at Female 12/22/2023 9:25 AM DRY TRANSFER MAN Legal Sex Female 6:57 PM CDT Gender Identity Female 12/22/2023 9:25 AM DRY TRANSFER MAN Sexual Orientation Straight 12/22/2023 9: 25 AM DRY TRANSFER MAN Last Filed Vital Signs Vital Sign Reading Time Taken Comments Blood Pressure 114/73 10/12/2019 9:41 AM DRY TRANSFER MAN Pulse 88 10/12/2019 9:41 AM DRY TRANSFER MAN Temperature 36.6 C (97.9 F) 10/12/2019 9:41 AM DRY TRANSFER MAN Respiratory Rate 16 10/12/2019 9:41 AM DRY TRANSFER MAN Oxygen Saturation 99% 10/12/2019 9:41 AM DRY TRANSFER MAN Inhaled Oxygen Concentration - - Weight 108.1 kg (238 lb 5.1 oz) 10/12/2019 5:59 AM DRY TRANSFER MAN Height 160 cm (5' 3 ) 10/12/2019 5:59 AM DRY TRANSFER MAN Body Mass Index 42.22 10/12/2019 5:59 AM DRY TRANSFER MAN Plan of Treatment Health Maintenance Due Date [...] 9:59 AM 10/12/2019 12:09 PM Care Teams Gas Compressor Turbine Operator Relationship Specialty Start Date End Date Chelsie Bass NP [address] [facility] [address] [place] [address] PCP - General Nurse Practitioner Family 10/10/19
--- OUTSIDE RECORDS SUMMARY | 2025-03-25 05:12 | XMS_ITS | Encounter Summary ---
Author Organization [email or web address] Address [address] [place] [address] Care Team Providers Care Jacquard Twine Polisher Operator Name Role Phone Unavailable Primary Care Provider Unavailabl e Encounter Details Date Type Department Care Team (Late st Contact Info) Description 09/24/2008 Outpatient Historical [facility] Albert Mata MD [address] [address] Unspecified Hearing Loss; Conductive Hearing Loss, Unilateral; Unspecified Disorder of Middle Ear and Mastoid Social History Tobacco Use Types Packs/Day Years Used Date Smoking Tobacco: Never Assessed Comments Unknown Sex and Gender Information Value Date Recorded Sex Assigned at Not on file 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
--- OUTSIDE RECORDS SUMMARY | 2025-03-25 05:12 | XMS_ITS | Clinical Summary ---
Author Organization [employer] Address [address] 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
--- OUTSIDE RECORDS SUMMARY | 2025-03-25 05:13 | XMS_ITS | Clinical Summary ---
Author Organization 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
--- OUTSIDE RECORDS SUMMARY | 2025-03-25 05:13 | XMS_ITS | Referral Summary ---
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
[2025-03-25] MEDS: CEPHALEXIN 500 MG CAPSULE PO (05:19)
== END 2025-03-25 05:23 | disposition home or self-care (01) ==
PROVIDERS: Emergency Provider Preventive Medicine Aerospace Medicine
DX: L03.211 Cellulitis of face (principal); Z79.3 Long term (current) use of hormonal contraceptives
CPT/HCPCS: 99283; A9270

== ENCOUNTER 2025-05-21 17:17 | Emergency (ER) | payer BC, SELFPAY ==
--- NOTE | 2025-05-21 17:20 | ED.SKABFB ---
HPI - Skin/Abscess/Foreign Bdy General Chief complaint: Skin/Abscess/Foreign Body Stated complaint: Rash Time Seen by Provider: 05/21/25 17:20 Source: patient Mode of arrival: ambulatory Limitations: no limitations History of Present Illness HPI narrative: Patient is a 44-year-old female who presents with what she describes as orange peel rash on cheeks. Patient had hair dye set on face too long before she washed it off. Patient has been seen for allergic reaction rash/cellulitis on face 3 times in the past 3 months. Patient has received clindamycin 02/02, doxycycline for 03/09, Keflex 03/25. Denies any erythema but does have itchiness. Denies any shortness of breath, mouth swelling or throat swelling. Related Data Home Medications ?Medication ?Instructions ?Recorded ?Confirmed ?Last Taken ?Type norethindrone 1 mg-ethinyl 1 tablet PO 09/25/22 Unknown History estradiol 35 mcg tablet (Nortrel) cetirizine-pseudoephedrine PO 05/21/25 Unknown History cholecalciferol (vitamin D3) .ROUTE 05/21/25 Unknown History famotidine 20 mg tablet mg 05/21/25 Unknown History magnesium PO 05/21/25 Unknown History montelukast 10 mg tablet mg 05/21/25 Unknown History thsrfrxeswnp-xpk-qirb-FA-vit K PO 05/21/25 Unknown History trazodone 50 mg tablet mg 05/21/25 Unknown History Allergies Allergy/AdvReac Type Severity Reaction Status Date / Time acetaminophen Allergy Mild Swelling Verified 05/21/25 17:38 Penicillins Allergy Mild HIVES Verified 05/21/25 17:38 poison faustino extract Allergy Mild RASH Verified 03/25/25 04:07 Sulfa (Sulfonamide Allergy Mild hives Verified 05/21/25 17:38 Antibiotics) hydrocortisone Allergy Unknown hives Verified 05/21/25 17:38 lanolin Allergy Unknown HIVES Verified 05/21/25 17:38 shrimp Allergy unknown Verified 05/21/25 17:38 tramadol AdvReac Unknown Headache Verified 05/21/25 17:38 steroid cremes Allergy Intermediate Hives / Uncoded 05/21/25 17:38 Red Face bug spray Allergy Unknown Unknown Uncoded 05/21/25 17:38 hand bingo checker Allergy Unknown Unknown Uncoded 05/21/25 17:38 rubbing alcohol Allergy Rash Uncoded 05/21/25 17:44 Review of Systems Review of Systems: All systems reviewed & are unremarkable except as noted in HPI and below Constitutional: Constitutional: Denies body ache(s), Denies chills, Denies fatigue, Denies fever(s), Denies headache(s), Denies malaise and Denies weakness Eyes: Eyes: Denies blurry vision, Denies irritation and Denies loss of vision ENT: Denies otalgia, Denies headache(s), Denies nasal discharge, Denies sinus pain and Denies sore throat Cardiovascular: Cardiovascular: Denies chest pain, Denies irregular heart rhythm and Denies dyspnea Respiratory: Respiratory: Denies dyspnea Gastrointestinal: Gastrointestinal: Denies abdominal pain, Denies melena, Denies hematochezia, Denies diarrhea, Denies nausea and Denies vomiting Musculoskeletal: Musculoskeletal: Denies back pain, Denies myalgias and Denies arthralgias Integumentary/Breasts: Skin/Breast: Reports pruritus and Reports rash Neurologic: Denies headache(s), Denies loss of vision and Denies weakness Psychiatric: Psychiatric: Reports no additional psychiatric complaints Endocrine: Endocrine: Denies fatigue PMFSH Comments At time of signature, agree with nursing past medical, surgical, social and family history. There is no relevant family history pertinent to the presenting complaint. Exam Const: General: cooperative, healthy appearing, comfortable, no acute distress and well nourished Nutritional Appearance: well nourished Orientation/consciousness: patient oriented x3 Limitations: no limitations HENMT: Head: normal to inspection, normocephalic and atraumatic Ears: hearing grossly normal bilaterally and external ears normal Face/Nose/Sinus: Normal external nose present, normal facial exam and face symmetric Face and sinus: normal facial exam and face symmetric Mouth: Yes lip normal Eyes: General: appearance normal, both eyes and all related structures Alignment and Position: alignment normal and position normal Periorbital: periorbital findings normal Eyelids: eyelids normal Pupils: Equal, round and reactive pupils present EOM: EOMs intact bilaterally Neck: Neck: normal visual inspection, full ROM and supple Chest: Chest palpation & inspection: normal inspection of the chest Resp: Effort & Inspection: normal respiratory effort and able to speak in complete sentences Auscultation: clear to auscultation bilaterally Cardio: Rate: regular rate Rhythm: regular rhythm Heart sounds: S1 normal heart sound present and S2 normal heart sound present GI: Inspection: normal to inspection Skin: General skin exam: normal color and no rashes or lesions noted Rashes: rashes noted (tight, skin swelling appearance ) macules bilateral cheek arrangement grouped, borders sharp, morphology and surface erythematous, rough and other (tight); fluctuant not assessed Neuro: General: patient oriented x3 and moves all extremities Cranial nerves: Yes Equal, round and reactive pupils present Speech: normal speech Gait exam (Neuro): Normal gait present Extrem: General: normal to inspection, full ROM and no edema Psych: Appearance: grossly normal and well kempt Mental Status: mental status grossly normal Speech and movement: Normal speech and movement present Affect: normal affect Attitude: cooperative Thought process: Normal thought process present Course Course Emergency Course: Patient is aware of diagnosis, understands and agrees to treatment plan. Anticipatory guidance given. Patient agrees to follow-up as directed and is aware of reasons to seek care at the emergency department. Portions of this record may have been created with voice recognition software Level of Care: Express Care Visit Vital Signs Vital signs: Vital Signs Temperature 36.9 C 05/21/25 17:24 Pulse Rate 104 H 05/21/25 17:24 Respiratory Rate 20 05/21/25 17:24 Blood Pressure 141/97 H 05/21/25 17:24 Pulse Oximetry 100 05/21/25 17:24 Oxygen Delivery Room Air 05/21/25 17:24 Temperature 36.9 C 05/21/25 17:24 Pulse Rate 104 H 05/21/25 17:24 Respiratory Rate 20 05/21/25 17:24 Blood Pressure 141/97 H 05/21/25 17:24 Pulse Oximetry 100 05/21/25 17:24 Oxygen Delivery Room Air 05/21/25 17:24 Reviewed MDM - Skin/Abscess/Foreign Bdy MDM Narrative Medical decision making narrative: Will treat allergic reaction with steroids. Patient already takes famotidine, Benadryl and Claritin Pt well hydrated appearing, in no respiratory distress, hemodynamically stable. Recommend supportive care. The patient is stable at time of discharge the clinical impression was discussed and the patient was given the opportunity to ask questions, which were addressed as completely as possible given the information available at present. Anticipatory guidance and return to care precautions were discussed and the importance of primary care follow-up was stressed and encouraged. The patient voiced understanding of the plan, indications to return, and the need for follow-up. Exam findings show no acute concerns or changes Patient is appropriate for outpatient treatment and follow-up. Differential Diagnosis Differential diagnosis: Likely viral exanthem, urticaria, allergic reaction to drug, cellulitis, insect bites and contact dermatitis Medical Records Attestation: I reviewed the patient's medical records. Discharge Plan Discharge Clinical Impression: Allergic reaction Qualifiers: Encounter type: initial encounter Qualified Code(s): T78.40XA - Allergy, unspecified, initial encounter Patient Disposition: Home Condition: Stable Instructions: General Allergic Reaction (ED) Additional Instructions: Take steroid in the morning with food. Take Claritin, Zyrtec or Aminah in the morning along with Benadryl at night. Wash the skin thoroughly with soap and cool water as soon as possible. Scrub under the fingernails with a brush to prevent spreading to other parts of the body by touching or scratching. For some people, adding oatmeal to a bath, applying cool wet compresses, and applying calamine lotion may help to relieve itching IF symptoms get worse to follow up with your primary care provider or seek ER visit if you developing difficulty breathing, weakness, dizziness Patient Language: Tajik Prescriptions: New prednisone 20 mg tablet 40 mg PO DAILY 5 Days Qty: 10 0RF No Action Nortrel (28) 1-35 mg-mcg tablet 1 tablet PO trazodone 50 mg tablet famotidine 20 mg tablet montelukast 10 mg tablet cetirizine-pseudoephedrine [Zyrtec-D] PO [id number]-FA-vit K [Adults Multivitamin] PO cholecalciferol (vitamin D3) .ROUTE magnesium PO Follow-up/Referrals: Yusra Ivey DO [Physician] - 3 Days (Counts Include [facility] care) Time of Disposition: 17:48
[2025-05-21 17:24] VITALS: BP 141/97; PULSE 104; RESP 20; TEMP 36.9; O2SAT 100
== END 2025-05-21 17:56 | disposition home or self-care (01) ==
PROVIDERS: Emergency Provider Nurse Practitioner Family; PCP Family Medicine
DX: T78.40XA Allergy, unspecified, initial encounter (principal)
CPT/HCPCS: 99213; G0463

== ENCOUNTER 2025-06-05 17:25 | Emergency (ER) | payer BC, SELFPAY ==
[2025-06-05 17:34] VITALS: BP 142/94; PULSE 115; RESP 16; TEMP 36.2; O2SAT 99
--- NOTE | 2025-06-05 18:08 | ED_ITS ---
HPI - General Adult General Chief complaint: Allergic Reaction Stated complaint: Allergic Reaction Time Seen by Provider: 06/05/25 17:48 Source: patient and RN notes reviewed Mode of arrival: ambulatory Limitations: no limitations History of Present Illness HPI narrative: Patient presents today complaining of an allergic reaction to her face. Patient has extensive history of allergic reactions to various products, medications. States she started having some itching to her lower face today and has narrowed down to 1 of 3 things: Handkerchief that was given to her by someone that was washed using a foreign detergent, flea medication on 1 of her cats, or some new pants that just arrived in the mail. She has since wash her face a few times but continues to have itching. She is allergic to lanolin, which limits most things that she can topically put on her face. Related Data Home Medications ?Medication ?Instructions ?Recorded ?Confirmed ?Last Taken ?Type norethindrone 1 mg-ethinyl 1 tablet PO 09/25/22 Unknown History estradiol 35 mcg tablet (Nortrel) cetirizine-pseudoephedrine PO 05/21/25 Unknown History cholecalciferol (vitamin D3) .ROUTE 05/21/25 Unknown History famotidine 20 mg tablet mg 05/21/25 Unknown History magnesium PO 05/21/25 Unknown History montelukast 10 mg tablet mg 05/21/25 Unknown History agbxwybbrqyg-bju-hzhe-FA-vit K PO 05/21/25 Unknown History trazodone 50 mg tablet mg 05/21/25 Unknown History Allergies Allergy/AdvReac Type Severity Reaction Status Date / Time acetaminophen Allergy Mild Swelling Verified 06/05/25 17:43 Penicillins Allergy Mild HIVES Verified 06/05/25 17:43 poison faustino extract Allergy Mild RASH Verified 06/05/25 17:43 Sulfa (Sulfonamide Allergy Mild hives Verified 06/05/25 17:43 Antibiotics) hydrocortisone Allergy Unknown hives Verified 06/05/25 17:43 lanolin Allergy Unknown HIVES Verified 06/05/25 17:43 shrimp Allergy unknown Verified 06/05/25 17:43 tramadol AdvReac Unknown Headache Verified 06/05/25 17:43 steroid cremes Allergy Intermediate Hives / Uncoded 06/05/25 17:43 Red Face bug spray Allergy Unknown Unknown Uncoded 06/05/25 17:43 hand retail store associate Allergy Unknown Unknown Uncoded 06/05/25 17:43 rubbing alcohol Allergy Rash Uncoded 06/05/25 17:43 PMFSH Comments At time of signature, I have reviewed and agree with nursing past medical, surgical, social and family history unless otherwise noted. Please see nursing chart for further information. There is no relevant family history pertinent to the presenting complaint Exam Narrative: GENERAL: Well-appearing, well-nourished, and in no acute distress. HEAD: Normocephalic, atraumatic. EYES: EOMI. No redness or drainage. Conjunctivae normal. ENT: Mucous membranes pink and moist. Nares clear. No rhinorrhea. Throat normal. Uvula midline. No facial swelling noted. NECK: Normal AROM. Supple. No lymphadenopathy. CHEST: No respiratory distress. EXTREMITIES: Normal range of motion. No edema. SKIN: Warm, dry. Capillary refill normal. Normal skin turgor. Patient localizes pruritic rash to lower face. Very faint pinkness noted with few punctate papules that are barely noticeable on the chin. NEURO: No focal deficits. Alert and oriented x3. Gait steady with cane. PSYCH: Normal affect. No signs of depression or anxiety. Course Course Level of Care: Express Care Visit Vital Signs Vital signs: Vital Signs Temperature 97.1 F L 06/05/25 17:34 Pulse Rate 115 H 06/05/25 17:34 Respiratory Rate 16 06/05/25 17:34 Blood Pressure 142/94 H 06/05/25 17:34 Pulse Oximetry 99 06/05/25 17:34 Oxygen Delivery Room Air 06/05/25 17:34 Temperature 97.1 F L 06/05/25 17:34 Pulse Rate 115 H 06/05/25 17:34 Respiratory Rate 16 06/05/25 17:34 Blood Pressure 142/94 H 06/05/25 17:34 Pulse Oximetry 99 06/05/25 17:34 Oxygen Delivery Room Air 06/05/25 17:34 Reviewed. Medical Decision Making MDM Narrative Medical decision making narrative: 44-year-old female patient presents with allergic reaction to face. From the options she has listed, most likely culprit would be the direct contact of the hankerchief to the face. Patient has since washed her face twice but continues to have symptoms. States she has had extensive allergy issues for the last 15 years that no one has been able to pinpoint. States she is unable to put anything on her face due to her severe lanolin allergy. She is allergic to hydrocortisone topically as well. States she usually needs oral steroids to get rid of any contact dermatitis. Since this rash is barely noticeable, but is causing patient distress, will prescribe 3 days of prednisone,but told patient that she may only need 1 or 2 days for the mild symptoms to resolve. She already takes Singulair and Zyrtec. Patient is tachycardic, likely due to obesity as she is sweating slightly and walks with a cane, only due to being overweight. She has no facial swelling or any other systemic symptoms present. Differential Diagnosis Differential Diagnosis: Allergic reaction, contact dermatitis Vital Signs Vital Signs: Vital Signs Temperature 97.1 F L 06/05/25 17:34 Pulse Rate 115 H 06/05/25 17:34 Respiratory Rate 16 06/05/25 17:34 Blood Pressure 142/94 H 06/05/25 17:34 Pulse Oximetry 99 06/05/25 17:34 Oxygen Delivery Room Air 06/05/25 17:34 Temperature 97.1 F L 06/05/25 17:34 Pulse Rate 115 H 06/05/25 17:34 Respiratory Rate 16 06/05/25 17:34 Blood Pressure 142/94 H 06/05/25 17:34 Pulse Oximetry 99 06/05/25 17:34 Oxygen Delivery Room Air 06/05/25 17:34 Critical Care Time Critical Care Time Critical Care Time: No Discharge Plan Discharge Clinical Impression: Contact dermatitis Qualifiers: Contact dermatitis type: unspecified Contact dermatitis trigger: unspecified trigger Qualified Code(s): L25.9 - Unspecified contact dermatitis, unspecified cause Patient Disposition: Home Condition: Stable Instructions: Contact Dermatitis (DC) Additional Instructions: Please take the prednisone as directed. Continue your daily antihistamines as well. Follow-up with your PCP in 3 days if symptoms are not improving. The physician liaison number at [facility] is [phone] Your blood pressure was elevated above 120/80 today at Urgent Care. This puts you above the threshold for follow up. Please schedule a followup visit with your personal physician as soon as possible, for further evaluation and treatment. Even blood pressure exceeding 120/80 may indicate pre-hypertension. Patient Language: Turkmen Prescriptions: New prednisone 10 mg tablet 30 mg PO DAILY 3 Days Qty: 9 0RF No Action Nortrel (28) 1-35 mg-mcg tablet 1 tablet PO trazodone 50 mg tablet famotidine 20 mg tablet montelukast 10 mg tablet cetirizine-pseudoephedrine [Zyrtec-D] PO xokiyiskmbpm-dom-sken-FA-vit K [Adults Multivitamin] PO cholecalciferol (vitamin D3) .ROUTE magnesium PO Follow-up/Referrals: Roderick,Selene Hoang MD [Primary Care Provider] - Time of Disposition: 18:18
== END 2025-06-05 18:26 | disposition home or self-care (01) ==
PROVIDERS: Emergency Provider Nurse Practitioner; PCP Family Medicine
DX: L25.9 Unspecified contact dermatitis, unspecified cause (principal)
CPT/HCPCS: 99213; G0463

== ENCOUNTER 2025-06-28 08:19 | Emergency (ER) | payer BC, SELFPAY ==
[2025-06-28 08:31] VITALS: BP 142/89; PULSE 106; RESP 20; TEMP 36.3; O2SAT 98
--- NOTE | 2025-06-28 09:20 | ED.SKABFB ---
HPI - Skin/Abscess/Foreign Bdy General Chief complaint: Skin/Abscess/Foreign Body Stated complaint: Skin/Abscess/Foreign Body Time Seen by Provider: 06/28/25 08:35 Source: patient and RN notes reviewed Mode of arrival: ambulatory Limitations: no limitations History of Present Illness HPI narrative: 44-year-old female presents Express Care complaining scratch to left knee. Patient said 2 days ago her bird flu onto her left knee and scratch her through her pants. Patient reports a small abrasion to her left medial knee. Patient was make sure is not infected. Patient denies any redness, swelling, pain, drainage, fevers, body aches, chills, or any other symptoms. Patient has been washing daily with soap and water. Related Data Home Medications ?Medication ?Instructions ?Recorded ?Confirmed ?Last Taken ?Type norethindrone 1 mg-ethinyl 1 tablet PO DAILY 09/25/22 Unknown History estradiol 35 mcg tablet (Nortrel) cetirizine-pseudoephedrine 10 tablet PO DAILY 05/21/25 Unknown History cholecalciferol (vitamin D3) .Route DAILY 05/21/25 Unknown History famotidine 20 mg tablet 20 mg DAILY 05/21/25 Unknown History magnesium PO DAILY 05/21/25 Unknown History montelukast 10 mg tablet 10 mg 05/21/25 Unknown History uafkuspytelu-qre-vrqr-FA-vit K PO DAILY 05/21/25 Unknown History trazodone 50 mg tablet 50 mg .bedtime 05/21/25 Unknown History Allergies Allergy/AdvReac Type Severity Reaction Status Date / Time acetaminophen Allergy Mild Swelling Verified 06/28/25 08:48 Penicillins Allergy Mild HIVES Verified 06/28/25 08:48 poison faustino extract Allergy Mild RASH Verified 06/05/25 17:43 Sulfa (Sulfonamide Allergy Mild hives Verified 06/28/25 08:48 Antibiotics) hydrocortisone Allergy Unknown hives Verified 06/28/25 08:48 lanolin Allergy Unknown HIVES Verified 06/05/25 17:43 shrimp Allergy unknown Verified 06/28/25 08:48 tramadol AdvReac Unknown Headache Verified 06/28/25 08:48 steroid cremes Allergy Intermediate Hives / Uncoded 06/28/25 08:48 Red Face bug spray Allergy Unknown Unknown Uncoded 06/05/25 17:43 hand photogrammetric stereo compiler Allergy Unknown Unknown Uncoded 06/28/25 08:48 rubbing alcohol Allergy Rash Uncoded 06/28/25 08:48 Review of Systems Review of Systems: CONSTITUTIONAL: Denies fever, chills, or sweats. EYES: Denies visual changes, redness, or discharge. ENT: Denies rhinorrhea, congestion, sore throat, or otalgia. CARDIOVASCULAR: Denies chest pain, palpitations, or edema. RESPIRATORY: Denies cough or dyspnea. GASTROINTESTINAL: Denies abdominal pain, nausea, vomiting, or diarrhea. GENITOURINARY: Denies dysuria or hematuria. SKIN: Denies rash or itching. Positive for abrasion. MUSCULOSKELETAL: Denies back pain, joint pain, or myalgia. NEUROLOGIC: Denies headache, numbness, or weakness. PSYCHIATRIC: Denies anxiety or depression. All other systems reviewed are negative, except as documented in HPI. PMFSH Comments At the time of my signature, I reviewed and agree with the nursing past medical, surgical, social, and family history. There is no relevant family history pertinent to the patient complaint. Exam Narrative: GENERAL: This is a well-nourished, well-developed adult, in no apparent distress. They are non ill-appearing, nontoxic appearing. HEAD: normocephalic, atraumatic. EYES: Sclera clear/white. Conjunctiva normal. Vision is grossly intact. Extraocular movements intact EARS: External ears normal, Hearing grossly intact. NOSE: External nose normal THROAT: Mucous membranes moist, NECK: Neck supple, CARDIOVASCULAR: Regular rate and rhythm RESPIRATORY: Respiratory rate normal, respiratory effort nonlabored, no respiratory distress SKIN: Small abrasion to left medial lower knee. No area of fluctuance, no induration, no exudate. No redness, swelling, pain, drainage, bruising. NEURO: awake, alert, and oriented to person, place and time. There were no obvious focal neurologic abnormalities. EXTREMITIES: No joint tenderness, effusion, or edema noted. Course Course Emergency Course: Portions of this record may have been created with voice recognition software Level of Care: Express Care Visit Vital Signs Vital signs: Vital Signs Temperature 97.4 F L 06/28/25 08:31 Pulse Rate 106 H 06/28/25 08:31 Respiratory Rate 20 06/28/25 08:31 Blood Pressure 142/89 H 06/28/25 08:31 Pulse Oximetry 98 06/28/25 08:31 Oxygen Delivery Room Air 06/28/25 08:31 Temperature 97.4 F L 06/28/25 08:31 Pulse Rate 106 H 06/28/25 08:31 Respiratory Rate 20 06/28/25 08:31 Blood Pressure 142/89 H 06/28/25 08:31 Pulse Oximetry 98 06/28/25 08:31 Oxygen Delivery Room Air 06/28/25 08:31 Reviewed MDM - Skin/Abscess/Foreign Bdy MDM Narrative Medical decision making narrative: No evidence of infection, small abrasion a left medial knee. Wound appears to be healing well. Discussed physical exam findings. Advised supportive measures and signs/symptoms to go to the ER. Pt is appropriate for outpt treatment and f/u. Differential Diagnosis Differential diagnosis: Likely abscess of skin or subcutaneous tissue, cellulitis and other (Abrasion, laceration) Critical Care Time Critical Care Time Critical Care Time: No Discharge Plan Discharge Clinical Impression: Abrasion of knee, left Patient Disposition: Home Condition: Stable Instructions: Abrasion (ED) Additional Instructions: Continue the wash the wound daily with mild soap and water. Do not Soak or scrub the wound. Do not apply hydrogen peroxide to it. Avoid dirty water until the wound is healed completely. Keep it dry and covered. Follow-up PCP in 3-5 days. If he develops increased redness, swelling, pain, fevers, green/yellow discharge, or any serious concerns please go to the ER immediately. Patient Language: Maori Prescriptions: No Action Nortrel (28) 1-35 mg-mcg tablet 1 tablet PO DAILY trazodone 50 mg tablet 50 mg .bedtime famotidine 20 mg tablet 20 mg DAILY montelukast 10 mg tablet 10 mg cetirizine-pseudoephedrine [Zyrtec-D] 10 tablet PO DAILY jlnxhuphlkuo-ogs-absn-FA-vit K [Adults Multivitamin] PO DAILY cholecalciferol (vitamin D3) .Route DAILY magnesium PO DAILY prednisone 10 mg tablet 30 mg PO DAILY 3 Days Qty: 9 0RF Follow-up/Referrals: Vaughn,Selene Hoang MD [Primary Care Provider] - Time of Disposition: 08:56
== END 2025-06-28 09:06 | disposition home or self-care (01) ==
PROVIDERS: PCP Family Medicine
DX: S80.212A Abrasion, left knee, initial encounter (principal); W61.99XA Other contact with other birds, initial encounter
CPT/HCPCS: 99212; G0463

== ENCOUNTER 2025-07-27 09:01 | Emergency (ER) | payer BC, SELFPAY ==
[2025-07-27 09:09] VITALS: BP 141/104; PULSE 103; RESP 20; TEMP 36.8; O2SAT 99
--- NOTE | 2025-07-27 09:12 | ED_ITS ---
HPI - Female Genitourinary General Chief complaint: Urogenital-Female Stated complaint: urinary irritation Time Seen by Provider: 07/27/25 09:20 Source: patient Mode of arrival: ambulatory Limitations: no limitations History of Present Illness HPI Narrative: Clare is a 44-year-old female patient presenting to the clinic today with complaints of burning with urination, frequency, and urgency since last night. She currently rates her discomfort a 4/10. Denies any abdominal pain or back pain. No nausea, vomiting, or diarrhea. Last urinary tract infection was back in September. No culture sensitivity available to review. Has not taken anything to treat her symptoms. Denies any vaginal discharge or odor. Denies any concerns for STIs. Related Data Home Medications ?Medication ?Instructions ?Recorded ?Confirmed ?Last Taken ?Type norethindrone 1 mg-ethinyl 1 tablet PO DAILY 09/25/22 Unknown History estradiol 35 mcg tablet (Nortrel) cetirizine-pseudoephedrine 10 tablet PO DAILY 05/21/25 Unknown History cholecalciferol (vitamin D3) .Route DAILY 05/21/25 Un known History famotidine 20 mg tablet 20 mg DAILY 05/21/25 Unknow n History magnesium PO DAILY 05/21/25 Unknown H istory montelukast 10 mg tablet 10 mg 05/21/25 Unknown Hist ory qtnsmpswqzoc-elr-iksd-FA-vit K PO DAILY 05/21/25 Unkn own History trazodone 50 mg tablet 50 mg .bedtime 05/21/25 Unk nown History Allergies Allergy/AdvReac Type Severity Reaction Status Date / Time acetaminophen Allergy Mild Swelling Verified 07/27/25 09:11 Penicillins Allergy Mild HIVES Verified 07/27/25 09:11 poison faustino extract Allergy Mild RASH Verified 07/27/25 09:11 Sulfa (Sulfonamide Allergy Mild hives Verified 07/27/25 09:11 Antibiotics) hydrocortisone Allergy Unknown hives Verified 07/27/25 09:11 lanolin Allergy Unknown HIVES Verified 07/27/25 09:11 shrimp Allergy unknown Verified 07/27/25 09:11 tramadol AdvReac Unknown Headache Verified 07/27/25 09:11 steroid cremes Allergy Intermediate Hives / Uncoded 07/27/25 09:11 Red Face bug spray Allergy Unknown Unknown Uncoded 07/27/25 09:11 hand radiology physician Allergy Unknown Unknown Uncoded 07/27/25 09:11 rubbing alcohol Allergy Rash Uncoded 07/27/25 09:11 Review of Systems Review of Systems: Pertinent positives per HPI. Patient denies any fever, chills, rash, headache, visual changes, dizziness, cough, runny nose, sore throat, shortness of breath, chest pain, palpitations, nausea, vomiting, diarrhea, constipation, abdominal pain,. PMFSH Comments At the time of my signature, I reviewed and agree with the nursing past medical, surgical, social, and family history. There is no relevant family history pertinent to the patient complaint. Exam Narrative: General: Well-developed, morbidly obese, in no apparent distress. Head: Normocephalic, atraumatic. Cardio: Regular rate and rhythm, s1 and s2 normal, no murmur appreciated. Resp: Clear to auscultation bilaterally, no rhonchi, rales, wheezing or rubs. Abdomen: Soft, pliable, bowel sounds present in all quadrants, non-tender to palpation, no organomegly, no CVAT tenderness. Course Course Emergency Course: Portions of this record may have been created with voice recognition software. Level of Care: Express Care Visit Vital Signs Vital signs: Vital Signs Temperature 36.8 C 07/27/25 09:09 Pulse Rate 103 H 07/27/25 09:09 Respiratory Rate 20 07/27/25 09:09 Blood Pressure 141/104 H 07/27/25 09:09 Pulse Oximetry 99 07/27/25 09:09 Oxygen Delivery Room Air 07/27/25 09:09 Temperature 36.8 C 07/27/25 09:09 Pulse Rate 103 H 07/27/25 09:09 Respiratory Rate 20 07/27/25 09:09 Blood Pressure 141/104 H 07/27/25 09:09 Pulse Oximetry 99 07/27/25 09:09 Oxygen Delivery Room Air 07/27/25 09:09 Vital signs reviewed MDM - Female Genitourinary MDM Narrative Medical decision making narrative: At the time of visit patient is resting comfortably on the exam table. Patient appears to be nontoxic. Complaints of burning with urination, frequency, and urgency since last night. She currently rates her discomfort a 4/10. Denies any abdominal pain or back pain. No nausea, vomiting, or diarrhea. Last urinary tract infection was back in September. No culture sensitivity available to review. Has not taken anything to treat her symptoms. On exam patient has no CVAT tenderness and no suprapubic tenderness to palpation. Denies any vaginal discharge or odor. No concern for STIs. Plan: Patient has simple UTI. Prescription for Macrobid was sent to the pharmacy. Patient does have allergies to penicillins and sulfa drugs. Supportive measures were discussed with the patient and they voiced understanding discharge instructions and agrees to treatment plan. Return precautions reviewed Differential Diagnosis Differential diagnosis: Likely urinary tract infection, cystitis and other (Pyelonephritis) Lab Data Labs: Lab Results 07/27/25 Range/Units 09:14 POC Urine Color Dark POC Urine Clarity Cloudy POC Urine pH 6.5 POC Ur Specif [place] 1.015 POC Urine Protein Negative (Negative) POC Ur Glucose (UA) Negative (Negative) POC Urine Ketones Negative (Negative) POC Urine Blood 2+ (Negative) POC Urine Nitrite Positive (Negative) POC Urine Bilirubin Negative (Negative) POC Urine Urobilinogen 0.2 POC U Leukocyte Esteras 2+ (Negative) Discharge Plan Discharge Clinical Impression: Urinary tract infection Qualifiers: Urinary tract infection type: acute cystitis Hematuria presence: with hematuria Qualified Code(s): N30.01 - Acute cystitis with hematuria Patient Disposition: Home Condition: Stable Instructions: Antibiotic Form, Urinary Tract Infection in Women (ED) Additional Instructions: Urinalysis positive for leukocytes, nitrates, and blood. We will send urine for culture Take Macrobid as prescribed Increase fluids and stay well hydrated Wipe front to back. May use wet wipes. Avoid tub baths If sexually active- pee before and after intercourse. Wear cotton panties Avoid tight clothing up against the genitals Follow up with your PCP in 1 week if symptoms persist. Patient Language: Hong Konger Prescriptions: New nitrofurantoin monohyd/m-cryst [Macrobid] 100 mg capsule 100 mg PO Q12H 5 Days Qty: 10 0RF Rx Instructions: must administer with a meal/food No Action Nortrel () 1-35 mg-mcg tablet 1 tablet PO DAILY trazodone 50 mg tablet 50 mg .bedtime famotidine 20 mg tablet 20 mg DAILY montelukast 10 mg tablet 10 mg cetirizine-pseudoephedrine [Zyrtec-D] 10 tablet PO DAILY hnnxrucipsds-pzn-iyqy-FA-vit K [Adults Multivitamin] PO DAILY cholecalciferol (vitamin D3) .Route DAILY magnesium PO DAILY prednisone 10 mg tablet 30 mg PO DAILY 3 Days Qty: 9 0RF Follow-up/Referrals: Roderick,Selene Hoang MD [Primary Care Provider, Unknown] Time of Disposition: 09:24 Quality NIHSS Nursing Documentation ED NIHSS nursing documentation: reviewed/agree
[2025-07-27 09:16] LABS: EDUAAPPEAR Cloudy; EDUABILI Negative (Negative); EDUABLOOD 2+ (Negative); EDUACOLOR1 Dark; EDUAGLUCOSE Negative (Negative); EDUAKETONE Negative (Negative); EDUALEUKO 2+ (Negative); EDUANITRATE Positive (Negative); EDUAPH 6.5; EDUAPROTEIN Negative (Negative); EDUASPGRAVITY 1.015; EDUAUROBILI 0.2
== END 2025-07-27 09:32 | disposition home or self-care (01) ==
PROVIDERS: Emergency Provider Nurse Practitioner Family; PCP Family Medicine
DX: N30.01 Acute cystitis with hematuria (principal)
CPT/HCPCS: 81003; 87086; 99213; G0463

== ENCOUNTER 2025-08-04 12:15 | Emergency (ER) | payer BC, SELFPAY ==
[2025-08-04 12:20] VITALS: BP 145/79; PULSE 99; RESP 16; TEMP 35.9; O2SAT 100
--- NOTE | 2025-08-04 12:29 | ED_ITS ---
HPI - Female Genitourinary General Chief complaint: Urogenital-Female Stated complaint: urinary irritation patient presents to the [facility] Care with complaints of burning with urination that began upon waking this morning. Patient has increased her fluid intake to help with the symptoms. Patient does note recently completing Macrobid antibiotics for recent UTI and symptoms. 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 Denies fever, chills, body aches, abdominal pain, changes in back pain. Related Data Home Medications ?Medication ?Instructions ?Recorded ?Confirmed ?Last Taken ?Type norethindrone 1 mg-ethinyl 1 tablet PO DAILY 09/25/22 Unknown History estradiol 35 mcg tablet (Nortrel) cetirizine-pseudoephedrine 10 tablet PO DAILY 05/21/25 Unknown History cholecalciferol (vitamin D3) .Route DAILY 05/21/25 Un known History famotidine 20 mg tablet 20 mg DAILY 05/21/25 Unknow n History magnesium PO DAILY 05/21/25 Unknown H istory montelukast 10 mg tablet 10 mg 05/21/25 Unknown Hist ory tfirneguixtw-ytr-fovm-FA-vit K PO DAILY 05/21/25 Unkn own History trazodone 50 mg tablet 50 mg .bedtime 05/21/25 Unk nown History Allergies Allergy/AdvReac Type Severity Reaction Status Date / Time acetaminophen Allergy Mild Swelling Verified 08/04/25 12:21 Penicillins Allergy Mild HIVES Verified 08/04/25 12:21 poison faustino extract Allergy Mild RASH Verified 08/04/25 12:21 Sulfa (Sulfonamide Allergy Mild hives Verified 08/04/25 12:21 Antibiotics) hydrocortisone Allergy Unknown hives Verified 08/04/25 12:21 lanolin Allergy Unknown HIVES Verified 08/04/25 12:21 shrimp Allergy unknown Verified 08/04/25 12:21 tramadol AdvReac Unknown Headache Verified 08/04/25 12:21 steroid cremes Allergy Intermediate Hives / Uncoded 08/04/25 12:21 Red Face bug spray Allergy Unknown Unknown Uncoded 08/04/25 12:21 hand utility worker woolen mill Allergy Unknown Unknown Uncoded 08/04/25 12:21 rubbing alcohol Allergy Rash Uncoded 08/04/25 12:21 Review of Systems Constitutional: Constitutional: Reports as per HPI, Denies chills and Denies fatigue Eyes: Eyes: Reports no additional eye complaints Cardiovascular: Cardiovascular: Reports no additional cardiovascular complaints Respiratory: Respiratory: Reports no additional respiratory complaints Gastrointestinal: Gastrointestinal: Reports as per HPI, Denies abdominal pain, Denies diarrhea, Denies nausea and Denies vomiting Genitourinary: Genitourinary: Reports as per HPI, Denies hematuria, Reports nocturia, Denies genital lesions, Reports dysuria, Denies pelvic pain, Denies flank pain and Denies urinary incontinence Musculoskeletal: Musculoskeletal: Reports as per HPI, Denies back pain and Denies myalgias Integumentary/Breasts: Skin/Breast: Reports as per HPI, Denies erythema, Denies rash and Denies skin ulcer Neurologic: Reports system reviewed and no additional complaints, except as documented Psychiatric: Psychiatric: Reports no additional psychiatric complaints Endocrine: Endocrine: Reports no additional endocrine complaints Hematologic/Lymphatic: Hematologic/Lymphatic: Reports no additional hematologic/lymphatic complaints Allergic/Immunologic: Allergic/Immunologic: Reports no additional allergic/immunologic complaints Exam Const: General: healthy appearing and no acute distress Nutritional Appearance: well nourished Orientation/consciousness: patient oriented x3 Limitations: no limitations Resp: Effort & Inspection: normal respiratory effort Auscultation: clear to auscultation bilaterally Cardio: Rate: regular rate Rhythm: regular rhythm GI: Inspection: non-distended GI Palp: Yes Soft to palpation, No Tenderness to palpation present (GI), No Guarding due to palpation present (GI) and No Rigid due to palpation Auscultation: normal bowel sounds : General: Yes bladder normal to palpation and Yes no CVA tenderness Back/Spine/Pelvis: Back: no CVA tenderness Skin: General skin exam: normal color Rashes: no rashes Wounds: no wounds Neuro: General: patient oriented x3 Speech: normal speech Gait exam (Neuro): Normal gait present ( Using cane) Psych: Appearance: grossly normal Mental Status: mental status grossly normal Affect: normal affect Attitude: cooperative Course Course Level of Care: Express Care Visit MDM - Female Genitourinary MDM Narrative Medical decision making narrative: UA positive for blood and leukocytes. Likely recent infection due to current trip. Spoke with patient about tolerable antibiotics. At this time will use ciprofloxacin. Educated patient on the tendon rupture has tolerated Levaquin in the past. culture to be sent. The patient was evaluated by myself in the [facility] care. History is obtained from patient who is an independent historian and physical exam was performed. Available medical records were reviewed at this time. Exam findings show no acute concerns or changes; patient is non-toxic appearing and is in no distress. Patient is appropriate for outpatient treatment and follow-up. I have evaluated and discussed social determinants of health with the patient that could potentially impact subsequent diagnosis and treatment plans. Differential diagnosis and treatment plan were discussed with the patient. Patient agrees with discussion and after shared medical decision making agrees with plan of care. All questions were answered to the patient's satisfaction. Differential Diagnosis Differential diagnosis: Likely urinary tract infection, cervicitis, vaginitis and cystitis Medical Records Attestation: I reviewed the patient's medical records. Lab Data Attestation: I reviewed the patient's lab results. Lab results narrative: UA Positive leukocytes and blood Discharge Plan Discharge Clinical Impression: Cystitis Patient Disposition: Home Condition: Stable Instructions: Antibiotic Form, Urinary Tract Infection in Women (ED) Additional Instructions: We will send a urine culture off to the lab; if the culture identifies an organism that the prescribed antibiotic will not treat, you will receive a phone call from an urgent care staff member and an appropriate antibiotic will be prescribed. -Your symptoms should begin to improve within a day of starting antibiotics. But you should finish all the antibiotic pills you get. Otherwise your infection might come back. -Also recommend: drink more fluid. It might help flush out germs, and it does no harm -Tylenol/ibuprofen as needed for pain -Follow-up with your primary care provider for urine recheck OR if your symptoms persist, change or worsen significantly before you can contact your personal physician then please, without delay, go to the emergency department for further evaluation. Patient Language: [place] Citizen Prescriptions: New ciprofloxacin HCl 500 mg tablet 500 mg PO Q12H Qty: 14 0RF No Action Nortrel 135 (28) 1-35 mg-mcg tablet 1 tablet PO DAILY trazodone 50 mg tablet 50 mg .bedtime famotidine 20 mg tablet 20 mg DAILY montelukast 10 mg tablet 10 mg cetirizine-pseudoephedrine [Zyrtec-D] 10 tablet PO DAILY rlnbjuwsgrsr-tyk-khyn-FA-vit K [Adults Multivitamin] PO DAILY cholecalciferol (vitamin D3) .Route DAILY magnesium PO DAILY Follow-up/Referrals: Vaughn,Selene Hoang MD [Primary Care Provider, Unknown] Time of Disposition: 12:40
[2025-08-04 12:37] LABS: EDUAAPPEAR Clear; EDUABILI Negative (Negative); EDUABLOOD 1+ (Negative); EDUACOLOR1 Yellow; EDUAGLUCOSE Negative (Negative); EDUAKETONE Negative (Negative); EDUALEUKO 2+ (Negative); EDUANITRATE Negative (Negative); EDUAPH 7.0; EDUAPROTEIN Negative (Negative); EDUASPGRAVITY 1.010; EDUAUROBILI 0.2
== END 2025-08-04 12:43 | disposition home or self-care (01) ==
PROVIDERS: Emergency Provider Nurse Practitioner Family; PCP Family Medicine
DX: N30.90 Cystitis, unspecified without hematuria (principal)
CPT/HCPCS: 81003; 87086; 99213; G0463

== ENCOUNTER 2025-09-06 17:15 | Emergency (ER) | payer BC, SELFPAY ==
[2025-09-06 17:25] VITALS: BP 133/107; PULSE 105; RESP 20; TEMP 36.4; O2SAT 100
--- NOTE | 2025-09-06 18:12 | ED_ITS ---
HPI - Skin/Abscess/Foreign Bdy General Chief complaint: Skin/Abscess/Foreign Body Stated complaint: rash on left arm Time Seen by Provider: 09/06/25 18:00 Source: patient, RN notes reviewed and old records reviewed Mode of arrival: ambulatory Limitations: no limitations History of Present Illness HPI narrative: 44 year old female who presents to [facility] care with complaints of rash to her left inner forearm for the past 5 days. Patient reports that she was exposed to poison faustino and blisters popped up on Tuesday with drainage noted to area that is approximately 2cm X2cm.. Patient reports that she has taken Zyrtec and also Pepcid and has taken oral Benadryl for the itching. Patient reports that she is allegic to most topical ointment due to Lanolin allergy MD complaint: rash Onset (ago): day(s) (5) Location: LUE (inner left forearm) Severity: mild Quality: pruritic Treatments prior to arrival: Benadryl Related Data Home Medications ?Medication ?Instructions ?Recorded ?Confirmed ?Last Taken ?Type norethindrone 1 mg-ethinyl 1 tablet PO DAILY 09/25/22 Unknown History estradiol 35 mcg tablet (Nortrel) cetirizine-pseudoephedrine 10 tablet PO DAILY 05/21/25 Unknown History cholecalciferol (vitamin D3) .Route DAILY 05/21/25 Un known History famotidine 20 mg tablet 20 mg PO DAILY 05/21/25 Unk nown History magnesium PO DAILY 05/21/25 Unknown H istory montelukast 10 mg tablet 10 mg PO 05/21/25 Unknown H istory rmbfsgipsuor-gpf-rlei-FA-vit K PO DAILY 05/21/25 Unkn own History trazodone 50 mg tablet 50 mg .bedtime 05/21/25 Unk nown History Allergies Allergy/AdvReac Type Severity Reaction Status Date / Time acetaminophen Allergy Mild Swelling Verified 09/06/25 17:21 Penicillins Allergy Mild HIVES Verified 09/06/25 17:21 poison faustino extract Allergy Mild RASH Verified 09/06/25 17:21 Sulfa (Sulfonamide Allergy Mild hives Verified 09/06/25 17:21 Antibiotics) hydrocortisone Allergy Unknown hives Verified 09/06/25 17:21 lanolin Allergy Unknown HIVES Verified 09/06/25 17:21 shrimp Allergy unknown Verified 09/06/25 17:21 tramadol AdvReac Unknown Headache Verified 09/06/25 17:21 steroid cremes Allergy Intermediate Hives / Uncoded 08/04/25 12:21 Red Face bug spray Allergy Unknown Unknown Uncoded 08/04/25 12:21 hand purchasing and fiscal clerk Allergy Unknown Unknown Uncoded 08/04/25 12:21 rubbing alcohol Allergy Rash Uncoded 08/04/25 12:21 Review of Systems Review of Systems: CONSTITUTIONAL: Denies fever, chills, or sweats. CARDIOVASCULAR: Denies chest pain, palpitations, or edema. RESPIRATORY: Denies cough or dyspnea. SKIN: Reports rash to the inner aspect of her distal left forearm which is itchy MUSCULOSKELETAL: Denies joint pain or myalgia. NEUROLOGIC: Denies headache, numbness, or weakness. All systems reviewed & are unremarkable except as noted in HPI and below PMFSH Past Medical History Medical History (Updated 09/07/25 @ 14:53 by Kendy Shannon NP) Wears dentures Closed left ankle fracture Seasonal allergies Urinary tract infection Contact dermatitis Surgical History Surgical History (Updated 09/07/25 @ 14:47 by Kendy Shannon NP) History of placement of ear tubes right ear History of tonsillectomy Social History Social History (Updated 09/07/25 @ 14:48 by Kendy Shannon NP) Smoking status: Never smoker Alcohol intake: current Alcohol use details: rare social Substance use: never Living arrangements: with family Gender identity (if verbalized by the patient): Female Comments At time of signature, agree with nursing past medical, surgical, social and family history. There is no relevant family history pertinent to the presenting complaint Exam Narrative: GENERAL: Well-appearing, well-nourished, and in no acute distress. HEAD: Normocephalic, atraumatic. EYES: PERRLA, conjunctivae clear, and EOMI. ENT: Mucous membranes moist. Oropharynx without edema, erythema or lesions. NECK: Supple. No lymphadenopathy CHEST: Clear to auscultation. No respiratory distress.SAO2 100% on room air HEART: Regular rate and rhythm. SKIN: Warm, dry.? Patches of erythema and edema to left inner distal forearm with pustules and drainage is itchy 2cm X2cm area NEURO:? Alert and oriented x3. PSYCH: Normal mood and affect Course Course Emergency Course: Patient is aware of diagnosis, understands and agrees to treatment plan.? Anticipatory guidance given.? Patient agrees to follow-up as directed and is aware of reasons to seek care at the emergency department. Portions of this record may have been created with voice recognition software Level of Care: Express Care Visit Vital Signs Vital signs: Vital Signs Temperature 36.4 C 09/06/25 17: Pulse Rate 105 H 09/06/25 17:25 Respiratory Rate 20 09/06/25 17:25 Blood Pressure 133/107 H 09/06/25 17:25 Pulse Oximetry 100 09/06/25 17:25 Oxygen Delivery Room Air 09/06/25 17: Temperature 36.4 C 09/06/25 17: Pulse Rate 105 H 09/06/25 17: Respiratory Rate 20 09/06/25 17:25 Blood Pressure 133/107 H 09/06/25 17:25 Pulse Oximetry 100 09/06/25 17:25 Oxygen Delivery Room Air 09/06/25 17:25 Reviewed MDM - Skin/Abscess/Foreign Bdy MDM Narrative Medical decision making narrative: Does not appear at this time to be erythema multiforme, bullous, SJS, TEN; no evidence at this time to suggest RMSF, endocarditis or Lyme disease; patient looks well, nontoxic and is tolerating oral intake; no neurologic signs or symptoms; no headache, photophobia or neck pain; afebrile; appropriate for initial outpatient treatment; discussed the importance of follow-up, patient agrees; question, viral exanthema, contact dermatitis, allergic dermatitis, eczema, urticaria.. No soft palate or uvula edema, no tongue, lip edema or other mucosal involvement, no respiratory compromise, no stridor, no wheezing, no wheezing, no history of syncope, no hypotension, no nausea, vomiting, or diarrhea.? Instructed patient to go to nearest ER immediately for any worsening symptoms including but not limited to: fever, spreading rash, pain, sore throat, headache, dizziness, chest pain, trouble breathing, or any symptoms concerning to the patient. Differential Diagnosis Differential diagnosis: Likely abscess of skin or subcutaneous tissue, cellulitis, eczema, contact dermatitis and other (poison faustino dermatitis) Medical Records Attestation: I reviewed the patient's medical records. Critical Care Time Critical Care Time Critical Care Time: No Discharge Plan Discharge Clinical Impression: Contact dermatitis Qualifiers: Contact dermatitis type: allergic Contact dermatitis trigger: non-food plants Qualified Code(s): L23.7 - Allergic contact dermatitis due to plants, except food Patient Disposition: Home Condition: Stable Instructions: Antibiotic Form, Contact Dermatitis (ED) Additional Instructions: watch for increasing infection--redness, swelling, drainage Tylenol or ibuprofen for any fever pain follow up with PCP in 7-10 days for a wound check recheck if develop fever, chills, increasing symptom Go to the ER if your symptoms become worse of if ANY new symptoms develop Continue your Pepcid and Zyrtec daily Prednisone as prescribed take with food If your symptoms persist, change or worsen significantly before you can contact your personal physician then please, without delay, go to the emergency department for further evaluation. Follow-up with PCP in 7-10 days or sooner if needed Follow up with PCP soon in regards to your blood pressure which is elevated above threshold for referral. Blood pressure above 120/80 may indicate pre-hypertension. 133/107 take Benadryl for itching no driving or operating machinery while taking Patient Language: Colombian Prescriptions: New prednisone 20 mg tablet 20 mg PO BID Qty: 10 0RF No Action Nortrel (28) 1-35 mg-mcg tablet 1 tablet PO DAILY trazodone 50 mg tablet 50 mg .bedtime famotidine 20 mg tablet 20 mg PO DAILY montelukast 10 mg tablet 10 mg PO cetirizine-pseudoephedrine [Zyrtec-D] 10 tablet PO DAILY nykkcddkvbak-tol-smps-FA-vit K [Adults Multivitamin] PO DAILY cholecalciferol (vitamin D3) .Route DAILY magnesium PO DAILY Follow-up/Referrals: Roderick,Selene Hoang MD [Primary Care Provider, Unknown] Time of Disposition: 18:20 Quality [place] Coma Scale Eyes: Open Verbal: Oriented and Alert Motor: Follows Commands [place] Coma Total Score: 15
== END 2025-09-06 18:38 | disposition home or self-care (01) ==
PROVIDERS: Emergency Provider Registered Nurse; PCP Family Medicine
DX: L23.7 Allergic contact dermatitis due to plants, except food (principal)
CPT/HCPCS: 99213; G0463

== ENCOUNTER 2025-10-18 11:31 | Emergency (ER) | payer BC, SELFPAY ==
--- NOTE | 2025-10-18 11:38 | ED.URI ---
HPI - URI/Sore Throat General Chief Complaint: Skin/Abscess/Foreign Body Stated Complaint: Rash Time Seen by Provider: 10/18/25 11:46 Source: patient, RN notes reviewed and old records reviewed Mode of arrival: ambulatory Limitations: no limitations History of Present Illness HPI Narrative: 45-year-old female with an extensive allergy history present to the [facility] with complaints of a rash around her mouth. Symptoms started on Tuesday, 4 days ago. No treatment prior to arrival. describes it as being very itchy patient has an appointment with an aerospace quality engineer at [place] on 19 November Treatments prior to arrival: none Related Data Home Medications ?Medication ?Instructions ?Recorded ?Confirmed ?Last Taken ?Type norethindrone 1 mg-ethinyl 1 tablet PO DAILY 09/25/22 Unknown History estradiol 35 mcg tablet (Nortrel) cetirizine-pseudoephedrine 10 tablet PO DAILY 05/21/25 Unknown History cholecalciferol (vitamin D3) .Route DAILY 05/21/25 Unknown History famotidine 20 mg tablet 20 mg PO DAILY 05/21/25 Unknown History magnesium PO DAILY 05/21/25 Unknown History montelukast 10 mg tablet 10 mg PO 05/21/25 Unknown History ksavizcguwaa-ewq-rpxv-FA-vit K PO DAILY 05/21/25 Unknown History trazodone 50 mg tablet 50 mg .bedtime 05/21/25 Unknown History amitriptyline 10 mg tablet mg 10/18/25 Unknown History metformin 500 mg tablet mg 10/18/25 Unknown History Allergies Allergy/AdvReac Type Severity Reaction Status Date / Time acetaminophen Allergy Mild Swelling Verified 09/06/25 17:21 Penicillins Allergy Mild HIVES Verified 09/06/25 17:21 poison faustino extract Allergy Mild RASH Verified 09/06/25 17:21 Sulfa (Sulfonamide Allergy Mild hives Verified 09/06/25 17:21 Antibiotics) hydrocortisone Allergy Unknown hives Verified 09/06/25 17:21 lanolin Allergy Unknown HIVES Verified 09/06/25 17:21 shrimp Allergy unknown Verified 09/06/25 17:21 tramadol AdvReac Unknown Headache Verified 09/06/25 17:21 steroid cremes Allergy Intermediate Hives / Uncoded 08/04/25 12:21 Red Face bug spray Allergy Unknown Unknown Uncoded 08/04/25 12:21 hand medical transcriber Allergy Unknown Unknown Uncoded 08/04/25 12:21 rubbing alcohol Allergy Rash Uncoded 08/04/25 12:21 Review of Systems Review of Systems: All systems reviewed & are unremarkable except as noted in HPI and below Constitutional: Constitutional: Reports no additional constitutional complaints ENT: Reports system reviewed and no additional complaints, except as documented Cardiovascular: Cardiovascular: Reports no additional cardiovascular complaints, Denies chest pain and Denies dyspnea Respiratory: Respiratory: Reports no additional respiratory complaints, Denies chest congestion, Denies cough and Denies dyspnea Musculoskeletal: Musculoskeletal: Reports no additional musculoskeletal complaints Integumentary/Breasts: Skin/Breast: Reports as per HPI [facility] Past Medical History Medical History Wears dentures Closed left ankle fracture Seasonal allergies Urinary tract infection Contact dermatitis Surgical History Surgical History History of placement of ear tubes right ear History of tonsillectomy Social History Social History Smoking status: Never smoker Alcohol intake: current Alcohol use details: rare social Substance use: never Living arrangements: with family Gender identity (if verbalized by the patient): Female Comments At the time of my signature, I reviewed and agree with the nursing past medical, surgical, social, and family history. There is no relevant family history pertinent to the patient complaint. Exam Const: General: cooperative, healthy appearing, comfortable, no acute distress, well developed, alert and well nourished Nutritional Appearance: well nourished and obese Orientation/consciousness: patient oriented x3 Limitations: no limitations HENMT: Head: normal to inspection Head images:  1. faint pink areas, not raised. Patient describes it is being very itchy. Mouth: Yes Normal oral and palatal mucosa present, Yes lip normal, Yes tongue normal and Yes moist mucous membranes Eyes: General: appearance normal, both eyes and all related structures Alignment and Position: alignment normal Neck: Neck: normal visual inspection, full ROM, no lymphadenopathy and no meningeal signs Chest: Chest palpation & inspection: normal inspection of the chest Resp: Effort & Inspection: normal respiratory effort and able to speak in complete sentences Cardio: Rate: regular rate Skin: General skin exam: normal color and no rashes or lesions noted Rashes: rashes noted Neuro: General: patient oriented x3, gait normal, moves all extremities and no meningeal signs Cognition (Neuro): normal cognition Speech: normal speech Gait exam (Neuro): Normal gait present Extrem: General: normal to inspection, full ROM, capillary refill normal and normal gait Psych: Appearance: grossly normal and well kempt Mental Status: mental status grossly normal Speech and movement: Normal speech and movement present and Clear speech present Affect: normal affect Attitude: cooperative Course Course Level of Care: Express Care Visit Vital Signs Vital signs: Vital Signs Temperature 97.9 F 10/18/25 11:41 Pulse Rate 107 H 10/18/25 11:41 Respiratory Rate 20 10/18/25 11:41 Blood Pressure 140/111 H 10/18/25 11:41 Pulse Oximetry 98 10/18/25 11:41 Oxygen Delivery Room Air 10/18/25 11:41 Temperature 97.9 F 10/18/25 11:41 Pulse Rate 107 H 10/18/25 11:41 Respiratory Rate 20 10/18/25 11:41 Blood Pressure 140/111 H 10/18/25 11:41 Pulse Oximetry 98 10/18/25 11:41 Oxygen Delivery Room Air 10/18/25 11:41 Reviewed MDM - URI/Sore Throat MDM Narrative Medical decision making narrative: patient sitting in exam room. Patient is nontoxic, vitals are stable except blood pressure elevated. Patient reports a rash since Tuesday. Denies any new creams ointments lotions detergents. Has a history of multiple allergies. Patient is appropriate for outpatient treatment and follow-up Discharge instructions reviewed with patient, as well as provided in writing per nursing staff. The instructions also include specific and strict return/GO TO THE ER as well as f/u information. All questions have been answered, and the patient deny any further questions with discharge and discharge plan. Some parts of this dictation were generated by voice recognition software and may contain typographical and/or grammatical inaccuracies. Differential Diagnosis Differential diagnosis: Likely upper respiratory infection, otitis media, sinusitis, viral infection, bronchitis, influenza and pharyngitis Critical Care Time Critical Care Time Critical Care Time: No Discharge Plan Discharge Clinical Impression: Facial rash Patient Disposition: Home Condition: Stable Instructions: Antibiotic Form, Acute Rash (ED) Additional Instructions: follow-up with aerospace quality engineer as scheduled on the to October follow-up with primary care provider Patient Language: Indonesian Prescriptions: New prednisone 20 mg tablet 40 mg PO DAILY 5 Days Qty: 10 0RF No Action Nortrel (28) 1-35 mg-mcg tablet 1 tablet PO DAILY trazodone 50 mg tablet 50 mg .bedtime famotidine 20 mg tablet 20 mg PO DAILY montelukast 10 mg tablet 10 mg PO cetirizine-pseudoephedrine [Zyrtec-D] 10 tablet PO DAILY wrizqzkqkxux-pmo-jrgj-FA-vit K [Adults Multivitamin] PO DAILY cholecalciferol (vitamin D3) .Route DAILY magnesium PO DAILY metformin 500 mg tablet amitriptyline 10 mg tablet Follow-up/Referrals: Roderick,Selene Hoang MD [Primary Care Provider, Unknown] Time of Disposition: 12:00
[2025-10-18 11:41] VITALS: BP 140/111; PULSE 107; RESP 20; TEMP 36.6; O2SAT 98
== END 2025-10-18 12:07 | disposition home or self-care (01) ==
PROVIDERS: Emergency Provider Nurse Practitioner; PCP Family Medicine
DX: R21 Rash and other nonspecific skin eruption (principal)
CPT/HCPCS: 99213; G0463

== ENCOUNTER 2025-10-31 11:12 | Emergency (ER) | payer BC, SELFPAY ==
[2025-10-31 11:22] VITALS: BP 147/104; PULSE 136; RESP 18; TEMP 36.7; O2SAT 99
[2025-10-31 11:29] LABS: EDUAAPPEAR Clear; EDUABILI Negative (Negative); EDUABLOOD 2+ (Negative); EDUACOLOR1 Light/Pale; EDUAGLUCOSE Negative (Negative); EDUAKETONE Negative (Negative); EDUALEUKO 2+ (Negative); EDUANITRATE Negative (Negative); EDUAPH 6.5; EDUAPROTEIN Negative (Negative); EDUASPGRAVITY 1.010; EDUAUROBILI 0.2
--- NOTE | 2025-10-31 11:49 | ED_ITS ---
HPI - Female Genitourinary General Chief complaint: Urogenital-Female Stated complaint: urinary irritation Time Seen by Provider: 10/31/25 11:35 Source: patient and RN notes reviewed Mode of arrival: ambulatory Limitations: no limitations History of Present Illness HPI Narrative: 45-year-old female presents Express Care complaining of urinary symptoms for since today.. Patient reports having dysuria, increased frequency, cloudy urine. Patient denies any fevers, abdominal pain, body aches, chills, nausea, vomiting, diarrhea, blood in her urine given vaginal discharge vaginal bleeding of any other symptoms.. Patient has not taken anything obup-wme-munieum for symptoms. Patient reports a history of diabetes. Patient just finished a course of prednisone for a rash. Related Data Home Medications ?Medication ?Instructions ?Recorded ?Confirmed ?Last Taken ?Type norethindrone 1 mg-ethinyl 1 tablet PO DAILY 09/25/22 10/31/25 Unknown History estradiol 35 mcg tablet (Nortrel) cetirizine-pseudoephedrine 10 tablet PO DAILY 05/21/25 10/31/25 Unknown History cholecalciferol (vitamin D3) .Route DAILY 05/21/25 Un known History famotidine 20 mg tablet 20 mg PO DAILY 05/21/2503/22 Unknown History magnesium PO DAILY 05/21/25 Unknown H istory montelukast 10 mg tablet 10 mg PO 05/21/25 Unknown H istory guhqztnljdfl-bmb-leho-FA-vit K PO DAILY 05/21/25 Unkn own History trazodone 50 mg tablet 50 mg .bedtime 05/21/25 Unk nown History amitriptyline 10 mg tablet mg 10/18/25 Unknown Histor y metformin 500 mg tablet mg 10/18/25 Unknown History Allergies Allergy/AdvReac Type Severity Reaction Status Date / Time acetaminophen Allergy Mild Swelling Verified 10/31/25 11:18 Penicillins Allergy Mild HIVES Verified 10/31/25 11:18 poison faustino extract Allergy Mild RASH Verified 10/31/25 11:18 Sulfa (Sulfonamide Allergy Mild hives Verified 10/31/25 11:18 Antibiotics) hydrocortisone Allergy Unknown hives Verified 10/31/25 11:18 lanolin Allergy Unknown HIVES Verified 10/31/25 11:18 shrimp Allergy unknown Verified 10/31/25 11:18 tramadol AdvReac Unknown Headache Verified 10/31/25 11:18 steroid cremes Allergy Intermediate Hives / Uncoded 08/04/25 12:21 Red Face bug spray Allergy Unknown Unknown Uncoded 08/04/25 12:21 hand diagnostic radiologist Allergy Unknown Unknown Uncoded 08/04/25 12:21 rubbing alcohol Allergy Rash Uncoded 08/04/25 12:21 Review of Systems Review of Systems: CONSTITUTIONAL: Denies fever, chills, body aches, or sweats. EYES: Denies visual changes, redness, or discharge. ENT: Denies rhinorrhea, congestion, sore throat, or otalgia. CARDIOVASCULAR: Denies chest pain, palpitations, or edema. RESPIRATORY: Denies cough or dyspnea. GASTROINTESTINAL: Denies abdominal pain, nausea, vomiting, or diarrhea. GENITOURINARY: Positive for dysuria, increased frequency. Negative for hematuria. SKIN: Denies rash or itching. MUSCULOSKELETAL: Denies back pain, joint pain, or myalgia. NEUROLOGIC: Denies headache, numbness, or weakness. PSYCHIATRIC: Denies anxiety or depression. All other systems reviewed are negative, except as documented in HPI. [facility] Past Medical History Medical History Wears dentures Closed left ankle fracture Seasonal allergies Urinary tract infection Contact dermatitis Surgical History Surgical History History of placement of ear tubes right ear History of tonsillectomy Social History Social History Smoking status: Never smoker Alcohol intake: current Alcohol use details: rare social Substance use: never Living arrangements: with family Gender identity (if verbalized by the patient): Female Comments At the time of my signature, I reviewed and agree with the nursing past medical, surgical, social, and family history. There is no relevant family history per tinent to the patient complaint. Exam Narrative: GENERAL: This is a well-nourished, well-developed adult, in no apparent distress. They are non ill-appearing, nontoxic appearing. HEAD: normocephalic, atraumatic. EYES: Sclera clear/white. Vision is grossly intact. Conjunctiva normal bilaterally. Extraocular movements intact. EARS: External ears normal,Hearing grossly intact. NOSE: External nose normal THROAT: Mucous membranes moist NECK: Normal range of motion CARDIOVASCULAR: Tachycardic rate and rhythm. Normal S1-S2. No clicks, gallops, rubs, murmurs. RESPIRATORY: Respiratory rate normal, respiratory effort nonlabored, no respiratory distress. Lung sounds clear to auscultation throughout. Lung sounds equal bilaterally. No adventitious lung sounds. GASTROINTESTINAL: Abdomen soft, flat, non-tender, nondistended. Bowel sounds are active. No hepato-splenomegaly, or palpable masses. No guarding. No rebound tenderness. SKIN: warm, Dry, intact with no suspicious lesions or rash, good texture and turgor. NEURO: awake, alert, and oriented to person, place and time. There were no obvio us focal neurologic abnormalities. EXTREMITIES: No joint tenderness, effusion, or edema noted. BACK: Nontender without deformity. No CVA tenderness. Course Course Level of Care: Express Care Visit Vital Signs Vital signs: Vital Signs Temperature 98.0 F 10/31/25 11:22 Pulse Rate 136 H 10/31/25 11:22 Respiratory Rate 18 10/31/25 11:22 Blood Pressure 147/104 H 10/31/25 11:22 Pulse Oximetry 99 10/31/25 11:22 Oxygen Delivery Room Air 10/31/25 11:22 Temperature 98.0 F 10/31/25 11:22 Pulse Rate 136 H 10/31/25 11:22 Respiratory Rate 18 10/31/25 11:22 Blood Pressure 147/104 H 10/31/25 11:22 Pulse Oximetry 99 10/31/25 11:22 Oxygen Delivery Room Air 10/31/25 11:22 [facility] Narrative Medical decision making narrative: Urine dipstick shows evidence of urinary tract infection. Urine culture pending. Given her history of diabetes, tachycardia, and drug allergies will treat her ciprofloxacin. My MDM Differential Diagnosis Differential Diagnosis: Differential diagnostic considerations for female urogenital issues include urinary tract infection, bacterial vaginosis, cervicitis, ovarian cyst, vaginitis, STI exposure, ovarian torsion, ectopic , cyst of Bartholin?s gland, cystitis, dysmenorrhea. Lab Data [facility] Lab Attestation statement: I personally reviewed the patient's lab results. Labs: Lab Results 12/04/25 Range/Units 11:27 POC Urine Color Light/pale POC Urine Clarity Clear POC Urine pH 6.5 POC Ur Specif [place] 1.010 POC Urine Protein Negative (Negative) POC Ur Glucose (UA) Negative (Negative) POC Urine Ketones Negative (Negative) POC Urine Blood 2+ (Negative) POC Urine Nitrite Negative (Negative) POC Urine Bilirubin Negative (Negative) POC Urine Urobilinogen 0.2 POC U Leukocyte Esteras 2+ (Negative) Discharge Plan Discharge Clinical Impression: Urinary tract infection Qualifiers: Urinary tract infection type: site unspecified Hematuria presence: with hematuria Qualified Code(s): N39.0 - Urinary tract infection, site not specified Patient Disposition: Home Condition: Stable Instructions: Antibiotic Form, Urinary Tract Infection in Women (ED) Additional Instructions: Take the antibiotic as prescribed The urine will be sent of for a culture to identify what type of bacteria is causing your infection. If the culture shows that the antibiotic will not get rid of your infection, you will be notified and a new antibiotic will be called in for you. Increase water intake you will need to follow up with your PCP 3-5 days. Go to the ER for any worsening symptoms, abdominal pain, fevers, nausea, vomiting, or any other concerns Patient Language: [place] Prescriptions: New ciprofloxacin HCl 500 mg tablet 500 mg PO Q12H 5 Days Qty: 10 0RF No Action Nortrel (28) 1-35 mg-mcg tablet 1 tablet PO DAILY trazodone 50 mg tablet 50 mg .bedtime famotidine 20 mg tablet 20 mg PO DAILY montelukast 10 mg tablet 10 mg PO cetirizine-pseudoephedrine [Zyrtec-D] 10 tablet PO DAILY [id number]-bro-uhsi-FA-vit K [Adults Multivitamin] PO DAILY cholecalciferol (vitamin D3) .Route DAILY magnesium PO DAILY metformin 500 mg tablet amitriptyline 10 mg tablet prednisone 20 mg tablet 40 mg PO DAILY 5 Days Qty: 10 0RF Follow-up/Referrals: Roderick,Selene Hoang MD [Primary Care Provider, Unknown] Time of Disposition: 11:49
== END 2025-10-31 11:51 | disposition home or self-care (01) ==
PROVIDERS: PCP Family Medicine
DX: N39.0 Urinary tract infection, site not specified (principal); E11.9 Type 2 diabetes mellitus without complications; Z79.84 Long term (current) use of oral hypoglycemic drugs
CPT/HCPCS: 81003; 87086; 99213; G0463

== ENCOUNTER 2025-11-03 15:04 | Emergency (ER) | payer BC, SELFPAY ==
--- NOTE | 2025-11-03 15:06 | ED_ITS ---
HPI - Skin/Abscess/Foreign Bdy General Chief complaint: Skin/Abscess/Foreign Body Stated complaint: Rash Time Seen by Provider: 11/03/25 15:04 Source: patient Mode of arrival: ambulatory Limitations: no limitations History of Present Illness HPI narrative: Crys is a 45-year-old female patient presenting to the clinic today with complaints of a rash to her face that started last night. She reports rash is raised itchy and spreading. History of frequent dermatitis. Is unable to use steriod creams due to the lanolin in the medication. Denies any shortness of breath, difficulty breathing, tongue swelling, or drooling. Related Data Home Medications ?Medication ?Instructions ?Recorded ?Confirmed ?Last Taken ?Type norethindrone 1 mg-ethinyl 1 tablet PO DAILY 09/25/22 10/31/25 Unknown History estradiol 35 mcg tablet (Nortrel) cetirizine-pseudoephedrine 10 tablet PO DAILY 05/21/25 10/31/25 Unknown History cholecalciferol (vitamin D3) .Route DAILY 05/21/25 Un known History famotidine 20 mg tablet 20 mg PO DAILY 05/21/2503/22 Unknown History magnesium PO DAILY 05/21/25 Unknown H istory montelukast 10 mg tablet 10 mg PO 05/21/25 Unknown H istory pkdymtagmpaj-wba-qtrh-FA-vit K PO DAILY 05/21/25 Unkn own History trazodone 50 mg tablet 50 mg .bedtime 05/21/25 Unk nown History amitriptyline 10 mg tablet mg 10/18/25 Unknown Histor y metformin 500 mg tablet mg 10/18/25 Unknown History Allergies Allergy/AdvReac Type Severity Reaction Status Date / Time acetaminophen Allergy Mild Swelling Verified 11/03/25 15:07 Penicillins Allergy Mild HIVES Verified 11/03/25 15:07 poison faustino extract Allergy Mild RASH Verified 11/03/25 15:07 Sulfa (Sulfonamide Allergy Mild hives Verified 11/03/25 15:07 Antibiotics) hydrocortisone Allergy Unknown hives Verified 11/03/25 15:07 lanolin Allergy Unknown HIVES Verified 11/03/25 15:07 shrimp Allergy unknown Verified 11/03/25 15:07 tramadol AdvReac Unknown Headache Verified 11/03/25 15:07 steroid cremes Allergy Intermediate Hives / Uncoded 08/04/25 12:21 Red Face bug spray Allergy Unknown Unknown Uncoded 08/04/25 12:21 hand therapeutic activities services worker Allergy Unknown Unknown Uncoded 08/04/25 12:21 rubbing alcohol Allergy Rash Uncoded 08/04/25 12:21 Review of Systems Review of Systems: Pertinent positives per HPI. Patient denies any fever, chills, rash, headache, visual changes, dizziness, cough, runny nose, sore throat, shortness of breath, chest pain, palpitations, nausea, vomiting, diarrhea, constipation, abdominal pain, or any urinary issues. [facility] Past Medical History Medical History Wears dentures Closed left ankle fracture Seasonal allergies Urinary tract infection Contact dermatitis Surgical History Surgical History History of placement of ear tubes right ear History of tonsillectomy Social History Social History Smoking status: Never smoker Alcohol intake: current Alcohol use details: rare social Substance use: never Living arrangements: with family Gender identity (if verbalized by the patient): Female Comments At the time of my signature, I reviewed and agree with the nursing past medical, surgical, social, and family history. There is no relevant family history pertinent to the patient complaint. Exam Narrative: General: Well-developed, obese, in no apparent distress Head: Normocephalic, atraumatic. Cardio: Regular rate and rhythm, s1 and s2 normal, no murmur appreciated. Resp: Clear to auscultation bilaterally, no rhonchi, rales, wheezing or rubs. Integumentary: [place], warm, and dry, itchy, slightly raised, red rash around the left side of her mouth Course Course Level of Care: Express Care Visit Vital Signs Vital signs: Vital Signs Temperature 37.1 C 11/03/25 15:14 Pulse Rate 114 H 11/03/25 15:14 Respiratory Rate 18 11/03/25 15:14 Blood Pressure 149/96 H 11/03/25 15:14 Pulse Oximetry 99 11/03/25 15:14 Oxygen Delivery Room Air 11/03/25 15:14 Temperature 37.1 C 11/03/25 15:14 Pulse Rate 114 H 11/03/25 15:14 Respiratory Rate 18 11/03/25 15:14 Blood Pressure 149/96 H 11/03/25 15:14 Pulse Oximetry 99 11/03/25 15:14 Oxygen Delivery Room Air 11/03/25 15:14 MDM MDM Narrative Medical decision making narrative: At the time of visit patient is resting comfortably on the exam table. Patient appears to be nontoxic. Complaints of a rash to her face that started last night. She reports rash is raised itchy and spreading. History of frequent dermatitis. Is unable to use steroid creams due to the lanolin in the medication. Denies any shortness of breath, difficulty breathing, tongue swelling, or drooling. slightly raised, red rash around the left side of her mouth Plan: I suspect patient has dermatitis. Supportive measures were discussed with the patient and they voiced understanding discharge instructions and agrees to treatment plan. Return precautions reviewed Differential Diagnosis Differential Diagnosis: Differential diagnostic considerations for skin/abscess/foreign body issues include abscess of skin or subcutaneous tissue, viral exanthem, dermatophytosis, urticaria, herpes zoster, allergic reaction to drug, cellulitis, eczema, insect bites, impetigo, contact dermatitis, vasculitis. Discharge Plan Discharge Clinical Impression: Dermatitis Patient Disposition: Home Condition: Stable Instructions: Antibiotic Form, Dermatitis (ED) Additional Instructions: Take prednisone as directed Avoid hot showers May apply calamine lotion to rash Avoid scratching as this can cause a secondary infection May take benadryl 25-50mg every 6 hours as needed for itching. Follow up with your PCP in 3-5 days if symptoms persist or sooner if they worsen Go to the Emergency Room if symptoms worsen- fever, rash spreading with treatment, shortness of breath, tongue swelling, drooling, or chest pain Patient Language: Ma[place] Prescriptions: New prednisone 10 mg tablet 10 mg PO DAILY Qty: 30 0RF Rx Instructions: 60mg po daily on day 1, 40mg po daily on days 2-4, 30mg po daily on days 5-6, 20mg po daily on days 7-8, 10mg po daily on days 9-10 No Action Nortrel (28) 1-35 mg-mcg tablet 1 tablet PO DAILY trazodone 50 mg tablet 50 mg .bedtime famotidine 20 mg tablet 20 mg PO DAILY montelukast 10 mg tablet 10 mg PO cetirizine-pseudoephedrine [Zyrtec-D] 10 tablet PO DAILY istlaplrtobk-nhh-karb-FA-vit K [Adults Multivitamin] PO DAILY cholecalciferol (vitamin D3) .Route DAILY magnesium PO DAILY metformin 500 mg tablet amitriptyline 10 mg tablet Follow-up/Referrals: Roderick,Selene Hoang MD [Primary Care Provider, Unknown] Time of Disposition: 15:22 Quality NIHSS Nursing Documentation ED NIHSS nursing documentation: reviewed/agree
[2025-11-03 15:14] VITALS: BP 149/96; PULSE 114; RESP 18; TEMP 37.1; O2SAT 99
== END 2025-11-03 15:30 | disposition home or self-care (01) ==
PROVIDERS: Emergency Provider Nurse Practitioner Family; PCP Family Medicine
DX: L30.9 Dermatitis, unspecified (principal)
CPT/HCPCS: 99213; G0463

== ENCOUNTER 2025-11-24 14:03 | Emergency (ER) | payer BC, SELFPAY ==
--- NOTE | 2025-11-24 14:10 | ED_ITS ---
HPI - Skin/Abscess/Foreign Bdy General Chief complaint: Skin/Abscess/Foreign Body Stated complaint: Rash Time Seen by Provider: 11/24/25 14:05 Source: patient Mode of arrival: ambulatory Limitations: no limitations History of Present Illness HPI narrative: patient is a 45-year-old female who presents with itchy rash to face for the last 4-5 days. Patient has been seen multiple times for same rash. Patient was seen by supervisor locomotive 5 days ago and states she was given no answers. Patient uses Dial soap multiple times a day and has still moisturizer that she can use due to lanolin allergy. Patient was just on 10 days of prednisone beginning of the month and completed course 10 days ago. Patient states she her are concerned the rash is going to worsen and go into her mouth and down her throat. Related Data Home Medications ?Medication ?Instructions ?Recorded ?Confirmed ?Last Taken ?Type norethindrone 1 mg-ethinyl 1 tablet PO DAILY 09/25/22 10/31/25 Unknown History estradiol 35 mcg tablet (Nortrel) cetirizine-pseudoephedrine 10 tablet PO DAILY 05/21/25 10/31/25 Unknown History cholecalciferol (vitamin D3) .Route DAILY 05/21/25 Un known History magnesium PO DAILY 05/21/25 Unknown H istory montelukast 10 mg tablet 10 mg PO 05/21/25 Unknown H istory [id number]-wse-sazm-FA-vit K PO DAILY 05/21/25 Unkn own History trazodone 50 mg tablet 50 mg .bedtime 05/21/25 Unk nown History amitriptyline 10 mg tablet mg 10/18/25 Unknown Histor y metformin 500 mg tablet,extended mg PO 11/24/25 Unkno wn History release 24 hr Allergies Allergy/AdvReac Type Severity Reaction Status Date / Time acetaminophen Allergy Mild Swelling Verified 11/24/25 14:49 Penicillins Allergy Mild HIVES Verified 11/24/25 14:49 poison faustino extract Allergy Mild RASH Verified 11/24/25 14:49 Sulfa (Sulfonamide Allergy Mild hives Verified 11/24/25 14:49 Antibiotics) hydrocortisone Allergy Unknown hives Verified 11/24/25 14:49 lanolin Allergy Unknown HIVES Verified 11/24/25 14:49 shrimp Allergy unknown Verified 11/24/25 14:49 tramadol AdvReac Unknown Headache Verified 11/24/25 14:49 steroid cremes Allergy Intermediate Hives / Uncoded 08/04/25 12:21 Red Face bug spray Allergy Unknown Unknown Uncoded 08/04/25 12:21 hand motorcoach driver Allergy Unknown Unknown Uncoded 08/04/25 12:21 rubbing alcohol Allergy Rash Uncoded 08/04/25 12:21 Review of Systems 2 Review of Systems: All systems reviewed & are unremarkable except as noted in HPI and below Constitutional: Constitutional: Denies body ache(s), Denies chills, Denies fatigue, Denies fever(s), Denies headache(s), Denies malaise and Denies weakness Eyes: Eyes: Denies blurry vision, Denies irritation and Denies loss of vision ENT: Denies otalgia, Denies headache(s), Denies nasal discharge, Denies sinus pain and Denies sore throat Cardiovascular: Cardiovascular: Denies chest pain, Denies irregular heart rhythm and Denies dyspnea Respiratory: Respiratory: Denies dyspnea Gastrointestinal: Gastrointestinal: Denies abdominal pain, Denies melena, Denies hematochezia, Denies diarrhea, Denies nausea and Denies vomiting Musculoskeletal: Musculoskeletal: Denies back pain, Denies myalgias and Denies arthralgias Integumentary/Breasts: Skin/Breast: Reports pruritus and Reports rash Neurologic: Denies headache(s), Denies loss of vision and Denies weakness Psychiatric: Psychiatric: Reports no additional psychiatric complaints Endocrine: Endocrine: Denies fatigue PMFSH Past Medical History Medical History Wears dentures Closed left ankle fracture Seasonal allergies Urinary tract infection Contact dermatitis Surgical History Surgical History History of placement of ear tubes right ear History of tonsillectomy Social History Social History Smoking status: Never smoker Alcohol intake: current Alcohol use details: rare social Substance use: never Living arrangements: with family Gender identity (if verbalized by the patient): Female Comments At time of signature, agree with nursing past medical, surgical, social and family history. There is no relevant family history pertinent to the presenting complaint. Exam 2 Const: General: cooperative, healthy appearing, comfortable, no acute distress and well nourished Nutritional Appearance: well nourished O rientation/consciousness: patient oriented x3 Limitations: no limitations HENMT: Head: normal to inspection, normocephalic and atraumatic Ears: h earing grossly normal bilaterally and external ears normal Face/Nose/Sinus: N ormal external nose present, normal facial exam and face symmetric Nose image: 1. small pimple sized raised red spots throughout tip of nose and around mouth. Skin appears dry Face and sinus: normal facial exam and face symmetric Mouth: Yes lip normal Eyes: General: appearance normal, both eyes and all related structures A lignment and Position: alignment normal and position normal Periorbital: p eriorbital findings normal Eyelids: eyelids normal Pupils: Equal, round and reactive pupils present EOM: EOMs intact bilaterally Neck: Neck: normal visual inspection, full ROM and supple Chest: Chest palpation & inspection: normal inspection of the chest Resp: Effort & Inspection: normal respiratory effort and able to speak in complete sentences Auscultation: clear to auscultation bilaterally Cardio: Rate: regular rate Rhythm: regular rhythm Heart sounds: S1 normal heart sound present and S2 normal heart sound present GI: Inspection: normal to inspection Skin: General skin exam: normal color and no rashes or lesions noted Neuro: General: patient oriented x3 and moves all extremities Cranial nerves: Yes Equal, round and reactive pupils present Speech: normal speech Gait exam (Neuro): Normal gait present Extrem: General: normal to inspection, full ROM and no edema Psych: Appearance: grossly normal and well kempt Mental Status: mental status grossly normal Speech and movement: Normal speech and movement present Affect: normal affect Attitude: cooperative Thought process: Normal thought process present Course Course Emergency Course: Patient is aware of diagnosis, understands and agrees to treatment plan. Anticipatory guidance given. Patient agrees to follow-up as directed and is aware of reasons to seek care at the emergency department. Portions of this record may have been created with voice recognition software Level of Care: Express Care Visit Vital Signs Vital signs: Vital Signs Temperature 35.7 C L 11/24/25 14:11 Pulse Rate 128 H 11/24/25 14:11 Respiratory Rate 16 11/24/25 14:11 Blood Pressure 139/97 H 11/24/25 14:11 Pulse Oximetry 99 11/24/25 14:11 Oxygen Delivery Room Air 11/24/25 14:11 Temperature 35.7 C L 11/24/25 14:11 Pulse Rate 128 H 11/24/25 14:11 Respiratory Rate 16 11/24/25 14:11 Blood Pressure 139/97 H 11/24/25 14:11 Pulse Oximetry 99 11/24/25 14:11 Oxygen Delivery Room Air 11/24/25 14:11 MDM MDM Narrative Medical decision making narrative: discussed in depth the risks of being on steroids long-term. Patient states that the only thing that helps. Patient was seen by supervisor locomotive 5 days ago and states they wanted to do a bunch of testing that she can do to she is allergic to paper tape. Discussed the rash looks like over the dry skin that needs moisturizer since she has been using Dial soap multiple times a day drying face along with the weather changing and the air drying. Pt well hydrated appearing, in no respiratory distress, hemodynamically stable. Recommend supportive care. The patient is stable at time of discharge the clinical impression was discussed and the patient was given the opportunity to ask questions, which were addressed as completely as possible given the information available at present. Anticipatory guidance and return to care precautions were discussed and the importance of primary care follow-up was stressed and encouraged. The patient voiced understanding of the plan, indications to return, and the need for follow-up. Exam findings show no acute concerns or changes Patient is appropriate for outpatient treatment and follow-up. Differential Diagnosis Differential Diagnosis: Differential diagnostic considerations for skin/abscess/foreign body issues include abscess of skin or subcutaneous tissue, viral exanthem, dermatophytosis, urticaria, herpes zoster, allergic reaction to drug, cellulitis, eczema, insect bites, impetigo, contact dermatitis, vasculitis. Medical Records I have reviewed the following patient records and this information was taken into consideration when formulating the assessment and plan.: previous clinic visits Discharge Plan Discharge Clinical Impression: Dermatitis Patient Disposition: Home Condition: Stable Instructions: Dermatitis (ED) Additional Instructions: Take steroid in the morning with food. Take famotidine daily. Take Claritin, Zyrtec or Aminah in the morning along with Benadryl at night. Wash the skin thoroughly with soap and cool water as soon as possible. Scrub under the fingernails with a brush to prevent spreading to other parts of the body by touching or scratching. IF symptoms get worse to follow up with your primary care provider or seek ER visit if you developing difficulty breathing, weakness, dizziness Patient Language: Gabonese Prescriptions: New prednisone 20 mg tablet See Rx Instructions .ROUTE .COMPLEX Qty: 9 0RF Rx Instructions: 40 mg daily x3 days, 20 mg daily x3 days No Action Nortrel (28) 1-35 mg-mcg tablet 1 tablet PO DAILY trazodone 50 mg tablet 50 mg .bedtime montelukast 10 mg tablet 10 mg PO cetirizine-pseudoephedrine [Zyrtec-D] 10 tablet PO DAILY [id number]-[id number]-[id number]-FA-vit K [Adults Multivitamin] PO DAILY cholecalciferol (vitamin D3) .Route DAILY magnesium PO DAILY amitriptyline 10 mg tablet metformin 500 mg tablet extended release 24 hr PO Follow-up/Referrals: Vauhgn,Selene Hoang MD [Primary Care Provider, Unknown] - 3 Days Time of Disposition: 14:43
[2025-11-24 14:11] VITALS: BP 139/97; PULSE 128; RESP 16; TEMP 35.7; O2SAT 99
== END 2025-11-24 14:47 | disposition home or self-care (01) ==
PROVIDERS: Emergency Provider Nurse Practitioner Family; PCP Family Medicine
DX: L30.9 Dermatitis, unspecified (principal)
CPT/HCPCS: 99213; G0463